=== PATIENT | male | born 1960 | race Caucasian/White ===

== ENCOUNTER 2023-08-05 11:45 | Emergency (ER) | payer MEDICARE, MEDICAID, SELFPAY ==
[2023-08-05 11:56] VITALS: BP 135/84
[2023-08-05 11:58] VITALS: BMI 24.6
--- NOTE | 2023-08-05 12:51 | ED.GENMED ---
History of Present Illness
General
Chief Complaint: Catheter/Tube Problem
Source: ambulance crew and [facility]
Exam Limitations: developmental stage
Time Seen by Provider: 08/05/23 12:26
Nursing documentation reviewed up to this point in time: agreed with
Travel History
Have you had any contact with someone who has COVID-19?: No
Do you have any symptoms of coronavirus? Fever > 100 degrees, chills, cough, shortness of breath, sore throat, loss of taste or smell, muscle aches, or headache?: No
History of Present Illness
History of Present Illness:
Patient is a 63-year-old male past medical history of CVA CP seizures, chronic kidney failure followed by Dr. Shields presents to the ER sent by personal long-term for blood in Lehman catheter. Patient is not on blood thinners but does have a history of
hematuria in the past. Patient was hospitalized in March requiring three-way Lehman catheter.
Patient is awake alert no acute distress denies abdominal pain.
Patient presents to the ER with blood-tinged urine in Lehman bag no clots
Past History
Past History
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
ED Past Surgical History: Orthopedic (Foot surery, right hip sx. )
Social History
Tobacco: Non-smoker
Alcohol: None
Drug: None
Personal: Single
Living: assisted living
Employment: Not employed
Family History
Family History: Unable to obtain
Review of Systems
Review of Systems
Allergies reviewed?: Yes
All Other Systems: ROS reviewed and negative except as documented in HPI and ROS
Constitutional: Reports no symptoms; Denies fever
Respiratory: Reports no symptoms
Cardiac: Reports no symptoms
ABD/GI: Reports no symptoms
: Reports other (Blood in Lehman catheter)
Musculoskeletal: Reports no symptoms
Skin: Reports no symptoms
Neurological: Reports no symptoms
Phy Exam
General Physical Exam
General Presentation: no apparent distress
General age: appears stated age
General Skin: warm and dry
General Habitus: other (Developmental delay)
General Mental: alert
Genitourinary Exam Male
Exam Male: other (lehman bag with blood tinged urine )
Neurological Exam
Neurological Exam: alert
Musculoskeletal Exam
Musculoskeletal Exam: full ROM
Skin Exam
Skin Exam: normal color and warm/dry
Course
Orders/Labs/Results
Orders:
Orders
08/05/23 13:12
Urinalysis Reflex To Culture Urgent
Date Specimen was Collected: 08/05/23
Time Specimen was Collected: 13:07
Urine Microscopic Reflex Cult Urgent
Urine Culture Urgent
DAVID Source: U
Specimen Description:
Date Specimen was Collected: 08/05/23
Time Specimen was Collected: 13:07
08/05/23 13:43
Complete Blood Count/With Diff Urgent
Comprehensive Metabolic Panel Urgent
08/05/23 14:35
Urinalysis Reflex To Culture Urgent
Date Specimen was Collected: 08/05/23
Time Specimen was Collected: 14:34
Comment: Repeat UA after catheter insertion
Urine Microscopic Reflex Cult Urgent
Urine Culture Urgent
DAVID Source: U
Specimen Description:
Date Specimen was Collected: 08/05/23
Time Specimen was Collected: 14:34
Abnormal Lab Results
08/05/23 08/05/23 08/05/23
13:12 13:43 14:35
WBC 12.3 H 10^3/uL
(4.8-10.8)
RBC 3.17 L 10^6/uL
(4.70-6.10)
Hgb 10.1 L g/dL
(13.0-18.0)
Hct 30.1 L %
(39.0-52.0)
MCV 95.0 H fL
(80.0-94.0)
MCH 31.9 H pg
(27.0-31.0)
Absolute Neuts (auto) 8.7 H 10^3/uL
(1.4-6.5)
Absolute Monos (auto) 1.3 H 10^3/uL
(0.1-0.6)
Lymphocytes % 16.3 L %
(20.5-51.1)
Monocytes % 10.8 H %
(1.7-9.3)
Sodium 133 L mmol/L
(135-145)
Chloride 96 L mmol/L
(98-107)
BUN 65 H mg/dl
(9-20)
Creatinine 2.5 H mg/dL
(0.7-1.3)
Glucose 111 H mg/dl
(70-99)
Alkaline Phosphatase 141 H U/L
(38-126)
Urine Ketones Trace A
(Negative)
Ur Occult Blood Reflex 4+ A 4+ A
(Negative) (Negative)
Leukocyte Esterase Rfl 2+ A 1+ A
(Negative) (Negative)
Urine RBC >100 A /HPF 80-90 A /HPF
(0-2) (0-2)
Urine WBC (Reflex) 26-30 A /HPF
(0-5)
Urine Bacteria (Reflex) Few A
(Negative)
Urine Albumin (Reflex) 2+ A 1+ A
(Neg - Trace) (Neg - Trace)
08/05/23 13:43
08/05/23 13:43
Vital Signs
Initial and Last Documented VS:
Initial Vital Signs
Temp Pulse Resp BP Pulse Ox
97.9 F 77 18 135/84 100
08/05/23 11:56 08/05/23 11:56 08/05/23 11:56 08/05/23 11:56 08/05/23 11:56
Last Documented Vital Signs
Temp Pulse Resp BP Pulse Ox
97.9 F 74 18 135/84 100
08/05/23 11:56 08/05/23 14:52 08/05/23 11:56 08/05/23 11:56 08/05/23 11:56
Procedures
Other
Indication for procedure:: lehman not working /hematuria
Additional Procedure:
22 fr Lehman coud� catheter inserted successfully with clear yellow urine return
MDM/Problems Addressed
Differential Diagnosis Includes:
Not limited to hematuria acute urinary retention UTI
MDM/Problems Addressed:
Patient is a 63-year-old male with chronic Lehman catheter presented with hematuria sent by personal care facility. Patient had 550 mL of urine still in bladder despite Lehman catheter. Will check urine but will have nurse irrigate.
Nurse had difficulty urinating and was unable to insert new Lehman. I was able to successfully insert a 22 Hebrew coud� catheter draining clear yellow urine patient is afebrile white count minimally elevated with stable hemoglobin of 10.1 which is
improved from March 2023 of 9.0. Patient's BUN is 65 creatinine 2.5 does have a history of chronic renal failure and labs are baseline. Since urine is now clear yellow and labs are stable and Lehman catheter is properly draining stable for
discharge back to nursing care facility patient is not on blood thinners.
Patient had 2 urinalysis sent the first 1 was from his original Lehman bag however the repeat 1 was from the new catheter insertion urine .
will treat with cefdinir for possible catheter associated UTI however patient nontoxic afebrile looks well stable for discharge home .
Prior micro cultures reviewed. Patient was discharged on this medication previously tolerated well.
Will DC with outpatient followed by urology
*Pulse Oximetry
Patient hypoxic: no
*Critical Care Note
Total Time (30-74mins, 75-104mins- exclusive of procedures): Not Applicable
Data Reviewed
Review of Other/Old Records Reveals: Labs and Discharge Summary
ED Attending Note
-
Portions of this chart may have been created with voice recognition software.� Occasional wrong word or��sound alike� substitutions may have occurred due to the inherent limitations of voice recognition software.
Discharge Plan
Departure
Patient Disposition: Long Term/SNF
Date of Disposition: 08/05/23
Time of Disposition: 15:26
Patient with high blood pressure during this ER visit?: Yes
Condition: Fair
Covid-19: Not Applicable
Discharge Problem:
Hematuria, Acute UTI
Instructions: Urinary Tract Infection, Adult ED, Blood in Urine (Hematuria), Adult ED
Prescriptions:
New
cefdinir 300 mg capsule
300 mg PO BID Qty: 20 0RF
No Action
vitamin E (dl, acetate) 400 UNITS capsule
400 units PO DAILY
acetaminophen 325 MG tablet
650 mg PO QIDPRN PRN (Reason: mild pain/fever)
cholecalciferol (vitamin D3) 1,000 UNITS tablet
1,000 units PO QPM
levetiracetam 500 MG tablet
1,000 mg PO BID Qty: 120 0RF
carbamazepine 200 MG tablet
200 mg PO BID@0800,1600
carbamazepine 200 MG tablet
300 mg PO HS
ascorbic acid (vitamin C) [Vitamin C] 500 MG tablet
500 mg PO DAILY Qty: 60 0RF
lamotrigine [Lamictal] 150 mg Tablet
300 mg PO BID
clorazepate dipotassium 3.75 mg Tablet
3.75 mg PO BID
calcium polycarbophil [Fiber (calcium polycarbophil)] 625 mg Tablet
625 mg PO HS
methenamine hippurate 1 gram tablet
1 g PO BID
docusate sodium 100 MG capsule
100 mg PO BID
escitalopram oxalate 10 mg tablet
10 mg PO DAILY
sodium bicarbonate 650 mg Tablet
650 mg PO BID
guaifenesin 100 mg/5 mL Liquid
200 mg PO Q4HPRN PRN (Reason: cough)
polyethylene glycol 3350 17 gram powder in packet
17 g PO Q48H
aripiprazole 5 mg Tablet
5 mg PO HS
cefdinir 300 mg Capsule
300 mg PO DAILY Qty: 9 0RF
white petrolatum [Hydrophor] 42 % Ointment
1 applic topical DAILY Qty: 0 0RF
Referrals:
Chacha Dnubar PA [Family Provider] -
Activity Restrictions/Additional Instructions:
A new 22 Hebrew coud� Lehman catheter was inserted draining clear yellow urine. Patient will be treated for urinary tract infection. Prescription for cefdinir sent to pharmacy. Follow-up with his family doctor in the next several days for
reevaluation
Interventions
Interventions:
*General Assessment Last Done: 08/05/23 11:54
ED- Fall Risk Assessment Last Done: 08/05/23 11:54
*ED COVID-19 Vaccine History Last Done: 08/05/23 11:55
HP-Txxtor-Aenlnlercy Assessment Last Done: 08/05/23 12:10
ED-Male Genitourinary Assessment Last Done: 08/05/23 12:00
Discharge Date and Time
Print Language: [place]THER[place] IRISH
[2023-08-05 13:51] LABS: Urine Albumin 2+ (Neg - Trace); Urine Bilirubin Negative (Negative); Urine Character Very Cloudy (Clear); Urine Color Amber; Urine Glucose Negative (Negative); Urine Ketone Trace (Negative); Urine Leukocyte 2+ (Negative); Urine Nitrite Negative (Negative); Urine Occult Blood 4+ (Negative); Urine Specific Gravity 1.015 (<1.030); Urine Urobilinogen Negative (Neg - 1+)
[2023-08-05 13:59] LABS: % Basophils 0.3 % (0-2); % Immature Granulocytes 0.2 % (0-0.5); % Lymphocytes 16.3 % (20.5-51.1); % Monocytes 10.8 % (1.7-9.3); % Neutrophils 71.4 % (42.2-75.2); Absolute Eosinophils 0.1 10^3/uL (0-0.7); Absolute Monocytes 1.3 10^3/uL (0.1-0.6); Absolute Neutrophils 8.7 10^3/uL (1.4-6.5); Hematocrit 30.1 % (39.0-52.0); Hemoglobin 10.1 g/dL (13.0-18.0); Mean Corp Hgb Conc. 33.6 g/dL (33.0-37.0); Mean Corpuscular Hgb 31.9 pg (27.0-31.0); Mean Platelet Volume 9.9 fL (7.4-10.4); Nucleated Red Blood Cells % 0 % (-); Platelet Count 263 10^3/uL (130-400); Red Blood Cell Count 3.17 10^6/uL (4.70-6.10); Red Cell Dist. Width 13.2 % (11.5-14.5); White Blood Cell Count 12.3 10^3/uL (4.8-10.8)
[2023-08-05 14:15] LABS: ALT (SGPT) 15 U/L (0-50); AST (SGOT) 23 U/L (17-59); Alkaline Phosphatase 141 U/L (38-126); Blood Urea Nitrogen 65 mg/dl (9-20); Carbon Dioxide 28 mmol/L (22-30); Chloride 96 mmol/L (98-107); Estimated Creatinine Clearance 24 ml/min; Glucose 111 mg/dl (70-99); Potassium 4.2 mmol/L (3.5-5.1); Sodium 133 mmol/L (135-145); Total Bilirubin 0.5 mg/dl (0.2-1.3); Total Protein 6.7 g/dl (6.3-8.2); eGFR 28.52
[2023-08-05 14:15] LABS: Urine Red Blood Cell >100 /HPF (0-2)
[2023-08-05 15:05] LABS: Urine Albumin 1+ (Neg - Trace); Urine Bilirubin Negative (Negative); Urine Character Clear (Clear); Urine Color Yellow; Urine Glucose Negative (Negative); Urine Ketone Negative (Negative); Urine Leukocyte 1+ (Negative); Urine Nitrite Negative (Negative); Urine Occult Blood 4+ (Negative); Urine Urobilinogen Negative (Neg - 1+); Urine pH 6.5 (5.0-9.0)
[2023-08-05 15:17] LABS: Urine Bacteria Few (Negative); Urine Red Blood Cell 80-90 /HPF (0-2); Urine Squamous Cell 0-2 /LPF (Few)
[2023-08-05 15:18] LABS: Urine White Cell 26-30 /HPF (0-5)
== END 2023-08-05 17:41 ==
LOC: EMR 11:45
PROVIDERS: Nurse Practitioner; EMERGENCY PHYSICIAN Emergency Medicine; FAMILY PHYSICIAN Internal Medicine
DX: R31.9 Hematuria, unspecified (principal); N39.0 Urinary tract infection, site not specified; R03.0 Elevated blood-pressure reading, without diagnosis of hypertension; N18.9 Chronic kidney disease, unspecified; K21.9 Gastro-esophageal reflux disease without esophagitis; R56.9 Unspecified convulsions; I69.351 Hemiplegia and hemiparesis following cerebral infarction affecting right dominant side; F32.A Depression, unspecified; F41.9 Anxiety disorder, unspecified; G80.9 Cerebral palsy, unspecified; N40.0 Benign prostatic hyperplasia without lower urinary tract symptoms; Z91.51 Personal history of suicidal behavior
CPT/HCPCS: 99284; 51702; 80053; 81003; 81015; 85025; 87077; 87086; 87147; 87186

== ENCOUNTER → 2023-08-16 08:43 | Outpatient (REF) | payer MEDICARE, MEDICAID, SELFPAY ==
[2023-08-16 10:30] LABS: % Immature Granulocytes 0.3 % (0-0.5); % Lymphocytes 34.2 % (20.5-51.1); % Monocytes 9.7 % (1.7-9.3); % Neutrophils 51.8 % (42.2-75.2); Absolute Basophils 0.1 10^3/uL (0-0.2); Absolute Eosinophils 0.3 10^3/uL (0-0.7); Absolute Lymphocytes 3.1 10^3/uL (1.2-3.4); Absolute Monocytes 0.9 10^3/uL (0.1-0.6); Absolute Neutrophils 4.6 10^3/uL (1.4-6.5); Hemoglobin 10.9 g/dL (13.0-18.0); Mean Corp Hgb Conc. 35.2 g/dL (33.0-37.0); Mean Corpuscular Volume 90.9 fL (80.0-94.0); Mean Platelet Volume 9.8 fL (7.4-10.4); Nucleated Red Blood Cells % 0 % (-); Platelet Count 317 10^3/uL (130-400); Red Blood Cell Count 3.41 10^6/uL (4.70-6.10); Red Cell Dist. Width 13.3 % (11.5-14.5)
[2023-08-16 11:11] LABS: Total Iron Binding Capacity 245 ug/dl (261-462)
[2023-08-16 11:17] LABS: Iron 85 ug/dl (49-181); Percent Saturation 34 % (20-50)
[2023-08-16 11:38] LABS: Ferritin 68.9 ng/ml (17.9-464.0)
== END ==
LOC: REG 08:43
PROVIDERS: ATTENDING PHYSICIAN Specialist; FAMILY PHYSICIAN Nurse Practitioner
DX: I10 Essential (primary) hypertension (principal); D64.9 Anemia, unspecified; N17.9 Acute kidney failure, unspecified
CPT/HCPCS: 36415; 82728; 83540; 83550; 85025

== ENCOUNTER 2023-11-23 22:07 | Emergency (ER) | payer MEDICARE, MEDICAID, SELFPAY ==
[2023-11-23 22:10] VITALS: BP 150/90
--- NOTE | 2023-11-23 22:43 | ED.GENMED ---
History of Present Illness
<JELANI Ann - Last Filed: 11/23/23 22:57>
General
Chief Complaint: Catheter/Tube Problem
Time Seen by Provider: 11/23/23 22:43
History of Present Illness
History of Present Illness:
Patient is a 63 year old male with a PMH of cerebral palsy and seizures presents to the ED with his catheter pulled out with the balloon inflated. Patient was not cooperating with answering any questions and just claimed that his catheter came out
somehow.
Past History
<JELANI Ann - Last Filed: 11/23/23 22:57>
Past History
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
ED Past Surgical History: Orthopedic (Foot surery, right hip sx. )
Social History
Tobacco: Non-smoker
Alcohol: None
Drug: None
Personal: Single
Living: assisted living
Employment: Not employed
Family History
Family History: Unable to obtain
Review of Systems
<JELANI Ann - Last Filed: 11/23/23 22:57>
Review of Systems
Allergies reviewed?: No
Phy Exam
<JELANI Ann - Last Filed: 11/23/23 22:57>
General Physical Exam
General Presentation: moderate distress
General age: appears stated age
Pulmonary Exam
Pulmonary Exam: no respiratory distress
Course
<JELANI Ann - Last Filed: 11/23/23 22:57>
Orders/Labs/Results
Orders:
Orders
11/23/23 22:44
Galvin Placement- Treatment ONCE
Reason for insertion: Acute Retention
11/23/23 23:56
Urinalysis Reflex To Culture Urgent
Date Specimen was Collected: 11/23/23
Time Specimen was Collected: 23:57
11/24/23 00:00
Urine Microscopic Reflex Cult Urgent
Urine Culture Urgent
DAVID Source: U
Specimen Description:
Date Specimen was Collected: 11/23/23
Time Specimen was Collected: 23:57
11/24/23 01:22
CT Head W/o Iv Contrast Urgent
Comment:
Reason For Exam: unwitnessed fall
Abnormal Lab Results
11/24/23
00:00
Ur Occult Blood Reflex 3+ A
(Negative)
Leukocyte Esterase Rfl 2+ A
(Negative)
Urine WBC (Reflex) >100 A /HPF
(0-5)
Urine Albumin (Reflex) 2+ A
(Neg - Trace)
Vital Signs
Initial and Last Documented VS:
Initial Vital Signs
Temp Pulse Resp BP Pulse Ox
97.8 F 76 18 150/90 95
11/23/23 22:10 11/23/23 22:10 11/23/23 22:10 11/23/23 22:10 11/23/23 22:10
Last Documented Vital Signs
Temp Pulse Resp BP Pulse Ox
97.8 F 76 18 123/81 96
11/23/23 22:10 11/23/23 22:10 11/23/23 22:10 11/24/23 01:00 11/24/23 00:14
<Wilfredo Oliver, DO - Last Filed: 11/24/23 03:02>
Orders/Labs/Results
Orders:
Orders
11/23/23 22:44
Galvin Placement- Treatment ONCE
Reason for insertion: Acute Retention
11/23/23 23:56
Urinalysis Reflex To Culture Urgent
Date Specimen was Collected: 11/23/23
Time Specimen was Collected: 23:57
11/24/23 00:00
Urine Microscopic Reflex Cult Urgent
Urine Culture Urgent
DAVID Source: U
Specimen Description:
Date Specimen was Collected: 11/23/23
Time Specimen was Collected: 23:57
11/24/23 01:22
CT Head W/o Iv Contrast Urgent
Comment:
Reason For Exam: unwitnessed fall
Abnormal Lab Results
11/24/23
00:00
Ur Occult Blood Reflex 3+ A
(Negative)
Leukocyte Esterase Rfl 2+ A
(Negative)
Urine WBC (Reflex) >100 A /HPF
(0-5)
Urine Albumin (Reflex) 2+ A
(Neg - Trace)
Vital Signs
Initial and Last Documented VS:
Initial Vital Signs
Temp Pulse Resp BP Pulse Ox
97.8 F 76 18 150/90 95
11/23/23 22:10 11/23/23 22:10 11/23/23 22:10 11/23/23 22:10 11/23/23 22:10
Last Documented Vital Signs
Temp Pulse Resp BP Pulse Ox
97.8 F 76 18 123/81 96
11/23/23 22:10 11/23/23 22:10 11/23/23 22:10 11/24/23 01:00 11/24/23 00:14
<JELANI Ann - Last Filed: 11/23/23 22:57>
*Critical Care Note
Total Time (30-74mins, 75-104mins- exclusive of procedures): Not Applicable
<Wilfredo Oliver DO - Last Filed: 11/24/23 03:02>
Update Note
Update Note:
IMPRESSION
Compared to 06/01/2022, no significant interval change
No evidence of acute intracranial abnormality. No evidence of hemorrhage or mass.
Severe dilatation of the left lateral ventricle with additional moderate dilation of the ventricles.
Moderate periventricular and subcortical regions of low attenuation likely representing chronic small vessel ischemic disease.
Bones are unremarkable.
Sinuses are unremarkable.
ED Attending Note
<JELANI Ann - Last Filed: 11/23/23 22:57>
-
Portions of this chart may have been created with voice recognition software.� Occasional wrong word or��sound alike� substitutions may have occurred due to the inherent limitations of voice recognition software.
<Wilfredo Oliver DO - Last Filed: 11/24/23 03:02>
ED Attending Note
Patient seen and examined by attending physician: Yes
I performed the substantive portion of visit, reviewed & personally made and approve the management plan that is documented in note by myself or CHEN.: Yes
ED Attending Note:
63-year-old male with a history of cerebral palsy who resides at [facility] presents to the emergency department via EMS after being found on the floor with his Galvin removed. The Galvin was likely dislodged during the fall, As the balloon
was inflated. Patient was seen in conjunction with the PA student. I have reviewed and agree with the history and treatment plan presented. On my independent physical exam, patient is somnolent. Nursing had replaced the Galvin catheter. Patient
now resting comfortably. No acute
Discharge Plan
Departure
Patient Disposition: Fdc/SNF
Date of Disposition: 11/24/23
Time of Disposition: 03:01
Patient with high blood pressure during this ER visit?: Yes
Discharge Problem:
Complication of Galvin catheter
Instructions: How to Care for Your Galvin Catheter, Male, BLOOD PRESSURE
Prescriptions:
No Action
vitamin E (dl, acetate) 400 UNITS capsule
400 units PO DAILY
acetaminophen 325 MG tablet
650 mg PO QIDPRN PRN (Reason: mild pain/fever)
cholecalciferol (vitamin D3) 1,000 UNITS tablet
1,000 units PO QPM
levetiracetam 500 MG tablet
1,000 mg PO BID Qty: 120 0RF
carbamazepine 200 MG tablet
200 mg PO BID@0800,1600
carbamazepine 200 MG tablet
300 mg PO HS
ascorbic acid (vitamin C) [Vitamin C] 500 MG tablet
500 mg PO DAILY Qty: 60 0RF
lamotrigine [Lamictal] 150 mg Tablet
300 mg PO BID
clorazepate dipotassium 3.75 mg Tablet
3.75 mg PO BID
calcium polycarbophil [Fiber (calcium polycarbophil)] 625 mg Tablet
625 mg PO HS
methenamine hippurate 1 gram tablet
1 g PO BID
docusate sodium 100 MG capsule
100 mg PO BID
escitalopram oxalate 10 mg tablet
10 mg PO DAILY
sodium bicarbonate 650 mg Tablet
650 mg PO BID
guaifenesin 100 mg/5 mL Liquid
200 mg PO Q4HPRN PRN (Reason: cough)
polyethylene glycol 3350 17 gram powder in packet
17 g PO Q48H
aripiprazole 5 mg Tablet
5 mg PO HS
cefdinir 300 mg Capsule
300 mg PO DAILY Qty: 9 0RF
white petrolatum [Hydrophor] 42 % Ointment
1 applic topical DAILY Qty: 0 0RF
cefdinir 300 mg capsule
300 mg PO BID Qty: 20 0RF
Referrals:
NONE,* [Family Provider] -
Interventions
Interventions:
*Risk Screen - Suicide Last Done: 11/23/23 23:20
*General Assessment Last Done: 11/23/23 23:20
*Neglect/Abuse Screening Last Done: 11/23/23 23:20
*ED COVID-19 Vaccine History Last Done: 11/23/23 23:20
TG-Klpirx-Iodjdisjxc Assessment Last Done: 11/23/23 23:20
ED-Male Genitourinary Assessment Last Done: 11/23/23 23:20
Discharge Date and Time
Print Language: NAMIBIAN
[2023-11-23 23:16] VITALS: BP 106/65
[2023-11-24] VITALS: BP 107/59
[2023-11-24 00:07] LABS: Urine Albumin 2+ (Neg - Trace); Urine Bilirubin Negative (Negative); Urine Character Very Cloudy (Clear); Urine Color Yellow; Urine Glucose Negative (Negative); Urine Ketone Negative (Negative); Urine Leukocyte 2+ (Negative); Urine Nitrite Negative (Negative); Urine Occult Blood 3+ (Negative); Urine Urobilinogen Negative (Neg - 1+)
[2023-11-24 00:30] LABS: Urine White Cell >100 /HPF (0-5)
[2023-11-24 01:00] VITALS: BP 123/81
--- NOTE | 2023-11-24 02:22 | EDRN ---
Report received, waiting on CT report for dispo, patient provided with more warm blankets
--- NOTE | 2023-11-24 06:02 | EDRN ---
Patient is sleeping at this time, will continue to monitor
--- NOTE | 2023-11-24 09:56 | EDRN ---
Assumed care of pt at 09:00. Was told in report that shift commander had called report. Facility staff called here for report/update. Provided by me, including CT and UA results. Paper report also sent with EMS staff. Pt ate boxed lunch and drank juice
since 09:00 and lehman was emptied by reporting nurse, Marjan. Facility staff states that their overnight staff did not have adequate medical support, hence the delay in accepting pt back. They were concerned for possible UTI, and request that in
future cases, a nurse to nurse report should be initiated prior to arranging transport.
== END 2023-11-24 10:02 ==
LOC: EMR 22:07
PROVIDERS: EMERGENCY PHYSICIAN Student in an Organized Health Care Education/Training Program
DX: T83.098A Other mechanical complication of other urinary catheter, initial encounter (principal); X58.XXXA Exposure to other specified factors, initial encounter; W19.XXXA Unspecified fall, initial encounter; G80.9 Cerebral palsy, unspecified; I69.951 Hemiplegia and hemiparesis following unspecified cerebrovascular disease affecting right dominant side; K21.9 Gastro-esophageal reflux disease without esophagitis
CPT/HCPCS: 51702; 99284; 70450; 81003; 81015; 87086; 87088; 87186

== ENCOUNTER 2023-12-24 18:33 | Inpatient (IN) | payer MEDICARE, MEDICAID, SELFPAY ==
[2023-12-24] VITALS (10 sets, daily range): BP systolic 106–148; BP diastolic 60–89; BMI 20.7; BMI 18.8
[2023-12-24 12:36] LABS: % Basophils 0.7 % (0-2); % Eosinophils 2.2 % (0-6); % Immature Granulocytes 0.3 % (0-0.5); % Lymphocytes 11.8 % (20.5-51.1); % Monocytes 11.8 % (1.7-9.3); % Neutrophils 73.2 % (42.2-75.2); Absolute Basophils 0.1 10^3/uL (0-0.2); Absolute Eosinophils 0.2 10^3/uL (0-0.7); Absolute Lymphocytes 1.2 10^3/uL (1.2-3.4); Absolute Monocytes 1.2 10^3/uL (0.1-0.6); Absolute Neutrophils 7.6 10^3/uL (1.4-6.5); Hematocrit 32.4 % (39.0-52.0); Hemoglobin 11.4 g/dL (13.0-18.0); Mean Corp Hgb Conc. 35.2 g/dL (33.0-37.0); Mean Corpuscular Hgb 32.1 pg (27.0-31.0); Mean Corpuscular Volume 91.3 fL (80.0-94.0); Mean Platelet Volume 10.2 fL (7.4-10.4); Nucleated Red Blood Cells % 0 % (-); Platelet Count 234 10^3/uL (130-400); Red Blood Cell Count 3.55 10^6/uL (4.70-6.10); Red Cell Dist. Width 13.1 % (11.5-14.5); White Blood Cell Count 10.3 10^3/uL (4.8-10.8)
[2023-12-24 12:51] LABS: ALT (SGPT) 26 U/L (0-50); AST (SGOT) 26 U/L (17-59); Albumin 4.2 g/dl (3.5-5.0); Alkaline Phosphatase 134 U/L (38-126); Blood Urea Nitrogen 63 mg/dl (9-20); Calcium 9.1 mg/dl (8.4-10.2); Carbon Dioxide 30 mmol/L (22-30); Chloride 95 mmol/L (98-107); Estimated Creatinine Clearance 23 ml/min; Glucose 103 mg/dl (70-99); Potassium 3.8 mmol/L (3.5-5.1); Sodium 136 mmol/L (135-145); Total Bilirubin 0.2 mg/dl (0.2-1.3); Total Protein 6.8 g/dl (6.3-8.2); eGFR 23.86
[2023-12-24 13:01] LABS: Urine Albumin 2+ (Neg - Trace); Urine Bilirubin Negative (Negative); Urine Character Very Cloudy (Clear); Urine Color Straw; Urine Glucose Negative (Negative); Urine Ketone Negative (Negative); Urine Leukocyte 2+ (Negative); Urine Nitrite Negative (Negative); Urine Occult Blood 4+ (Negative); Urine Urobilinogen Negative (Neg - 1+)
[2023-12-24 13:21] LABS: Urine Bacteria Few (Negative); Urine Mucus Few; Urine Red Blood Cell 26-30 /HPF (0-2); Urine White Cell 50-60 /HPF (0-5)
--- NOTE | 2023-12-24 15:23 | ED.GENMED ---
History of Present Illness
General
Chief Complaint: Weakness
Source: patient, records, ambulance crew and shelter
Exam Limitations: developmental stage
Time Seen by Provider: 12/24/23 15:01
Nursing documentation reviewed up to this point in time: agreed with
History of Present Illness
History of Present Illness:
63-year-old male with a history of CP, MR, seizure disorder, right hemiparesis, nonambulatory, chronic kidney disease with an indwelling Lehman from a personal care facility called friends and family for 10 days of gradual increased weakness.
Patient normally can transfer to his wheelchair with a one-person assist and then propel himself forward but he has been increasingly weak requiring a second person to help him. Over the last several days the nurses have noticed this weakness get
worse. He had his urine tested a couple of days ago which did grow out 10-50,000 colonies of coagulase-negative staph which is thought to be contaminant. He was not initiated antibiotics. Patient has had positive urine cultures previously and has
not had antibiotics for these. Patient not had any known fever, cough, vomiting. Today apparently he seemed to slump over the side of the bed and not tolerate oral liquids which were dripping down his face. The nurses thought maybe he was having
some dysphagia. There is not been any changes to his Keppra or Lamictal recently. He is chronically intermittently having a twitching movement which the nurses say may be slightly increased now but is not new. According to the last neurologist
note they asked him about this and they were not concerned.
Past History
Past History
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
ED Past Surgical History: Orthopedic (Foot surery, right hip sx. )
Social History
Tobacco: Non-smoker
Alcohol: None
Drug: None
Personal: Single
Living: assisted living
Employment: Not employed
Family History
Family History: Unable to obtain
Review of Systems
Review of Systems
Allergies reviewed?: Yes
All Other Systems: Not applicable
Phy Exam
Physical Exam
Physical Exam:
GENERAL: Patient is leaning to the right in the stretcher, almost putting his head on the bars, he frequently has a twitch of his extremities which seems involuntary
HEAD: NCAT
EYE: pupils equal and reactive, strabismus, slight nystagmus which is visible to left lateral gaze
NECK: Supple,full rom, nontender
ENT: o/p clr, mmm. Sticks his tongue out midline
CARDIAC: Regular rate and rhythm . no edema
LUNGS: Clear breath sounds bilaterally, no acute respiratory distress, no wheezes/rales/rhonchi
ABDOMEN: Soft, without focal tenderness, no r/g, no cvat
lehman clear urine
NEUROLOGICAL: Alert and orientedx2, no significant facial asymmetry, cranial nerves intact, no facial asymmetry, 4/5 LUE; 3/5 LLE, right UE hemirparesis
SKIN: Warm and dry, skin intact.no wounds
MUSCULOSKELETAL: No edema, well perfused.
PSYCH: Normal and appropriate interaction.
Course
Orders/Labs/Results
Orders:
Orders
12/24/23 12:03
EKG [Electrocardiogram (*1)] Urgent
Reason for Study: Fatigue / Weakness
12/24/23 12:04
EKG- Treatment ONCE
12/24/23 12:24
CMP [Comprehensive Metabolic Panel] Urgent
Complete Blood Count/With Diff Urgent
Creatine Phosphokinase Urgent
Comment: ADD ON
12/24/23 12:44
UA Reflex to Culture [Urinalysis Reflex To Culture] Urgent
Date Specimen was Collected: 12/24/23
Time Specimen was Collected: 12:41
Urine Microscopic Reflex Cult Urgent
Urine Culture Urgent
DAVID Source: U
Specimen Description:
Date Specimen was Collected: 12/24/23
Time Specimen was Collected: 12:41
12/24/23 15:21
CT Head W/o Iv Contrast Urgent
Comment:
Reason For Exam: weakness x 2 days
12/24/23 15:22
Add On- LAB Urgent
Tests Added?: cpk
12/24/23 15:23
CR Chest - 2 Views Urgent
Comment:
Reason For Exam: weakness
12/24/23 15:26
COVID-19 Antigen Urgent
Source: Nasal Swab
12/24/23 17:47
CefTRIAXone [Rocephin] 1,000 mg IV NOW STA
12/24/23 18:19
Admit/Transfer Patient As Directed
Co-Sign Provider:
Level of Care: Inpatient admission
Assign to:: Medical/Surgical
Physician / Group: azaely
Diagnosis: UTI
Reason for Hospitalization: UTI
Expected length of stay greater than two midnights?: Yes
ELOS- Estimated Length of Stay in days: 3
I certify the patient meets the requirements for IP care: Yes
PRN Pain Medication Management As Directed
May give lesser potent ordered pain med per pt: Yes
preference::
Protocol:: Medication orders for pain may be administered in a
manner that supports deferring to patient preference
when the pt is:
- Requesting an ordered lesser potent pain medication.
Least to most potent pain medications are defined
as: acetaminophen < NSAID < tramadol < opioids
(morphine, oxycodone, hydromorphone).
- Requesting a lesser dose of the same medication IF
ORDERED.
- Requesting a less intrusive route of administration
if both routes are prescribed by the provider (PO <
IV).
12/24/23 18:20
Code Status As Directed
Resuscitation Status: Full Code
12/24/23 18:28
Add On- LAB Stat
Tests Added?: gracealysa, lamictal
Abnormal Lab Results
12/24/23 12/24/23
12: 12:44
RBC 3.55 L 10^6/uL
(4.70-6.10)
Hgb 11.4 L g/dL
(13.0-18.0)
Hct 32.4 L %
(39.0-52.0)
MCH 32.1 H pg
(27.0-31.0)
Absolute Neuts (auto) 7.6 H 10^3/uL
(1.4-6.5)
Absolute Monos (auto) 1.2 H 10^3/uL
(0.1-0.6)
Lymphocytes % 11.8 L %
(20.5-51.1)
Monocytes % 11.8 H %
(1.7-9.3)
Chloride 95 L mmol/L
(98-107)
BUN 63 H mg/dl
(9-20)
Creatinine 2.9 H mg/dL
(0.7-1.3)
Glucose 103 H mg/dl
(70-99)
Alkaline Phosphatase 134 H U/L
(38-126)
Ur Occult Blood Reflex 4+ A
(Negative)
Leukocyte Esterase Rfl 2+ A
(Negative)
Urine RBC 26-30 A /HPF
(0-2)
Urine WBC (Reflex) 50-60 A /HPF
(0-5)
Urine Bacteria (Reflex) Few A
(Negative)
Urine Albumin (Reflex) 2+ A
(Neg - Trace)
12/24/23 12:24
12/24/23 12:24
Vital Signs
Initial and Last Documented VS:
Initial Vital Signs
Temp Pulse Resp BP Pulse Ox
97.9 F 83 20 106/81 99
12/24/23 12:04 12/24/23 12:04 12/24/23 12:04 12/24/23 12:04 12/24/23 12:04
Last Documented Vital Signs
Temp Pulse Resp BP Pulse Ox
97.9 F 63 10 132/89 98
12/24/23 12:04 12/24/23 16:45 12/24/23 16:45 12/24/23 16:00 12/24/23 12:12
MDM/Problems Addressed
Differential Diagnosis Includes:
uti, cva, rhabdo, seizure, lamictal toxicity
MDM/Problems Addressed:
lashawn armstrong 63 y/o M MR, CP, R hemiparesis, CVA, ventriculomegaly; seizures
chronic lehman
has had 10 days gradually worsening weakness; usually needs 1 person assist to transfer and can get himself around in his wheelchair, now needs 2 and is unable; leaning to right side; letahrgic
he has been here for other reasons, had E coli urine in november that was not treated;
then another urine culture from facility a few days ago because of this weakness which showed coag neg staph; so they didn't treat it; but he has really been more weak an dis from a personal care facility and not a shelter
his work up here is really otherwise unremarkable other than the urine; he has CKD unchanged, head ct unchnaged;
i don't think he's having focal seizures but he does twitch frequently;
i think it is worth trial of ABX for presumed uti to see if his weakness improves
also consider elevated lamictal levels/toxicity which could cause weakness/twitchig/nystagmus
*Critical Care Note
Total Time (30-74mins, 75-104mins- exclusive of procedures): Not Applicable
ED Attending Note
-
Portions of this chart may have been created with voice recognition software.� Occasional wrong word or��sound alike� substitutions may have occurred due to the inherent limitations of voice recognition software.
Discharge Plan
Departure
Patient Disposition: Admit
Date of Disposition: 12/24/23
Time of Disposition: 17:50
Admit to: Med/Surg
Presentation/result/management discussed w/ accepting MD/DO: Hospitalist
Condition: Fair
Covid-19: Not Applicable
Discharge Problem:
UTI (urinary tract infection), Weakness
Interventions
Interventions:
*Risk Screen - Suicide Last Done: 12/24/23 12:42
*General Assessment Last Done: 12/24/23 12:42
*Neglect/Abuse Screening Last Done: 12/24/23 12:42
*ED COVID-19 Vaccine History Last Done: 12/24/23 12:42
ED- Cardiac Assessment Last Done: 12/24/23 13:18
ED- Neurological Assessment Last Done: 12/24/23 13:18
ED- Pulmonary Assessment Last Done: 12/24/23 13:18
[2023-12-24 15:56] LABS: COVID-19 Antigen Negative (Negative)
[2023-12-24 16:13] LABS: Creatine Phosphokinase 112 U/L (55-170)
[2023-12-24] MEDS: ROCEPHIN 1000 MG IV (17:59)
--- NOTE | 2023-12-24 17:59 | HPS.HSE ---
Addendum entered and electronically signed by Aly Robb MD 12/24/23 18:51:
I saw and examined the patient.
The CUSTOM SH[employer] DESIGNER [employer] MAKER or PA's note was reviewed and I agree with the note.
Comment:
63M CP, MR, seizure disorder, right hemiparesis, nonambulatory, chronic kidney disease with an indwelling Galvin was sent in due to worsening weakness:
PHX
Cerebral palsy
Constipation
Anxiety
Epilepsy
BPH
Depression
Obstructive uropathy
Anemia
Depression dyslipidemia
Hypertension
CKD
Vital Signs
Temp Pulse Resp BP Pulse Ox
97.9 F 63 10 132/89 98
12/24/23 12:04 12/24/23 16:45 12/24/23 16:45 12/24/23 16:00 12/24/23 12:12
Abnormal Lab Results
12/24/23 12/24/23
12:24 12:44
RBC 3.55 L
Hgb 11.4 L
Hct 32.4 L
MCH 32.1 H
Absolute Neuts (auto) 7.6 H
Absolute Monos (auto) 1.2 H
Lymphocytes % 11.8 L
Monocytes % 11.8 H
Chloride 95 L
BUN 63 H
Creatinine 2.9 H
Glucose 103 H
Alkaline Phosphatase 134 H
Ur Occult Blood Reflex 4+ A
Leukocyte Esterase Rfl 2+ A
Urine RBC 26-30 A
Urine WBC (Reflex) 50-60 A
Urine Bacteria (Reflex) Few A
Urine Albumin (Reflex) 2+ A
NEG CXR
NEG Head CT
ASSESSMENT & PLAN
CAUTI complicated by generalized weakness and debility
- UCx sent
- empiric IV CFTX
- PT/OT
Anemia of chronic disease: Hemoglobin stable at 9.4
-No active bleeding
HX CKD4
-Creatinine 2.9
-Continue to monitor
HX Seizure Disorder
- cw EMBRYOLOGY TEACHER antiepileptics
DM 2
-ISS low
Cerebral palsy
- halfway resident
Chronic dysphagia - on DYS 1 diet
- Speech consulted
DVT Px: SQH
Code: Full code
IP MS
Original Note:
Family Physician
-
Family Physician: Corey Piedra
Chief Complaint
-
weakness
History of Present Illness
63-year-old male with a history of CP, MR, seizure disorder, right hemiparesis, nonambulatory, chronic kidney disease with an indwelling Galvin was sent in due to worsening weakness. as per the facility, He had his urine tested a couple of days ago
which did grow out 10-50,000 colonies of coagulase-negative staph which is thought to be contaminant. He was not initiated antibiotics. Patient not had any known fever, cough, vomiting. denied any chest pain, sob. denied abdominal pain,n,v,d.
patient has chronic Galvin cath, which was changed in ER.
Positive urinalysis. Give a dose of ceftriaxone admitting for further management.
Medical History
Past Medical History
Past Medical History: Reports Other
Additional Past Medical History:
Cerebral palsy
Constipation
Anxiety
Epilepsy
BPH
Depression
Obstructive uropathy
Anemia
Depression dyslipidemia
Hypertension
CKD
Past Surgical History: Reports Other
Additional Past Surgical History:
Right hip replacement
Right lower l leg tendon stretching
Social History
Tobacco: Non-smoker
Alcohol: None
Drug: None
Living: Senior Living
Family History
Family History: Not pertinent
Allergies / Home Medications
Allergies reflects when Allergies were last updated in [facility].
Home Medications with original date entered in [facility]
Allergy/Medication List:
Allergies
Allergy/AdvReac Type Severity Reaction Status Date / Time
house dust Allergy nasal Verified 12/24/23 12:03
congestion
mold Allergy nasal Verified 12/24/23 12:03
congestion
ragweed pollen Allergy nasal Verified 12/24/23 12:03
congestion
cefepime AdvReac Unknown Unknown Verified 12/24/23 12:03
lorazepam [From Ativan] AdvReac Unknown Unknown Verified 12/24/23 12:03
Home Medications
vitamin E (dl, acetate) 180 mg (400 unit) capsule 400 units PO DAILY Supplement 01/16/13
acetaminophen 325 mg tablet 650 mg PO QIDPRN PRN mild pain/fever 03/26/14
cholecalciferol (vitamin D3) 25 mcg (1,000 unit) tablet 1,000 units PO QPM Supplement 03/26/14
levetiracetam 500 mg tablet 1,000 mg (2 x 500 mg) PO BID #120 tabs 03/29/14
carbamazepine 200 mg tablet 200 mg PO BID@0800,1600 Seizures 03/21/18
carbamazepine 200 mg tablet 300 mg PO HS Seizures 02/12/20
ascorbic acid (vitamin C) 500 mg tablet (Vitamin C) 500 mg PO DAILY Supplement #60 tabs 02/16/20
clorazepate dipotassium 3.75 mg tablet 3.75 mg PO BID Seizures 04/23/22
lamotrigine 150 mg tablet (Lamictal) 300 mg PO BID Seizures 04/23/22
calcium polycarbophil 625 mg tablet (Fiber (calcium polycarbophil)) 625 mg PO HS Constipation 05/23/22
docusate sodium 100 mg capsule 100 mg PO BID Constipation 07/04/22
escitalopram oxalate 10 mg tablet 10 mg PO DAILY Depression 07/04/22
methenamine hippurate 1 gram tablet 1 g PO BID Urinary Issue 07/04/22
guaifenesin 100 mg/5 mL oral liquid 200 mg PO Q4HPRN PRN cough 12/19/22
polyethylene glycol 3350 17 gram oral powder packet 17 g PO Q48H Constipation 12/19/22
sodium bicarbonate 650 mg tablet 650 mg PO BID Kidney Disease 12/19/22
aripiprazole 5 mg tablet 5 mg PO HS Depression 04/02/23
cefdinir 300 mg capsule 300 mg PO DAILY #9 caps 04/03/23
white petrolatum 42 % topical ointment (Hydrophor) 1 applic topical DAILY #0 grams 04/03/23
cefdinir 300 mg capsule 300 mg PO BID #20 caps 08/05/23
Review of Systems
-
Constitutional: Reports No Symptoms
EENT: Reports No Symptoms
Respiratory: Reports No Symptoms
Cardiac: Reports No Symptoms
Abdomen/GI: Reports No Symptoms
: Reports Galvin
Musculoskeletal: Reports No Symptoms
Skin: Reports No Symptoms
Neurological: Reports No Symptoms
Endocrine: Reports No Symptoms
Hematologic/Lymphatic: Reports No Symptoms
Psych: Reports No Symptoms
Physical Exam
Vital Signs
Vital Signs
Temp Pulse Resp BP Pulse Ox
97.9 F 63 10 132/89 98
12/24/23 12:04 12/24/23 16:45 12/24/23 16:45 12/24/23 16:00 12/24/23 12:12
Physical Exam
General: Well Developed, Well Nourished and No Apparent Distress
HEENT: NormoCephalic, Moist mucous membranes and Atraumatic
Respiratory: Clear
Cardiac: S1/S2 and Regular Rhythm; No Murmur or Rub
GI: Soft, Non Tender, Non Distended and Normal Bowel Sounds; No Organomegaly
Rectal: Deferred by Provider
Musculoskeletal: No Clubbing, No Cyanosis and No Edema
Skin: No Rash
Neuro: Nonfocal/grossly intact
Psych: Calm
Laboratory Results
-
12/24/23 12:24
12/24/23 12:24
Laboratory Results
Total Bilirubin 0.2 mg/dl (0.2-1.3) 12/24/23 12:24
AST 26 U/L (17-59) 12/24/23 12:24
ALT 26 U/L (0-50) 12/24/23 12:24
Alkaline Phosphatase 134 U/L (38-126) H 12/24/23 12:24
Data Reviewed
-
Diagnostic Radiology: Report Reviewed by me
CT Scan: Report Reviewed by me
Lab Data: Labs Reviewed by me
Impression/Plan
-
#worsening weakness likely from UTI catheter associated
-IV ceftriaxone continued
-urine culture pending
-Chest x-ray with no acute disease
-Head CT No acute intracranial abnormality noted.
-PT/OT consulted
# Anemia of chronic disease
Hemoglobin stable at 9.4
-No active bleeding
-Continue to monitor
# CKD stage IV
-Creatinine 2.9
-Continue to monitor
#Seizure Disorder
cw antiepileptics
DM 2
-ISS
Cerebral palsy
-patient lives in a skilled nursing
chronic dysphagia - patient on dysphagia 1 diet
-Speech consulted
DVT PPx heparin subcu
FULL CODE
[2023-12-24] MEDS: ABILIFY 5 MG PO (21:44)
[2023-12-24] MEDS: KEPPRA 1000 MG PO (21:45)
[2023-12-24] MEDS: LAMICTAL 300 MG PO (21:47)
[2023-12-24] MEDS: FEOSOL 325 MG PO (21:47)
[2023-12-24] MEDS: FIBERCON 625 MG PO (21:47)
[2023-12-24] MEDS: SODIUM BICARBONATE 650 MG PO (21:47)
[2023-12-24] MEDS: HEPARIN 5000 UNITS SC (21:48)
[2023-12-24] MEDS: TRANXENE 3.75 MG PO (22:57)
[2023-12-24] MEDS: TEGRETOL CHEWABLE 300 MG PO (23:16)
[2023-12-25 07:18] VITALS: BP 146/69
[2023-12-25 09:59] LABS: Hematocrit 32.9 % (39.0-52.0); Hemoglobin 11.4 g/dL (13.0-18.0); Mean Corp Hgb Conc. 34.7 g/dL (33.0-37.0); Mean Corpuscular Hgb 31.6 pg (27.0-31.0); Mean Corpuscular Volume 91.1 fL (80.0-94.0); Mean Platelet Volume 10.6 fL (7.4-10.4); Platelet Count 237 10^3/uL (130-400); Red Blood Cell Count 3.61 10^6/uL (4.70-6.10); Red Cell Dist. Width 12.7 % (11.5-14.5); White Blood Cell Count 6.9 10^3/uL (4.8-10.8)
[2023-12-25] MEDS: HEPARIN 5000 UNITS SC ×2 (10:14→21:33)
[2023-12-25] MEDS: FEOSOL 325 MG PO ×2 (10:14→21:35)
[2023-12-25] MEDS: TEGRETOL 200 MG PO ×2 (10:15→17:56)
[2023-12-25] MEDS: KEPPRA 1000 MG PO ×2 (10:15→21:35)
[2023-12-25] MEDS: SODIUM BICARBONATE 650 MG PO ×2 (10:15→21:35)
[2023-12-25] MEDS: LEXAPRO 10 MG PO (10:15)
[2023-12-25] MEDS: LAMICTAL 300 MG PO ×2 (10:15→21:35)
[2023-12-25] MEDS: PROZAC 20 MG PO (10:15)
[2023-12-25] MEDS: FLUSH (NSS) 1 FLUSH IV (10:16)
[2023-12-25] MEDS: TRANXENE 3.75 MG PO ×2 (10:16→21:35)
[2023-12-25 10:35] LABS: Blood Urea Nitrogen 58 mg/dl (9-20); Calcium 9.2 mg/dl (8.4-10.2); Carbon Dioxide 30 mmol/L (22-30); Chloride 94 mmol/L (98-107); Estimated Creatinine Clearance 21 ml/min; Glucose 85 mg/dl (70-99); Potassium 3.8 mmol/L (3.5-5.1); Sodium 137 mmol/L (135-145); eGFR 23.86
[2023-12-25 12:30] VITALS: BMI 18.8
[2023-12-25 13:40] VITALS: BP 125/70; PULSE 76; O2SAT 98
--- NOTE | 2023-12-25 15:09 | PTOTSP ---
SPEECH THERAPY SWALLOW EVALUATION:
Patient exhibits clinical signs of oropharyngeal dysphagia, likely chronic related to cerebral palsy and generalized weakness/deconditioning, and acutely exacerbated by UTI. Patient remains at risk for aspiration and related complications given
suboptimal positioning and limited mobility. On Puree diet and thin liquids at baseline. Recommend IDDSI Level 4 puree diet and Mildly-thick liquids. Medications crushed in puree. Aspiration precautions: 1:1 assistance; Upright as able positioning;
100% supervision; Small sips/bites; Slow rate; NO straws; Remain upright 30 minutes after eating/drinking; Eat only when awake/alert; Ensure patient swallows prior to next bite; Monitor for signs of aspiration; D/c oral diet if any decline in mental
or respiratory status. Oral care 3x/day to reduce risk for nosocomial infection. Consider VSE should pt exhibit any signs concerning for aspiration/related complications. ST to follow, assess diet tolerance and modify as appropriate, determine
indication for VSE, and provide continued diagnostic swallow therapy as appropriate.
RECOMMEND:
1) IDDSI Level 4 puree diet and Mildly-thick liquids
2) Medications crushed in puree
3) Aspiration precautions: 1:1 assistance; Upright as able positioning; 100% supervision; Small sips/bites; Slow rate; NO straws; Remain upright 30 minutes after eating/drinking; Eat only when awake/alert; Ensure patient swallows prior to next bite;
Monitor for signs of aspiration; D/c oral diet if any decline in mental or respiratory status
4) Oral care 3x/day to reduce risk for nosocomial infection
5) Consider VSE should pt exhibit any signs concerning for aspiration/related complications
6) ST to follow
--- NOTE | 2023-12-25 15:10 | W.PN.HOSP.TC ---
Today's Communication/Plan
-
Antibiotics
Await Cx
Assessment / Plan
Assessment / Plan
63-year-old with cerebral palsy sent in because of weakness
Chest x-ray reviewed by me-no acute changes
CT head-no acute changes
CVS: S1-S2 normal
Chest: CTA B/L
Abdomen: Soft, NT / Bowel sounds present
Extremities: No edema
Answer simple questions but not able to process sentences well.
# CAUTI present on admission
Started empiric antibiotics ceftriaxone
Urine cultures sent and pending
# Cerebral palsy with developmental delay
# CKD stage IV-continue sodium bicarb
# Epilepsy-continue carbamazepine 200 mg 8 AM and 4 PM, 300 mg HS, clorazepate 3.75 mg BID, Lamictal 300 BID, Keppra 1000 mg BID
# Enlarged prostate with obstructive uropathy
# Chronic dysphagia on dysphagia 1 diet-speech evaluation noted, Dys 1 diet with nectar thick liquids
# Chronic anemia likely secondary to CKD-on p.o. iron
# Anxiety/depression-continue Abilify,, Lexapro, fluoxetine
# History of TURP 2018 and has been dependent on Galvin catheter since beginning of 2022 for neurogenic bladder
# DVT prophylaxis subcutaneous heparin
# Full code
Discussed with nursing
Called Svitlana Sarkar and Skylar Mcleod both went to message will try again tomorrow.
Anticipated Discharge: 24 - 48 hours
Subjective/Interval History
-
Date of Service: December 25, 2023
Objective Data
-
Labs:
Laboratory Results
12/25/23
08:39
WBC 6.9
Hgb 11.4 L
Hct 32.9 L
Plt Count 237
Sodium 137
Potassium 3.8
Chloride 94 L
Carbon Dioxide 30
BUN 58 H
Creatinine 2.9 H
Glucose 85
Calcium 9.2
Vital Signs:
Vital Signs
Temp Pulse Resp BP Pulse Ox
98.3 F 61 18 146/69 97
12/25/23 08:00 12/25/23 07:18 12/25/23 07:18 12/25/23 07:18 12/25/23 09:00
I&O
12/24/23 12/25/23 12/26/23
06:59 06:59 06:59
Output Total 500 / 500
Balance -500 / -500
[2023-12-25 15:25] VITALS: BP 130/86
[2023-12-25 15:34] VITALS: BP 125/70; PULSE 76; O2SAT 98
--- NOTE | 2023-12-25 16:09 | CM ---
CM called pt's senior living and spoke to [facility].ph # [phone] Told that nursing is not there on weekends just techs.
Per [facility], pt is WC bound at baseline, can transfer self independently from bed to chair and back. uses WC to get to dining [employer]cge[employer] for meals. Assist of 1 for bathing/dressing. Feeds self. Has lived at this senior living 'for a long time'.
This senior living does not accept admissions on weekends as there is no nursing. [facility] suggests CM call back Wednesday to further discuss dispo. has arranged transport to return in the past.
There is a family member listed Svitlana, left her a VM to introduce department and self, ph # [phone].
[2023-12-25] MEDS: STERILE WATER FOR INJECTION 10 ML IV (17:57)
[2023-12-25] MEDS: ROCEPHIN 1000 MG IV (17:57)
[2023-12-25] MEDS: FIBERCON 625 MG PO (21:34)
[2023-12-25] MEDS: ABILIFY 5 MG PO (21:34)
[2023-12-25] MEDS: TEGRETOL CHEWABLE 300 MG PO (21:35)
[2023-12-25 23:31] VITALS: BP 149/80
[2023-12-25] MEDS: COMPAZINE 5 MG IV (23:53)
[2023-12-26 06:32] LABS: Hematocrit 32.5 % (39.0-52.0); Hemoglobin 11.4 g/dL (13.0-18.0); Mean Corp Hgb Conc. 35.1 g/dL (33.0-37.0); Mean Corpuscular Hgb 31.7 pg (27.0-31.0); Mean Corpuscular Volume 90.3 fL (80.0-94.0); Mean Platelet Volume 10.1 fL (7.4-10.4); Platelet Count 257 10^3/uL (130-400); Red Cell Dist. Width 12.4 % (11.5-14.5); White Blood Cell Count 11.2 10^3/uL (4.8-10.8)
[2023-12-26 06:45] LABS: Blood Urea Nitrogen 69 mg/dl (9-20); Calcium 9.4 mg/dl (8.4-10.2); Carbon Dioxide 30 mmol/L (22-30); Chloride 96 mmol/L (98-107); Estimated Creatinine Clearance 19 ml/min; Glucose 110 mg/dl (70-99); Potassium 3.4 mmol/L (3.5-5.1); Sodium 141 mmol/L (135-145); eGFR 20.44
[2023-12-26 07:13] VITALS: BP 134/85
[2023-12-26] MEDS: HEPARIN 5000 UNITS SC ×2 (08:05→21:51)
[2023-12-26] MEDS: TRANXENE 3.75 MG PO ×2 (08:06→21:54)
[2023-12-26] MEDS: SODIUM BICARBONATE 650 MG PO ×2 (08:06→21:55)
[2023-12-26] MEDS: LAMICTAL 300 MG PO ×2 (08:06→21:58)
[2023-12-26] MEDS: LEXAPRO 10 MG PO (08:06)
[2023-12-26] MEDS: PROZAC 20 MG PO (08:06)
[2023-12-26] MEDS: TEGRETOL 200 MG PO ×2 (08:06→15:08)
[2023-12-26] MEDS: FEOSOL 325 MG PO ×2 (08:06→21:50)
[2023-12-26] MEDS: KEPPRA 1000 MG PO ×2 (08:06→21:52)
--- NOTE | 2023-12-26 10:29 | PTCARENOTE ---
Patient ambulating without oxygen. Pulse ox 92%.
[2023-12-26] MEDS: KCL ELIXIR 20 MEQ PO (10:54)
[2023-12-26] MEDS: SENOKOT-S 1 TABLET PO (13:14)
[2023-12-26 15:08] VITALS: BP 152/88
--- NOTE | 2023-12-26 16:54 | W.PN.HOSP.TC ---
Today's Communication/Plan
-
Wait for urine cultures to be back
PT OT
Assessment / Plan
Assessment / Plan
63-year-old with cerebral palsy sent in because of weakness
Chest x-ray reviewed by me-no acute changes
CT head-no acute changes
CVS: S1-S2 normal
Chest: CTA B/L
Abdomen: Soft, NT / Bowel sounds present
Extremities: No edema
Answers simple questions but not able to process sentences well.
# CAUTI present on admission
Catheter exchanged in ER
Started empiric antibiotics ceftriaxone
Urine cultures sent and pending
# Hypokalemia- replace
# Cerebral palsy with developmental delay
# CKD stage IV-continue sodium bicarb
# Epilepsy-Absence seizures- continue carbamazepine 200 mg 8 AM and 4 PM, 300 mg HS, clorazepate 3.75 mg BID, Lamictal 300 BID, Keppra 1000 mg BID
# Enlarged prostate with obstructive uropathy
# Chronic dysphagia on dysphagia 1 diet-speech evaluation noted, Dys 1 diet with nectar thick liquids
# Chronic anemia likely secondary to CKD-on p.o. iron
# Anxiety/depression-continue Abilify,, Lexapro, fluoxetine
# History of TURP 2018 and has been dependent on Galvin catheter since beginning of 2022 for neurogenic bladder
# Ambulatory [id number] but he can propel himself around per POA
# DVT prophylaxis subcutaneous heparin
# Full code
Discussed with nursing
Called Svitlana Sarkar who is POA and updated
Anticipated Discharge: Within 24 hours
Subjective/Interval History
-
Date of Service: December 26, 2023
Objective Data
-
Labs:
Laboratory Results
12/26/23
06:03
WBC 11.2 H
Hgb 11.4 L
Hct 32.5 L
Plt Count 257
Sodium 141
Potassium 3.4 L
Chloride 96 L
Carbon Dioxide 30
BUN 69 H
Creatinine 3.3 H
Glucose 110 H
Calcium 9.4
Vital Signs:
Vital Signs
Temp Pulse Resp BP Pulse Ox
98.2 F 77 18 152/88 92
12/26/23 15:08 12/26/23 15:08 12/26/23 15:08 12/26/23 15:08 12/26/23 10:29
I&O
12/25/23 12/26/23 12/27/23
06:59 06:59 06:59
Intake Total 480 / 480
Output Total 500 / 500 1625 / 1625
Balance -500 / -500 -1145 / -1145
[2023-12-26] MEDS: STERILE WATER FOR INJECTION 10 ML IV (18:27)
[2023-12-26] MEDS: ROCEPHIN 1000 MG IV (18:28)
[2023-12-26 19:51] LABS: Lamotrigine (Lamictal) 6.4 ug/mL (3.0-15.0)
[2023-12-26] MEDS: KEPPRA PO (21:53)
[2023-12-26] MEDS: ABILIFY 5 MG PO (21:54)
[2023-12-26] MEDS: FIBERCON 625 MG PO (21:55)
[2023-12-26] MEDS: TEGRETOL CHEWABLE 300 MG PO (21:55)
[2023-12-26 23:26] VITALS: BP 132/93
[2023-12-27 01:11] LABS: Keppra (Levetiracetam) 34 ug/mL (10-40)
[2023-12-27 06:50] VITALS: BMI 18.3
[2023-12-27 07:35] VITALS: BP 135/85
--- NOTE | 2023-12-27 07:49 | W.PN.HOSP.TC ---
Addendum entered and electronically signed by Ronaldo Crooks MD 12/27/23 13:14:
I saw and evaluated the patient. I reviewed the resident�s note and agree with findings and plan as documented in the resident�s note.
Patient does not offer any new complaints.
Gen: NAD, awake and alert
Eyes: EOMI, PERRLA, no scleral icterus.
Neck: supple.
CV: RRR, +S1/S2, no m/r/g.
Resp: CTAB, no rales, wheezes, or rhonchi.
Abd: +BS, soft, NT, ND
Psych: Calm
CAUTI vs asymptomatic bacteriuria:
-lehman exchanged on admission
-currently on empiric rocephin
-UCx with 50,000 CFU Staph epi, suspect asymptomatic bacteriuria but will c/s ID for opinion
Hypokalemia:
-40meq PO K today
-Mg elevated at 3.0
Dispo: goal for d/c tomorrow pending K repletion.
Original Note:
Today's Communication/Plan
-
-PT/OT follow up
-Electrolyte follow up
-Update POA
Assessment / Plan
Assessment / Plan
Impression: The patient is 63-year-old male with a history of CP, MR, seizure disorder, right hemiparesis, nonambulatory, chronic kidney disease with an indwelling Lehman from a personal care facility called friends and family for gradual increased
weakness. He presented to ER on 12/23 and some lab studies were obtained. The patient was discussed with nursing team and his condition will be followed up due patient`s communication problem.
#Generalized weakness and debility
-Chest x-ray reviewed by me-no acute changes
-CT head-no acute changes
# CAUTI
- Present on admission and catheter exchanged in ER
-Started empiric antibiotics ceftriaxone
-WBC dropped from 11.2 to 8.3
-Urine culture: 50,000 CFU/ML Staphylococcus epidermidis
-Enlarged prostate with obstructive uropathy: History of TURP 2018 and has been dependent on Lehman catheter since beginning of 2022 for neurogenic bladder
# CKD stage IV
-continue sodium bicarb
-Cr 3.3 ( was 2.9 on 12/24)
-Follow up
#Hypokalemia
-K 3.3 on 12/26
-Replace
#DM 2
-ISS low
# Cerebral palsy with developmental delay: Ambulatory [id number] but he can propel himself around per POA/ shelter resident
# Epilepsy-Absence seizures- continue carbamazepine 200 mg 8 AM and 4 PM, 300 mg HS, clorazepate 3.75 mg BID, Lamictal 300 BID, Keppra 1000 mg BID
# Chronic dysphagia on dysphagia 1 diet-speech evaluation noted, Dys 1 diet with nectar thick liquids
# Chronic anemia likely secondary to CKD-on p.o. iron
-Hemoglobin stable at 11.4
-No active bleeding
# Anxiety/depression-continue Abilify,, Lexapro, fluoxetine
# DVT prophylaxis subcutaneous heparin
# Full code
Discussed with nursing
Will Call Svitlana Sarkar who is POA to update
Anticipated Discharge: 24 - 48 hours
Subjective/Interval History
-
Date of Service: December 27, 2023
Patient was seen in his bed awake and alert. He is oriented to year and his name. He was not oriented to place and people. He was able to reply my questions likely Yes or No. Reported no pain during physical examination.
Objective Data
-
Labs:
Laboratory Results
12/27/23
06:00
WBC Pending
Hgb Pending
Hct Pending
Plt Count Pending
Sodium Pending
Potassium Pending
Chloride Pending
Carbon Dioxide Pending
BUN Pending
Creatinine Pending
Glucose Pending
Calcium Pending
Vital Signs:
Vital Signs
Temp Pulse Resp BP Pulse Ox
98.6 F 87 20 132/93 99
12/26/23 23:26 12/26/23 23:26 12/26/23 23:26 12/26/23 23:26 12/26/23 23:26
I&O
12/26/23 12/27/23 12/28/23
06:59 06:59 06:59
Intake Total 480 / 480 440 / 440
Output Total 1625 / 1625 1450 / 1450
Balance -1145 / -1145 -1010 / -1010
Review of Systems
-
History Source: Records
EENT: Reports No Symptoms Reported
Respiratory: Reports No Symptoms
Cardiac: Reports No Symptoms
Abdomen/GI: Reports No Symptoms
Genitourinary: Reports No Symptoms
Musculoskeletal: Reports Other (See HPI )
Skin: Reports No Symptoms
Neuro: Reports Other (See HPI )
Physical Exam
-
General: Comfortable and Appears Chronically Ill
HEENT: Normocephalic and Atraumatic
Respiratory: Clear to Auscultation
Cardiac: Regular Rhythm and S1/S2
GI: Soft and Nontender
Musculoskeletal: No Clubbing, No Cyanosis and Other (right hemiparesis, non-ambulatory)
Skin: Warm
Neuro: Awake, Alert and Oriented (Year and his name not place not people )
[2023-12-27] MEDS: HEPARIN 5000 UNITS SC ×2 (08:08→20:20)
[2023-12-27] MEDS: KEPPRA 1000 MG PO ×2 (08:09→20:22)
[2023-12-27] MEDS: SODIUM BICARBONATE 650 MG PO ×2 (08:09→20:22)
[2023-12-27] MEDS: LAMICTAL 300 MG PO ×2 (08:09→20:22)
[2023-12-27] MEDS: PROZAC 20 MG PO (08:10)
[2023-12-27] MEDS: TRANXENE 3.75 MG PO ×2 (08:10→20:23)
[2023-12-27] MEDS: TEGRETOL 200 MG PO ×2 (08:10→17:03)
[2023-12-27] MEDS: LEXAPRO 10 MG PO (08:10)
[2023-12-27] MEDS: FEOSOL 325 MG PO ×2 (08:10→20:22)
[2023-12-27 08:51] LABS: Hematocrit 33.7 % (39.0-52.0); Hemoglobin 11.8 g/dL (13.0-18.0); Mean Corpuscular Hgb 31.6 pg (27.0-31.0); Mean Corpuscular Volume 90.3 fL (80.0-94.0); Platelet Count 278 10^3/uL (130-400); Red Blood Cell Count 3.73 10^6/uL (4.70-6.10); Red Cell Dist. Width 12.5 % (11.5-14.5); White Blood Cell Count 8.3 10^3/uL (4.8-10.8)
[2023-12-27 09:22] LABS: Blood Urea Nitrogen 76 mg/dl (9-20); Calcium 9.3 mg/dl (8.4-10.2); Carbon Dioxide 29 mmol/L (22-30); Chloride 98 mmol/L (98-107); Estimated Creatinine Clearance 18 ml/min; Glucose 115 mg/dl (70-99); Potassium 3.3 mmol/L (3.5-5.1); Sodium 143 mmol/L (135-145); eGFR 20.44
--- NOTE | 2023-12-27 11:06 | CM ---
Addendum entered by Sunshine Aguero 12/27/23 13:50:
CM updated that discharge is not going to be today; follow up labs to be done in AM. Call to alf and notified Beth of same. She will come out in AM to see Josh prior to discharge.
W/C van transport will be arranged for return to the alf at discharge.
Addendum entered by Sunshine Aguero 12/27/23 13:22:
CM notified that Josh is cleared for discharge today. Call to his alf; Ann Marie was not available, but a message was left for her to return my call.
Original Note:
CM received call from Ann Marie of [facility] [phone], requesting update for Josh.
Update provided; Ann Marie will come to the hospital to visit prior pt's return to the facility.
CM will continue to follow to coordinate pt's return to alf when medically ready.
PCP: Corey Piedra
Pharmacy needs to be confirmed; multiple entries in [facility].
[2023-12-27] MEDS: KLOR-CON 40 MEQ PO (12:34)
--- NOTE | 2023-12-27 13:32 | CON.ID ---
Consultation
-
Date/Time Consultation Requested: 12/27/2023 1151
Date/Time Consultation Performed: 12/27/2023 1332
Requesting Provider: Dr. Crooks
Performing Provider: Dr. Cyr
Reason for Consultation: Bacteriuria
Chief Complaint / Past History
History of Present Illness
Josh Garza is a 63-year-old man being evaluated at the request of Dr. Crooks in regards to bacteriuria. History is obtained from chart review, along with patient interview, although patient can provide very little history secondary to underlying
history of CVA and cerebral palsy.
The patient currently resides in a chcf. He has a history of urinary retention and has a chronic Galvin catheter in place. According to reviewed notes, the patient presented to the emergency room on 12/24/2023, following approximately 10 days
of increasing fatigue, along with gradual increasing weakness. The patient reportedly is nonambulatory, but at baseline is able to transfer to the wheelchair with 1 person assist. Nurses at the facility noted that over the past several days he is
required a second person to help with transfers. Additionally, the patient reportedly had an outpatient urine culture which showed 10K-50K CFU with coag negative staph. Cultures have also grown coag negative staph here, and Infectious Diseases is
asked to comment upon need for therapy.
At the present time, the patient denies any fevers or chills. He denies any pain. Further history is not available.
Past History
Additional Past Medical History:
CVA with right hemiparesis residual
GERD
Seizure disorder
Anxiety/depression
Cerebral palsy
Urinary retention with chronic Galvin catheter
CKD
Additional Past Surgical History:
Foot surgery
Right hip surgery
TURP (04/29/2022)
Allergy History:
house dust Allergy (Verified 12/24/23 12:03)
nasal congestion
mold Allergy (Verified 12/24/23 12:03)
nasal congestion
ragweed pollen Allergy (Verified 12/24/23 12:03)
nasal congestion
cefepime Adverse Reaction (Unknown, Verified 12/24/23 12:03)
Unknown
lorazepam [From Ativan] Adverse Reaction (Unknown, Verified 12/24/23 12:03)
Unknown
Medications Reviewed: Yes
Current Antibiotics:
Ceftriaxone
Social History
Tobacco: Non-Smoker
Alcohol: None
Drug: None
Personal: Single
Living: Other (senior care)
Employment: Disabled
Family History
Family History: Not Pertinent
Review of Systems
Vital Signs
Temp Pulse Resp BP Pulse Ox
97.8 F 74 16 135/85 98
12/27/23 07:35 12/27/23 07:35 12/27/23 07:35 12/27/23 07:35 12/27/23 08:45
Physical Exam
Physical Exam
Constitutional: No Acute Distress, Comfortable, Chronically Ill and Non-toxic
Head: Normocephalic
Eyes: Pupils Equal, Pupils Round, No Conjunctival Hemorrhage and Sclera Anicteric
Oral: No Thrush and No Ulcers
Cardiovascular: S1/S2; Negative S3/S4 or Murmur
Pulmonary: Clear; Negative Wheezes or Rales
Gastrointestinal: Soft, Non Tender, Non Distended, Normal Bowel Sounds, No Rebound and No Guarding
Genito-Urinary: Galvin and Clear Urine; Negative Turbid Urine or Hematuria
Extremities: Negative Edema, Cyanosis or Erythema
Musculoskeletal: Other (Mildly contracted)
Skin: Warm and Dry; Negative Rash or Jaundice
Neurological: Awake and Alert
Psychological: Calm
Lab / Diagnostic Study Results
12/27/23 08:20
12/27/23 08:20
Abs Immat Gran (auto) 0.0 10^3/uL (0-0.05) 12/24/23 12:24
Absolute Neuts (auto) 7.6 10^3/uL (1.4-6.5) H 12/24/23 12:24
Absolute Lymphs (auto) 1.2 10^3/uL (1.2-3.4) 12/24/23 12:24
Absolute Monos (auto) 1.2 10^3/uL (0.1-0.6) H 12/24/23 12:24
Absolute Basos (auto) 0.1 10^3/uL (0-0.2) 12/24/23 12:24
Immature Gran % 0.3 % (0-0.5) 12/24/23 12:24
Neutrophils % 73.2 % (42.2-75.2) 12/24/23 12:24
Lymphocytes % 11.8 % (20.5-51.1) L 12/24/23 12:24
Monocytes % 11.8 % (1.7-9.3) H 12/24/23 12:24
Eosinophils % 2.2 % (0-6) 12/24/23 12:24
Basophils % 0.7 % (0-2) 12/24/23 12:24
Microbiology Results
Micro:
12/24/23 12:44 Urine Culture - Final
Urine Staphylococcus epidermidis - 50K cfu/mL
12/25/23 03:36 MRSA Screen - Final
Nose No Methicillin Resistant Staphylococcus aureus isolated.
Imaging:
12/24/2023 CXR (2 view): No focal infiltrates noted. Film personally viewed.
Assessment / Plan
Bacteriuria
- No systemic evidence of infection (no fever, no leukocytosis)
- No CAUTI
CVA with right hemiparesis residual
GERD
Seizure disorder
Anxiety/depression
Cerebral palsy
Urinary retention with chronic Galvin catheter
CKD
Recommendations:
Patient noted to have asymptomatic bacteriuria. Only 50K cfu/mL staph epi grew from culture, which would not be unexpected given a longstanding Galvin catheter placement. Additionally, simple recovery of white cells from the urine does not indicate
an infectious process.
No ongoing need for antibiotic therapy. Discontinue ceftriaxone.
Monitor white count and temperature curve.
Care Review
Plan reviewed with: Physician (Hospitalist)
[2023-12-27 15:20] VITALS: BP 127/75
--- NOTE | 2023-12-27 16:07 | PN.CDI ---
CDI
- -
CDI:
Physician Documentation Request
Admit Date: 12/24/23 18:33
Dear Doctor Whit,
Patient has history of CKD 4.
Recent creatinine resulted as follows:
Laboratory Tests
12/24/23 12/25/23 12/26/23
12:24 08:39 06:03
Creatinine 2.9 H 2.9 H 3.3 H
12/27/23
08:20
Creatinine 3.3 H
Criteria for BARBARA*
1 Increase in serum creatinine by > or = to 0.3 mg/dL (> or = to 26.5 micromol/L) within 48 hours, OR
2 Increase in serum creatinine to > or = to 1.5 times baseline, which is known or presumed to have occurred within 7 days, OR
3 Urine volume < 0.5 nL/kg/hour for six hours
Could you please provide a diagnosis that supports the above lab abnormalities and additional evaluation/ monitoring :
BARBARA with ckd 4
CKD 4 only
Other
Use of terms such as suspected, likely, concern for, or probable (associated with a specific diagnosis that is being evaluated, monitored, or treated as if it exists) are acceptable and can be coded in the inpatient setting, when documented at the
time of discharge.
Thank you,
Meryl Qureshi RN, BSN
CDI Specialist
tiger text
Please use your independent medical judgment in providing your response.
[2023-12-27] MEDS: ABILIFY 5 MG PO (21:22)
[2023-12-27] MEDS: FIBERCON 625 MG PO (21:22)
[2023-12-27] MEDS: TEGRETOL CHEWABLE 300 MG PO (21:22)
[2023-12-27 23:55] VITALS: BP 129/87
[2023-12-28 06:16] LABS: Hematocrit 33.3 % (39.0-52.0); Hemoglobin 11.7 g/dL (13.0-18.0); Mean Corp Hgb Conc. 35.1 g/dL (33.0-37.0); Mean Corpuscular Hgb 31.9 pg (27.0-31.0); Mean Corpuscular Volume 90.7 fL (80.0-94.0); Mean Platelet Volume 10.7 fL (7.4-10.4); Platelet Count 284 10^3/uL (130-400); Red Blood Cell Count 3.67 10^6/uL (4.70-6.10); Red Cell Dist. Width 12.7 % (11.5-14.5); White Blood Cell Count 19.4 10^3/uL (4.8-10.8)
[2023-12-28 06:47] LABS: ALT (SGPT) 23 U/L (0-50); AST (SGOT) 30 U/L (17-59); Albumin 4.4 g/dl (3.5-5.0); Alkaline Phosphatase 132 U/L (38-126); Blood Urea Nitrogen 86 mg/dl (9-20); Calcium 9.3 mg/dl (8.4-10.2); Carbon Dioxide 31 mmol/L (22-30); Chloride 99 mmol/L (98-107); Estimated Creatinine Clearance 16 ml/min; Glucose 121 mg/dl (70-99); Potassium 3.4 mmol/L (3.5-5.1); Sodium 148 mmol/L (135-145); Total Bilirubin 0.5 mg/dl (0.2-1.3); Total Protein 7.4 g/dl (6.3-8.2); eGFR 17.81
--- NOTE | 2023-12-28 06:49 | W.PN.HOSP.TC ---
Addendum entered and electronically signed by Ronaldo Crooks MD 12/28/23 13:20:
I saw and evaluated the patient. I reviewed the resident�s note and agree with findings and plan as documented in the resident�s note.
Patient does not offer any new complaints.
Gen: NAD, awake and alert
Eyes: EOMI, PERRLA, no scleral icterus.
Neck: supple.
CV: remains RRR, +S1/S2, no m/r/g.
Resp: remains CTAB, no rales, wheezes, or rhonchi.
Abd: remains +BS, soft, NT, ND
Psych: Calm
Asymptomatic bacteriuria:
-lehman exchanged on admission
-was on empiric rocephin
-UCx with 50,000 CFU Staph epi which is colonization due to chronic Lehman catheter
-UTI has been ruled out by myself and Dr. Cyr
BARBARA, hypernatremia, hypokalemia:
-start hypotonic IVFs with 20meq K
Original Note:
Today's Communication/Plan
-
-Follow up for a possible BRABARA on CKD
Assessment / Plan
Assessment / Plan
Impression: The patient is 63-year-old male with a history of CP, MR, seizure disorder, right hemiparesis, nonambulatory, chronic kidney disease with an indwelling Lehman from a personal care facility called friends and family for gradual increased
weakness. He presented to ER on 12/23 and some lab studies were obtained. The patient was discussed with nursing team. He has a history of urinary retention and has a chronic Lehman catheter in place which changed at admission and on 12/26. The
patient reportedly had an outpatient urine culture which showed 10K-50K CFU with coag negative staph. Cultures have also grown coag negative staph here, and Infectious Diseases is asked to comment upon need for therapy.
#Generalized weakness and debility
-Chest x-ray reviewed by me-no acute changes
-CT head-no acute changes
# CAUTI
-Present on admission and catheter exchanged in ER
-Enlarged prostate with obstructive uropathy: History of TURP 2018 and has been dependent on Lehman catheter since beginning of 2022 for neurogenic bladder
-Urine culture: 50,000 CFU/ML Staphylococcus epidermidis
-Appreciate ID consult: No ongoing need for antibiotic therapy. Discontinue ceftriaxone.
-WBC dropped from 11.2 to 8.3 on 12/26. On 12/27 WBC: 19.4
# CKD stage IV
-continue sodium bicarb
-Cr 3.7 ( was 2.9 on 12/24)
-Follow up
#Hypokalemia
-K 3.4 on 12/27
-Replace
#DM 2
-ISS low
# Cerebral palsy with developmental delay: Ambulatory [id number]-[id number]-[id number] but he can propel himself around per POA/ [facility] resident
# Epilepsy-Absence seizures- continue carbamazepine 200 mg 8 AM and 4 PM, 300 mg HS, clorazepate 3.75 mg BID, Lamictal 300 BID, Keppra 1000 mg BID
# Chronic dysphagia on dysphagia 1 diet-speech evaluation noted, Dys 1 diet with nectar thick liquids
# Chronic anemia likely secondary to CKD-on p.o. iron
-Hemoglobin stable at 11.4
-No active bleeding
# Anxiety/depression-continue Abilify,, Lexapro, fluoxetine
# DVT prophylaxis subcutaneous heparin
# Full code
Discussed with nursing
Will Call Svitlana Sarkar who is POA to update
Anticipated Discharge: 24 - 48 hours
Subjective/Interval History
-
Date of Service: December 28, 2023
The patient was seen in his bed and awake and alert. He requested water to drink. He denied pain and seems comfortable.
Objective Data
-
Labs:
Laboratory Results
12/28/23
04:23
WBC 19.4 H
Hgb 11.7 L
Hct 33.3 L
Plt Count 284
Sodium 148 H
Potassium 3.4 L
Chloride 99
Carbon Dioxide 31 H
BUN 86 H
Creatinine 3.7 H
Glucose 121 H
Calcium 9.3
Total Bilirubin 0.5
AST 30
ALT 23
Alkaline Phosphatase 132 H
Vital Signs:
Vital Signs
Temp Pulse Resp BP Pulse Ox
98 F 69 20 129/87 98
12/27/23 23:55 12/27/23 23:55 12/27/23 23:55 12/27/23 23:55 12/27/23 23:55
I&O
12/26/23 12/27/23 12/28/23
06:59 06:59 06:59
Intake Total 480 / 480 440 / 440 480 / 480
Output Total 1625 / 1625 1450 / 1450 550 / 550
Balance -1145 / -1145 -1010 / -1010 -70 / -70
Review of Systems
-
EENT: Reports No Symptoms Reported
Respiratory: Reports No Symptoms
Cardiac: Reports No Symptoms
Abdomen/GI: Reports No Symptoms
Genitourinary: Reports No Symptoms
Musculoskeletal: Reports Other (Mildly contracted)
Skin: Reports No Symptoms and Other
Neuro: Reports Other (See HPI )
Physical Exam
-
General: No Apparent Distress and Appears Chronically Ill
HEENT: Normocephalic and Atraumatic
Respiratory: Clear to Auscultation
Cardiac: Regular Rhythm and S1/S2
GI: Soft and Nontender
Genito-urinary: Lehman
Musculoskeletal: No Clubbing, No Cyanosis, No Edema and Other (right hemiparesis, non-ambulator)
Skin: Warm
Neuro: Awake, Alert, Oriented and Other ((Year and his name not place not people)
[2023-12-28 07:19] VITALS: BP 113/7
[2023-12-28 09:25] VITALS: BP 113/77
[2023-12-28] MEDS: KEPPRA 1000 MG PO ×2 (09:29→19:50)
[2023-12-28] MEDS: TEGRETOL 200 MG PO ×2 (09:29→18:09)
[2023-12-28] MEDS: PROZAC 20 MG PO (09:29)
[2023-12-28] MEDS: LAMICTAL 300 MG PO ×2 (09:29→19:50)
[2023-12-28] MEDS: FEOSOL 325 MG PO ×2 (09:30→19:50)
[2023-12-28] MEDS: HEPARIN 5000 UNITS SC ×2 (09:30→19:50)
[2023-12-28] MEDS: TRANXENE 3.75 MG PO ×2 (09:30→19:50)
[2023-12-28] MEDS: LEXAPRO 10 MG PO (09:30)
[2023-12-28] MEDS: SODIUM BICARBONATE 650 MG PO ×2 (09:30→19:50)
[2023-12-28] MEDS: NSS 1000 IV (12:05)
[2023-12-28] MEDS: KCL 40 MEQ PO (12:07)
--- NOTE | 2023-12-28 12:15 | PTOTSP ---
ST Follow-Up
Pt continues to present with clinical signs of known oral dysphagia (pureed solids at baseline) as well as mild pharyngeal dysphagia as exhibited by inconsistent airway protection with ingestion of liquids.
Recommendations:
- Continue with pureed solids and upgrade to THIN LIQUIDS - NO STRAWS - SINGLE SIPS ONLY.
- Meds crushed in puree.
- Aspiration precautions: 1:1 assist with all PO intake; small bites; small single sips; alternate solids and liquids.
- SSIS SSRS DEVELOPER to f/u re: diet tolerance to determine whether pt would benefit from an instrumental swallow study.
--- NOTE | 2023-12-28 14:32 | W.PN.ID1 ---
Date of Service
Date of Service: December 28, 2023
Today's Communication
Continue off antibiotics. Check renal ultrasound.
Assessment / Plan
Bacteriuria
- No systemic evidence of infection (no fever, no leukocytosis)
- No CAUTI
BARBARA
- suspect pre-renal
CVA with right hemiparesis residual
GERD
Seizure disorder
Anxiety/depression
Cerebral palsy
Urinary retention with chronic Galvin catheter
CKD
Recommendations:
Patient noted to have asymptomatic bacteriuria. Only 50K cfu/mL staph epi grew from culture, which would not be unexpected given a longstanding Galvin catheter placement. Additionally, simple recovery of white cells from the urine does not indicate
an infectious process.
No need for antibiotic therapy. Ceftriaxone discontinued 12/26
Creatinine noted to be rising. Most likely prerenal, but will check renal ultrasound to ensure no obstruction.
Monitor white count and temperature curve.
Chief Complaint
-: Leukocytosis
Subjective / Review of Systems
Review of Systems: No Fever
Vital Signs / Physical Exam
Vital Signs
Vital Signs
Temp Pulse Resp BP Pulse Ox
98.3 F 73 20 113/77 100
12/28/23 07:19 12/28/23 07:19 12/28/23 07:19 12/28/23 09:25 12/28/23 07:19
Physical Exam
Constitutional: No Acute Distress
Eyes: No Conjunctival Hemorrhage and Sclera Anicteric
Cardiovascular: S1/S2; Negative S3/S4
Pulmonary: Non Labored; Negative Wheezes, Rales or Rhonchi
Gastrointestinal: Soft and Non Tender
Genito-Urinary: Galvin and Clear Urine; Negative Hematuria
Musculoskeletal: Other (Somewhat contracted lower extremities)
Neurological: Awake and Alert
Objective Data
Lab Data
Lab Results
12/28/23 04:23
12/28/23 04:23
Estimated Creat Clear 16 ml/min 12/28/23 04:23
Total Bilirubin 0.5 mg/dl (0.2-1.3) 12/28/23 04:23
AST 30 U/L (17-59) 12/28/23 04:23
ALT 23 U/L (0-50) 12/28/23 04:23
Alkaline Phosphatase 132 U/L (38-126) H 12/28/23 04:23
Most recent labs reviewed.
Micro Results:
12/24/23 12:44 Urine Culture - Final
Urine Staphylococcus epidermidis
12/25/23 03:36 MRSA Screen - Final
Nose No Methicillin Resistant Staphylococcus aureus isolated.
Imaging:
12/24/2023 CXR (2 view): No focal infiltrates noted. Film personally viewed.
Care Review
Plan reviewed with: Physician (Hospitalist)
[2023-12-28] MEDS: 0.45% NACL with KCL 20 MEQ 1000 IV (14:38)
--- NOTE | 2023-12-28 14:54 | PN.CDI ---
CDI
- -
CDI:
Physician Documentation Request
Admit Date: 12/24/23 18:33
Dear Doctor Valeriy,
Patient admitted for bacteriuria.
Please review the following and provide your response in the progress notes.
Clinical Indicators:
Height: 5' 8'
Weight: 120 lbs
BMI: 18.3
If possible, please provide an associated diagnosis related to the abnormal BMI, such as:
Underweight
Cachectic
BMI is not significant
Other
BMI < or = to 19.9
Underweight
Weight Loss
Cachectic
Anorexia
Use of terms such as suspected, likely, concern for, or probable (associated with a specific diagnosis that is being evaluated, monitored, or treated as if it exists) are acceptable and can be coded in the inpatient setting, when documented at the
time of discharge.
Thank you,
Aiyana Pozo RN, BSN
CDI Specialist
Available via [place] text
Please use your independent medical judgment in providing your response.
[2023-12-28 15:27] VITALS: BP 141/94
[2023-12-28 23:00] VITALS: BP 130/79
[2023-12-28] MEDS: TEGRETOL CHEWABLE 300 MG PO (23:06)
[2023-12-28] MEDS: FIBERCON 625 MG PO (23:07)
[2023-12-28] MEDS: ABILIFY 5 MG PO (23:07)
--- NOTE | 2023-12-29 04:03 | DOWNTIME ---
There was a [employer] Client [employer]pper Downtime on 12/29/2023 from 0100 to 12/29/2023 at 0355. Downtime documentation of patient's care, including medication administrations, has been reconciled in the electronic record per guidelines. Refer to the
patient's paper chart under the miscellaneous tab to see printed paper medication records and downtime forms.
[2023-12-29 06:00] VITALS: BMI 18.2
[2023-12-29] MEDS: 0.45% NACL with KCL 20 MEQ 1000 IV ×2 (06:13→19:50)
--- NOTE | 2023-12-29 06:19 | W.PN.HOSP.TC ---
Addendum entered and electronically signed by Ronaldo Crooks MD 12/29/23 12:56:
I saw and evaluated the patient. I reviewed the resident�s note and agree with findings and plan as documented in the resident�s note.
Patient does not offer any new complaints.
Gen: NAD, awake and alert
Eyes: EOMI, PERRLA, no scleral icterus.
Neck: supple.
CV: continues to remain RRR, +S1/S2, no m/r/g.
Resp: continues to remain CTAB, no rales, wheezes, or rhonchi.
Abd: continues to remain +BS, soft, NT, ND
Psych: Calm
Asymptomatic bacteriuria:
-lehman exchanged on admission
-was on empiric rocephin
-UCx with 50,000 CFU Staph epi which is colonization due to chronic Lehman catheter
-UTI has been ruled out by myself and Dr. Cyr
BARBARA, hypernatremia, hypokalemia:
-improving on hypotonic IVFs with 20meq K, continue
Addendum entered and electronically signed by Joan Sherman MD, Resident 12/29/23 11:49:
In clarification to my note
The patient is undeweight
Original Note:
Today's Communication/Plan
-
-Follow up with Cr level
-Follow up K levels
Assessment / Plan
Assessment / Plan
Impression: The patient is 63-year-old male with a history of CP, MR, seizure disorder, right hemiparesis, nonambulatory, chronic kidney disease with an indwelling Lehman from a personal care facility called friends and family for gradual increased
weakness. He presented to ER on 12/23 and some lab studies were obtained. The patient was discussed with nursing team. He has a history of urinary retention and has a chronic Lehman catheter in place which changed at admission and on 12/26. The
patient reportedly had an outpatient urine culture which showed 10K-50K CFU with coag negative staph. Cultures have also grown coag negative staph here, and Infectious Diseases was asked to comment upon need for therapy.
#Generalized weakness and debility
-Chest x-ray reviewed by me-no acute changes
-CT head-no acute changes
# CAUTI
-Present on admission and catheter exchanged in ER
-Enlarged prostate with obstructive uropathy: History of TURP 2018 and has been dependent on Lehman catheter since beginning of 2022 for neurogenic bladder
-Urine culture: 50,000 CFU/ML Staphylococcus epidermidis
-Appreciate ID consult: No ongoing need for antibiotic therapy. Discontinue ceftriaxone.
-WBC dropped from 11.2 to 8.3 on 12/26. On 12/27 WBC: 19.4 and WBC 12.0 on 12/28
-Renal US ON 12/28/23:Lehman catheter present in bladder and bladder not distended.
# CKD stage IV
-continue sodium bicarb
-Cr 3.3 ( was 2.9 on 12/24)
-Follow up
#Hypokalemia
-Resolved with replacement
-K 3.8 on 12/28
#DM 2
-ISS low
# Cerebral palsy with developmental delay: Ambulatory [id number]-linzfawdso-rufba but he can propel himself around per POA/ retirement resident
# Epilepsy-Absence seizures- continue carbamazepine 200 mg 8 AM and 4 PM, 300 mg HS, clorazepate 3.75 mg BID, Lamictal 300 BID, Keppra 1000 mg BID
# Chronic dysphagia on dysphagia 1 diet-speech evaluation noted, Dys 1 diet with nectar thick liquids
# Chronic anemia likely secondary to CKD-on p.o. iron
-Hemoglobin stable at 11.4
-No active bleeding
# Anxiety/depression-continue Abilify,, Lexapro, fluoxetine
# DVT prophylaxis subcutaneous heparin
# Full code
Discussed with nursing
Left a message on 12/27 to Svitlana Sarkar who is POA to update
Anticipated Discharge: 24 - 48 hours
Subjective/Interval History
-
Date of Service: December 29, 2023
The patient was seen in his bed oriented to his name and time. He asked to drink some water. He denied abdominal pain , chest pain, extremity pain during PE.
Objective Data
-
Labs:
Laboratory Results
12/29/23
06:00
WBC Pending
Hgb Pending
Hct Pending
Plt Count Pending
Sodium Pending
Potassium Pending
Chloride Pending
Carbon Dioxide Pending
BUN Pending
Creatinine Pending
Glucose Pending
Calcium Pending
Total Bilirubin Pending
AST Pending
ALT Pending
Alkaline Phosphatase Pending
Vital Signs:
Vital Signs
Temp Pulse Resp BP Pulse Ox
98.3 F 73 18 130/79 95
12/28/23 23:00 12/28/23 23:00 12/28/23 23:00 12/28/23 23:00 12/28/23 23:00
I&O
12/27/23 12/28/23 12/29/23
06:59 06:59 06:59
Intake Total 440 / 440 480 / 480 1245 / 1245
Output Total 1450 / 1450 1250 / 1250 450 / 450
Balance -1010 / -1010 -770 / -770 795 / 795
Review of Systems
-
EENT: Reports No Symptoms Reported
Respiratory: Reports No Symptoms
Cardiac: Reports No Symptoms
Abdomen/GI: Reports No Symptoms
Genitourinary: Reports No Symptoms
Musculoskeletal: Reports Other (Mildly contracted)
Skin: Reports No Symptoms
Neuro: Reports Other (See HPI )
Endocrine: Reports No Symptoms
Physical Exam
-
General: No Apparent Distress and Appears Chronically Ill
HEENT: Normocephalic and Atraumatic
Respiratory: Clear to Auscultation
Cardiac: Regular Rhythm and S1/S2
GI: Soft and Nontender
Genito-urinary: Lehman
Musculoskeletal: No Clubbing, No Cyanosis, No Edema and Other (right hemiparesis, non-ambulator)
Skin: Warm
Neuro: Awake, Alert, Oriented (Year and his name not place not people) and Other (right hemiparesis, non-ambulator)
[2023-12-29 07:40] VITALS: BP 141/79
--- NOTE | 2023-12-29 08:23 | PN.CDI ---
CDI
- -
CDI:
Physician Documentation Request
Admit Date: 12/24/23 18:33
Dear Doctor Whit,
Patient admitted for bacteriuria.
Please review the following and provide your response in the progress notes.
Clinical Indicators:
Height: 5' 8'
Weight: 120 lbs
BMI: 18.3
If possible, please provide an associated diagnosis related to the abnormal BMI, such as:
Underweight
Cachectic
BMI is not significant
Other
BMI < or = to 19.9
Underweight
Weight Loss
Cachectic
Anorexia
Use of terms such as suspected, likely, concern for, or probable (associated with a specific diagnosis that is being evaluated, monitored, or treated as if it exists) are acceptable and can be coded in the inpatient setting, when documented at the
time of discharge.
Thank you,
Aiyana Pozo RN, BSN
CDI Specialist
Available via [place] text
Please use your independent medical judgment in providing your response.
[2023-12-29 08:47] LABS: Hematocrit 32.9 % (39.0-52.0); Hemoglobin 11.4 g/dL (13.0-18.0); Mean Corp Hgb Conc. 34.7 g/dL (33.0-37.0); Mean Corpuscular Volume 95.4 fL (80.0-94.0); Mean Platelet Volume 10.4 fL (7.4-10.4); Platelet Count 257 10^3/uL (130-400); Red Blood Cell Count 3.45 10^6/uL (4.70-6.10); Red Cell Dist. Width 12.9 % (11.5-14.5)
[2023-12-29 09:42] LABS: ALT (SGPT) 26 U/L (0-50); AST (SGOT) 36 U/L (17-59); Albumin 4.1 g/dl (3.5-5.0); Alkaline Phosphatase 125 U/L (38-126); Blood Urea Nitrogen 77 mg/dl (9-20); Carbon Dioxide 30 mmol/L (22-30); Chloride 102 mmol/L (98-107); Estimated Creatinine Clearance 18 ml/min; Glucose 98 mg/dl (70-99); Potassium 3.8 mmol/L (3.5-5.1); Sodium 146 mmol/L (135-145); Total Bilirubin 0.4 mg/dl (0.2-1.3); Total Protein 6.9 g/dl (6.3-8.2); eGFR 20.44
[2023-12-29] MEDS: PROZAC 20 MG PO (10:15)
[2023-12-29] MEDS: KEPPRA 1000 MG PO ×2 (10:15→19:49)
[2023-12-29] MEDS: TEGRETOL 200 MG PO ×2 (10:16→17:01)
[2023-12-29] MEDS: TRANXENE 3.75 MG PO ×2 (10:16→19:49)
[2023-12-29] MEDS: LAMICTAL 300 MG PO ×2 (10:16→20:54)
[2023-12-29] MEDS: SODIUM BICARBONATE 650 MG PO ×2 (10:16→19:49)
[2023-12-29] MEDS: HEPARIN 5000 UNITS SC ×2 (10:17→19:50)
[2023-12-29] MEDS: FEOSOL 325 MG PO ×2 (10:17→19:50)
[2023-12-29] MEDS: LEXAPRO 10 MG PO (10:17)
[2023-12-29 11:36] LABS: Magnesium 3.3 mg/dl (1.6-2.3)
--- NOTE | 2023-12-29 12:05 | CM ---
Addendum entered by Sunshine Aguero 12/29/23 14:15:
CM spoke with Ann Marie at the custodial and update provided. Will continue to follow for return to custodial.
Original Note:
FAITH continues to follow for discharge back to [facility]. spoke with BRANDY to provide update.
W/C van transport will be arranged for return to the custodial at discharge.
Plan: Discharge to [facility] when medically ready.
[facility] to provide report at discharge: [phone]
--- NOTE | 2023-12-29 14:22 | W.PN.ID1 ---
Date of Service
Date of Service: December 29, 2023
Today's Communication
Sign off
Assessment / Plan
Bacteriuria
- No systemic evidence of infection (no fever, no leukocytosis)
- No CAUTI
BARBARA
- suspect pre-renal
CVA with right hemiparesis residual
GERD
Seizure disorder
Anxiety/depression
Cerebral palsy
Urinary retention with chronic Galvin catheter
CKD
Recommendations:
Patient noted to have asymptomatic bacteriuria. Only 50K cfu/mL staph epi grew from culture, which would not be unexpected given a longstanding Galvin catheter placement. Additionally, simple recovery of white cells from the urine does not indicate
an infectious process.
No need for antibiotic therapy. Ceftriaxone discontinued 12/26
Creatinine slightly improved today.
Continue off antibiotics.
No acute infectious process noted.
Will see again at your request.
����������������������������������������������������������
Chief Complaint
-: Leukocytosis
Subjective / Review of Systems
Review of Systems: No Fever and No Chills
Vital Signs / Physical Exam
Vital Signs
Vital Signs
Temp Pulse Resp BP Pulse Ox
97.6 F 63 18 141/79 97
12/29/23 07:40 12/29/23 07:40 12/29/23 07:40 12/29/23 07:40 12/29/23 07:40
Physical Exam
Constitutional: No Acute Distress, Comfortable, Chronically Ill and Non-toxic
Eyes: No Conjunctival Hemorrhage and Sclera Anicteric
Cardiovascular: S1/S2; Negative S3/S4
Pulmonary: Non Labored; Negative Wheezes, Rales or Rhonchi
Gastrointestinal: Soft and Non Tender
Genito-Urinary: Galvni and Clear Urine; Negative Hematuria
Musculoskeletal: Other (Somewhat contracted lower extremities)
Neurological: Awake and Alert
Objective Data
Lab Data
Lab Results
12/29/23 07:32
12/29/23 07:32
Estimated Creat Clear 18 ml/min 12/29/23 07:32
Total Bilirubin 0.4 mg/dl (0.2-1.3) 12/29/23 07:32
AST 36 U/L (17-59) 12/29/23 07:32
ALT 26 U/L (0-50) 12/29/23 07:32
Alkaline Phosphatase 125 U/L (38-126) 12/29/23 07:32
Most recent labs reviewed.
Micro Results:
12/24/23 12:44 Urine Culture - Final
Urine Staphylococcus epidermidis
12/25/23 03:36 MRSA Screen - Final
Nose No Methicillin Resistant Staphylococcus aureus isolated.
Imaging:
12/24/2023 CXR (2 view): No focal infiltrates noted. Film personally viewed.
[2023-12-29 15:25] VITALS: BP 113/58
[2023-12-29] MEDS: TEGRETOL CHEWABLE 300 MG PO (20:54)
[2023-12-29] MEDS: ABILIFY 5 MG PO (20:54)
[2023-12-29] MEDS: FIBERCON 625 MG PO (20:54)
[2023-12-29] MEDS: COMPAZINE 5 MG IV (22:12)
[2023-12-29 22:17] LABS: Glucose - Point of Care 107 mg/dl (70-99)
[2023-12-29] MEDS: DULCOLAX 10 MG RECTAL (22:58)
[2023-12-29 23:47] VITALS: BP 160/98
--- NOTE | 2023-12-30 | PTCARENOTE ---
Patient is very restless/ very tensed/ sweaty/ clammy. Bp- 179/88 ( patient is tensing up when taking Bp), HR- 117, Blood sugar- 106, rectal temp- 100. Unable to verbalize what's bothering. c/o nausea and vomited x1 (very small amount). MARKY Maldonado
made aware and in to see the patient.
[2023-12-30 01:13] VITALS: BP 132/80
--- NOTE | 2023-12-30 02:45 | W.PN.UPDATE ---
Update Note
Progress Note Update
Notified by RN patient restless, diaphoretic, BP and HR elevated after taking evening medications. Patient also having nausea and had small emesis. Upon visit, patient noted to be restless in bed, body tense, diaphoretic. Patient reports no pain or
discomfort, tho appears uncomfortable. BP 160/98 HR 116, rectal temp 100, blood [id number]. Galvin catheter draining clear yellow urine, bladder scan shows 0 in bladder. Lower abdomen slightly distended and firm. Patient's last recorded bowel movement
12/27 small - none prior since admission (12/23). PRN Dulcolax suppository given. Patient appears comfortable at this time, VS back to baseline 132/80 HR 85, rectal temp 98.7.
[2023-12-30 06:15] LABS: % Basophils 0.6 % (0-2); % Eosinophils 0.3 % (0-6); % Immature Granulocytes 0.8 % (0-0.5); % Lymphocytes 25.5 % (20.5-51.1); % Monocytes 7.3 % (1.7-9.3); % Neutrophils 65.5 % (42.2-75.2); Absolute Basophils 0.1 10^3/uL (0-0.2); Absolute Eosinophils 0.1 10^3/uL (0-0.7); Absolute Immature Granulocytes 0.1 10^3/uL (0-0.05); Absolute Monocytes 1.2 10^3/uL (0.1-0.6); Absolute Neutrophils 10.3 10^3/uL (1.4-6.5); Hematocrit 31.4 % (39.0-52.0); Hemoglobin 10.7 g/dL (13.0-18.0); Mean Corp Hgb Conc. 34.1 g/dL (33.0-37.0); Mean Corpuscular Hgb 31.9 pg (27.0-31.0); Mean Corpuscular Volume 93.7 fL (80.0-94.0); Mean Platelet Volume 10.2 fL (7.4-10.4); Nucleated Red Blood Cells % 0 % (-); Platelet Count 316 10^3/uL (130-400); Red Blood Cell Count 3.35 10^6/uL (4.70-6.10); Red Cell Dist. Width 13.1 % (11.5-14.5); White Blood Cell Count 15.7 10^3/uL (4.8-10.8)
[2023-12-30 06:30] LABS: ALT (SGPT) 25 U/L (0-50); AST (SGOT) 36 U/L (17-59); Albumin 4.1 g/dl (3.5-5.0); Alkaline Phosphatase 115 U/L (38-126); Blood Urea Nitrogen 71 mg/dl (9-20); Calcium 9.1 mg/dl (8.4-10.2); Carbon Dioxide 31 mmol/L (22-30); Chloride 103 mmol/L (98-107); Estimated Creatinine Clearance 21 ml/min; Glucose 93 mg/dl (70-99); Potassium 4.7 mmol/L (3.5-5.1); Sodium 146 mmol/L (135-145); Total Bilirubin 0.5 mg/dl (0.2-1.3); Total Protein 6.9 g/dl (6.3-8.2); eGFR 24.89
--- NOTE | 2023-12-30 07:26 | W.PN.HOSP.TC ---
Addendum entered and electronically signed by Joan Sherman MD, Resident 12/31/23 07:05:
In clarification to my note
- CAUTI was present on admission and is now resolved.
Addendum entered and electronically signed by Ronaldo Crooks MD 12/30/23 13:44:
CAUTI was ruled out
Addendum entered and electronically signed by Ronaldo Crooks MD 12/30/23 11:50:
I saw and evaluated the patient. I reviewed the resident�s note and agree with findings and plan as documented in the resident�s note.
Patient does not offer any new complaints.
Gen: remains NAD, awake and alert
Eyes: EOMI, PERRLA, no scleral icterus.
Neck: supple.
CV: RRR, +S1/S2, no m/r/g.
Resp: CTAB, no rales, wheezes, or rhonchi.
Abd: +BS, soft, NT, ND
Psych: Calm
Asymptomatic bacteriuria:
-lehman exchanged on admission
-was on empiric rocephin
-UCx with 50,000 CFU Staph epi which is colonization due to chronic Lehman catheter
-UTI has been ruled out by myself and Dr. Cyr
BARBARA, hypernatremia, hypokalemia:
-BARBARA and hypokalemia resolved with hypotonic IVFs with 20meq K
-Na has improved to 146 (upper limit of normal is 145)
Medically cleared for discharge.
Total time spent on d/c = 31 min. This included today's physical exam, progress note, review of laboratory and diagnostic data, preparation of discharge documents and prescriptions, and discussions about the pt's hospital course and discharge plan
with the patient and other hospital medical biller involved in the patient's care.
Original Note:
Today's Communication/Plan
-
-Discharge is planning
Assessment / Plan
Assessment / Plan
Impression: The patient is 63-year-old male with a history of CP, MR, seizure disorder, right hemiparesis, nonambulatory, chronic kidney disease with an indwelling Lehman from a personal care facility called friends and family for gradual increased
weakness. He presented to ER on 12/23 and some lab studies were obtained. The patient was discussed with nursing team. He has a history of urinary retention and has a chronic Lehman catheter in place which changed at admission and on 12/26. The
patient reportedly had an outpatient urine culture which showed 10K-50K CFU with coag negative staph. Cultures have also grown coag negative staph here, and Infectious Diseases was asked to comment upon need for therapy.
#Generalized weakness and debility
-Chest x-ray reviewed by me-no acute changes
-CT head-no acute changes
# CAUTI
-Present on admission and catheter exchanged in ER
-Enlarged prostate with obstructive uropathy: History of TURP 2018 and has been dependent on Lehman catheter since beginning of 2022 for neurogenic bladder
-Urine culture: 50,000 CFU/ML Staphylococcus epidermidis
-Appreciate ID consult: No ongoing need for antibiotic therapy. Asymptomatic bacteriuria
-WBC dropped from 11.2 to 8.3 on 12/26. On 12/27 WBC: 19.4 and WBC 12.0 on 12/28 and WBC:15.7 on
-Renal US ON 12/28/23:Lehman catheter present in bladder and bladder not distended.
# CKD stage IV
-continue sodium bicarb
-Cr 2.8 ( was 2.9 on 12/24) likely his baseline
-Follow up
#Hypokalemia
-Resolved with replacement
-K 4.7 on 12/29
#DM 2
-ISS low
# Cerebral palsy with developmental delay: Ambulatory wjmblwenkqr-sdceoybymb-cxevx but he can propel himself around per POA/ skilled nursing resident
# Epilepsy-Absence seizures- continue carbamazepine 200 mg 8 AM and 4 PM, 300 mg HS, clorazepate 3.75 mg BID, Lamictal 300 BID, Keppra 1000 mg BID
# Chronic dysphagia on dysphagia 1 diet-speech evaluation noted, Dys 1 diet with nectar thick liquids
# Chronic anemia likely secondary to CKD-on p.o. iron
-Hemoglobin stable
-No active bleeding
# Anxiety/depression-continue Abilify,, Lexapro, fluoxetine
# DVT prophylaxis subcutaneous heparin
# Full code
Discussed with nursing
Called to Svitlana Sarkar who is POA to update
Anticipated Discharge: Within 24 hours
Subjective/Interval History
-
Date of Service: December 30, 2023
The patient was seen in his bed reporting no pain during the physical examination.
Objective Data
-
Labs:
Laboratory Results
12/30/23
05:30
WBC 15.7 H
Hgb 10.7 L
Hct 31.4 L
Plt Count 316 D
Sodium 146 H
Potassium 4.7
Chloride 103
Carbon Dioxide 31 H
BUN 71 H
Creatinine 2.8 H
Glucose 93
Calcium 9.1
Total Bilirubin 0.5
AST 36
ALT 25
Alkaline Phosphatase 115
Vital Signs:
Vital Signs
Temp Pulse Resp BP Pulse Ox
98.7 F 85 20 132/80 97
12/30/23 01:13 12/30/23 01:13 12/29/23 23:47 12/30/23 01:13 12/30/23 01:13
I&O
12/29/23 12/30/23 12/31/23
06:59 06:59 06:59
Intake Total 1245 / 1245 1540 / 1540
Output Total 1350 / 1350 1700 / 1700
Balance -105 / -105 -160 / -160
Review of Systems
-
EENT: Reports No Symptoms Reported
Respiratory: Reports No Symptoms
Cardiac: Reports No Symptoms
Abdomen/GI: Reports No Symptoms
Genitourinary: Reports No Symptoms
Musculoskeletal: Reports Other (Mildly contracted)
Skin: Reports No Symptoms
Neuro: Reports Other (See HPI )
Physical Exam
-
General: No Apparent Distress and Appears Chronically Ill
HEENT: Normocephalic and Atraumatic
Respiratory: Clear to Auscultation
Cardiac: Regular Rhythm and S1/S2
GI: Soft and Nontender
Genito-urinary: Lehman
Musculoskeletal: No Clubbing, No Cyanosis, No Edema and Other (right hemiparesis, non-ambulator)
Skin: Warm
Neuro: Awake, Alert, Oriented (Year and his name not place not people) and Other (right hemiparesis, non-ambulator)
[2023-12-30 07:30] VITALS: BP 138/81
[2023-12-30] MEDS: TRANXENE 3.75 MG PO (08:19)
[2023-12-30] MEDS: LAMICTAL 300 MG PO (08:20)
[2023-12-30] MEDS: KEPPRA 1000 MG PO (08:21)
[2023-12-30] MEDS: TEGRETOL 200 MG PO (08:22)
[2023-12-30] MEDS: FEOSOL 325 MG PO (08:22)
[2023-12-30] MEDS: LEXAPRO 10 MG PO (08:23)
[2023-12-30] MEDS: HEPARIN 5000 UNITS SC (08:23)
[2023-12-30] MEDS: PROZAC 20 MG PO (08:23)
[2023-12-30] MEDS: SODIUM BICARBONATE 650 MG PO (08:24)
[2023-12-30] MEDS: 0.45% NACL with KCL 20 MEQ 1000 IV (08:26)
--- NOTE | 2023-12-30 13:16 | PN.CDI ---
CDI
- -
CDI:
Physician Documentation Request
Admit Date: 12/24/23 18:33
Dear Doctor Whit,
12/28 Infectious Disease: 'Bacteriuria- No systemic evidence of infection (no fever, no leukocytosis)- No CAUTI'
12/29 Hospitalist PN: 'Asymptomatic bacteriuria: -lehman exchanged on admission...UCx with 50,000 CFU Staph epi which is colonization due to chronic Lehman catheter -UTI has been ruled out by myself and Dr. Cyr...CAUTI...Appreciate ID consult: No
ongoing need for antibiotic therapy. Asymptomatic bacteriuria'
12/29 Discharge Summary: 'Catheter-associated urinary tract infection'
Please clarify the following:
____ - CAUTI was present on admission and is now resolved.
____ - CAUTI was present on admission and is still being monitored, evaluated or treated
____ - CAUTI was ruled out
____ - CAUTI is still a likely, suspected, probable diagnosis
____ - Other
Use of terms such as suspected, likely, concern for, or probable (associated with a specific diagnosis that is being evaluated, monitored, or treated as if it exists) are acceptable and can be coded in the inpatient setting, when documented at the
time of discharge.
Thank you,
Aiyana Pozo RN, BSN
CDI Specialist
Available via [place] text
Please use your independent medical judgment in providing your response.
--- NOTE | 2023-12-30 13:30 | W.DCSUMMARY ---
Addendum entered and electronically signed by Ronaldo Crooks MD 12/31/23 07:56:
Read, reviewed, and agree. See same day progress note for additional details.
Original Note:
Documented by User: Joan Sherman MD, Resident 12/31/23 07:05
Discharge Summary
Discharge Data
Date of Admission: 12/24/23
Date of Discharge: 12/31/23
-
Pending Results: No
Additional Pending Results:
Discharging Physician : Ronaldo Crooks MD
Disposition : Personal Care Facility
Primary care physician : Corey Piedra MD
Principal Discharge diagnosis : Catheter-associated urinary tract infection, Chronic kidney disease , Hypokalemia
Chronic Discharge diagnosis : Cerebral palsy with developmental delay, Epilepsy-Absence seizures, Chronic dysphagia, Chronic anemia,Anxiety/depression
Hospital Course : The patient is 63-year-old male with a history of CP, MR,seizure disorder, right hemiparesis, nonambulatory, hx of TURP IN 2019, chronic kidney disease with an indwelling Galvin from a personal care facility presented to ER on
12.24.23 for gradual increased weakness. Chest Xray and Head CT was unremarkable. He was obtained some lab studies. The patient is not capable of reporting his problem due his chronic mental status. The patient was discussed with nursing team.The
patient has a history of repeated UTI with multiple admission. He has a history of urinary retention and has a chronic Galvin catheter in place which changed at admission on 12/23 and on 12/26. The patient reportedly had an outpatient urine
culture which showed 10K-50K CFU with coag negative staph. Cultures have also grown coag negative staph here, and Infectious Diseases is asked to comment upon need for therapy. ID recommended to stop antibiotic regimen and have a renal US due
increased creatinine level. US did not show any obstruction. Creatine level trended down and was found 2.8 on 12/29 which seems his baseline. Hypokalemia was resolved with replacement.
#Problem 1: Catheter-associated urinary tract infection: He has a history of urinary retention and has a chronic Galvin catheter in place which changed at admission on 12/23 and on 12/26. The patient reportedly had an outpatient urine culture which
showed 10K-50K CFU with coag negative staph. Cultures have also grown coag negative staph here, and Infectious Diseases is asked to comment upon need for therapy. ID recommended to stop antibiotic regimen after he received 3 days of treatment.No
fever spikes no complaining pain. Urine is clean yellow color.
#Problem 2: CKD stage IV: Creatine levels trended down. Renal US did not show any postrenal obstruction.
#Problem 3: Hypokalemia: Resolved with replacement.
#Other chronic Medical Problems: Includes 2, Cerebral palsy with developmental delay, Epilepsy-Absence seizures, Chronic dysphagia on dysphagia 1 diet, Chronic anemia likely secondary to CKD, Anxiety/depression. These problems were treated as
able to.
Important imaging findings :
Head CT: 12/24/23
FINDINGS:
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 Stable appearance of the ventricles. There is no new intra- or extra-axial mass, hemorrhage, or fluid collection. No areas of abnormal mass effect or
attenuation are noted. There is stable mild to moderate subcortical, deep, and periventricular white matter low-attenuation, compatible with changes of chronic small vessel ischemic disease. Visualized paranasal sinuses are free of mucosal disease.
No depressed calvarial fracture.
IMPRESSION:
No acute intracranial abnormality noted.
Chest X ray 12/24/23
IMPRESSION:
No acute cardiopulmonary process.
Renal US 12.28.23
FINDINGS: There is no hydronephrosis of the left kidney. No shadowing stones are demonstrated. No aggressive renal mass is demonstrated. There are multiple simple left renal cysts. The largest measures 5.2 cm. Renal cortical thickness is within
normal, as is echogenicity of the renal cortex.
The right kidney is not visualized.
The left kidney measures 11.0 x 6.3 x 5.2 cm in length.
Color Doppler imaging demonstrates intact blood flow to each kidney.
The patient had a Galvin catheter present. The bladder is not distended. Therefore, it is not evaluated.
IMPRESSION: Nonvisualization of the right kidney.
Several simple left renal cysts.
Galvin catheter present in bladder and bladder not distended. Therefore, not evaluated.
Discharge Plan
-
Patient Disposition: Home (Routine Discharge)
Discharge Diagnosis/Procedures: Catheter-associated urinary tract infection
Chronic kidney disease
Hypokalemia
Cerebral palsy with developmental delay
Epilepsy-Absence seizures
Chronic dysphagia
Chronic anemia
Anxiety/depression
Condition: Good
Diet: Other diet
Additional Diets: IDDSI-Pureed diet, crush all meds in applesauce
Activity: With assistance
Driving Restrictions: No driving
Bathing Restrictions: None
Blood Work: BMP and CBC in 5 days, script from PCP
Referrals:
Corey Piedra MD [Family Provider] - in less than 1 week
Prescriptions:
Continued
cholecalciferol (vitamin D3) 1,000 UNITS tablet
1,000 units PO QPM
levetiracetam 500 MG tablet
1,000 mg PO BID Qty: 120 0RF
carbamazepine 200 MG tablet
200 mg PO BID@0800,1600
carbamazepine 200 MG tablet
300 mg PO HS
ascorbic acid (vitamin C) [Vitamin C] 500 MG tablet
500 mg PO DAILY Qty: 60 0RF
lamotrigine [Lamictal] 150 mg Tablet
300 mg PO BID
clorazepate dipotassium 3.75 mg Tablet
3.75 mg PO BID
calcium polycarbophil [Fiber (calcium polycarbophil)] 625 mg Tablet
625 mg PO HS
docusate sodium 100 MG capsule
100 mg PO BID
sodium bicarbonate 650 mg Tablet
650 mg PO BID
aripiprazole 5 mg Tablet
5 mg PO HS
ferrous sulfate 325 mg (65 mg iron) Tablet
325 mg PO BID
fluoxetine 20 mg Tablet
20 mg PO DAILY
polyethylene glycol 3350 17 gram powder in packet
17 g PO Q48H Qty: 15 0RF
Discontinued
escitalopram oxalate 10 mg tablet
10 mg PO DAILY
Discharge Orders:
Discharge Patient (As Directed); Ordered 12/30/23
Ordered By: Ronaldo Crooks
Discharge Date and Time
Discharge Date/Time: 12/30/23 14:33
Print Language: SPANISH

Documented by User: Ronaldo Crooks MD 12/31/23 07:54
Discharge Summary
Discharge Data
Date of Admission: 12/24/23
Date of Discharge: 12/31/23
-
Additional Pending Results:
Discharging Physician : Ronaldo Crooks MD
Disposition : Personal Care Facility
Primary care physician : Corey Piedra MD
Principal Discharge diagnosis : Asymptomatic bacteriuria, Chronic kidney disease , Hypokalemia
Chronic Discharge diagnosis : Cerebral palsy with developmental delay, Epilepsy-Absence seizures, Chronic dysphagia, Chronic anemia,Anxiety/depression
Hospital Course : The patient is 63-year-old male with a history of CP, MR,seizure disorder, right hemiparesis, nonambulatory, hx of TURP IN 2019, chronic kidney disease with an indwelling Galvin from a personal care facility presented to ER on
12.24.23 for gradual increased weakness. Chest Xray and Head CT was unremarkable. He was obtained some lab studies. The patient is not capable of reporting his problem due his chronic mental status. The patient was discussed with nursing team.The
patient has a history of repeated UTI with multiple admission. He has a history of urinary retention and has a chronic Galvin catheter in place which changed at admission on 12/23 and on 12/26. The patient reportedly had an outpatient urine
culture which showed 10K-50K CFU with coag negative staph. Cultures have also grown coag negative staph here, and Infectious Diseases is asked to comment upon need for therapy. ID recommended to stop antibiotic regimen and have a renal US due
increased creatinine level. US did not show any obstruction. Creatine level trended down and was found 2.8 on 12/29 which seems his baseline. Hypokalemia was resolved with replacement.
#Problem 1: Asymptomatic bacteriuria: He has a history of urinary retention and has a chronic Galvin catheter in place which changed at admission on 12/23 and on 12/26. The patient reportedly had an outpatient urine culture which showed 10K-50K CFU
with coag negative staph. Cultures have also grown coag negative staph here, and Infectious Diseases is asked to comment upon need for therapy. ID recommended to stop antibiotic therapy as there was no evidence of urinary tract infection. No fever
spikes no complaining pain. Urine is clean yellow color.
#Problem 2: CKD stage IV: Creatine levels trended down. Renal US did not show any postrenal obstruction.
#Problem 3: Hypokalemia: Resolved with replacement.
#Other chronic Medical Problems: Includes 2, Cerebral palsy with developmental delay, Epilepsy-Absence seizures, Chronic dysphagia on dysphagia 1 diet, Chronic anemia likely secondary to CKD, Anxiety/depression. These problems were treated as
able to.
Important imaging findings :
Head CT: 12/24/23
FINDINGS:
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 Stable appearance of the ventricles. There is no new intra- or extra-axial mass, hemorrhage, or fluid collection. No areas of abnormal mass effect or
attenuation are noted. There is stable mild to moderate subcortical, deep, and periventricular white matter low-attenuation, compatible with changes of chronic small vessel ischemic disease. Visualized paranasal sinuses are free of mucosal disease.
No depressed calvarial fracture.
IMPRESSION:
No acute intracranial abnormality noted.
Chest X ray 12/24/23
IMPRESSION:
No acute cardiopulmonary process.
Renal US 12.28.23
FINDINGS: There is no hydronephrosis of the left kidney. No shadowing stones are demonstrated. No aggressive renal mass is demonstrated. There are multiple simple left renal cysts. The largest measures 5.2 cm. Renal cortical thickness is within
normal, as is echogenicity of the renal cortex.
The right kidney is not visualized.
The left kidney measures 11.0 x 6.3 x 5.2 cm in length.
Color Doppler imaging demonstrates intact blood flow to each kidney.
The patient had a Galvin catheter present. The bladder is not distended. Therefore, it is not evaluated.
--- NOTE | 2023-12-30 17:55 | CM ---
Addendum entered by Padmini Cuadra 01/01/24 08:14:
12/29 8pm rceived an email from community cultural development officerclerk ruffin.she did refax dc instructions to [facility].
Original Note:
patient is stable for dc back to [facility]. i spoke with aleksandr at [facility].ambulance transport arranged for 1:30 pm via acute care. i called relative napoleon crespo to [facility] her of dc..i placed home care
referral to at home rehab for pt and ot.
phone number for report is [phone] and fax number [phone].
i received several calls from aleksandr close to patient's dc.one was patient was on 2 antidepressants and he was only on prozak.i texted dr pereira and he siad he would dc the lexapro.i then received a call again from aleksandr stating that both meds on on the dc
instructions,i again reached out to attending to make this change.aleksandr also asked if doctor could write for patient's meds to be crushed and taken with applesauce.i explained that nursing can change that and it does not need a doctor's order.
== END 2023-12-30 14:33 | disposition home or self-care (01) | DRG 948 ==
LOC: 4 EAST ACU 18:33
PROVIDERS: Emergency Medicine; Physician Assistant; Registered Nurse; Student in an Organized Health Care Education/Training Program; ADMITTING PHYSICIAN Internal Medicine; ATTENDING PHYSICIAN Internal Medicine; CONSULT PHYSICIAN Internal Medicine Infectious Disease; EMERGENCY PHYSICIAN Emergency Medicine; FAMILY PHYSICIAN Internal Medicine
DX: R53.81 Other malaise (principal); N17.9 Acute kidney failure, unspecified; E87.0 Hyperosmolality and hypernatremia; I69.351 Hemiplegia and hemiparesis following cerebral infarction affecting right dominant side; N13.8 Other obstructive and reflux uropathy; N18.4 Chronic kidney disease, stage 4 (severe); D63.1 Anemia in chronic kidney disease; E11.22 Type 2 diabetes mellitus with diabetic chronic kidney disease; F32.A Depression, unspecified; G40.A09 Absence epileptic syndrome, not intractable, without status epilepticus; G80.9 Cerebral palsy, unspecified; I12.9 Hypertensive chronic kidney disease with stage 1 through stage 4 chronic kidney disease, or unspecified chronic kidney disease; R13.10 Dysphagia, unspecified; E87.6 Hypokalemia; E78.5 Hyperlipidemia, unspecified; F41.9 Anxiety disorder, unspecified; K21.9 Gastro-esophageal reflux disease without esophagitis; K59.00 Constipation, unspecified; N40.1 Benign prostatic hyperplasia with lower urinary tract symptoms; N28.1 Cyst of kidney, acquired; R45.1 Restlessness and agitation; R11.2 Nausea with vomiting, unspecified; R53.83 Other fatigue; R82.71 Bacteriuria; Z96.0 Presence of urogenital implants; Z96.641 Presence of right artificial hip joint; Z79.899 Other long term (current) drug therapy; Z86.19 Personal history of other infectious and parasitic diseases; Z88.8 Allergy status to other drugs, medicaments and biological substances; Z87.440 Personal history of urinary (tract) infections; Z90.79 Acquired absence of other genital organ(s)
CPT/HCPCS: 70450; 71046; 76770; 80048; 80053; 80175; 80177; 81003; 81015; 82550; 82962; 83735; 85025; 85027; 87070; 87086; 87147; 87186; 87811; 92526; 92610; 93005; 96374; 97162; 97166; 97530; 99285; J3480

== ENCOUNTER 2024-02-01 21:40 | Emergency (ER) | payer MEDICARE, MEDICAID, SELFPAY ==
[2024-02-01 21:43] VITALS: BP 135/70
--- NOTE | 2024-02-01 21:55 | ED.GENMED ---
History of Present Illness
<JELANI Bond - Last Filed: 02/02/24 05:36>
General
Chief Complaint: Abdominal Symptoms
Source: patient
Time Seen by Provider: 02/01/24 21:53
Nursing documentation reviewed up to this point in time: agreed with
History of Present Illness
History of Present Illness:
Pt is a 63 y/o M with PMH of epilepsy, cerebral palsy, GERD, recurrent UTI, PKD, BARBARA, CKD stage 4, DM type 2, and hemiparesis affecting right side after CVA who presents today to the ER alone after [facility] staff said pt c/o nausea and
vomiting at the facility after changing his diet to pureed and thickened foods. Pt is responding 'no' to all ROS questions asked, is unable to answer questions due to chronic mental status.
The pt has a hx of repeat UTI with multiple admissions. He has a hx of urinary retention and a chronic Galvin catheter.
If applicable-neuro sx onset
Onset of symptoms known: No
Time pt last seen normal is known: No
Past History
<JELANI Bond - Last Filed: 02/02/24 05:36>
Past History
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
ED Past Surgical History: Orthopedic (Foot surery, right hip sx. )
Social History
Tobacco: Non-smoker
Alcohol: None
Drug: None
Personal: Single
Living: assisted living
Employment: Not employed
Family History
Family History: Unable to obtain
Review of Systems
<JELANI Bond - Last Filed: 02/02/24 05:36>
Review of Systems
Allergies reviewed?: Yes
Respiratory: Reports no symptoms
Cardiac: Reports no symptoms
ABD/GI: Reports nausea (reported by family to ems) and vomiting (reported by family to ems)
Skin: Reports no symptoms
Phy Exam
<JELANI Bond - Last Filed: 02/02/24 05:36>
General Physical Exam
General Presentation: no apparent distress
General age: appears older than age
General Skin: warm and dry
General Habitus: cachetic and frail
General Mental: confused (answering 'no' to all questions)
General Hydration: appears well hydrated
General Chronic Disability: urinary catheter
Cardiovascular Exam
Cardiovascular Exam: regular rate/rhythm, no gallop and no murmur
Heart Sounds: normal
Pulmonary Exam
Pulmonary Exam: lungs clear and no respiratory distress
Cough: no cough
Gastrointestinal Exam
Gastrointestinal Exam: normal bowel sounds, non tender, soft and non distended
Course
<ST RondaCO - Last Filed: 02/02/24 05:36>
Orders/Labs/Results
Orders:
Orders
02/01/24 21:42
IV Insert/Care/Rem.- Treatment PRN
02/01/24 21:59
Complete Blood Count/With Diff Urgent
Comprehensive Metabolic Panel Urgent
Lipase Urgent
Urinalysis Reflex To Culture Urgent
Date Specimen was Collected: 02/01/24
Time Specimen was Collected: 21:42
Urine Microscopic Reflex Cult Urgent
Urine Culture Urgent
DAVID Source: U
Specimen Description:
Date Specimen was Collected: 02/01/24
Time Specimen was Collected: 21:42
02/02/24 00:05
CR Chest Single View Urgent
Reason For Exam: possible aspiration
02/02/24 00:44
Fosfomycin [Monurol] 3 gm PO ONCE ONE
02/02/24 06:27
0.9% Sodium Chloride 1000 ml [Nss] 1,000 ml IV BOLUS
Abnormal Lab Results
02/01/24
21:59
WBC 14.3 H 10^3/uL
(4.8-10.8)
RBC 3.59 L 10^6/uL
(4.70-6.10)
Hgb 11.9 L g/dL
(13.0-18.0)
Hct 34.6 L %
(39.0-52.0)
MCV 96.4 H fL
(80.0-94.0)
MCH 33.1 H pg
(27.0-31.0)
Abs Immat Gran (auto) 0.1 H 10^3/uL
(0-0.05)
Absolute Neuts (auto) 12.3 H 10^3/uL
(1.4-6.5)
Absolute Lymphs (auto) 0.7 L 10^3/uL
(1.2-3.4)
Absolute Monos (auto) 1.2 H 10^3/uL
(0.1-0.6)
Neutrophils % 86.3 H %
(42.2-75.2)
Lymphocytes % 4.8 L %
(20.5-51.1)
Chloride 89 L mmol/L
(98-107)
Carbon Dioxide 32 H mmol/L
(22-30)
BUN 54 H mg/dl
(9-20)
Creatinine 2.7 H mg/dL
(0.7-1.3)
Glucose 133 H mg/dl
(70-99)
Alkaline Phosphatase 162 H U/L
(38-126)
Ur Occult Blood Reflex 2+ A
(Negative)
Leukocyte Esterase Rfl 2+ A
(Negative)
Urine RBC 7-10 A /HPF
(0-2)
Urine WBC (Reflex) 16-20 A /HPF
(0-5)
Urine Bacteria (Reflex) Few A
(Negative)
Urine Albumin (Reflex) 1+ A
(Neg - Trace)
02/01/24 21:59
02/01/24 21:59
Vital Signs
Initial and Last Documented VS:
Initial Vital Signs
Temp Pulse Resp BP Pulse Ox
97.5 F 80 16 135/70 99
02/01/24 21:43 02/01/24 21:43 02/01/24 21:43 02/01/24 21:43 02/01/24 21:43
Last Documented Vital Signs
Temp Pulse Resp BP Pulse Ox
97.5 F 62 16 142/73 99
02/01/24 21:43 02/02/24 06:30 02/02/24 06:30 02/02/24 06:30 02/02/24 06:30
<Wilfredo Oliver, DO - Last Filed: 02/02/24 06:43>
Orders/Labs/Results
Orders:
Orders
02/01/24 21:42
IV Insert/Care/Rem.- Treatment PRN
02/01/24 21:59
Complete Blood Count/With Diff Urgent
Comprehensive Metabolic Panel Urgent
Lipase Urgent
Urinalysis Reflex To Culture Urgent
Date Specimen was Collected: 02/01/24
Time Specimen was Collected: 21:42
Urine Microscopic Reflex Cult Urgent
Urine Culture Urgent
DAVID Source: U
Specimen Description:
Date Specimen was Collected: 02/01/24
Time Specimen was Collected: 21:42
02/02/24 00:05
CR Chest Single View Urgent
Reason For Exam: possible aspiration
02/02/24 00:44
Fosfomycin [Monurol] 3 gm PO ONCE ONE
02/02/24 06:27
0.9% Sodium Chloride 1000 ml [Nss] 1,000 ml IV BOLUS
Abnormal Lab Results
02/01/24
21:59
WBC 14.3 H 10^3/uL
(4.8-10.8)
RBC 3.59 L 10^6/uL
(4.70-6.10)
Hgb 11.9 L g/dL
(13.0-18.0)
Hct 34.6 L %
(39.0-52.0)
MCV 96.4 H fL
(80.0-94.0)
MCH 33.1 H pg
(27.0-31.0)
Abs Immat Gran (auto) 0.1 H 10^3/uL
(0-0.05)
Absolute Neuts (auto) 12.3 H 10^3/uL
(1.4-6.5)
Absolute Lymphs (auto) 0.7 L 10^3/uL
(1.2-3.4)
Absolute Monos (auto) 1.2 H 10^3/uL
(0.1-0.6)
Neutrophils % 86.3 H %
(42.2-75.2)
Lymphocytes % 4.8 L %
(20.5-51.1)
Chloride 89 L mmol/L
(98-107)
Carbon Dioxide 32 H mmol/L
(22-30)
BUN 54 H mg/dl
(9-20)
Creatinine 2.7 H mg/dL
(0.7-1.3)
Glucose 133 H mg/dl
(70-99)
Alkaline Phosphatase 162 H U/L
(38-126)
Ur Occult Blood Reflex 2+ A
(Negative)
Leukocyte Esterase Rfl 2+ A
(Negative)
Urine RBC 7-10 A /HPF
(0-2)
Urine WBC (Reflex) 16-20 A /HPF
(0-5)
Urine Bacteria (Reflex) Few A
(Negative)
Urine Albumin (Reflex) 1+ A
(Neg - Trace)
02/01/24 21:59
02/01/24 21:59
Vital Signs
Initial and Last Documented VS:
Initial Vital Signs
Temp Pulse Resp BP Pulse Ox
97.5 F 80 16 135/70 99
02/01/24 21:43 02/01/24 21:43 02/01/24 21:43 02/01/24 21:43 02/01/24 21:43
Last Documented Vital Signs
Temp Pulse Resp BP Pulse Ox
97.5 F 62 16 142/73 99
02/01/24 21:43 02/02/24 06:30 02/02/24 06:30 02/02/24 06:30 02/02/24 06:30
<JELANI Bond - Last Filed: 02/02/24 05:36>
MDM/Problems Addressed
Differential Diagnosis Includes:
UTI - occult blood, leukocytes, albumin in urine; hx of recurrent uti
pyelonephritis - recurrent UTIs, n/v
food intolerance - recent hx of new food in diet; n/v
Chronic conditions affecting care: Neurological disorder (cerebral palsy, CVA causing hemipeligia)
<JELANI Bond - Last Filed: 02/02/24 05:36>
*Critical Care Note
Total Time (30-74mins, 75-104mins- exclusive of procedures): Not Applicable
<JELANI Bond - Last Filed: 02/02/24 05:36>
Update Note
Update Note:
02/01/2024 2350 PM: Attempted to speak with patient's to contact back Lia Mcleod. Messages left. Attempted to call family and friends directly. Message left.
02/02/2024 530 AM - AD PA-S: Spoke with contact Svitlana Sarkar; stated she will come to ED to check on patient/measure baseline. Pt answering questions and in no acute distress; Svitlana Sarkar was called back to update on his status.
<Wilfredo Oliver DO - Last Filed: 02/02/24 06:43>
Update Note
Update Note:
02/01/2024 2350 PM: Attempted to speak with patient's to contact back Lia Mcleod. Messages left. Attempted to call family and friends directly. Message left.
02/02/2024 530 AM - AD PA-S: Spoke with contact Svitlana Sarkar; stated she will come to ED to check on patient/measure baseline. Pt answering questions and in no acute distress; Svitlana Sarkar was called back to update on his status.
02/02/2024 0639 AM spoke with family member Svitlana who is at the bedside. She states that he is at his baseline. Will be getting fluids and going back to [facility]. Awaiting urine cultures.
ED Attending Note
<JELANI Bond - Last Filed: 02/02/24 05:36>
-
Portions of this chart may have been created with voice recognition software.� Occasional wrong word or��sound alike� substitutions may have occurred due to the inherent limitations of voice recognition software.
<Wilfredo Oliver DO - Last Filed: 02/02/24 06:43>
ED Attending Note
Patient seen and examined by attending physician: Yes
I performed the substantive portion of visit, reviewed & personally made and approve the management plan that is documented in note by myself or CHEN.: Yes
Discharge Plan
Departure
Patient Disposition: Long-Term/SNF
Date of Disposition: 02/02/24
Time of Disposition: 01:41
Discharge Problem:
Acute UTI (urinary tract infection), Nausea & vomiting
Instructions: Urinary Tract Infection, Adult ED
Prescriptions:
No Action
levetiracetam 500 MG tablet
1,000 mg PO BID Qty: 120 0RF
carbamazepine 200 MG tablet
200 mg PO BID@0800,1600
carbamazepine 200 MG tablet
300 mg PO HS
ascorbic acid (vitamin C) [Vitamin C] 500 MG tablet
500 mg PO DAILY Qty: 60 0RF
lamotrigine [Lamictal] 150 mg Tablet
300 mg PO BID
clorazepate dipotassium 3.75 mg Tablet
3.75 mg PO BID
calcium polycarbophil [Fiber (calcium polycarbophil)] 625 mg Tablet
625 mg PO HS
docusate sodium 100 MG capsule
100 mg PO BID
sodium bicarbonate 650 mg Tablet
650 mg PO BID
aripiprazole 5 mg Tablet
5 mg PO HS
ferrous sulfate 325 mg (65 mg iron) Tablet
325 mg PO BID@0800,1600
fluoxetine 20 mg Tablet
20 mg PO DAILY
polyethylene glycol 3350 17 gram powder in packet
17 g PO Q48H Qty: 15 0RF
Rx Instructions:
thicken with 1 packet of SimplyThick (begin 02/03/24
amoxicillin 500 mg Capsule
2,000 mg PO DAILYPRN PRN (Reason: prior to dental procedure)
guaifenesin [Robafen] 100 mg/5 mL Liquid
200 mg PO Q4HPRN PRN (Reason: cough)
methenamine hippurate 1 gram tablet
1 g PO BID
clotrimazole 1 % Cream
1 applic TOPICAL BIDPRN PRN (Reason: fungal)
vitamin E 268 mg (400 unit) Capsule
268 mg PO DAILY
cholecalciferol (vitamin D3) 25 mcg (1,000 unit) Tablet
25 mcg PO DAILY@1999
acetaminophen 325 mg Tablet
650 mg PO Q4HPRN PRN (Reason: mild pain)
Referrals:
UNKNOWN - PT NOT,INTERVIEWE [Family Provider] -
Activity Restrictions/Additional Instructions:
It was a pleasure meeting you and taking part in your care. We hope for your continued healing and wellness.
Please read discharge instructions in their entirety. However, they are for general education and may not describe your exact diagnosis at discharge. Information on your ER visit and medical conditions were discussed with you along with appropriate
follow up information...
If indicated, please take your medications as instructed and indicated on discharge paperwork.
Please schedule a follow up appointment as directed. Call to schedule an appointment
Please return to the emergency department with ANY change in, persisting, or worsening of symptoms. If any of your symptoms do not improve, or persist, or become more severe within 6-12 hours, please return to the emergency department for further
care.
Please return to the emergency department if you develop a headache, neck pain/stiffness, fever greater than 100.4F, chest pain, shortness of breath, persistent nausea, vomiting, slurred speech, difficulty walking, numbness/tingling, weakness, signs
of infection or any other symptoms that are worrisome to you.
If you have any questions or concerns please do not hesitate to call the Hospital at or E-mail me directly at [email or web address]
Interventions
Interventions:
*Risk Screen - Suicide Last Done: 02/01/24 21:43
*General Assessment Last Done: 02/01/24 21:43
*Neglect/Abuse Screening Last Done: 02/01/24 21:43
*ED COVID-19 Vaccine History Last Done: 02/01/24 21:43
RC-[id number]-Efofcxqyyc Assessment Last Done: 02/01/24 22:01
Discharge Date and Time
Print Language: GREENLANDIC
[2024-02-01 22:11] LABS: % Basophils 0.2 % (0-2); % Immature Granulocytes 0.4 % (0-0.5); % Lymphocytes 4.8 % (20.5-51.1); % Monocytes 8.3 % (1.7-9.3); % Neutrophils 86.3 % (42.2-75.2); Absolute Immature Granulocytes 0.1 10^3/uL (0-0.05); Absolute Lymphocytes 0.7 10^3/uL (1.2-3.4); Absolute Monocytes 1.2 10^3/uL (0.1-0.6); Absolute Neutrophils 12.3 10^3/uL (1.4-6.5); Hematocrit 34.6 % (39.0-52.0); Hemoglobin 11.9 g/dL (13.0-18.0); Mean Corp Hgb Conc. 34.4 g/dL (33.0-37.0); Mean Corpuscular Hgb 33.1 pg (27.0-31.0); Mean Corpuscular Volume 96.4 fL (80.0-94.0); Mean Platelet Volume 9.9 fL (7.4-10.4); Nucleated Red Blood Cells % 0 % (-); Platelet Count 287 10^3/uL (130-400); Red Blood Cell Count 3.59 10^6/uL (4.70-6.10); Red Cell Dist. Width 12.5 % (11.5-14.5); Urine Albumin 1+ (Neg - Trace); Urine Bilirubin Negative (Negative); Urine Character Clear (Clear); Urine Color Straw; Urine Glucose Negative (Negative); Urine Ketone Negative (Negative); Urine Leukocyte 2+ (Negative); Urine Nitrite Negative (Negative); Urine Occult Blood 2+ (Negative); Urine Urobilinogen Negative (Neg - 1+); Urine pH 6.5 (5.0-9.0); White Blood Cell Count 14.3 10^3/uL (4.8-10.8)
[2024-02-01 22:23] LABS: ALT (SGPT) 22 U/L (0-50); AST (SGOT) 25 U/L (17-59); Albumin 4.6 g/dl (3.5-5.0); Alkaline Phosphatase 162 U/L (38-126); Blood Urea Nitrogen 54 mg/dl (9-20); Calcium 9.5 mg/dl (8.4-10.2); Carbon Dioxide 32 mmol/L (22-30); Chloride 89 mmol/L (98-107); Glucose 133 mg/dl (70-99); Lipase 103 U/L (23-300); Potassium 4.1 mmol/L (3.5-5.1); Sodium 135 mmol/L (135-145); Total Bilirubin 0.5 mg/dl (0.2-1.3); Total Protein 7.7 g/dl (6.3-8.2)
[2024-02-01 22:28] LABS: Urine Mucus Few
[2024-02-01 22:29] LABS: Urine Amorphous Seen; Urine Bacteria Few (Negative); Urine White Cell 16-20 /HPF (0-5)
[2024-02-01 23:00] VITALS: BP 120/70
[2024-02-02] VITALS (7 sets, daily range): BP systolic 114–152; BP diastolic 72–83
[2024-02-02] MEDS: MONUROL 3 GM PO (01:00)
[2024-02-02] MEDS: NSS 1000 IV (06:28)
== END 2024-02-02 12:46 ==
LOC: EMR 21:40
PROVIDERS: EMERGENCY PHYSICIAN Student in an Organized Health Care Education/Training Program
DX: N39.0 Urinary tract infection, site not specified (principal); R11.2 Nausea with vomiting, unspecified; G40.909 Epilepsy, unspecified, not intractable, without status epilepticus; G80.9 Cerebral palsy, unspecified; I69.951 Hemiplegia and hemiparesis following unspecified cerebrovascular disease affecting right dominant side; K21.9 Gastro-esophageal reflux disease without esophagitis; E11.22 Type 2 diabetes mellitus with diabetic chronic kidney disease; N18.4 Chronic kidney disease, stage 4 (severe)
CPT/HCPCS: 99284; 96360; 71045; 80053; 81003; 81015; 83690; 85025; 87077; 87086

== ENCOUNTER 2024-02-22 11:05 | Emergency (ER) | payer MEDICARE, MEDICAID, SELFPAY ==
[2024-02-22 11:09] VITALS: BP 127/79
[2024-02-22 11:12] VITALS: BP 127/79
--- NOTE | 2024-02-22 11:15 | ED.GENMED ---
History of Present Illness
<Toyin Elliott PA-C - Last Filed: 02/22/24 18:45>
General
Chief Complaint: Change in Mental Status
Source: patient
Exam Limitations: none
Time Seen by Provider: 02/22/24 11:08
Nursing documentation reviewed up to this point in time: agreed with
History of Present Illness
History of Present Illness:
63-year-old male with a past medical history of cerebral palsy, absence seizure's presents to the emergency department today with concerns of altered mental status. EMS reports that facility reports patient has been speaking less and spending more
time in bed and not speaking to staff which is not like him. When asked how patient is feeling, he does not respond and is not able to provide history. Of note, patient was recently on antibiotic for UTI, he has chronic lehman in place. Patient comes
from [facility], did speak to nurse there who reports patient has had vomiting yesterday, also reports that patient had an episode today of him staring off into space and lack of responsiveness and was concerned patient had a
breakthrough seizure. I spoke to patient's family friend, power of supervisor counseling and guidance, who reports that pt is wheelchair bound at does not walk at baseline. She reports that he is normally conversive and calm and reports that he comes agitated when he is post
ictal. She is concerned that UTI has returned and is concerned he is falling to thrive, as he is well nourished but continues to loose weight and has been worked up for this multiple times in the past. EMS reports that en route he coughed up brown
material.
Past History
<Toyin Elliott PA-C - Last Filed: 02/22/24 18:45>
Past History
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
ED Past Surgical History: Orthopedic (Foot surery, right hip sx. )
Social History
Tobacco: Non-smoker
Alcohol: None
Drug: None
Personal: Single
Living: assisted living
Employment: Not employed
Family History
Family History: Unable to obtain
Review of Systems
<Toyin Elliott PA-C - Last Filed: 02/22/24 18:45>
Review of Systems
All Other Systems: ROS reviewed and negative except as documented in HPI and ROS
Phy Exam
<Toyin Elliott PA-C - Last Filed: 02/22/24 18:45>
Physical Exam
Physical Exam:
General: Patient is well appearing and in no acute distress; non-toxic
Skin: Warm and dry, no rashes or lesions
Head: Normocephalic, atraumatic
Eyes: Sclera non-icteric. EOMs intact.
Cardiac: Regular rate and rhythm, no murmurs
Pulm: Normal respiratory effort, no wheezes, rales, rhonchi
Abdomen: Diffuse abdominal tenderness to palpation noted
Genitourinary: Lehman catheter in place
Neuro: CN II-XII intact, no focal neurologic deficits.
Psychiatric: Appropriate mood and affect.
Course
<Toyin Elliott PA-C - Last Filed: 02/22/24 18:45>
Orders/Labs/Results
Orders:
Orders
02/22/24 11:09
EKG [Electrocardiogram (*1)] Urgent
Reason for Study: Syncope
EKG- Treatment ONCE
CR Chest Single View Urgent
Reason For Exam: cough
02/22/24 11:11
Basic Metabolic Panel Urgent
CBC/With Diff [Complete Blood Count/With Diff] Urgent
02/22/24 12:00
COVID-19 Antigen Urgent
Source: Nasal Swab
Influenza A+B Rapid Molecular Urgent
DAVID Source: Nasal Swab
Specimen Description:
02/22/24 12:18
Urinalysis Reflex To Culture Urgent
Date Specimen was Collected: 02/22/24
Time Specimen was Collected: 12:05
Urine Microscopic Reflex Cult Urgent
Urine Culture Urgent
DAVID Source: U
Specimen Description:
Obtained by: Random
Date Specimen was Collected: 02/22/24
Time Specimen was Collected: 12:05
02/22/24 12:48
CT Abd/pel Without Iv Or Oral Urgent
Comment:
Reason For Exam: lower abdominal pain
02/22/24 12:56
Keppra (Levetiracetam) [S] Urgent
Lamictal [Lamotrigine (Lamictal)] [S] Urgent
02/22/24 14:25
Haloperidol Lactate [Haldol] 1 mg IV NOW STA
02/22/24 14:54
Electrocardiogram (*1) Urgent
Reason for Study: QTc Monitoring
EKG- Treatment ONCE
02/22/24 15:06
Haloperidol Lactate [Haldol] 1 mg IV NOW STA
02/22/24 15:21
Haloperidol Lactate [Haldol] 1 mg IV NOW STA
Abnormal Lab Results
02/22/24 02/22/24
11:11 12:18
WBC 14.3 H 10^3/uL
(4.8-10.8)
RBC 3.54 L 10^6/uL
(4.70-6.10)
Hgb 11.7 L g/dL
(13.0-18.0)
Hct 34.8 L %
(39.0-52.0)
MCV 98.3 H fL
(80.0-94.0)
MCH 33.1 H pg
(27.0-31.0)
Abs Immat Gran (auto) 0.1 H 10^3/uL
(0-0.05)
Absolute Neuts (auto) 9.5 H 10^3/uL
(1.4-6.5)
Absolute Monos (auto) 1.3 H 10^3/uL
(0.1-0.6)
Chloride 95 L mmol/L
(98-107)
Carbon Dioxide 33 H mmol/L
(22-30)
BUN 68 H mg/dl
(9-20)
Creatinine 3.1 H mg/dL
(0.7-1.3)
Glucose 144 H mg/dl
(70-99)
Ur Occult Blood Reflex 3+ A
(Negative)
Leukocyte Esterase Rfl 1+ A
(Negative)
Urine RBC 3-6 A /HPF
(0-2)
Urine Albumin (Reflex) 2+ A
(Neg - Trace)
02/22/24 11:11
02/22/24 11:11
Vital Signs
Initial and Last Documented VS:
Initial Vital Signs
Pulse BP
88 127/79
02/22/24 11:09 02/22/24 11:09
Last Documented Vital Signs
Temp Pulse Resp BP Pulse Ox
98.2 F 90 17 127/79 98
02/22/24 11:12 02/22/24 15:30 02/22/24 11:12 02/22/24 11:12 02/22/24 11:12
<Akilah Dale, DO - Last Filed: 02/22/24 16:16>
Orders/Labs/Results
Orders:
Orders
02/22/24 11:09
EKG [Electrocardiogram (*1)] Urgent
Reason for Study: Syncope
EKG- Treatment ONCE
CR Chest Single View Urgent
Reason For Exam: cough
02/22/24 11:11
Basic Metabolic Panel Urgent
CBC/With Diff [Complete Blood Count/With Diff] Urgent
02/22/24 12:00
COVID-19 Antigen Urgent
Source: Nasal Swab
Influenza A+B Rapid Molecular Urgent
DAVID Source: Nasal Swab
Specimen Description:
02/22/24 12:18
Urinalysis Reflex To Culture Urgent
Date Specimen was Collected: 02/22/24
Time Specimen was Collected: 12:05
Urine Microscopic Reflex Cult Urgent
Urine Culture Urgent
DAVID Source: U
Specimen Description:
Obtained by: Random
Date Specimen was Collected: 02/22/24
Time Specimen was Collected: 12:05
02/22/24 12:48
CT Abd/pel Without Iv Or Oral Urgent
Comment:
Reason For Exam: lower abdominal pain
02/22/24 12:56
Keppra (Levetiracetam) [S] Urgent
Lamictal [Lamotrigine (Lamictal)] [S] Urgent
02/22/24 14:25
Haloperidol Lactate [Haldol] 1 mg IV NOW STA
02/22/24 14:54
Electrocardiogram (*1) Urgent
Reason for Study: QTc Monitoring
EKG- Treatment ONCE
02/22/24 15:06
Haloperidol Lactate [Haldol] 1 mg IV NOW STA
02/22/24 15:21
Haloperidol Lactate [Haldol] 1 mg IV NOW STA
Abnormal Lab Results
02/22/24 02/22/24
11:11 12:18
WBC 14.3 H 10^3/uL
(4.8-10.8)
RBC 3.54 L 10^6/uL
(4.70-6.10)
Hgb 11.7 L g/dL
(13.0-18.0)
Hct 34.8 L %
(39.0-52.0)
MCV 98.3 H fL
(80.0-94.0)
MCH 33.1 H pg
(27.0-31.0)
Abs Immat Gran (auto) 0.1 H 10^3/uL
(0-0.05)
Absolute Neuts (auto) 9.5 H 10^3/uL
(1.4-6.5)
Absolute Monos (auto) 1.3 H 10^3/uL
(0.1-0.6)
Chloride 95 L mmol/L
(98-107)
Carbon Dioxide 33 H mmol/L
(22-30)
BUN 68 H mg/dl
(9-20)
Creatinine 3.1 H mg/dL
(0.7-1.3)
Glucose 144 H mg/dl
(70-99)
Ur Occult Blood Reflex 3+ A
(Negative)
Leukocyte Esterase Rfl 1+ A
(Negative)
Urine RBC 3-6 A /HPF
(0-2)
Urine Albumin (Reflex) 2+ A
(Neg - Trace)
02/22/24 11:11
02/22/24 11:11
Vital Signs
Initial and Last Documented VS:
Initial Vital Signs
Pulse BP
88 127/79
02/22/24 11:09 02/22/24 11:09
Last Documented Vital Signs
Temp Pulse Resp BP Pulse Ox
98.2 F 90 17 127/79 98
02/22/24 11:12 02/22/24 15:30 02/22/24 11:12 02/22/24 11:12 02/22/24 11:12
Katielt;Toyin Elliott PA-C - Last Filed: 02/22/24 18:45>
MDM/Problems Addressed
Differential Diagnosis Includes:
see below
MDM/Problems Addressed:
NUMBER AND COMPLEXITY OF PROBLEMS ADDRESSED AT THE ENCOUNTER
� Chronic conditions affecting care: cerebral palsy, seizures, developmental delay
� Acute Exacerbation and/or Progression of Chronic Illness:
� Differential Diagnosis includes: urinary tract infection, pneumonia, post-ictal state
AMOUNT AND/OR COMPLEXITY OF DATA TO BE REVIEWED AND ANALYZED
� I performed an independent evaluation of and my interpretation is:
EKG: artifact noted, patient constantly moving
CT:
X-rays: No clear infiltrate noted on CXR
Laboratory Studies: leukocytosis noted, CKD at baseline
Other:
� Review of other/old records: Reviewed discharge summary from 12/30/23 patient
� Clinical information was obtained by an independent historian: spoke to POA family friend who has known patient for many years, spoke to nurse from prison
� Prescriptions/Medications Considered but not given:
� Further testing considered but not performed: n/a
RISK OF COMPLICATIONS AND/OR MORBIDITY OR MORTALITY OF PATIENT MANAGEMENT
� Social determinants of health affecting care: developmental delay
� Discussion with other providers: ER attending
� Escalation of care including admission/observation vs risk of discharge considered:
63 y/o male with pmh of epilepsy, CP, presents to the ER today with concerns of a change in mental status. Based on hx from custodial, history consistent with absence seizure. Patient initially not responsive to questions however during ER stay,
patient started to become talkative again and able to have basic conversation. Based on history provided to me from patient's power of supervisor counseling and guidance as well as from the prison, patient appears to be at his baseline. Based on patient's workup here
today he does not seem to have a clear infectious cause that triggered patient's seizure, his white blood cell count is at baseline and his renal function is at baseline. longterm was concerned about return of patient's UTI however patient urine
does not appear cloudy, and his initial urinalysis is not strongly positive. Patient did start to complain of abdominal pain while here in the emergency department, we did send him for CAT scan which revealed constipation but no acute
abnormalities, suspect this may have been the cause for patient's discomfort, do not suspect severe infection. He reported to patient's custodial who reports that they would like to have patient's seizure meds adjusted. Discussed that patient
should follow-up with his neurologist, also discussed that the neurologist would likely went to have lamotrigine and other medication levels checked before making his adjustments. longterm expressed understanding. Patient stable for discharge.
<Toyin Elliott PA-C - Last Filed: 02/22/24 18:45>
*Critical Care Note
Total Time (30-74mins, 75-104mins- exclusive of procedures): Not Applicable
<Toyin Elliott PA-C - Last Filed: 02/22/24 18:45>
Update Note
Update Note:
12:44 pm-- I heard patient moan, I came to see patient and patient is now talkative, appears to be at baseline. Patient does complain of abdominal pain, and is now tender on exam, will send to CT scan
2:30 pm-- Patient sent back from CT scan as he is not able to remain still. Patient still complains of abdominal pain. Will give one dose of haldol and will send patient
ED Attending Note
<Toyin Elliott PA-C - Last Filed: 02/22/24 18:45>
-
Portions of this chart may have been created with voice recognition software.� Occasional wrong word or��sound alike� substitutions may have occurred due to the inherent limitations of voice recognition software.
<Akilah Dale DO - Last Filed: 02/22/24 16:16>
ED Attending Note
Patient seen and examined by attending physician: Yes
I performed the substantive portion of visit, reviewed & personally made and approve the management plan that is documented in note by myself or CHEN.: Yes
I performed a history and physical exam of patient and discussed management with resident, I reviewed resident's note and agree with documented findings and plan of care.: Yes
ED Attending Note:
63-year-old male with history of intellectual disability, cerebral palsy, absence seizures, chronic indwelling Lehman presenting for change in mental status. Per staff at facility, patient with decreased responsiveness, was not talking. Recently
finished antibiotics for suspected UTI. They also noted that he was coughing up brownish mucus. Limited historian given chronic medical issues. Vital signs are normal.
On exam, patient is in no acute distress, does appear restless, unclear baseline. He is awake, alert, however minimally verbally communicative. No acute respiratory distress, lungs clear to auscultation. Abdomen soft nondistended. Urine appears
clear/yellow. Given known comorbidities and presenting symptoms, will evaluate for infection, worsening UTI versus pneumonia. Plan for laboratory analysis, chest x-ray, urinalysis.
12:40 -labs relatively unremarkable. Patient does have a leukocytosis, however appears chronic. He also has chronic kidney disease, at baseline. Urine without significant sign of infection and chest x-ray without acute cardiopulmonary disease.
CHEN did discuss with nursing facility, reports that the altered mental status episode was an episode of staring, possible breakthrough seizure in a known patient with absent seizure disorder. On reassessment, patient is now talking, appears closer
to his baseline. He does report some abdominal discomfort so we will proceed with CT abdominal imaging to rule out additional acute pathology
16:00-CT without acute pathology. Patient did require some Zyprexa for compliance with his CT. CT does show constipation. Otherwise feel stable for discharge, appears back to baseline with outpatient follow-up for neurology.
Discharge Plan
Departure
Patient Disposition: Home (Routine Discharge)
Date of Disposition: 02/22/24
Time of Disposition: 16:18
Patient with high blood pressure during this ER visit?: Yes
Condition: Good
Discharge Problem:
Altered mental status
Instructions: Constipation in adults, Altered Mental Status (DC), BLOOD PRESSURE
Prescriptions:
No Action
carbamazepine 200 MG tablet
200 mg PO BID
carbamazepine 200 MG tablet
300 mg PO HS
ascorbic acid (vitamin C) [Vitamin C] 500 MG tablet
500 mg PO DAILY Qty: 60 0RF
lamotrigine [Lamictal] 150 mg Tablet
300 mg PO BID
clorazepate dipotassium 3.75 mg Tablet
3.75 mg PO BID
calcium polycarbophil [Fiber (calcium polycarbophil)] 625 mg Tablet
625 mg PO HS
docusate sodium 100 MG capsule
100 mg PO BID
sodium bicarbonate 650 mg Tablet
650 mg PO BID
aripiprazole 5 mg Tablet
5 mg PO HS
ferrous sulfate 325 mg (65 mg iron) Tablet
325 mg PO BID
fluoxetine 20 mg Tablet
20 mg PO DAILY
guaifenesin [Robafen] 100 mg/5 mL Liquid
200 mg PO Q4HPRN PRN (Reason: cough)
methenamine hippurate 1 gram tablet
1 g PO BID
clotrimazole 1 % Cream
1 applic TOPICAL BIDPRN PRN (Reason: fungal)
vitamin E 268 mg (400 unit) Capsule
268 mg PO DAILY
cholecalciferol (vitamin D3) 25 mcg (1,000 unit) Tablet
25 mcg PO HS
acetaminophen 325 mg Tablet
650 mg PO Q4HPRN PRN (Reason: mild pain)
famotidine [Pepcid] 40 mg Tablet
40 mg PO HS
polyethylene glycol 3350 17 gram powder in packet
17 g PO DAILYPRN PRN (Reason: constipation)
levetiracetam 500 MG tablet
1,000 mg PO BID
Referrals:
UNKNOWN - PT DOES,NOT KNOW [Family Provider] -
Activity Restrictions/Additional Instructions:
Your initial urinalysis did not show signs of infection but you will receive a call with the culture results. Your CBC and CMP were at your baseline levels. Your chest x-ray did not show pneumonia. Your CT of the abdomen showed no acute abnormality
in the abdomen or pelvis but did show constipation.
Please follow up with your primary care provider.
PLEASE RETURN TO THE EMERGENCY DEPARTMENT SHOULD YOU EXPERIENCE CHEST PAIN, SHORTNESS OF BREATH, FEVERS OR CHILLS, INTRACTABLE NAUSEA OR VOMITING, LIGHTHEADEDNESS, DIZZINESS, OR ANY OTHER SIGNS OR SYMPTOMS WORRISOME TO YOU.
Interventions
Interventions:
*Risk Screen - Suicide Last Done: 02/22/24 11:12
*General Assessment Last Done: 02/22/24 11:12
*Neglect/Abuse Screening Last Done: 02/22/24 11:12
ED- Fall Risk Assessment Last Done: 02/22/24 11:26
ED- Neurological Assessment Last Done: 02/22/24 11:26
ED- Cardiac Assessment Last Done: 02/22/24 11:26
Discharge Date and Time
Print Language: INDONESIAN
[2024-02-22 11:29] LABS: % Basophils 0.4 % (0-2); % Eosinophils 1.9 % (0-6); % Immature Granulocytes 0.4 % (0-0.5); % Lymphocytes 21.5 % (20.5-51.1); % Monocytes 9.3 % (1.7-9.3); % Neutrophils 66.5 % (42.2-75.2); Absolute Basophils 0.1 10^3/uL (0-0.2); Absolute Eosinophils 0.3 10^3/uL (0-0.7); Absolute Immature Granulocytes 0.1 10^3/uL (0-0.05); Absolute Lymphocytes 3.1 10^3/uL (1.2-3.4); Absolute Monocytes 1.3 10^3/uL (0.1-0.6); Absolute Neutrophils 9.5 10^3/uL (1.4-6.5); Hematocrit 34.8 % (39.0-52.0); Hemoglobin 11.7 g/dL (13.0-18.0); Mean Corp Hgb Conc. 33.6 g/dL (33.0-37.0); Mean Corpuscular Hgb 33.1 pg (27.0-31.0); Mean Corpuscular Volume 98.3 fL (80.0-94.0); Mean Platelet Volume 10.1 fL (7.4-10.4); Nucleated Red Blood Cells % 0 % (-); Platelet Count 313 10^3/uL (130-400); Red Blood Cell Count 3.54 10^6/uL (4.70-6.10); White Blood Cell Count 14.3 10^3/uL (4.8-10.8)
[2024-02-22 11:50] LABS: Blood Urea Nitrogen 68 mg/dl (9-20); Calcium 9.2 mg/dl (8.4-10.2); Carbon Dioxide 33 mmol/L (22-30); Chloride 95 mmol/L (98-107); Glucose 144 mg/dl (70-99); Sodium 141 mmol/L (135-145); eGFR 22.03
[2024-02-22 12:23] LABS: COVID-19 Antigen Negative (Negative)
[2024-02-22 12:36] LABS: Urine Albumin 2+ (Neg - Trace); Urine Bilirubin Negative (Negative); Urine Character Clear (Clear); Urine Glucose Negative (Negative); Urine Ketone Negative (Negative); Urine Leukocyte 1+ (Negative); Urine Nitrite Negative (Negative); Urine Occult Blood 3+ (Negative); Urine Urobilinogen Negative (Neg - 1+)
[2024-02-22 12:38] LABS: Urine Color Yellow
[2024-02-22 14:40] LABS: Urine Squamous Cell 0-2 /LPF (Few)
[2024-02-22 14:41] LABS: Urine Amorphous Seen
[2024-02-22] MEDS: HALDOL 1 MG IV ×2 (14:52→15:29)
[2024-02-25 05:43] LABS: Lamotrigine (Lamictal) 13.3 ug/mL (3.0-15.0)
[2024-02-25 07:46] LABS: Keppra (Levetiracetam) 63 ug/mL (10-40)
== END 2024-02-22 19:28 | disposition home or self-care (01) ==
LOC: EMR 11:05
PROVIDERS: Physician Assistant; EMERGENCY PHYSICIAN Student in an Organized Health Care Education/Training Program
DX: R41.82 Altered mental status, unspecified (principal); G80.9 Cerebral palsy, unspecified; G40.A09 Absence epileptic syndrome, not intractable, without status epilepticus; K21.9 Gastro-esophageal reflux disease without esophagitis; F41.8 Other specified anxiety disorders; F79 Unspecified intellectual disabilities; G40.909 Epilepsy, unspecified, not intractable, without status epilepticus; N18.9 Chronic kidney disease, unspecified; Z86.73 Personal history of transient ischemic attack (TIA), and cerebral infarction without residual deficits; Z99.3 Dependence on wheelchair
CPT/HCPCS: 99284; 96374; 96376; 71045; 74176; 80048; 80175; 80177; 81003; 81015; 85025; 87077; 87086; 87502; 87811; 93005

== ENCOUNTER 2024-02-28 15:26 | Inpatient (IN) | payer MEDICARE, MEDICAID, SELFPAY ==
[2024-02-28] VITALS (13 sets, daily range): BP systolic 119–160; BP diastolic 67–90; BMI 18.5
[2024-02-28] MEDS: KEPPRA 1000 MG IV ×2 (11:03→23:22)
[2024-02-28 11:08] LABS: Hematocrit 34.7 % (39.0-52.0); Hemoglobin 11.4 g/dL (13.0-18.0); Mean Corp Hgb Conc. 32.9 g/dL (33.0-37.0); Mean Corpuscular Hgb 32.5 pg (27.0-31.0); Mean Corpuscular Volume 98.9 fL (80.0-94.0); Mean Platelet Volume 9.9 fL (7.4-10.4); Platelet Count 343 10^3/uL (130-400); Red Blood Cell Count 3.51 10^6/uL (4.70-6.10); Red Cell Dist. Width 12.8 % (11.5-14.5)
--- NOTE | 2024-02-28 11:14 | ED.GENMED ---
History of Present Illness
General
Chief Complaint: Seizure
Time Seen by Provider: 02/28/24 10:19
History of Present Illness
History of Present Illness:
63-year-old male with history of absence seizure's, cerebral palsy, diabetes, CKD, history of UTI presenting from nursing facility for episode of decreased responsiveness per patient was reported to be staring. Patient was similar symptoms about 6
days ago, seen in the hospital after suspected seizure. Patient's Lamictal was recently increased. Patient is limited historian on arrival given chronic medical history., As well as suspected post ictal state.
Past History
Past History
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
ED Past Surgical History: Orthopedic (Foot surery, right hip sx. )
Social History
Tobacco: Non-smoker
Alcohol: None
Drug: None
Personal: Single
Living: assisted living
Employment: Not employed
Family History
Family History: Unable to obtain
Phy Exam
Physical Exam
Physical Exam:
General: Well-appearing, no clinical signs of dehydration, nontoxic and in no acute distress
HEENT: protecting airway, pupils equal and reactive equally
Neck: appears supple
CV: Normal heart rate, regular rhythm, no evidence of cyanosis
Resp: No accessory muscle use, no increased work of breathing, lungs clear to auscultation bilaterally
Abd: Soft and non-distended, no tenderness to palpation
Extremities: No deformities, no swelling, no erythema
Neuro: alert, not verbally communicating, moving all extremities equally
: deferred
Rectal: deferred
Psych: Normal affect
Skin: Intact
Course
Orders/Labs/Results
Orders:
Orders
02/28/24 10:43
Levetiracetam Injectable [Keppra] 1,000 mg IV NOW STA
02/28/24 10:58
Complete Blood Count/No Diff Urgent
Comprehensive Metabolic Panel Urgent
Glycohemoglobin (HgbA1c) Urgent
Magnesium Urgent
Comment: MG ADDED ON BY FLOOR 4PM 02-28-24
02/28/24 12:09
Urinalysis Reflex To Culture Urgent
Date Specimen was Collected: 02/28/24
Time Specimen was Collected: 11:56
Urine Microscopic Reflex Cult Urgent
Urine Culture Urgent
DAVID Source: U
Specimen Description:
Date Specimen was Collected: 02/28/24
Time Specimen was Collected: 11:56
02/28/24 13:56
Piperacillin/Tazo 4.5 Gram [Zosyn] 4.5 gram in 100 ml IV ONCE
02/28/24 15:04
Urinalysis Reflex To Culture Stat
Nursing to Place Non Medication Order As Directed
Physician Order: please change the catheter and obtain UA
02/28/24 15:11
Admit/Transfer Patient As Directed
Co-Sign Provider:
Level of Care: Inpatient admission
Assign to:: Telemetry
Physician / Group: do
Diagnosis: seizure
Reason for Telemetry: Other
Other Reason for Telemetry: seizure
Date to Stop Telemetry: 03/01/24
Time to Stop Telemetry: 11:00
Reason for Hospitalization: seizure
Expected length of stay greater than two midnights?: Yes
ELOS- Estimated Length of Stay in days: 3
I certify the patient meets the requirements for IP care: Yes
PRN Pain Medication Management As Directed
May give lesser potent ordered pain med per pt: Yes
preference::
Protocol:: Medication orders for pain may be administered in a
manner that supports deferring to patient preference
when the pt is:
- Requesting an ordered lesser potent pain medication.
Least to most potent pain medications are defined
as: acetaminophen < NSAID < tramadol < opioids
(morphine, oxycodone, hydromorphone).
- Requesting a lesser dose of the same medication IF
ORDERED.
- Requesting a less intrusive route of administration
if both routes are prescribed by the provider (PO <
IV).
02/28/24 15:12
Code Status As Directed
Resuscitation Status: Full Code
02/28/24 15:15
NEUROLOGY CONSULT Routine
Consulting Provider: Zaida Guerin
Was physician already notified: Yes
02/28/24 16:00
0.45% Sodium Chloride 1000 ml [0.45%NaCl] 1,000 ml IV 75 mls/hr
03/01/24 11:00
DC Protocol for Telemetry ONCE
Abnormal Lab Results
02/28/24 02/28/24
10:58 12:09
WBC 17.0 H 10^3/uL
(4.8-10.8)
RBC 3.51 L 10^6/uL
(4.70-6.10)
Hgb 11.4 L g/dL
(13.0-18.0)
Hct 34.7 L %
(39.0-52.0)
MCV 98.9 H fL
(80.0-94.0)
MCH 32.5 H pg
(27.0-31.0)
MCHC 32.9 L g/dL
(33.0-37.0)
Sodium 146 H mmol/L
(135-145)
Chloride 97 L mmol/L
(98-107)
Carbon Dioxide 37 H mmol/L
(22-30)
BUN 78 H mg/dl
(9-20)
Creatinine 3.5 H mg/dL
(0.7-1.3)
Glucose 131 H mg/dl
(70-99)
Alkaline Phosphatase 154 H U/L
(38-126)
Ur Occult Blood Reflex 3+ A
(Negative)
Leukocyte Esterase Rfl 2+ A
(Negative)
Urine WBC (Reflex) >100 A /HPF
(0-5)
Urine Albumin (Reflex) 3+ A
(Neg - Trace)
02/28/24 10:58
02/28/24 10:58
Vital Signs
Initial and Last Documented VS:
Initial Vital Signs
Temp Pulse Resp BP Pulse Ox
98.0 F 93 16 133/70 96
02/28/24 10:17 02/28/24 10:17 02/28/24 10:17 02/28/24 10:17 02/28/24 10:17
Last Documented Vital Signs
Temp Pulse Resp BP Pulse Ox
98.0 F 96 13 135/90 96
02/28/24 10:17 02/28/24 15:15 02/28/24 15:15 02/28/24 15:00 02/28/24 15:15
MDM/Problems Addressed
MDM/Problems Addressed:
80-year-old male with history of cerebral palsy and absence seizure's presenting after a episode at his nursing facility where he was noted to decreased responsiveness with staring episode. Vital signs on arrival are normal.
On exam, patient is in no acute distress, resting comfortably. He is slightly restless, however suspected postictal state. Suspect preceding episode of decreased responsiveness was a seizure episode. He is nontoxic in appearance, afebrile. Will
screen with laboratory analysis and administer Keppra, is on Keppra. Will continue close monitor. On review of EMR, recent ER visit for similar symptoms, unremarkable workup at that time, did see his neurologist with increase of his Tegretol.
11:15 - Patient with leukocytosis, slightly increased from prior
13:50 -urine does appear infected, possibly colonized, however nurse notes thick on retrieval. Patient is still not returned to baseline, concern for UTI, possibly lowering seizure threshold. Plan for antibiotics, previously sensitive to
piperacillin/tazobactam. Will admit
*Critical Care Note
Total Time (30-74mins, 75-104mins- exclusive of procedures): Not Applicable
ED Attending Note
-
Portions of this chart may have been created with voice recognition software.� Occasional wrong word or��sound alike� substitutions may have occurred due to the inherent limitations of voice recognition software.
Discharge Plan
Departure
Patient Disposition: Admit
Date of Disposition: 02/28/24
Time of Disposition: 14:17
Presentation/result/management discussed w/ accepting MD/DO: Hospitalist
Patient with high blood pressure during this ER visit?: No
Condition: Fair
Discharge Problem:
Altered mental status, Complicated UTI (urinary tract infection)
Interventions
Interventions:
*Risk Screen - Suicide Last Done: 02/28/24 10:17
*General Assessment Last Done: 02/28/24 10:17
*Neglect/Abuse Screening Last Done: 02/28/24 10:36
*ED COVID-19 Vaccine History Last Done: 02/28/24 10:35
ED- Cardiac Assessment Last Done: 02/28/24 10:55
ED- Neurological Assessment Last Done: 02/28/24 10:55
ED- Pulmonary Assessment Last Done: 02/28/24 10:55
[2024-02-28 11:24] LABS: ALT (SGPT) 22 U/L (0-50); AST (SGOT) 30 U/L (17-59); Albumin 4.4 g/dl (3.5-5.0); Alkaline Phosphatase 154 U/L (38-126); Blood Urea Nitrogen 78 mg/dl (9-20); Calcium 9.3 mg/dl (8.4-10.2); Carbon Dioxide 37 mmol/L (22-30); Chloride 97 mmol/L (98-107); Glucose 131 mg/dl (70-99); Potassium 3.7 mmol/L (3.5-5.1); Sodium 146 mmol/L (135-145); Total Bilirubin 0.4 mg/dl (0.2-1.3); Total Protein 7.7 g/dl (6.3-8.2); eGFR 19.04
[2024-02-28 12:23] LABS: Urine Albumin 3+ (Neg - Trace); Urine Bilirubin Negative (Negative); Urine Character Very Cloudy (Clear); Urine Color Yellow; Urine Glucose Negative (Negative); Urine Ketone Negative (Negative); Urine Leukocyte 2+ (Negative); Urine Nitrite Negative (Negative); Urine Occult Blood 3+ (Negative); Urine Specific Gravity 1.015 (<1.030); Urine Urobilinogen Negative (Neg - 1+)
[2024-02-28 13:18] LABS: Urine White Cell >100 /HPF (0-5)
[2024-02-28] MEDS: ZOSYN 100 IV (14:18)
--- NOTE | 2024-02-28 14:47 | HPS.HSE ---
Addendum entered and electronically signed by Yosef Barraza MD 02/28/24 15:53:
63-year-old male with a past medical history of chronic Galvin, recurrent urinary tract infections, absence seizures, stage IV CKD, type 2 diabetes, cerebral palsy, and chronic dysphagia was sent from his shelter for nonresponsiveness/staring
spell for 20 seconds. He appeared to be postictal in the ER. Continue Lamictal, Keppra, consult neurology.
He is hypernatremic. He also has BARBARA on stage IV CKD. Give half-normal saline.
Trend creatinine, no nephrotoxic drugs/NSAIDs.
Patient has a chronic Galvin, and chronic leukocytosis. His urine is dirty, suspect secondary to colonization.
He received IV antibiotics in the ER.
Will change Galvin, resend urine.
He is afebrile, will monitor off of antibiotics.
I have personally seen and examined the patient, and agree with the plan of care as documented by MARKY Hein.
Advance care planning discussed, patient is a full code.
All other issues as outlined by the advanced care practitioner.
Total time spent to see the patient on the floor, examine the patient, review data and lab results, discuss treatment plan with patient, nursing staff around 79 minutes.
Original Note:
Family Physician
-
Family Physician: Lennie Holder
Chief Complaint
-
Possible seizure
History of Present Illness
63-year-old male with history of absence seizure's, cerebral palsy, diabetes, CKD, history of UTI presenting from nursing facility for episode of decreased responsiveness. History obtained from documents from jail .he was noted to be
staring for more than 20 minutes. Patient is nonverbal and poor historian. History limited .
Patient received Zosyn for UTI. Patient has received IV Keppra
Admitting for further management
Medical History
Past Medical History
Past Medical History: Reports Other
Additional Past Medical History:
Cerebral palsy
Constipation
Anxiety
Epilepsy
BPH
Depression
Obstructive uropathy
Anemia
Intellectual disability
Dyslipidemia
Hypertension
Stage III CKD
Bilateral hydro
Bladder retention
Past Surgical History: Reports Other
Additional Past Surgical History:
Right hip fracture repair
Eye surgeries
TURP
Social History
Unable to obtain full social history at this time due to: Patient Non-verbal
Family History
Family History: Not pertinent
Allergies / Home Medications
Allergies reflects when Allergies were last updated in [facility].
Home Medications with original date entered in [facility]
Allergy/Medication List:
Allergies
Allergy/AdvReac Type Severity Reaction Status Date / Time
house dust Allergy nasal Verified 12/24/23 12:03
congestion
mold Allergy nasal Verified 12/24/23 12:03
congestion
ragweed pollen Allergy nasal Verified 12/24/23 12:03
congestion
cefepime AdvReac Unknown Unknown Verified 12/24/23 12:03
lorazepam [From Ativan] AdvReac Unknown Unknown Verified 12/24/23 12:03
Home Medications
carbamazepine 200 mg tablet 300 mg PO TID Seizures 02/12/20
ascorbic acid (vitamin C) 500 mg tablet (Vitamin C) 500 mg PO DAILY Supplement #60 tabs 02/16/20
clorazepate dipotassium 3.75 mg tablet 3.75 mg PO BID Seizures 04/23/22
lamotrigine 150 mg tablet (Lamictal) 300 mg PO BID Seizures 04/23/22
calcium polycarbophil 625 mg tablet (Fiber (calcium polycarbophil)) 625 mg PO HS Constipation 05/23/22
docusate sodium 100 mg capsule 100 mg PO BID Constipation 07/04/22
sodium bicarbonate 650 mg tablet 650 mg PO BID Kidney Disease 12/19/22
aripiprazole 5 mg tablet 5 mg PO HS Depression 04/02/23
ferrous sulfate 325 mg (65 mg iron) tablet 325 mg PO BID Supplement 12/24/23
fluoxetine 20 mg tablet 20 mg PO DAILY depression/anxiety 12/24/23
acetaminophen 325 mg tablet 650 mg PO Q4HPRN PRN mild pain 02/01/24
cholecalciferol (vitamin D3) 25 mcg (1,000 unit) tablet 25 mcg PO HS Supplement 02/01/24
clotrimazole 1 % topical cream 1 applic topical BIDPRN PRN fungal 02/01/24
guaifenesin 100 mg/5 mL oral liquid (Robafen) 200 mg PO Q4HPRN PRN cough 02/01/24
methenamine hippurate 1 gram tablet 1 g PO BID Urinary Issue 02/01/24
vitamin E 268 mg (400 unit) capsule 268 mg PO DAILY 02/01/24
famotidine 40 mg tablet (Pepcid) 40 mg PO HS Gastrointestinal Issue 02/22/24
levetiracetam 500 mg tablet 1,000 mg PO BID Seizures 02/22/24
Review of Systems
-
Unable to obtain full review of systems at this time due to: Patient Non-verbal
Physical Exam
Vital Signs
Vital Signs
Temp Pulse Resp BP Pulse Ox
98.0 F 92 13 152/78 96
02/28/24 10:17 02/28/24 14:30 02/28/24 14:30 02/28/24 14:00 02/28/24 14:30
Physical Exam
General: Well Developed, Well Nourished and No Apparent Distress
HEENT: NormoCephalic, Moist mucous membranes and Atraumatic
Respiratory: Clear
Cardiac: S1/S2 and Regular Rhythm; No Murmur or Rub
GI: Soft, Non Tender, Non Distended and Normal Bowel Sounds; No Organomegaly
Rectal: Deferred by Provider
Musculoskeletal: No Clubbing, No Cyanosis and No Edema
Skin: No Rash
Neuro: Nonfocal/grossly intact
Psych: Calm
Laboratory Results
-
02/28/24 10:58
02/28/24 10:58
Laboratory Results
Total Bilirubin 0.4 mg/dl (0.2-1.3) 02/28/24 10:58
AST 30 U/L (17-59) 02/28/24 10:58
ALT 22 U/L (0-50) 02/28/24 10:58
Alkaline Phosphatase 154 U/L (38-126) H 02/28/24 10:58
Data Reviewed
-
Lab Data: Labs Reviewed by me
Impression/Plan
-
# Metabolic encephalopathy likely from seizure/UTI
# History of epilepsy/absence seizure's
-Keppra and Lamictal continued
-Carbamazepine, clorazepate continued
-Neurology consulted
# Complicated catheter associated urinary tract infection
# WBC 17.0
-Urine culture sent from ER
-History of pseudo fluorescence/putida, Staphylococcus epidermidis, E. coli, Enterococcus faecium, Enterobacter cloacae Pseudomonas UTI
-IV Zosyn in ER
-Requested nurses to change the catheter, and repeat UA
-Defer antibiotics at this time until repeat culture resulted
#BARBARA ON Chronic kidney disease stage continue to monitor IV
#hypernatremia Likely dehydration
-Creatinine 3.5
-hold sodium bicarb
-monitor BMP in AM
# Anemia of chronic disease
-Hemoglobin 9.4
-No active bleeding
-Continue to monitor
# Cerebral palsy with developmental delay: Ambulatory [id number]
# Chronic dysphagia on dysphagia 1 diet-speech evaluation noted, Dys 1 diet with nectar thick liquids
# Chronic anemia likely secondary to CKD-on p.o. iron
-Hemoglobin stable
-No active bleeding
# Anxiety/depression-continue Abilify,, Lexapro, fluoxetine
# DVT prophylaxis subcutaneous heparin
# Full code
--- NOTE | 2024-02-28 15:40 | CON.NEURO ---
Consultation
Order
Date of Consultation: 02/28/24
Requesting Provider: Ale Briceno CRNP
Reason for Consult: Encephalopathy.
Neurology Consultation Note.
HPI: This is a 63-year-old man who presented to [facility] on 02/28/2024 with encephalopathy.
ER VS: 133/79, 94, afebrile
PDMP:Clorazepate 3.75 Mg 60 tabs filled in on 12/28/2023, 62 tabs filled in on 01/25/2024.
Labs: WBCs�17, hemoglobin�11, normal platelets, sodium�146, creatinine�3.5, glucose�131, normal calcium, UA�positive for leuk esterase, WBCs more than 100.
MAR: Levetiracetam�1000 mg I GIVEN AT 11:03 AM ON 02/28/2024, Zosyn 4.[address] head(12/24/2023) .5 cm left parietal porencephalic cyst, communicating with the left lateral ventricle, mild to moderate subcortical, deep, and periventricular white matter low-attenuation.
Current AED: Clorazepate 3.75 mg twice daily, lamotrigine 300 mg twice daily, carbamazepine 300 mg 3 times daily, Keppra�1000mg BID
PMH: dyskinetic cerebral palsy, epilepsy, obstructive uropathy, BPH, polycystic kidney disease, CKD, DM, BMI 18
PSH: Right hip ORIF, eye surgeries, TURP,
SH: nursing home resident,
FH:unknown
All: Cefepime, lorazepam, alprazolam
Meds: carbamazepine 200 mg tablet 300 mg PO TID Seizures 02/12/20
ascorbic acid (vitamin C) 500 mg tablet (Vitamin C) 500 mg PO DAILY Supplement #60 tabs 02/16/20
clorazepate dipotassium 3.75 mg tablet 3.75 mg PO BID Seizures 04/23/22
lamotrigine 150 mg tablet (Lamictal) 300 mg PO BID Seizures 04/23/22
calcium polycarbophil 625 mg tablet (Fiber (calcium polycarbophil)) 625 mg PO HS Constipation 05/23/22
docusate sodium 100 mg capsule 100 mg PO BID Constipation 07/04/22
sodium bicarbonate 650 mg tablet 650 mg PO BID Kidney Disease 12/19/22
aripiprazole 5 mg tablet 5 mg PO HS Depression 04/02/23
ferrous sulfate 325 mg (65 mg iron) tablet 325 mg PO BID Supplement 12/24/23
fluoxetine 20 mg tablet 20 mg PO DAILY depression/anxiety 12/24/23
acetaminophen 325 mg tablet 650 mg PO Q4HPRN PRN mild pain 02/01/24
cholecalciferol (vitamin D3) 25 mcg (1,000 unit) tablet 25 mcg PO HS Supplement 02/01/24
clotrimazole 1 % topical cream 1 applic topical BIDPRN PRN fungal 02/01/24
guaifenesin 100 mg/5 mL oral liquid (Robafen) 200 mg PO Q4HPRN PRN cough 02/01/24
methenamine hippurate 1 gram tablet 1 g PO BID Urinary Issue 02/01/24
vitamin E 268 mg (400 unit) capsule 268 mg PO DAILY 02/01/24
famotidine 40 mg tablet (Pepcid) 40 mg PO HS Gastrointestinal Issue 02/22/24
levetiracetam 500 mg tablet 1,000 mg PO BID Seizures 02/22/24
ROS: Unable due to encephalopathy
General: In no acute distress.
Cardio: Regular rate. Extremities are without cyanosis or edema.
Neuro:
Mental Status: Awake, does not attentive follows requests. No verbal output. No hemineglect
Cranial Nerves: Orthophoric primary gaze. Resists pupillary exam. No clear blink to threat. No facial weakness
Motor: Increased motor tone right greater than left. Previous both arms to the bed right greater than left. Continuous movements in lower extremities within bed plane
Reflexes: Demented exam due to increased motor tone.
Sensory: unable to assess
Coordination: No tremors
Gait: deferred
Assessment and Plan:
I. Multifactorial encephalopathy(developmental, metabolic (hyponatremia, uremia), post ictal)
II. Left parietal porencephalic cyst
III. Probable medically refractory focal epilepsy
-Telemetry monitoring
-Avoid medications known to lower seizure threshold.
-Seizure precautions
-Please check CK, TFTs
-EKG
-Continue Clorazepate 3.75 mg twice daily, lamotrigine 300 mg twice daily, Carbamazepine 300 mg 3 times daily, Keppra�1000mg BID IV
-Please check Tegretol level, urine cultures
-Will contact custodial to establish cognitive and functional baseline
I personally reviewed all radiology and labs along with past medical records pertinent to current medical problems. Total time spent in patient care is 60 minutes.
Thank you for allowing us to participate in the care of this patient. We will continue to follow. Please do not hesitate to contact us with any questions or concerns.
Subjective/Objective
Subjective Data
Date of Service: February 28, 2024
Objective Data
Vital Signs
Temp Pulse Resp BP Pulse Ox
36.7 C 96 13 135/90 96
02/28/24 10:17 02/28/24 15:15 02/28/24 15:15 02/28/24 15:00 02/28/24 15:15
Lab Results
02/28/24 10:58
02/28/24 10:58
Sodium 146 mmol/L (135-145) H 02/28/24 10:58
Potassium 3.7 mmol/L (3.5-5.1) 02/28/24 10:58
BUN 78 mg/dl (9-20) H 02/28/24 10:58
Glucose 131 mg/dl (70-99) H 02/28/24 10:58
Calcium 9.3 mg/dl (8.4-10.2) 02/28/24 10:58
Patient Allergies
house dust Allergy (Verified 10/11/24 12:03)
nasal congestion
mold Allergy (Verified 12/24/23 12:03)
nasal congestion
ragweed pollen Allergy (Verified 12/24/23 12:03)
nasal congestion
cefepime Adverse Reaction (Unknown, Verified 12/24/23 12:03)
Unknown
lorazepam [From Ativan] Adverse Reaction (Unknown, Verified 12/24/23 12:03)
Unknown
Medications
-
Active Medications
Generic Name Dose Route Start Last Admin
Trade Name Freq PRN Reason Stop Dose Admin
Sodium Chloride 1,000 mls @ 75 mls/hr 02/28/24 16:00
0.45%Nacl IV
.[id number] DEEPIKA
Home Medications
�Medication �Instructions �Recorded
carbamazepine 200 mg tablet 300 mg PO TID Seizures 02/12/20
ascorbic acid (vitamin C) 500 mg 500 mg PO DAILY Supplement #60 tabs 02/16/20
tablet (Vitamin C)
clorazepate dipotassium 3.75 mg 3.75 mg PO BID Seizures 04/23/22
tablet
lamotrigine 150 mg tablet 300 mg PO BID Seizures 04/23/22
(Lamictal)
calcium polycarbophil 625 mg 625 mg PO HS Constipation 05/23/22
tablet (Fiber (calcium
polycarbophil))
docusate sodium 100 mg capsule 100 mg PO BID Constipation 07/04/22
sodium bicarbonate 650 mg tablet 650 mg PO BID Kidney Disease 12/19/22
aripiprazole 5 mg tablet 5 mg PO HS Depression 04/02/23
ferrous sulfate 325 mg (65 mg 325 mg PO BID Supplement 12/24/23
iron) tablet
fluoxetine 20 mg tablet 20 mg PO DAILY depression/anxiety 12/24/23
acetaminophen 325 mg tablet 650 mg PO Q4HPRN PRN mild pain 02/01/24
cholecalciferol (vitamin D3) 25 25 mcg PO HS Supplement 02/01/24
mcg (1,000 unit) tablet
clotrimazole 1 % topical cream 1 applic topical BIDPRN PRN fungal 02/01/24
guaifenesin 100 mg/5 mL oral 200 mg PO Q4HPRN PRN cough 02/01/24
liquid (Robafen)
methenamine hippurate 1 gram tablet 1 g PO BID Urinary Issue 02/01/24
vitamin E 268 mg (400 unit) capsule 268 mg PO DAILY 02/01/24
famotidine 40 mg tablet (Pepcid) 40 mg PO HS Gastrointestinal Issue 02/22/24
levetiracetam 500 mg tablet 1,000 mg PO BID Seizures 02/22/24
Vital Signs and Labs
-
Vital Signs and Labs:
Vital Signs
Temp Pulse Resp BP Pulse Ox
36.7 C 64 13 132/70 96
02/28/24 10:17 02/28/24 17:30 02/28/24 17:30 02/28/24 17:00 02/28/24 16:45
Lab Results
02/28/24 10:58
02/28/24 10:58
Sodium 146 mmol/L (135-145) H 02/28/24 10:58
Potassium 3.7 mmol/L (3.5-5.1) 02/28/24 10:58
BUN 78 mg/dl (9-20) H 02/28/24 10:58
Glucose 131 mg/dl (70-99) H 02/28/24 10:58
Calcium 9.3 mg/dl (8.4-10.2) 02/28/24 10:58
Medications
-
Medications:
Generic Name Dose Route Start Last Admin
Trade Name Freq PRN Reason Stop Dose Admin
Sodium Chloride 1,000 mls @ 75 mls/hr 02/28/24 16:00 02/28/24 17:26
0.45%Nacl IV 1,000 mls
.[id number] DEEPIKA Administration
Home Medications
-
Home Medications
carbamazepine 200 mg tablet 300 mg PO TID Seizures 02/12/20
ascorbic acid (vitamin C) 500 mg tablet (Vitamin C) 500 mg PO DAILY Supplement #60 tabs 02/16/20
clorazepate dipotassium 3.75 mg tablet 3.75 mg PO BID Seizures 04/23/22
lamotrigine 150 mg tablet (Lamictal) 300 mg PO BID Seizures 04/23/22
calcium polycarbophil 625 mg tablet (Fiber (calcium polycarbophil)) 625 mg PO HS Constipation 05/23/22
docusate sodium 100 mg capsule 100 mg PO BID Constipation 07/04/22
sodium bicarbonate 650 mg tablet 650 mg PO BID Kidney Disease 12/19/22
aripiprazole 5 mg tablet 5 mg PO HS Depression 04/02/23
ferrous sulfate 325 mg (65 mg iron) tablet 325 mg PO BID Supplement 12/24/23
fluoxetine 20 mg tablet 20 mg PO DAILY depression/anxiety 12/24/23
acetaminophen 325 mg tablet 650 mg PO Q4HPRN PRN mild pain 02/01/24
cholecalciferol (vitamin D3) 25 mcg (1,000 unit) tablet 25 mcg PO HS Supplement 02/01/24
clotrimazole 1 % topical cream 1 applic topical BIDPRN PRN fungal 02/01/24
guaifenesin 100 mg/5 mL oral liquid (Robafen) 200 mg PO Q4HPRN PRN cough 02/01/24
methenamine hippurate 1 gram tablet 1 g PO BID Urinary Issue 02/01/24
vitamin E 268 mg (400 unit) capsule 268 mg PO DAILY 02/01/24
famotidine 40 mg tablet (Pepcid) 40 mg PO HS Gastrointestinal Issue 02/22/24
levetiracetam 500 mg tablet 1,000 mg PO BID Seizures 02/22/24
[2024-02-28 16:26] LABS: Magnesium 3.9 mg/dl (1.6-2.3)
[2024-02-28] MEDS: 0.45%NACL 1000 IV (17:26)
[2024-02-28 19:40] LABS: Creatine Phosphokinase 376 U/L (55-170)
[2024-02-28 19:57] LABS: Urine Albumin 2+ (Neg - Trace); Urine Bilirubin Negative (Negative); Urine Character Slightly Cloudy (Clear); Urine Color Yellow; Urine Glucose Negative (Negative); Urine Ketone Negative (Negative); Urine Leukocyte 2+ (Negative); Urine Nitrite Negative (Negative); Urine Occult Blood 3+ (Negative); Urine Urobilinogen Negative (Neg - 1+)
[2024-02-28 20:12] LABS: TSH Reflex To Free T4 0.21 uIU/ml (0.47-4.68)
[2024-02-28 20:42] LABS: Free T4 0.91 ng/dl (0.78-2.19)
[2024-02-28 20:51] LABS: Urine White Cell >100 /HPF (0-5)
[2024-02-28] MEDS: TEGRETOL PO ×2 (22:05→22:18)
[2024-02-28] MEDS: HEPARIN 5000 UNITS SC (22:08)
[2024-02-28] MEDS: COLACE PO (22:17)
[2024-02-28] MEDS: FEOSOL PO (22:17)
[2024-02-28] MEDS: LAMICTAL PO (22:18)
[2024-02-28] MEDS: TRANXENE PO (22:18)
[2024-02-28] MEDS: ABILIFY PO (22:18)
[2024-02-28] MEDS: FIBERCON PO (22:18)
--- NOTE | 2024-02-28 23:57 | PTCARENOTE ---
Received pt from ED @ 2109. Pt pulled over to bed. Pt minimally verbal, only moaning or saying a few words at a time before falling asleep. Pt able to verbalize he is at the hospital but not which one or the month/year. All meds ordered PO,
attempted to give to patient but he is very drowsy and when he does wake up he refuses to take any pills stating 'I don't want them.' Reached out to ordering provider, ED PRODUCTION CONTROL SUPERVISOR Ale Briceno to switch all possible meds to IV with no response. LORAINE Salas
Merissa ordered IV Keppra, administered to pt. All other PO meds unable to be taken by patient.
[2024-02-29 03:00] VITALS: BP 125/73
[2024-02-29 04:45] LABS: Hemoglobin 11.2 g/dL (13.0-18.0); Mean Corpuscular Hgb 32.1 pg (27.0-31.0); Mean Corpuscular Volume 100.3 fL (80.0-94.0); Mean Platelet Volume 9.7 fL (7.4-10.4); Platelet Count 328 10^3/uL (130-400); Red Blood Cell Count 3.49 10^6/uL (4.70-6.10); Red Cell Dist. Width 12.9 % (11.5-14.5); White Blood Cell Count 13.5 10^3/uL (4.8-10.8)
[2024-02-29 05:05] LABS: Blood Urea Nitrogen 74 mg/dl (9-20); Calcium 9.2 mg/dl (8.4-10.2); Carbon Dioxide 36 mmol/L (22-30); Chloride 98 mmol/L (98-107); Estimated Creatinine Clearance 16 ml/min; Glucose 108 mg/dl (70-99); Magnesium 4.1 mg/dl (1.6-2.3); Phosphorus 5.4 mg/dl (2.5-4.5); Potassium 3.3 mmol/L (3.5-5.1); Sodium 147 mmol/L (135-145); eGFR 19.04
[2024-02-29 05:06] LABS: Tegretol (Carbamazepine) 4.8 ug/ml (4-12)
[2024-02-29] MEDS: 0.45%NACL 1000 IV (06:04)
--- NOTE | 2024-02-29 06:28 | PTCARENOTE ---
Patient much more alert this AM, sitting up in bed asking for water. Patient ordered pureed diet so given small sips of water. Per paper work from facility, pt drinks thickened water. Water thickened, patient drank with very minimal amount of
coughing. Since patient with chronic dysphagia, swallow screening prompted patient to be made NPO and speech screen to be ordered.
[2024-02-29] MEDS: D5/0.45%NSS with KCL 20 MEQ 1000 IV (06:35)
[2024-02-29 07:55] VITALS: BP 116/68
[2024-02-29] MEDS: KEPPRA 1000 MG IV ×2 (08:12→19:33)
[2024-02-29] MEDS: HEPARIN 5000 UNITS SC ×2 (08:12→19:31)
[2024-02-29 08:39] LABS: Glycohemoglobin (HgbA1c) 5.7 % (4.0-5.6)
--- NOTE | 2024-02-29 09:05 | W.PN.HOSP.TC ---
Today's Communication/Plan
-
see bold
Assessment / Plan
Assessment / Plan
HPI: 63-year-old male with a past medical history of chronic Galvin, recurrent urinary tract infections, absence seizures, stage IV CKD, type 2 diabetes, cerebral palsy, and chronic dysphagia was [facility] from his [facility] for nonresponsiveness/staring
spell for 20 seconds. He appeared to be postictal in the ER. Continue Lamictal, Keppra, consult neurology.
#Acute kidney injury superimposed on stage IV CKD
Creatinine 3.5 today, was 3.5 upon admission, his baseline is 2.8
Continue IV fluids, trend creatinine, no nephrotoxic drugs/NSAIDs
He no longer needs sodium bicarb, discontinue upon discharge
Consult nephrology
#Hypernatremia
Change fluids to D5W
#Hypokalemia
Replete
#Hypomagnesemia
Unclear etiology
#Absence seizure
Appreciate neurology input, continue Clorazepate 3.75 mg twice daily, lamotrigine 300 mg twice daily, Carbamazepine 300 mg 3 times daily, Keppra�1000mg BID
Follow-up with neurology in the office in 2-3 weeks
#Chronic Galvin
#Chronic leukocytosis
Status post antibiotics in the ER
Patient is afebrile, first urine culture growing gram-negative bacilli was drawn from his previous Galvin
Follow-up repeat urine culture that was sent after his Galvin was changed
Monitor off antibiotics
#Dysphagia
Cleared by SPL for pur�ed diet with moderately thick liquids
For VSE tomorrow
#Cerebral palsy
From a fci
#Anxiety/depression
Continue SSRI, Abilify
DVT prophylaxis�subcu heparin
Full code
Total time spent to see the patient on the floor, examine the patient, review data and lab results, discuss treatment plan with patient, nursing staff around 55 minutes.
Physical Exam
General: Thin, no acute distress
HEENT: Normocephalic, Atraumatic, EOMI, MMM
Respiratory: Clear to Auscultation bilaterally
Cardiac: Normal S1/S2, Regular Rate and Rhythm
GI: Soft, Nontender, Nondistended, Normal Bowel Sounds
Extremities: No Clubbing, Cyanosis, or Edema
Neuro: Slow to respond, answering questions
Anticipated Discharge: 24 - 48 hours
Subjective/Interval History
-
Date of Service: February 29, 2024
Patient's mentation is back to his baseline. No fever, no vomiting.
Objective Data
-
Labs:
Laboratory Results
02/29/24 02/29/24
04:31 12:00
WBC 13.5 H
Hgb 11.2 L
Hct 35.0 L
Plt Count 328
Sodium 147 H Pending
Potassium 3.3 L Pending
Chloride 98 Pending
Carbon Dioxide 36 H Pending
BUN 74 H Pending
Creatinine 3.5 H Pending
Glucose 108 H Pending
Calcium 9.2 Pending
Vital Signs:
Vital Signs
Temp Pulse Resp BP Pulse Ox
97.1 F 52 16 116/68 100
02/29/24 07:55 02/29/24 07:55 02/29/24 07:55 02/29/24 07:55 02/29/24 07:55
I&O
02/28/24 02/29/24 03/01/24
06:59 06:59 06:59
Intake Total 750 / 750
Output Total 650 / 650
Balance 100 / 100
[2024-02-29] MEDS: COLACE 100 MG PO ×2 (10:44→19:27)
[2024-02-29] MEDS: TEGRETOL 300 MG PO ×3 (10:50→21:08)
[2024-02-29] MEDS: PROZAC 20 MG PO (10:50)
[2024-02-29] MEDS: FEOSOL 325 MG PO ×2 (10:50→19:27)
[2024-02-29] MEDS: LAMICTAL 300 MG PO ×2 (10:50→19:29)
[2024-02-29] MEDS: TRANXENE 3.75 MG PO ×2 (10:51→19:29)
--- NOTE | 2024-02-29 11:11 | PTOTSP ---
ST Acute Care Evaluations
Pt currently presents with known moderate oropharyngeal dysphagia characterized by limited lingual movement, prolonged bolus movement posteriorly, delayed swallow initiations, and coughing on thickened liquids with nursing, and baseline modified
diet consistencies.
Recommendations:
- Initiate diet of PUREED SOLIDS and MODERATELY THICK LIQUIDS with meds crushed in puree.
- ASPIRATION PRECAUTIONS: HOB upright for ALL PO intake and for 60 minutes after PO intake; 1:1 assist for ALL PO intake; small bites/sips; alternate bites/sips; feed SLOWLY; d/c PO intake if pt in respiratory distress.
- FRAME FIXER to f/u re: diet tolerance, to trial diet upgrades, and to determine if pt would benefit from an instrumental swallow study.
[2024-02-29] MEDS: D5W 1000 IV (11:25)
[2024-02-29 11:48] VITALS: BP 105/68
--- NOTE | 2024-02-29 11:58 | W.PN.NEURO.1 ---
Today's Communication / Plan
-
.
Subjective/Objective
Subjective Data
Date of Service: February 29, 2024
Neurology follow-up note.
Mr. Garza endorses xerostomia. No reports of headaches, recurrent seizures.
Labs: Carbamazepine�4.8, sodium�147, creatinine�3.5, CK�376. Free T4�normal.
Urine culture�gram-negative bacilli.
PMH: dyskinetic cerebral palsy, epilepsy, obstructive uropathy, BPH, polycystic kidney disease, CKD, DM, BMI 18
PSH: Right hip ORIF, eye surgeries, TURP,
SH: long-term resident,
FH:unknown
All: Cefepime, lorazepam, alprazolam
Meds: carbamazepine 200 mg tablet 300 mg PO TID Seizures 02/12/20
ascorbic acid (vitamin C) 500 mg tablet (Vitamin C) 500 mg PO DAILY Supplement #60 tabs 02/16/20
clorazepate dipotassium 3.75 mg tablet 3.75 mg PO BID Seizures 04/23/22
lamotrigine 150 mg tablet (Lamictal) 300 mg PO BID Seizures 04/23/22
calcium polycarbophil 625 mg tablet (Fiber (calcium polycarbophil)) 625 mg PO HS Constipation 05/23/22
docusate sodium 100 mg capsule 100 mg PO BID Constipation 07/04/22
sodium bicarbonate 650 mg tablet 650 mg PO BID Kidney Disease 12/19/22
aripiprazole 5 mg tablet 5 mg PO HS Depression 04/02/23
ferrous sulfate 325 mg (65 mg iron) tablet 325 mg PO BID Supplement 12/24/23
fluoxetine 20 mg tablet 20 mg PO DAILY depression/anxiety 12/24/23
acetaminophen 325 mg tablet 650 mg PO Q4HPRN PRN mild pain 02/01/24
cholecalciferol (vitamin D3) 25 mcg (1,000 unit) tablet 25 mcg PO HS Supplement 02/01/24
clotrimazole 1 % topical cream 1 applic topical BIDPRN PRN fungal 02/01/24
guaifenesin 100 mg/5 mL oral liquid (Robafen) 200 mg PO Q4HPRN PRN cough 02/01/24
methenamine hippurate 1 gram tablet 1 g PO BID Urinary Issue 02/01/24
vitamin E 268 mg (400 unit) capsule 268 mg PO DAILY 02/01/24
famotidine 40 mg tablet (Pepcid) 40 mg PO HS Gastrointestinal Issue 02/22/24
levetiracetam 500 mg tablet 1,000 mg PO BID Seizures 02/22/24
ROS: Unable due to encephalopathy
General: In no acute distress.
Cardio: Regular rate. Extremities are without cyanosis or edema.
Neuro:
Mental Status: Awake, oriented to name, month, year. Poor attention
Cranial Nerves: left exophoria on primary gaze. Sustained by his result of nystagmus on lateral gaze. No visual field limitation. No facial weakness. No dysarthria. Nonfluent. Follows simple requests consistently.
Motor: No arm or leg drift.
Coordination: No tremors myoclonic movements.
Gait: deferred
Assessment and Plan:
I. Multifactorial encephalopathy(developmental, metabolic (hyponatremia, uremia), significantly improved.
II. Left parietal porencephalic cyst
III. Probable medically refractory focal epilepsy was provoked seizure in settings of infection.
-Seizure precautions
-Avoid medications known to lower seizure threshold.
-EKG
-Continue Clorazepate 3.75 mg twice daily, lamotrigine 300 mg twice daily, Carbamazepine 300 mg 3 times daily, Keppra�1000mg BID
-Outpatient neurology follow-up in 2-3 weeks.
I personally reviewed all radiology and labs along with past medical records pertinent to current medical problems. Total time spent in patient care is 37 minutes.
Thank you for allowing us to participate in the care of this patient. Please do not hesitate to contact us with any questions or concerns.
Objective Data
Vital Signs
Temp Pulse Resp BP Pulse Ox
36.2 C 56 16 105/68 100
02/29/24 11:48 02/29/24 11:48 02/29/24 11:48 02/29/24 11:48 02/29/24 11:48
Lab Results
02/29/24 04:31
02/29/24 12:00
Sodium Cancelled 02/29/24 12:00
Potassium Cancelled 02/29/24 12:00
BUN Cancelled 02/29/24 12:00
Glucose Cancelled 02/29/24 12:00
Calcium Cancelled 02/29/24 12:00
Phosphorus 5.4 mg/dl (2.5-4.5) H 02/29/24 04:31
Patient Allergies
cefepime Allergy (Verified 02/28/24 21:00)
delirium per pt's POA 'Svitlana'
house dust Allergy (Verified 12/24/23 12:03)
nasal congestion
lorazepam [From Ativan] Allergy (Verified 02/28/24 21:00)
SEE BELOW
mold Allergy (Verified 12/24/23 12:03)
nasal congestion
ragweed pollen Allergy (Verified 12/24/23 12:03)
nasal congestion
[2024-02-29 14:08] VITALS: BMI 18.5
--- NOTE | 2024-02-29 14:16 | CM ---
Patient from [facility] with Hx including cerebral palsy, Intellectual disability, epilepsy. Room air. Receiving IVF, IV Keppra. ST for dysphagia.
Spoke with Ann Marie, Nurse, [facility] (ph [phone]);
the patient resides there and is mostly A/O and cooperative with care.
He is assisted with ADLs, is w/c bound.
The patient transfers from w/c to bed with assist 1-2 due to weakness.
He is able to self propel with w/c with his feet.
The patient has 'lost a lot of weight' and has declined.
He is on a dysphagia diet, his pills are crushed in applesauce, and patient sometimes feeds himself with supervision.
He is continent and has a lehman catheter.
DME - he has his own w/c
Current with [facility] for PT & ST
Per Ann Marie, patient has telehealth visits with [facility]lim[facility] Fajardo for depression
No prior SNF.
PCP - Lennie Holder/Corey Piedra
Pharmacy - [facility] Giovanni Armstrong for same day meds
His contact is BRANDY Shane who is a family friend.
The phone for nurse report [phone] or [phone], fax [phone].
Message to Dr Barraza requesting PT Eval.
Plan follow up after seen by PT.
Plan return to [facility] when medically ready, with resumption [facility].
[2024-02-29 15:40] VITALS: BP 128/75
[2024-02-29] MEDS: KCL ELIXIR 40 MEQ PO (16:07)
[2024-02-29 19:01] VITALS: BP 103/65
[2024-02-29] MEDS: ABILIFY 5 MG PO (21:08)
[2024-02-29] MEDS: PEPCID 20 MG PO (21:09)
[2024-02-29] MEDS: FIBERCON 625 MG PO (21:09)
--- NOTE | 2024-02-29 21:56 | W.CON.NEPH ---
Consultation
-
Date/Time Consultation Requested: 02/29/24 4pm
Date/Time Consultation Performed: 02/29/24 5pm
Requesting Provider: Dr Navas
Performing Provider: Dr Contreras
Reason for Consultation: estevan/ckd
Medical History
-
Chief Complaint: estevan
History of Present Illness:
63-year-old male with a past medical history of chronic Lehman, recurrent urinary tract infections, absence seizures, stage IV CKD, type 2 diabetes, cerebral palsy, and chronic dysphagia was sent from his custodial for nonresponsiveness/staring
spell for 20 seconds
renal consult for estevan/ckd cr 3.1 b/l to 3.5
Past Medical History
chronic Lehman, recurrent urinary tract infections, absence seizures, stage IV CKD, type 2 diabetes, cerebral palsy, and chronic dysphagia
Social History
Tobacco: Non-Smoker
Family History
no renal disease
Allergies / Home Medications
Allergy/AdvReac Type Severity Reaction Status Date / Time
cefepime Allergy delirium Verified 02/28/24 21:00
per pt's
POA 'Svitlana'
house dust Allergy nasal Verified 12/24/23 12:03
congestion
lorazepam [From Ativan] Allergy SEE BELOW Verified 02/28/24 21:00
mold Allergy nasal Verified 12/24/23 12:03
congestion
ragweed pollen Allergy nasal Verified 12/24/23 12:03
congestion
�Medication �Instructions �Recorded �Confirmed �Type
carbamazepine 200 mg tablet 300 mg PO TID Seizures 02/12/20 02/28/24 History
ascorbic acid (vitamin C) 500 mg 500 mg PO DAILY Supplement #60 tabs 02/16/20 02/28/24 Rx
tablet (Vitamin C)
clorazepate dipotassium 3.75 mg 3.75 mg PO BID Seizures 04/23/22 02/28/24 History
tablet
lamotrigine 150 mg tablet 300 mg PO BID Seizures 04/23/22 02/28/24 History
(Lamictal)
calcium polycarbophil 625 mg 625 mg PO HS Constipation 05/23/22 02/28/24 History
tablet (Fiber (calcium
polycarbophil))
docusate sodium 100 mg capsule 100 mg PO BID Constipation 07/04/22 02/28/24 History
sodium bicarbonate 650 mg tablet 650 mg PO BID Kidney Disease 12/19/22 02/28/24 History
aripiprazole 5 mg tablet 5 mg PO HS Depression 04/02/23 02/28/24 History
ferrous sulfate 325 mg (65 mg 325 mg PO BID Supplement 12/24/23 02/28/24 History
iron) tablet
fluoxetine 20 mg tablet 20 mg PO DAILY depression/anxiety 12/24/23 02/28/24 History
acetaminophen 325 mg tablet 650 mg PO Q4HPRN PRN mild pain 02/01/24 02/28/24 History
cholecalciferol (vitamin D3) 25 25 mcg PO HS Supplement 02/01/24 02/28/24 History
mcg (1,000 unit) tablet
clotrimazole 1 % topical cream 1 applic topical BIDPRN PRN fungal 02/01/24 02/28/24 History
guaifenesin 100 mg/5 mL oral 200 mg PO Q4HPRN PRN cough 02/01/24 02/28/24 History
liquid (Robafen)
methenamine hippurate 1 gram tablet 1 g PO BID Urinary Issue 02/01/24 02/28/24 History
vitamin E 268 mg (400 unit) capsule 268 mg PO DAILY 02/01/24 02/28/24 History
famotidine 40 mg tablet (Pepcid) 40 mg PO HS Gastrointestinal Issue 02/22/24 02/28/24 History
levetiracetam 500 mg tablet 1,000 mg PO BID Seizures 02/22/24 02/28/24 History
Review of Systems
-
no complaint
All other systems: Negative unless noted
Physical Exam
Vital Signs
Vital Signs
Temp Pulse Resp BP Pulse Ox
97.3 F 70 16 103/65 98
02/29/24 19:01 02/29/24 19:01 02/29/24 19:01 02/29/24 19:01 02/29/24 19:15
Lab Results
WBC 13.5 10^3/uL (4.8-10.8) H 02/29/24 04:31
RBC 3.49 10^6/uL (4.70-6.10) L 02/29/24 04:31
Hgb 11.2 g/dL (13.0-18.0) L 02/29/24 04:31
Hct 35.0 % (39.0-52.0) L 02/29/24 04:31
Plt Count 328 10^3/uL (130-400) 02/29/24 04:31
Sodium Cancelled 02/29/24 12:00
Potassium Cancelled 02/29/24 12:00
Chloride Cancelled 02/29/24 12:00
Carbon Dioxide Cancelled 02/29/24 12:00
BUN Cancelled 02/29/24 12:00
Creatinine Cancelled 02/29/24 12:00
eGFR Cancelled 02/29/24 12:00
Glucose Cancelled 02/29/24 12:00
Calcium Cancelled 02/29/24 12:00
Phosphorus 5.4 mg/dl (2.5-4.5) H 02/29/24 04:31
Albumin 4.4 g/dl (3.5-5.0) 02/28/24 10:58
Physical Exam
General no acute distress
HEENT no cephalic atraumatic extraocular muscle intact no scleral icterus no JVD neck supple
lungs clear to auscultation bilateral
heart regular S1-S2 positive
abdomen soft nontender positive bowel sounds
extremities no edema. contracted
neuro alert to name
Skin no lesions no abrasions no petechiae
Psych no bizarre behavior
Data Reviewed
-
CT Scan: Image Personally Visualized and interpreted
Labs: Labs Reviewed by me
Assessment/Plan
-
63-year-old male with a past medical history of chronic Lehman, recurrent urinary tract infections, absence seizures, stage IV CKD, type 2 diabetes, cerebral palsy, and chronic dysphagia was sent from his custodial for nonresponsiveness/staring
spell for 20 seconds
renal consult for estevan/ckd cr 2.9 nov 2023
on admit cr 3.5
estevan/ckd 4
ams
uti
chronic lehman
seizure - neuro noted
estevan 2/2 uti
abx renally dosed
s/p ns now on d5w for free water deficit
maintain lehman
cultures pending
seizure rx with renal adjustment as indictaed
am labs
[2024-02-29 23:31] VITALS: BP 122/83
[2024-03-01 03:02] VITALS: BP 125/66
[2024-03-01 07:30] VITALS: BP 137/77
[2024-03-01 07:36] LABS: Hematocrit 32.2 % (39.0-52.0); Hemoglobin 10.6 g/dL (13.0-18.0); Mean Corp Hgb Conc. 32.9 g/dL (33.0-37.0); Mean Corpuscular Hgb 32.6 pg (27.0-31.0); Mean Corpuscular Volume 99.1 fL (80.0-94.0); Mean Platelet Volume 9.9 fL (7.4-10.4); Platelet Count 319 10^3/uL (130-400); Red Blood Cell Count 3.25 10^6/uL (4.70-6.10); Red Cell Dist. Width 12.7 % (11.5-14.5); White Blood Cell Count 10.7 10^3/uL (4.8-10.8)
[2024-03-01] MEDS: PROZAC 20 MG PO (08:07)
[2024-03-01] MEDS: LAMICTAL 300 MG PO ×2 (08:07→20:11)
[2024-03-01] MEDS: TEGRETOL 300 MG PO ×3 (08:07→21:32)
[2024-03-01] MEDS: FEOSOL 325 MG PO ×2 (08:07→20:10)
[2024-03-01] MEDS: TRANXENE 3.75 MG PO ×2 (08:07→20:12)
[2024-03-01] MEDS: COLACE 100 MG PO ×2 (08:08→20:10)
[2024-03-01] MEDS: HEPARIN 5000 UNITS SC ×2 (08:08→20:11)
[2024-03-01] MEDS: KEPPRA 1000 MG IV ×2 (08:08→20:11)
--- NOTE | 2024-03-01 09:06 | W.PN.HOSP.TC ---
Today's Communication/Plan
-
see bold
Assessment / Plan
Assessment / Plan
HPI: 63-year-old male with a past medical history of chronic Galvin, recurrent urinary tract infections, absence seizures, stage IV CKD, type 2 diabetes, cerebral palsy, and chronic dysphagia was sent from his senior care for nonresponsiveness/staring
spell for 20 seconds. He appeared to be postictal in the ER. Continue Lamictal, Keppra, consult neurology.
#Acute kidney injury superimposed on stage IV CKD
Creatinine 2.9 today, was 3.5, was 3.5 upon admission, his baseline is 2.8
Continue IV fluids, trend creatinine, no nephrotoxic drugs/NSAIDs
He no longer needs sodium bicarb, discontinue upon discharge
Nephrology following
#Hypernatremia
Resolved status post
#Hypokalemia
Repleted and resolved
#Hypermagnesemia
Unclear etiology
#Absence seizure
Appreciate neurology input, continue Clorazepate 3.75 mg twice daily, lamotrigine 300 mg twice daily, Carbamazepine 300 mg 3 times daily, Keppra�1000mg BID
Follow-up with neurology in the office in 2-3 weeks
#Chronic Galvin
#Chronic leukocytosis
#Colonization
#CAUTI ruled out
Status post antibiotics in the ER
Patient is afebrile, first urine culture growing gram-negative bacilli was drawn from his previous Galvni
Repeat urine culture that was sent after his Galvin was changed, growing 15,000 colonies citrobacter
Continues to be afebrile, leukocytosis resolved, monitor off antibiotics
#Dysphagia
Was on pur�ed diet with moderately thick liquids
VSE shows aspiration of thin liquids, SPL rec pur�ed diet with mildly thick liquids
#Unintentional weight loss
#BMI 18.5 normal
Encourage oral intake
#Cerebral palsy
From a senior care
#Anxiety/depression
Continue SSRI, Abilify
DVT prophylaxis�subcu heparin
Full code
Total time spent to see the patient on the floor, examine the patient, review data and lab results, discuss treatment plan with patient, nursing staff around 45 minutes.
Physical Exam
General: Thin, no acute distress
HEENT: Normocephalic, Atraumatic, EOMI, MMM
Respiratory: Clear to Auscultation bilaterally
Cardiac: Normal S1/S2, Regular Rate and Rhythm
GI: Soft, Nontender, Nondistended, Normal Bowel Sounds
Extremities: No Clubbing, Cyanosis, or Edema
Neuro: Slow to respond, answering questions
Anticipated Discharge: Within 24 hours
Subjective/Interval History
-
Date of Service: March 01, 2024
No acute events. No fever, no vomiting. Patient is less talkative today.
Objective Data
-
Labs:
Laboratory Results
03/01/24
07:15
WBC 10.7
Hgb 10.6 L
Hct 32.2 L
Plt Count 319
Sodium Pending
Potassium Pending
Chloride Pending
Carbon Dioxide Pending
BUN Pending
Creatinine Pending
Glucose Pending
Calcium Pending
Vital Signs:
Vital Signs
Temp Pulse Resp BP Pulse Ox
98.3 F 62 20 137/77 100
03/01/24 07:30 03/01/24 07:30 03/01/24 07:30 03/01/24 07:30 03/01/24 07:30
I&O
02/29/24 03/01/24 03/02/24
06:59 06:59 06:59
Intake Total 750 / 750 810 / 810
Output Total 650 / 650 1600 / 1600
Balance 100 / 100 -790 / -790
[2024-03-01 09:27] LABS: Blood Urea Nitrogen 64 mg/dl (9-20); Calcium 9.3 mg/dl (8.4-10.2); Carbon Dioxide 28 mmol/L (22-30); Chloride 99 mmol/L (98-107); Estimated Creatinine Clearance 19 ml/min; Glucose 117 mg/dl (70-99); Magnesium 3.5 mg/dl (1.6-2.3); Phosphorus 4.1 mg/dl (2.5-4.5); Potassium 3.5 mmol/L (3.5-5.1); Sodium 139 mmol/L (135-145); eGFR 23.86
[2024-03-01] MEDS: 0.45% NACL with KCL 20 MEQ 1000 IV (10:14)
--- NOTE | 2024-03-01 10:17 | PTOTSP ---
Video Swallow Examination
Disorganized oral processing, reduced oral motor control/initiation contributed to ineffective mastication and delays in swallow onset and laryngeal vestibular closure that resulted in aspiration of thin liquid. Delayed ineffective cough in response
to aspiration. Retained contrast during lateral sweep suggests slow to empty esophagus.
Recommend
1. Level 4 (Puree) Diet and Mildly Thick Liquids
2. Meds crushed in applesauce.
3. 1:1 Assist with feeding.
4. Aspiration Precautions.
5. Remain upright for 30 minutes after meals.
6. Oral care after meals to ensure no pocketing.
7. Will follow and consider
--- NOTE | 2024-03-01 11:44 | W.PN.NEPH.PH ---
Today's Communication / Plan
-
Fluids are running with 1/2NS with K
creatinine at baseline
Assessment/Plan
-
63-year-old male with a past medical history of chronic Lehman, recurrent urinary tract infections, absence seizures, stage IV CKD, type 2 diabetes, cerebral palsy, and chronic dysphagia was [facility] from his [facility] for nonresponsiveness/staring
spell for 20 seconds
renal consult for estevan/ckd cr 2.9 nov 2023
on admit cr 3.5
estevan/ckd 4
ams
uti
chronic lehman
seizure - neuro noted
Plan:
estevan 2/2 uti
Creatinine now at baseline 2.9
abx renally dosed
Hypernatremia improved with sodium down to 139
maintain lehman
cultures pending
seizure rx with renal adjustment as indictaed
am labs
-
-
Date of Service: March 01, 2024
CC / HPI / ROS
-
Chief Complaint:
Acute kidney injury CKD 4
History of Present Illness:
Creatinine down to baseline of 2.9
Hyponatremia corrected to 139
Grossly nonoliguric via Lehman
Hemodynamically stay
Review of Systems:
Nonoliguric
No fevers
Chronic dysphagia
Labs
-
Labs:
WBC 10.7 10^3/uL (4.8-10.8) 03/01/24 07:15
RBC 3.25 10^6/uL (4.70-6.10) L 03/01/24 07:15
Hgb 10.6 g/dL (13.0-18.0) L 03/01/24 07:15
Hct 32.2 % (39.0-52.0) L 03/01/24 07:15
Plt Count 319 10^3/uL (130-400) 03/01/24 07:15
Sodium 139 mmol/L (135-145) D 03/01/24 07:15
Potassium 3.5 mmol/L (3.5-5.1) 03/01/24 07:15
Chloride 99 mmol/L (98-107) 03/01/24 07:15
Carbon Dioxide 28 mmol/L (22-30) 03/01/24 07:15
BUN 64 mg/dl (9-20) H 03/01/24 07:15
Creatinine 2.9 mg/dL (0.7-1.3) H 03/01/24 07:15
eGFR 23.86 03/01/24 07:15
Glucose 117 mg/dl (70-99) H 03/01/24 07:15
Calcium 9.3 mg/dl (8.4-10.2) 03/01/24 07:15
Phosphorus 4.1 mg/dl (2.5-4.5) 03/01/24 07:15
Albumin 4.4 g/dl (3.5-5.0) 02/28/24 10:58
Physical Exam
-
Vital Signs:
Vital Signs
Temp Pulse Resp BP Pulse Ox
98.3 F 62 20 137/77 100
03/01/24 07:30 03/01/24 07:30 03/01/24 07:30 03/01/24 07:30 03/01/24 07:30
Cardiovascular:: Regular rate and rhythm
Respiratory:: Bilateral: CTA
Lung Excursion:: Normal
Abdomen:: Nontender and Soft
Bowel Sounds:: Normal
Extremity Edema:: None: Bilateral:
Lehman Catheter: Yes
Other Findings::
Not oriented to time or place
[2024-03-01 11:48] VITALS: BP 126/86
[2024-03-01 15:00] VITALS: BP 137/68
--- NOTE | 2024-03-01 15:39 | PN.CDI ---
CDI
- -
CDI:
Physician Documentation Request
Admit Date: 02/28/24 15:26
Dear Doctor Do,
Please review the following and provide your response in the progress notes.
Clinical Indicators:
Height: 5ft 5 in
Weight: 111 lb
BMI:18.5
Other Clinical Notes:
Nutrition consult 02/28, 'Review of records shows wt of 120 lbs from 12-29-23; current wt 111 lbs on 02-28-24, reflecting a loss of 9 lbs (7.5% wt change, 2 months)-significant. During visit today pt day care teacher was feeding pt; would encourage meals,
snacks daily as tolerated on currently ordered .... Unintended weight loss ...'
If possible, please provide an associated diagnosis related to the abnormal BMI, such as:
BMI < or = to 19
Underweight
Weight Loss
Cachectic
- Other
Use of terms such as suspected, likely, concern for, or probable (associated with a specific diagnosis that is being evaluated, monitored, or treated as if it exists) are acceptable and can be coded in the inpatient setting, when documented at the
time of discharge.
Thank you,
Tricia Pardo RN
CDI Specialist
[facility]
Please use your independent medical judgment in providing your response.
[2024-03-01] MEDS: FIBERCON 625 MG PO (20:12)
[2024-03-01] MEDS: ABILIFY 5 MG PO (20:12)
[2024-03-01 23:46] VITALS: BP 144/93
[2024-03-02 07:00] VITALS: BP 133/75
[2024-03-02 07:39] LABS: Hematocrit 31.6 % (39.0-52.0); Hemoglobin 10.5 g/dL (13.0-18.0); Mean Corp Hgb Conc. 33.2 g/dL (33.0-37.0); Mean Corpuscular Hgb 32.3 pg (27.0-31.0); Mean Corpuscular Volume 97.2 fL (80.0-94.0); Mean Platelet Volume 9.9 fL (7.4-10.4); Platelet Count 324 10^3/uL (130-400); Red Blood Cell Count 3.25 10^6/uL (4.70-6.10); Red Cell Dist. Width 12.5 % (11.5-14.5); White Blood Cell Count 10.5 10^3/uL (4.8-10.8)
[2024-03-02 07:57] LABS: Blood Urea Nitrogen 56 mg/dl (9-20); Carbon Dioxide 32 mmol/L (22-30); Chloride 100 mmol/L (98-107); Estimated Creatinine Clearance 19 ml/min; Glucose 110 mg/dl (70-99); Magnesium 3.2 mg/dl (1.6-2.3); Phosphorus 4.1 mg/dl (2.5-4.5); Potassium 3.5 mmol/L (3.5-5.1); Sodium 141 mmol/L (135-145); eGFR 23.86
--- NOTE | 2024-03-02 08:40 | W.PN.HOSP.TC ---
Today's Communication/Plan
-
Medically stable for discharge back to his facility
Assessment / Plan
Assessment / Plan
HPI: 63-year-old male with a past medical history of chronic Galvin, recurrent urinary tract infections, absence seizures, stage IV CKD, type 2 diabetes, cerebral palsy, and chronic dysphagia was sent from his correction for nonresponsiveness/staring
spell for 20 seconds. He appeared to be postictal in the ER. Continue Lamictal, Keppra, consult neurology.
#Acute kidney injury superimposed on stage IV CKD
Resolved status post IV fluids
Creatinine 2.9 today, was 3.5, was 3.5 upon admission, his baseline is 2.8
He no longer needs sodium bicarb, discontinue upon discharge
Medically stable for discharge back to his facility as of 03/02
#Absence seizure
Appreciate neurology input, continue Clorazepate 3.75 mg twice daily, lamotrigine 300 mg twice daily, Carbamazepine 300 mg 3 times daily, Keppra�1000mg BID
Per neurology 'Patient has medically refractory epilepsy. AEDs do not and will not make him seizure free'
It is expected that he will have intermittent absence seizures
Follow-up with neurology in the office in 2-3 weeks
#Chronic Galvin
#Chronic leukocytosis
#Colonization/bacteriuria
#CAUTI ruled out
Status post antibiotics in the ER
Patient is afebrile, first urine culture growing gram-negative bacilli was drawn from his previous Galvin
Repeat urine culture that was sent after his Galvin was changed, growing 15,000 colonies citrobacter
Continues to be afebrile, leukocytosis resolved, monitor off antibiotics
#Hypernatremia
Resolved status post D5W
#Hypokalemia
Repleted and resolved
#Hypermagnesemia
Unclear etiology
#Dysphagia
Was on pur�ed diet with moderately thick liquids
VSE shows aspiration of thin liquids, SPL rec pur�ed diet with mildly thick liquids -patient has been tolerating and eating well
#Unintentional weight loss
#BMI 18.5 normal
Encourage oral intake
#Cerebral palsy
From a correction
#Anxiety/depression
Continue SSRI, Abilify
DVT prophylaxis�subcu heparin
Full code
Total time spent to see the patient on the floor, examine the patient, review data and lab results, discuss treatment plan with patient, nursing staff around 50 minutes.
Physical Exam
General: Thin, no acute distress
HEENT: Normocephalic, Atraumatic, EOMI, MMM
Respiratory: Clear to Auscultation bilaterally
Cardiac: Normal S1/S2, Regular Rate and Rhythm
GI: Soft, Nontender, Nondistended, Normal Bowel Sounds
Extremities: No Clubbing, Cyanosis, or Edema
Neuro: Slow to respond, answering questions
Anticipated Discharge: Within 24 hours
Subjective/Interval History
-
Date of Service: March 02, 2024
No acute events. Patient is more interactive, answering questions today. Nursing staff reports he is eating well. No fever, no vomiting. No recurrence of seizures.
Objective Data
-
Labs:
Laboratory Results
03/02/24
06:42
WBC 10.5
Hgb 10.5 L
Hct 31.6 L
Plt Count 324
Sodium 141
Potassium 3.5
Chloride 100
Carbon Dioxide 32 H
BUN 56 H
Creatinine 2.9 H
Glucose 110 H
Calcium 9.0
Vital Signs:
Vital Signs
Temp Pulse Resp BP Pulse Ox
98.0 F 59 16 133/75 99
03/02/24 07:00 03/02/24 07:00 03/02/24 07:00 03/02/24 07:00 03/02/24 07:00
I&O
03/01/24 03/02/24 03/03/24
06:59 06:59 06:59
Intake Total 810 / 810 1485 / 1485
Output Total 1600 / 1600 1250 / 1250
Balance -790 / -790 235 / 235
[2024-03-02] MEDS: LAMICTAL 300 MG PO ×2 (08:46→20:04)
[2024-03-02] MEDS: TRANXENE 3.75 MG PO ×2 (08:46→19:53)
[2024-03-02] MEDS: FEOSOL 325 MG PO ×2 (08:46→19:53)
[2024-03-02] MEDS: COLACE 100 MG PO ×2 (08:46→19:52)
[2024-03-02] MEDS: PROZAC 20 MG PO (08:46)
[2024-03-02] MEDS: TEGRETOL 300 MG PO ×3 (08:47→22:27)
[2024-03-02] MEDS: KEPPRA 1000 MG IV (08:47)
[2024-03-02] MEDS: HEPARIN 5000 UNITS SC ×2 (08:47→19:52)
[2024-03-02 10:56] VITALS: BP 144/63; PULSE 78; O2SAT 96
--- NOTE | 2024-03-02 12:44 | CM ---
Addendum entered by Zachary Mantilla 03/02/24 14:58:
Spoke w/ nurse Vandana from [facility] at hospital. Per Vandana, she is unable to get medical information as she is not the POA.
Nurse notified Dr. Barraza to speak w/ pt's POA who is also a nurse practitioner to discuss pt's current status and answer follow up questions
Vandana stated if Dr. Barraza and BRANDY speak today and the plan is to still d/c, pt is unable to return today and will have to d/c tomorrow after 8 am
Original Note:
Pt is medically clear for d/c per hospitalist.
CM called [facility]- ); to advise
Spoke w/ Vandana informing of d/c. Per Vandana, their nurse, Ann Marie, seen pt in hospital yesterday and stated pt did not look good and is not at his BL. Per Vandana, pt's BL is alert, oriented, and a bit argumentative at times. Vandana stated mainly
they have concerns that pt's seizure meds have not been changed. Vandana stated export administrator will have to review and determine if pt can return today due to concerns.
CM consulted hospitalist who included neurology following pt. From both standpoints, pt is at BL w/ epilepsy and does not have any other medical concerns.
Spoke w/ Meryl/[facility] who stated their nurse, Ann Marie, will be coming to the hospital to 'lay eyes' on pt and assess him for readiness to return. CM reiterated what was discussed w/ Vandana earlier and responses from hospitalist and
neurologist. Vandana stated concerns w/ seizures as they are longer now, about 20 minutes which is new for pt.
Informed that PT worked w/ pt and he continues to be an assist of 2. Pt is current w/ [facility]
Pt will need ambulance transport at d/c
[facility]
Report: [phone] or [phone]
.
Plan return to [facility] when medically ready, with resumption [facility].
--- NOTE | 2024-03-02 12:57 | W.PN.NEPH.PH ---
Today's Communication / Plan
-
Eating and drink
Creatinine at baseline
Assessment/Plan
-
63-year-old male with a past medical history of chronic Lehman, recurrent urinary tract infections, absence seizures, stage IV CKD, type 2 diabetes, cerebral palsy, and chronic dysphagia was sent from his intermediate for nonresponsiveness/staring
spell for 20 seconds
renal consult for estevan/ckd cr 2.9 nov 2023
on admit cr 3.5
estevan/ckd 4
ams
uti
chronic lehman
seizure - neuro noted
Plan:
estevan 2/2 uti
Creatinine now at baseline 2.9, remains nonoliguric 1250cc
abx renally dosed
Hypernatremia improved with sodium down to 141
Off IV fluid
maintain lehman
cultures note: Citrobacter and Pseudomonas
seizure rx with renal adjustment as indictaed
am labs
-
-
Date of Service: March 02, 2024
CC / HPI / ROS
-
Chief Complaint:
Acute kidney injury CKD 4
History of Present Illness:
Creatinine down to baseline of 2.9
Hyponatremia corrected to 141
Grossly nonoliguric via Lehman
Hemodynamically stay
Review of Systems:
Nonoliguric
No fevers
Chronic dysphagia
Labs
-
Labs:
WBC 10.5 10^3/uL (4.8-10.8) 03/02/24 06:42
RBC 3.25 10^6/uL (4.70-6.10) L 03/02/24 06:42
Hgb 10.5 g/dL (13.0-18.0) L 03/02/24 06:42
Hct 31.6 % (39.0-52.0) L 03/02/24 06:42
Plt Count 324 10^3/uL (130-400) 03/02/24 06:42
Sodium 141 mmol/L (135-145) 03/02/24 06:42
Potassium 3.5 mmol/L (3.5-5.1) 03/02/24 06:42
Chloride 100 mmol/L (98-107) 03/02/24 06:42
Carbon Dioxide 32 mmol/L (22-30) H 03/02/24 06:42
BUN 56 mg/dl (9-20) H 03/02/24 06:42
Creatinine 2.9 mg/dL (0.7-1.3) H 03/02/24 06:42
eGFR 23.86 03/02/24 06:42
Glucose 110 mg/dl (70-99) H 03/02/24 06:42
Calcium 9.0 mg/dl (8.4-10.2) 03/02/24 06:42
Phosphorus 4.1 mg/dl (2.5-4.5) 03/02/24 06:42
Albumin 4.4 g/dl (3.5-5.0) 02/28/24 10:58
Physical Exam
-
Vital Signs:
Vital Signs
Temp Pulse Resp BP Pulse Ox
98.0 F 59 16 133/75 99
03/02/24 07:00 03/02/24 07:00 03/02/24 07:00 03/02/24 07:00 03/02/24 07:00
Cardiovascular:: Regular rate and rhythm
Respiratory:: Bilateral: CTA
Lung Excursion:: Normal
Abdomen:: Nontender and Soft
Bowel Sounds:: Normal
Extremity Edema:: None: Bilateral:
Lehman Catheter: Yes
Other Findings::
Not oriented to time or place
[2024-03-02 15:00] VITALS: BP 138/84
[2024-03-02] MEDS: KLOR-CON 20 MEQ PO ×2 (15:30→20:04)
[2024-03-02] MEDS: KEPPRA 1000 MG PO (19:53)
[2024-03-02] MEDS: ABILIFY 5 MG PO (19:54)
[2024-03-02] MEDS: PEPCID 20 MG PO (19:54)
[2024-03-02] MEDS: FIBERCON 625 MG PO (19:54)
[2024-03-02 23:39] VITALS: BP 134/90
[2024-03-03 07:28] VITALS: BP 143/87
[2024-03-03 08:23] LABS: Hematocrit 35.4 % (39.0-52.0); Hemoglobin 11.5 g/dL (13.0-18.0); Mean Corp Hgb Conc. 32.5 g/dL (33.0-37.0); Mean Corpuscular Hgb 32.4 pg (27.0-31.0); Mean Corpuscular Volume 99.7 fL (80.0-94.0); Platelet Count 360 10^3/uL (130-400); Red Blood Cell Count 3.55 10^6/uL (4.70-6.10); Red Cell Dist. Width 12.5 % (11.5-14.5); White Blood Cell Count 12.4 10^3/uL (4.8-10.8)
[2024-03-03 08:54] LABS: Blood Urea Nitrogen 56 mg/dl (9-20); Calcium 9.6 mg/dl (8.4-10.2); Carbon Dioxide 29 mmol/L (22-30); Chloride 104 mmol/L (98-107); Estimated Creatinine Clearance 18 ml/min; Glucose 115 mg/dl (70-99); Potassium 3.8 mmol/L (3.5-5.1); Sodium 144 mmol/L (135-145); eGFR 22.91
--- NOTE | 2024-03-03 09:01 | W.PN.HOSP.TC ---
Today's Communication/Plan
-
Cleared by neurology for discharge today
Assessment / Plan
Assessment / Plan
HPI: 63-year-old male with a past medical history of chronic Galvin, recurrent urinary tract infections, absence seizures, stage IV CKD, type 2 diabetes, cerebral palsy, and chronic dysphagia was sent from his [facility] for nonresponsiveness/staring
spell for 20 seconds. He appeared to be postictal in the ER. Continue Lamictal, Keppra, consult neurology.
#Acute kidney injury superimposed on stage IV CKD
Resolved status post IV fluids
Creatinine 2.9 today, was 3.5, was 3.5 upon admission, his baseline is 2.8
He no longer needs sodium bicarb, discontinue upon discharge
Medically stable for discharge back to his facility as of 03/02
#Absence seizure
03/03, MRI showing chronic changes, negative for acute
Appreciate neurology input, continue Clorazepate 3.75 mg twice daily, lamotrigine 300 mg twice daily, Carbamazepine 300 mg 3 times daily, Keppra�1000mg BID
Per neurology 'Patient has medically refractory epilepsy. AEDs do not and will not make him seizure free'
It is expected that he will have intermittent absence seizures
Follow-up with neurology in the office in 2-3 weeks
#Chronic Galvin
#Chronic leukocytosis
#Colonization/bacteriuria
#CAUTI ruled out
Status post antibiotics in the ER
Patient is afebrile, first urine culture growing gram-negative bacilli was drawn from his previous Galvin
Repeat urine culture that was sent after his Galvin was changed, growing 15,000 colonies citrobacter
Continues to be afebrile, leukocytosis resolved, monitor off antibiotics
#Hypernatremia
Resolved status post D5W
#Hypokalemia
Repleted and resolved
#Hypermagnesemia
Unclear etiology
#Dysphagia
Was on pur�ed diet with moderately thick liquids
VSE shows aspiration of thin liquids, SPL rec pur�ed diet with mildly thick liquids -patient has been tolerating and eating well
#Unintentional weight loss
#BMI 18.5 normal
Encourage oral intake
#Cerebral palsy
From a [facility]
#Anxiety/depression
Continue SSRI, Abilify
DVT prophylaxis�subcu heparin
Full code
Total time spent to see the patient on the floor, examine the patient, review data and lab results, discuss treatment plan with patient, nursing staff around 45 minutes.
Physical Exam
General: Thin, no acute distress
HEENT: Normocephalic, Atraumatic, EOMI, MMM
Respiratory: Clear to Auscultation bilaterally
Cardiac: Normal S1/S2, Regular Rate and Rhythm
GI: Soft, Nontender, Nondistended, Normal Bowel Sounds
Extremities: No Clubbing, Cyanosis, or Edema
Neuro: Slow to respond, answering questions
Anticipated Discharge: Today
Subjective/Interval History
-
Date of Service: March 03, 2024
No acute changes. Patient is tolerating his diet. No recurrence of seizures. No fever, no vomiting.
Objective Data
-
Labs:
Laboratory Results
03/03/24
07:36
WBC 12.4 H
Hgb 11.5 L
Hct 35.4 L
Plt Count 360
Sodium 144
Potassium 3.8
Chloride 104
Carbon Dioxide 29
BUN 56 H
Creatinine 3.0 H
Glucose 115 H
Calcium 9.6
Vital Signs:
Vital Signs
Temp Pulse Resp BP Pulse Ox
98.0 F 74 16 143/87 98
03/03/24 07:28 03/03/24 07:28 03/03/24 07:28 03/03/24 07:28 03/03/24 07:28
I&O
12/19/24 12/20/24 12/21/24
06:59 06:59 06:59
Intake Total 1485 / 1485 740 / 740
Output Total 1250 / 1250 1400 / 1400
Balance 235 / 235 -660 / -660
--- NOTE | 2024-03-03 09:27 | W.PN.NEPH.PH ---
Today's Communication / Plan
-
No changes stable baseline renal function
Assessment/Plan
-
63-year-old male with a past medical history of chronic Lehman, recurrent urinary tract infections, absence seizures, stage IV CKD, type 2 diabetes, cerebral palsy, and chronic dysphagia was sent from his [facility] for nonresponsiveness/staring
spell for 20 seconds
renal consult for estevan/ckd cr 2.9 nov 2023
on admit cr 3.5
estevan/ckd 4
ams
uti
chronic lehman
seizure - neuro noted
Plan:
estevan 2/2 uti
Creatinine now at baseline 2.9, remains nonoliguric 1250cc
abx renally dosed
Hypernatremia improved with sodium down to 141
Off IV fluid
maintain lehman
cultures note: Citrobacter and Pseudomonas
seizure rx with renal adjustment as indictaed
am labs
Renal function remains at baseline. Stable from renal standpoint
-
-
Date of Service: March 03, 2024
CC / HPI / ROS
-
Chief Complaint:
Acute kidney injury CKD 4
History of Present Illness:
Grossly nonoliguric via Lehman
Hemodynamically stay
Review of Systems:
Nonoliguric
No fevers
Chronic dysphagia
Labs
-
Labs:
WBC 12.4 10^3/uL (4.8-10.8) H 03/03/24 07:36
RBC 3.55 10^6/uL (4.70-6.10) L 03/03/24 07:36
Hgb 11.5 g/dL (13.0-18.0) L 03/03/24 07:36
Hct 35.4 % (39.0-52.0) L 03/03/24 07:36
Plt Count 360 10^3/uL (130-400) 03/03/24 07:36
Sodium 144 mmol/L (135-145) 03/03/24 07:36
Potassium 3.8 mmol/L (3.5-5.1) 03/03/24 07:36
Chloride 104 mmol/L (98-107) 03/03/24 07:36
Carbon Dioxide 29 mmol/L (22-30) 03/03/24 07:36
BUN 56 mg/dl (9-20) H 03/03/24 07:36
Creatinine 3.0 mg/dL (0.7-1.3) H 03/03/24 07:36
eGFR 22.91 03/03/24 07:36
Glucose 115 mg/dl (70-99) H 03/03/24 07:36
Calcium 9.6 mg/dl (8.4-10.2) 03/03/24 07:36
Phosphorus 4.1 mg/dl (2.5-4.5) 03/02/24 06:42
Albumin 4.4 g/dl (3.5-5.0) 02/28/24 10:58
Physical Exam
-
Vital Signs:
Vital Signs
Temp Pulse Resp BP Pulse Ox
98.0 F 74 16 143/87 98
03/03/24 07:28 03/03/24 07:28 03/03/24 07:28 03/03/24 07:28 03/03/24 07:28
Cardiovascular:: Regular rate and rhythm
Respiratory:: Bilateral: CTA
Lung Excursion:: Normal
Abdomen:: Nontender and Soft
Bowel Sounds:: Normal
Extremity Edema:: None: Bilateral:
Lehman Catheter: Yes
Other Findings::
Not oriented to time or place
[2024-03-03] MEDS: HEPARIN 5000 UNITS SC ×2 (09:34→20:13)
[2024-03-03] MEDS: TEGRETOL 300 MG PO ×3 (09:35→22:31)
[2024-03-03] MEDS: FEOSOL 325 MG PO ×2 (09:35→20:13)
[2024-03-03] MEDS: KLOR-CON 20 MEQ PO ×2 (09:36→20:13)
[2024-03-03] MEDS: LAMICTAL 300 MG PO ×2 (09:36→20:13)
[2024-03-03] MEDS: KEPPRA 1000 MG PO ×2 (09:36→20:13)
[2024-03-03] MEDS: COLACE 100 MG PO ×2 (09:37→20:27)
[2024-03-03] MEDS: TRANXENE 3.75 MG PO ×2 (09:37→20:14)
[2024-03-03] MEDS: PROZAC 20 MG PO (09:46)
[2024-03-03] MEDS: D5W 1000 IV (14:30)
--- NOTE | 2024-03-03 14:53 | CM ---
Chart reviewed. Pt has been medically clear for d/c.
CM spoke w/ Svitlana NAVA, this morning regarding d/c. Svitlana confirmed that she spoke w/ the neurologist yesterday and has missed calls from Dr. Barraza and was unable to call back. Svitlana stated pt is to receive further imaging per neurology. Per Svitlana, would
like Dr. Barraza to give her a call this afternoon to further discuss pt's status.
Spoke w/ Dr. Barraza who confirmed pt will receive brain MRI today and can d/c back to [facility] after results. CM informed that BRANDY would like a call this afternoon since she was unable to connect w/ her yesterday.
Brain MRI was completed. Dr. Barraza confirmed pt can d/c back today
Spoke w/ nurseVandana from [facility]- ( [phone]); to advise. Informed Vandana of the brain MRI and neurology's clearance of the pt. CM informed that neurology has discussed caroline/ BRANDY and Dr. Barraza is planning to speak w/ BRANDY
as well. Vandana stated nurses are not at the [facility] after 3:30 and if pt cannot return by that time, he will need to d/c tomorrow morning.
Spoke w/ Arcelia/cirilo who stated the time would not work (it is past 2:00pm at this point) as the crews are out and by time they get back to the hospital and take pt to [facility] it will be past 3:30. CM made hospitalist aware of inability to
d/c pt today due to transportation not being able to accommodate time. Informed that the [facility] is able to accept pt back tomorrow morning, preferably [facility] picker time at [address] Barraza confirmed contact w/ BRANDY who is requesting Palliative Care referral. Spoke w/ Svitlana/BRANDY who confirmed contact w/ Dr. Barraza at 2 pm and confirmed palliative care. Palliative care referral completed in [facility].
Ambulance transport forms on chart
[facility]
Report: [phone] or [phone]
.
Plan: Return to [facility] via ambulance and Palliative Care- pending referral
[2024-03-03 15:18] VITALS: BP 123/70
[2024-03-03] MEDS: ABILIFY 5 MG PO (22:31)
[2024-03-03] MEDS: FIBERCON 625 MG PO (22:31)
[2024-03-03 23:00] VITALS: BP 160/101
[2024-03-04 07:12] VITALS: BP 128/92
[2024-03-04] MEDS: PROZAC 20 MG PO (08:40)
[2024-03-04] MEDS: KLOR-CON 20 MEQ PO (08:40)
[2024-03-04] MEDS: HEPARIN 5000 UNITS SC ×2 (08:40→20:31)
[2024-03-04] MEDS: KEPPRA 1000 MG PO (08:40)
[2024-03-04] MEDS: FEOSOL 325 MG PO ×2 (08:40→20:55)
[2024-03-04] MEDS: TRANXENE 3.75 MG PO ×2 (08:40→20:52)
[2024-03-04] MEDS: COLACE 100 MG PO (08:40)
[2024-03-04] MEDS: LAMICTAL 300 MG PO ×2 (08:40→20:52)
[2024-03-04] MEDS: TEGRETOL 300 MG PO ×2 (08:41→20:52)
--- NOTE | 2024-03-04 09:00 | W.PN.HOSP.TC ---
Today's Communication/Plan
-
see bold
Assessment / Plan
Assessment / Plan
HPI: 63-year-old male with a past medical history of chronic Galvin, recurrent urinary tract infections, absence seizures, stage IV CKD, type 2 diabetes, cerebral palsy, and chronic dysphagia was sent from his [facility] for nonresponsiveness/staring
spell for 20 seconds. He appeared to be postictal in the ER. Continue Lamictal, Keppra, consult neurology.
#Systemic inflammatory response syndrome with fever and leukocytosis
03/04, fever of 101
COVID/influenza negative
Nursing staff denies patient coughing when taking his medications
Asked nursing to change Galvin, send urine analysis from new Galvin
Check chest x-ray, blood cultures
Start empiric antibiotics after the above has been done
Cancel discharge
#Acute kidney injury superimposed on stage IV CKD
Creatinine 3.3 today, was 2.9, was 3.5, was 3.5 upon admission, his baseline is 3.0
He no longer needs sodium bicarb, discontinue upon discharge
Resume IV fluids, trend creatinine
#Absence seizure
03/03, MRI showing chronic changes, negative for acute
Appreciate neurology input, continue Clorazepate 3.75 mg twice daily, lamotrigine 300 mg twice daily, Carbamazepine 300 mg 3 times daily, Keppra�1000mg BID
Per neurology 'Patient has medically refractory epilepsy. AEDs do not and will not make him seizure free'
It is expected that he will have intermittent absence seizures
Follow-up with neurology in the office in 2-3 weeks
#Chronic Galvin
#Chronic leukocytosis
#Colonization/bacteriuria
Status post antibiotics in the ER 02/27
First urine culture growing gram-negative bacilli was drawn from his previous Galvin
Repeat urine culture that was sent after his Galvin was changed, growing 15,000 colonies citrobacter
03/04, patient now febrile
Change Galvin, send new UA from new Galvin
#Hypernatremia
Resolved status post D5W
#Hypokalemia
Repleted and resolved
#Hypermagnesemia
Unclear etiology
#Dysphagia
Was on pur�ed diet with moderately thick liquids
VSE shows aspiration of thin liquids, SPL rec pur�ed diet with mildly thick liquids -patient has been tolerating and eating well
#Unintentional weight loss
#BMI 18.5 normal
Encourage oral intake
#Cerebral palsy
From a [facility]
#Anxiety/depression
Continue SSRI, Abilify
DVT prophylaxis�subcu heparin
Full code
Updated POA 03/04
Total time spent to see the patient on the floor, examine the patient, review data and lab results, discuss treatment plan with patient, nursing staff around 55 minutes.
Physical Exam
General: Thin, no acute distress
HEENT: Normocephalic, Atraumatic, EOMI, MMM
Respiratory: Clear to Auscultation bilaterally
Cardiac: Normal S1/S2, Regular Rate and Rhythm
GI: Soft, Nontender, Nondistended, Normal Bowel Sounds
Extremities: No Clubbing, Cyanosis, or Edema
Neuro: Lethargic, not waking up, not following commands
Anticipated Discharge: > 48 hours
Subjective/Interval History
-
Date of Service: March 04, 2024
Nursing staff reports patient took his morning medications fine for her. When seen by me, he was not waking up, not responsive. Nursing staff reports fever of 101. No vomiting. No coughing.
Objective Data
-
Vital Signs:
Vital Signs
Temp Pulse Resp BP Pulse Ox
99.9 F 113 20 160/101 98
03/03/24 23:00 03/03/24 23:00 03/03/24 23:00 03/03/24 23:00 03/03/24 23:00
I&O
03/03/24 03/04/24 03/05/24
06:59 06:59 06:59
Intake Total 740 / 740 2079
Output Total 1400 / 1400 1200 / 1200
Balance -660 / -660 880 / 880
--- NOTE | 2024-03-04 09:14 | CM ---
Addendum entered by Kaila Grewal 03/04/24 10:47:
CM received update from Hospitalist- discharge canceled. Call placed to [facility]- spoke with nurseShannan. Shannan requesting update from Hospitalist when possible to [phone].
Original Note:
CM reviewed chart, patient scheduled for 10:00 a.m. ambulance transport back to [facility]. CM placed call to patients Svitlana NAVA, reviewed discharge plan and Svitlana CURRY agreeable to discharge. CM will continue to follow for all
discharge planning needs.
[facility]
Report: [phone] or [phone]
.
Plan: Return to nursing home, 10:00 a.m. ambulance and Palliative Care- pending referral
--- NOTE | 2024-03-04 09:59 | W.PN.NEPH.PH ---
Today's Communication / Plan
-
Okay for discharge from a renal standpoint
Assessment/Plan
-
63-year-old male with a past medical history of chronic Lehman, recurrent urinary tract infections, absence seizures, stage IV CKD, type 2 diabetes, cerebral palsy, and chronic dysphagia was [facility] from his [facility] for nonresponsiveness/staring
spell for 20 seconds
renal consult for estevan/ckd cr 2.9 nov 2023
on admit cr 3.5
estevan/ckd 4
ams
uti
chronic lehman
seizure - neuro noted
Plan:
estevan 2/2 uti
Creatinine now at baseline 2.9, remains nonoliguric 1250cc
abx renally dosed
Hypernatremia improved with sodium down to 141
Off IV fluid
maintain lehman
cultures note: Citrobacter and Pseudomonas
seizure rx with renal adjustment as indictaed
am labs
Renal function remains at baseline. Stable from renal standpoint
-
-
Date of Service: March 04, 2024
CC / HPI / ROS
-
Chief Complaint:
Acute kidney injury CKD 4
History of Present Illness:
Somnolent
Review of Systems:
Nonoliguric
No fevers
Chronic dysphagia
Labs
-
Labs:
WBC 12.4 10^3/uL (4.8-10.8) H 03/03/24 07:36
RBC 3.55 10^6/uL (4.70-6.10) L 03/03/24 07:36
Hgb 11.5 g/dL (13.0-18.0) L 03/03/24 07:36
Hct 35.4 % (39.0-52.0) L 03/03/24 07:36
Plt Count 360 10^3/uL (130-400) 03/03/24 07:36
Sodium 144 mmol/L (135-145) 03/03/24 07:36
Potassium 3.8 mmol/L (3.5-5.1) 03/03/24 07:36
Chloride 104 mmol/L (98-107) 03/03/24 07:36
Carbon Dioxide 29 mmol/L (22-30) 03/03/24 07:36
BUN 56 mg/dl (9-20) H 03/03/24 07:36
Creatinine 3.0 mg/dL (0.7-1.3) H 03/03/24 07:36
eGFR 22.91 03/03/24 07:36
Glucose 115 mg/dl (70-99) H 03/03/24 07:36
Calcium 9.6 mg/dl (8.4-10.2) 03/03/24 07:36
Phosphorus 4.1 mg/dl (2.5-4.5) 03/02/24 06:42
Albumin 4.4 g/dl (3.5-5.0) 02/28/24 10:58
Physical Exam
-
Vital Signs:
Vital Signs
Temp Pulse Resp BP Pulse Ox
99.6 F 85 16 128/92 97
03/04/24 07:12 03/04/24 07:12 03/04/24 07:12 03/04/24 07:12 03/04/24 07:12
Cardiovascular:: Regular rate and rhythm
Respiratory:: Bilateral: CTA
Lung Excursion:: Normal
Abdomen:: Nontender and Soft
Bowel Sounds:: Normal
Extremity Edema:: None: Bilateral:
Lehman Catheter: Yes
Other Findings::
Not oriented to time or place
[2024-03-04 10:32] LABS: Hematocrit 34.9 % (39.0-52.0); Hemoglobin 11.9 g/dL (13.0-18.0); Mean Corp Hgb Conc. 34.1 g/dL (33.0-37.0); Mean Corpuscular Hgb 32.9 pg (27.0-31.0); Mean Corpuscular Volume 96.4 fL (80.0-94.0); Mean Platelet Volume 9.8 fL (7.4-10.4); Platelet Count 389 10^3/uL (130-400); Red Blood Cell Count 3.62 10^6/uL (4.70-6.10); Red Cell Dist. Width 12.9 % (11.5-14.5); White Blood Cell Count 19.7 10^3/uL (4.8-10.8)
[2024-03-04 10:57] LABS: Blood Urea Nitrogen 65 mg/dl (9-20); Calcium 9.8 mg/dl (8.4-10.2); Carbon Dioxide 29 mmol/L (22-30); Chloride 103 mmol/L (98-107); Estimated Creatinine Clearance 17 ml/min; Glucose 131 mg/dl (70-99); Potassium 4.7 mmol/L (3.5-5.1); Sodium 143 mmol/L (135-145); eGFR 20.44
[2024-03-04 11:00] VITALS: BP 101/60
[2024-03-04] MEDS: 0.45%NACL 1000 IV (11:17)
[2024-03-04] MEDS: TYLENOL/FEVERALL 650 MG RECTAL (12:20)
[2024-03-04 13:24] LABS: COVID-19 Antigen Negative (Negative)
[2024-03-04 14:39] LABS: Urine Albumin 2+ (Neg - Trace); Urine Bilirubin Negative (Negative); Urine Character Slightly Cloudy (Clear); Urine Color Yellow; Urine Glucose Negative (Negative); Urine Ketone Negative (Negative); Urine Leukocyte 2+ (Negative); Urine Nitrite Negative (Negative); Urine Occult Blood 4+ (Negative); Urine Urobilinogen Negative (Neg - 1+)
[2024-03-04 15:07] VITALS: BP 128/81
[2024-03-04 15:14] LABS: Urine Squamous Cell 0-2 /LPF (Few)
[2024-03-04 15:15] LABS: Urine Bacteria Moderate (Negative); Urine White Cell 40-50 /HPF (0-5)
[2024-03-04] MEDS: TEGRETOL PO (16:11)
[2024-03-04] MEDS: ZOSYN 50 IV ×2 (16:50→22:33)
--- NOTE | 2024-03-04 17:57 | PTCARENOTE ---
At 0830, pt sleepy but arousable, able to take po meds crushed in applesauce. Around 0930, md in to see pt, pt difficult to arouse with sternal rub, etc. Vss. Pt ordered bedside cxr pt has pneumonia. Also UA sent on pt, came back for uti. Pt started
on zosyn abx. Pt still sleepy/ difficult to arouse. MD aware. Will continue to monitor.
[2024-03-04] MEDS: KEPPRA 1000 MG IV (20:31)
[2024-03-04] MEDS: COLACE PO (20:55)
[2024-03-04] MEDS: FIBERCON 625 MG PO (20:55)
[2024-03-04] MEDS: ABILIFY 5 MG PO (20:55)
[2024-03-04] MEDS: PEPCID 20 MG PO (20:56)
[2024-03-04 23:31] VITALS: BP 134/89
[2024-03-05] MEDS: 0.45%NACL 1000 IV ×2 (01:06→15:34)
[2024-03-05] MEDS: ZOSYN 50 IV ×4 (05:00→21:33)
[2024-03-05 07:00] VITALS: BP 132/79
[2024-03-05 07:57] LABS: Blood Urea Nitrogen 66 mg/dl (9-20); Calcium 9.1 mg/dl (8.4-10.2); Carbon Dioxide 25 mmol/L (22-30); Chloride 104 mmol/L (98-107); Estimated Creatinine Clearance 17 ml/min; Glucose 117 mg/dl (70-99); Potassium 4.2 mmol/L (3.5-5.1); Sodium 142 mmol/L (135-145); eGFR 21.21
--- NOTE | 2024-03-05 08:16 | W.PN.HOSP.TC ---
Today's Communication/Plan
-
see bold
Assessment / Plan
Assessment / Plan
HPI: 63-year-old male with a past medical history of chronic Galvin, recurrent urinary tract infections, absence seizures, stage IV CKD, type 2 diabetes, cerebral palsy, and chronic dysphagia was sent from his snf for nonresponsiveness/staring
spell for 20 seconds. He appeared to be postictal in the ER. Continue Jessika Glasgow, consult neurology.
#Sepsis secondary to aspiration pneumonia and possible catheter associated urinary tract infection
03/04, fever of 101 with leukocytosis, chest x-ray shows right upper lobe pneumonia
03/04, urine culture after changing Galvin growing out greater than 100,000 colonies of gram-negative rods
COVID/influenza negative
Nursing staff denies patient coughing when taking his medications
Continue Zosyn day 2, add doxycycline day 1
Follow-up on urine cultures, blood cultures
Check urine Legionella antigen, strep antigen
Trend fever and white count
#Dysphagia
Was on pur�ed diet with moderately thick liquids
VSE shows aspiration of thin liquids, SPL rec pur�ed diet with mildly thick liquids -patient has been tolerating and eating well
#Chronic Galvin
#Chronic leukocytosis
#Colonization/bacteriuria
#Probable CAUTI 03/04
Status post antibiotics in the ER 02/27
02/27 First urine culture growing gram-negative bacilli was drawn from his previous Galvin
02/27 Repeat urine culture that was sent after his Galvin was changed, growing 15,000 colonies citrobacter
03/04, patient now febrile, urine culture after changing Galvin growing greater than 100,000 colonies of gram-negative rods
Currently on IV Zosyn as above
#Acute kidney injury superimposed on stage IV CKD
Creatinine 3.2 today, his baseline is 3.0
He no longer needs sodium bicarb, discontinue upon discharge
Continue IV fluids, trend creatinine
#Absence seizure
03/03, MRI showing chronic changes, negative for acute
Appreciate neurology input, continue Clorazepate 3.75 mg twice daily, lamotrigine 300 mg twice daily, Carbamazepine 300 mg 3 times daily, Keppra�1000mg BID
Per neurology 'Patient has medically refractory epilepsy. AEDs do not and will not make him seizure free'
It is expected that he will have intermittent absence seizures
Follow-up with neurology in the office in 2-3 weeks
#Hypernatremia
Resolved status post D5W
#Hypokalemia
Repleted and resolved
#Hypermagnesemia
Unclear etiology
#Unintentional weight loss
#BMI 18.5 normal
Encourage oral intake
#Cerebral palsy
From a snf
#Anxiety/depression
Continue SSRI, Abilify
DVT prophylaxis�subcu heparin
DNR confirmed with Svitlana/POA via his advanced directive 03/05
Updated POA/Svitlana 03/05
Total time spent to see the patient on the floor, examine the patient, review data and lab results, discuss treatment plan with patient, nursing staff around 52 minutes.
Physical Exam
General: Thin, no acute distress
HEENT: Normocephalic, Atraumatic, EOMI, MMM
Respiratory: Clear to Auscultation bilaterally
Cardiac: Normal S1/S2, Regular Rate and Rhythm
GI: Soft, Nontender, Nondistended, Normal Bowel Sounds
Extremities: No Clubbing, Cyanosis, or Edema
Neuro: More awake/alert, answering questions
Anticipated Discharge: 24 - 48 hours
Subjective/Interval History
-
Date of Service: March 05, 2024
Fever resolved. Patient more awake and alert this morning, answering questions. No vomiting.
Objective Data
-
Labs:
Laboratory Results
03/05/24
06:55
Sodium 142
Potassium 4.2
Chloride 104
Carbon Dioxide 25
BUN 66 H
Creatinine 3.2 H
Glucose 117 H
Calcium 9.1
Vital Signs:
Vital Signs
Temp Pulse Resp BP Pulse Ox
98.1 F 87 16 134/89 98
03/04/24 23:31 03/04/24 23:31 03/04/24 23:31 03/04/24 23:31 03/04/24 23:31
I&O
03/04/24 03/05/24 03/06/24
06:59 06:59 06:59
Intake Total 2080 / 2080 975 / 975
Output Total 1200 / 1200 950 / 950
Balance 880 / 880
[2024-03-05] MEDS: KEPPRA 1000 MG IV ×2 (09:17→20:06)
[2024-03-05] MEDS: HEPARIN 5000 UNITS SC ×2 (09:18→20:06)
[2024-03-05] MEDS: TRANXENE 3.75 MG PO ×2 (09:24→20:03)
[2024-03-05] MEDS: ZITHROMAX 500 MG PO (09:24)
[2024-03-05] MEDS: LAMICTAL 300 MG PO ×2 (09:25→20:25)
[2024-03-05] MEDS: PROZAC 20 MG PO (09:25)
[2024-03-05] MEDS: FEOSOL 325 MG PO ×2 (09:25→20:06)
[2024-03-05] MEDS: COLACE 100 MG PO ×2 (09:25→20:06)
[2024-03-05] MEDS: TEGRETOL 300 MG PO ×2 (09:29→20:03)
--- NOTE | 2024-03-05 11:59 | W.PN.NEPH.PH ---
Today's Communication / Plan
-
Relatively stable renal function no changes from renal standpoint
Assessment/Plan
-
63-year-old male with a past medical history of chronic Lehman, recurrent urinary tract infections, absence seizures, stage IV CKD, type 2 diabetes, cerebral palsy, and chronic dysphagia was [facility] from his [facility] for nonresponsiveness/staring
spell for 20 seconds
renal consult for estevan/ckd cr 2.9 nov 2023
on admit cr 3.5
estevan/ckd 4
ams
uti
chronic lehman
seizure - neuro noted
Plan:
estevan 2/2 uti
Creatinine, current 3>3.3>3.2 , remains nonoliguric 1250cc
abx renally dosed
Hypernatremia improved
Off IV fluid
maintain lehman
cultures note: Citrobacter and Pseudomonas
seizure rx with renal adjustment as indictaed
am labs
Renal function remains at baseline. Stable from renal standpoint
Now developed aspiration pneumonia on antibiotics
-
-
Date of Service: March 05, 2024
CC / HPI / ROS
-
Chief Complaint:
Acute kidney injury CKD 4
History of Present Illness:
Somnolent status post seizure and now with aspiration pneumonia
Review of Systems:
Nonoliguric
Status post fever currently afebrile
Chronic dysphagia
Labs
-
Labs:
WBC 19.7 10^3/uL (4.8-10.8) H 03/04/24 10:24
RBC 3.62 10^6/uL (4.70-6.10) L 03/04/24 10:24
Hgb 11.9 g/dL (13.0-18.0) L 03/04/24 10:24
Hct 34.9 % (39.0-52.0) L 03/04/24 10:24
Plt Count 389 10^3/uL (130-400) 03/04/24 10:24
Sodium 142 mmol/L (135-145) 03/05/24 06:55
Potassium 4.2 mmol/L (3.5-5.1) 03/05/24 06:55
Chloride 104 mmol/L (98-107) 03/05/24 06:55
Carbon Dioxide 25 mmol/L (22-30) 03/05/24 06:55
BUN 66 mg/dl (9-20) H 03/05/24 06:55
Creatinine 3.2 mg/dL (0.7-1.3) H 03/05/24 06:55
eGFR 21.21 03/05/24 06:55
Glucose 117 mg/dl (70-99) H 03/05/24 06:55
Calcium 9.1 mg/dl (8.4-10.2) 03/05/24 06:55
Phosphorus 4.1 mg/dl (2.5-4.5) 03/02/24 06:42
Albumin 4.4 g/dl (3.5-5.0) 02/28/24 10:58
Physical Exam
-
Vital Signs:
Vital Signs
Temp Pulse Resp BP Pulse Ox
98.0 F 75 16 132/79 99
03/05/24 07:00 03/05/24 07:00 03/05/24 07:00 03/05/24 07:00 03/05/24 07:00
Cardiovascular:: Regular rate and rhythm
Respiratory:: Right: Coarse
Lung Excursion:: Normal
Abdomen:: Nontender and Soft
Bowel Sounds:: Normal
Extremity Edema:: None: Bilateral:
Lehman Catheter: Yes
Other Findings::
Not oriented to time or place
[2024-03-05 15:00] VITALS: BP 139/81
[2024-03-05] MEDS: TEGRETOL PO (15:34)
[2024-03-05] MEDS: FIBERCON 625 MG PO (20:03)
[2024-03-05] MEDS: ABILIFY 5 MG PO (20:06)
[2024-03-05 23:48] VITALS: BP 121/86
[2024-03-06] MEDS: ZOSYN 50 IV ×4 (04:03→22:32)
[2024-03-06] MEDS: 0.45%NACL 1000 IV (05:11)
[2024-03-06 07:00] VITALS: BP 127/76
[2024-03-06 08:00] LABS: Hematocrit 33.1 % (39.0-52.0); Hemoglobin 11.2 g/dL (13.0-18.0); Mean Corp Hgb Conc. 33.8 g/dL (33.0-37.0); Mean Corpuscular Hgb 32.6 pg (27.0-31.0); Mean Corpuscular Volume 96.2 fL (80.0-94.0); Mean Platelet Volume 9.8 fL (7.4-10.4); Platelet Count 378 10^3/uL (130-400); Red Blood Cell Count 3.44 10^6/uL (4.70-6.10); Red Cell Dist. Width 12.9 % (11.5-14.5); White Blood Cell Count 11.2 10^3/uL (4.8-10.8)
[2024-03-06 08:20] LABS: Blood Urea Nitrogen 62 mg/dl (9-20); Calcium 9.2 mg/dl (8.4-10.2); Carbon Dioxide 25 mmol/L (22-30); Chloride 105 mmol/L (98-107); Estimated Creatinine Clearance 19 ml/min; Glucose 101 mg/dl (70-99); Magnesium 2.9 mg/dl (1.6-2.3); Potassium 3.8 mmol/L (3.5-5.1); Sodium 142 mmol/L (135-145); eGFR 23.86
[2024-03-06] MEDS: KEPPRA 1000 MG IV ×2 (08:20→20:40)
[2024-03-06] MEDS: COLACE 100 MG PO ×2 (08:21→20:41)
[2024-03-06] MEDS: TEGRETOL 300 MG PO ×3 (08:21→20:42)
[2024-03-06] MEDS: ZITHROMAX 500 MG PO (08:22)
[2024-03-06] MEDS: FEOSOL 325 MG PO ×2 (08:23→20:41)
[2024-03-06] MEDS: HEPARIN 5000 UNITS SC ×2 (08:23→20:39)
[2024-03-06] MEDS: PROZAC 20 MG PO (08:23)
[2024-03-06] MEDS: LAMICTAL 300 MG PO ×2 (08:23→20:41)
[2024-03-06] MEDS: TRANXENE 3.75 MG PO ×2 (08:24→20:41)
--- NOTE | 2024-03-06 10:37 | CM ---
Addendum entered by Zachary Mantilla 03/07/24 11:04:
Per BRANDY Silva Beth is agreeable to OP palliative care at d/c
PT/OT has been following to determine if pt should d/c to rehab or back to nursing home w/ assistance
Spoke w/ Maritza/nurse from [facility]. Per Maritza they are able to take pt back at current level and start him with [facility]. Kenneth Salas will have to speak w/ administration prior to pt's return. A nurse will visit hospital to assess pt
today.
Maritza discussed possibly needing hospital bed for pt, will confirm once discussed w/ administration
Original Note:
Chart reviewed for d/c planning. Pt care is ongoing.
Pt is w/ UTI, currently on IV abx
Pt is w/ pneumonia
Palliative care consulted
[facility]
Report: [phone] or [phone]
.
Plan: Return to nursing home w/ [facility]- pending referral
--- NOTE | 2024-03-06 11:41 | W.PN.HOSP.TC ---
Today's Communication/Plan
-
monitor CBC
expect DC tomorrow - discussing with ID pharmacy best oral regimen
Assessment / Plan
Assessment / Plan
HPI: 63-year-old male with a past medical history of chronic Galvin, recurrent urinary tract infections, absence seizures, stage IV CKD, type 2 diabetes, cerebral palsy, and chronic dysphagia was sent from his nursing home for nonresponsiveness/staring
spell for 20 seconds. He appeared to be postictal in the ER. Continue Jessika Glasgow, consult neurology.
#Sepsis secondary to aspiration pneumonia and possible catheter associated urinary tract infection
03/04, fever of 101 with leukocytosis, chest x-ray shows right upper lobe pneumonia
03/04, urine culture after changing Galvin growing out greater than 100,000 colonies of gram-negative rods
COVID/influenza negative
Nursing staff denies patient coughing when taking his medications
Continue Zosyn day 3, Azithro day 2 - discussing with ID pharmacy best oral regimen to cover both UTI and PNA
Follow-up on urine cultures, blood cultures
Check urine Legionella antigen, strep antigen
Trend fever and white count
#Dysphagia
Was on pur�ed diet with moderately thick liquids
VSE shows aspiration of thin liquids, SPL rec pur�ed diet with mildly thick liquids -patient has been tolerating and eating well
#Chronic Galvin
#Chronic leukocytosis
#Colonization/bacteriuria
#Probable CAUTI 03/04
Status post antibiotics in the ER 02/27
02/27 First urine culture growing gram-negative bacilli was drawn from his previous Galvin
02/27 Repeat urine culture that was sent after his Galvin was changed, growing 15,000 colonies citrobacter
03/04, patient now febrile, urine culture after changing Galvin growing greater than 100,000 colonies of gram-negative rods
continue IV Zosyn as above
#Acute kidney injury superimposed on stage IV CKD
Creatinine 3.2 today, his baseline is 3.0
He no longer needs sodium bicarb, discontinue upon discharge
stop IVF, creainine at [facility]
#Absence seizure
03/03, MRI showing chronic changes, negative for acute
Appreciate neurology input, continue Clorazepate 3.75 mg twice daily, lamotrigine 300 mg twice daily, Carbamazepine 300 mg 3 times daily, Keppra�1000mg BID
Per neurology 'Patient has medically refractory epilepsy. AEDs do not and will not make him seizure free'
It is expected that he will have intermittent absence seizures
Follow-up with neurology in the office in 2-3 weeks
#Hypernatremia
Resolved status post D5W
#Hypokalemia
Repleted and resolved
#Hypermagnesemia
Unclear etiology
#Unintentional weight loss
#BMI 18.5 normal
Encourage oral intake
#Cerebral palsy
From a nursing home
#Anxiety/depression
Continue SSRI, Abilify
DVT prophylaxis�subcu heparin
DNR confirmed with Svitlana/POA via his advanced directive 03/05
Updated POA/Svitlana 03/05
Total time spent to see the patient on the floor, examine the patient, review data and lab results, discuss treatment plan with patient, nursing staff around 52 minutes.
Physical Exam
General: Thin, no acute distress
HEENT: Normocephalic, Atraumatic, EOMI, MMM
Respiratory: Clear to Auscultation bilaterally
Cardiac: Normal S1/S2, Regular Rate and Rhythm
GI: Soft, Nontender, Nondistended, Normal Bowel Sounds
Extremities: No Clubbing, Cyanosis, or Edema
Neuro: More awake/alert, answering questions
Anticipated Discharge: 24 - 48 hours
Subjective/Interval History
-
Date of Service: March 06, 2024
denies pain
Objective Data
-
Labs:
Laboratory Results
03/06/24
07:11
WBC 11.2 H
Hgb 11.2 L
Hct 33.1 L
Plt Count 378
Sodium 142
Potassium 3.8
Chloride 105
Carbon Dioxide 25
BUN 62 H
Creatinine 2.9 H
Glucose 101 H
Calcium 9.2
Vital Signs:
Vital Signs
Temp Pulse Resp BP Pulse Ox
97.5 F 65 18 127/76 100
03/06/24 07:00 03/06/24 07:00 03/06/24 07:00 03/06/24 07:00 03/06/24 07:00
I&O
03/05/24 03/06/24 03/07/24
06:59 06:59 06:59
Intake Total 975 / 975 1425 / 1425
Output Total 950 / 950 1900 / 1900
Balance 25 -475 / -475
Review of Systems
-
History Source: Patient
All other systems: Reviewed and negative
Physical Exam
-
General: No Apparent Distress and Appears Chronically Ill
HEENT: Normocephalic and Atraumatic
Respiratory: Clear to Auscultation
Cardiac: Regular Rhythm and S1/S2
GI: Soft and Nontender
Genito-urinary: Galvin
Musculoskeletal: No Clubbing, No Cyanosis, No Edema and Other (right hemiparesis, non-ambulator)
Skin: Warm
Neuro: Awake, Alert, Oriented (Year and his name not place not people) and Other (right hemiparesis, non-ambulator)
Data Reviewed
-
Diagnostic Radiology: Report Reviewed by me
Labs: Labs Reviewed by me
[2024-03-06 12:00] VITALS: BP 124/83; PULSE 80; O2SAT 100
[2024-03-06 15:00] VITALS: BP 128/79
[2024-03-06] MEDS: D5/0.45%NACL 1000 IV (15:25)
--- NOTE | 2024-03-06 18:07 | W.PN.NEPH.PH ---
Today's Communication / Plan
-
follow labs
Assessment/Plan
-
63-year-old male with a past medical history of chronic Lehman, recurrent urinary tract infections, absence seizures, stage IV CKD, type 2 diabetes, cerebral palsy, and chronic dysphagia was sent from his [facility]dc for nonresponsiveness/staring
spell for 20 seconds
renal consult for estevan/ckd cr 2.9 nov 2023
on admit cr 3.5
IMP:
estevan/ckd 4
ams
uti
chronic lehman
seizure
Plan:
estevan possible from sepsis, cr improving to 2.9
non oliguric with lehman
abx renally dosed
seizure rx with renal adjustment as indictaed
am labs
IVF changed to D51/2 NS per primary
-
-
Date of Service: March 06, 2024
CC / HPI / ROS
-
Chief Complaint:
Acute kidney injury CKD 4
History of Present Illness:
Somnolent status post seizure and now with aspiration pneumonia
no fever, cr better at 2.9, k and na normal
BP stable
Review of Systems:
Nonoliguric
Status post fever currently afebrile
Chronic dysphagia
Labs
-
Labs:
WBC 11.2 10^3/uL (4.8-10.8) H 03/06/24 07:11
RBC 3.44 10^6/uL (4.70-6.10) L 03/06/24 07:11
Hgb 11.2 g/dL (13.0-18.0) L 03/06/24 07:11
Hct 33.1 % (39.0-52.0) L 03/06/24 07:11
Plt Count 378 10^3/uL (130-400) 03/06/24 07:11
Sodium 142 mmol/L (135-145) 03/06/24 07:11
Potassium 3.8 mmol/L (3.5-5.1) 03/06/24 07:11
Chloride 105 mmol/L (98-107) 03/06/24 07:11
Carbon Dioxide 25 mmol/L (22-30) 03/06/24 07:11
BUN 62 mg/dl (9-20) H 03/06/24 07:11
Creatinine 2.9 mg/dL (0.7-1.3) H 03/06/24 07:11
eGFR 23.86 03/06/24 07:11
Glucose 101 mg/dl (70-99) H 03/06/24 07:11
Calcium 9.2 mg/dl (8.4-10.2) 03/06/24 07:11
Phosphorus 4.1 mg/dl (2.5-4.5) 03/02/24 06:42
Albumin 4.4 g/dl (3.5-5.0) 02/28/24 10:58
Physical Exam
-
Vital Signs:
Vital Signs
Temp Pulse Resp BP Pulse Ox
98.1 F 84 18 128/79 100
03/06/24 15:00 03/06/24 15:00 03/06/24 15:00 03/06/24 15:00 03/06/24 15:00
Cardiovascular:: Regular rate and rhythm
Respiratory:: Bilateral: CTA (decreased)
Lung Excursion:: Normal
Abdomen:: Nontender and Soft
Extremity Edema:: None: Bilateral:
Lehman Catheter: Yes
[2024-03-06] MEDS: PEPCID 20 MG PO (20:39)
[2024-03-06] MEDS: ABILIFY 5 MG PO (20:41)
[2024-03-06] MEDS: FIBERCON 625 MG PO (20:41)
[2024-03-06 23:34] VITALS: BP 121/73
[2024-03-07] MEDS: ZOSYN 50 IV ×4 (03:10→22:48)
[2024-03-07 07:55] VITALS: BP 152/84
[2024-03-07 08:11] LABS: % Basophils 0.6 % (0-2); % Eosinophils 1.8 % (0-6); % Immature Granulocytes 0.6 % (0-0.5); % Lymphocytes 18.7 % (20.5-51.1); % Monocytes 7.5 % (1.7-9.3); % Neutrophils 70.8 % (42.2-75.2); Absolute Basophils 0.1 10^3/uL (0-0.2); Absolute Eosinophils 0.2 10^3/uL (0-0.7); Absolute Immature Granulocytes 0.1 10^3/uL (0-0.05); Absolute Lymphocytes 2.1 10^3/uL (1.2-3.4); Absolute Monocytes 0.9 10^3/uL (0.1-0.6); Hematocrit 33.4 % (39.0-52.0); Hemoglobin 11.1 g/dL (13.0-18.0); Mean Corp Hgb Conc. 33.2 g/dL (33.0-37.0); Mean Corpuscular Hgb 32.6 pg (27.0-31.0); Mean Corpuscular Volume 97.9 fL (80.0-94.0); Nucleated Red Blood Cells % 0 % (-); Platelet Count 450 10^3/uL (130-400); Red Blood Cell Count 3.41 10^6/uL (4.70-6.10); Red Cell Dist. Width 13.1 % (11.5-14.5); White Blood Cell Count 11.3 10^3/uL (4.8-10.8)
[2024-03-07 08:57] LABS: Blood Urea Nitrogen 57 mg/dl (9-20); Calcium 9.4 mg/dl (8.4-10.2); Carbon Dioxide 27 mmol/L (22-30); Chloride 102 mmol/L (98-107); Estimated Creatinine Clearance 19 ml/min; Glucose 122 mg/dl (70-99); Potassium 3.7 mmol/L (3.5-5.1); Sodium 142 mmol/L (135-145); eGFR 23.86
[2024-03-07] MEDS: ZITHROMAX 500 MG PO (09:22)
[2024-03-07] MEDS: TEGRETOL 300 MG PO ×3 (09:23→22:39)
[2024-03-07] MEDS: TRANXENE 3.75 MG PO ×2 (09:23→20:30)
[2024-03-07] MEDS: FEOSOL 325 MG PO ×2 (09:23→20:30)
[2024-03-07] MEDS: PROZAC 20 MG PO (09:23)
[2024-03-07] MEDS: HEPARIN 5000 UNITS SC ×2 (09:26→20:30)
[2024-03-07] MEDS: KEPPRA 1000 MG IV (09:27)
[2024-03-07] MEDS: COLACE PO ×2 (09:34→20:30)
[2024-03-07] MEDS: D5/0.45%NACL 1000 IV (09:44)
[2024-03-07] MEDS: LAMICTAL 300 MG PO ×2 (09:44→20:30)
--- NOTE | 2024-03-07 10:17 | W.CON.PAL ---
Consultation
-
Date/Time Consultation Requested: 03/06/2024
Date/Time Consultation Performed: 03/07/24
Requesting Provider: Dr. Pinedo
Performing Provider: Dr. Nicole
Reason for Consult: Other (discuss palliative services)
Primary Diagnosis: cerebral palsy
Consult Requested By: Patient's Family
Reason for Admission
Illness Course/HPI
63 y/o male with hx of cerebral palsy, dysphagia, seizure disorder, chronic lehman, who was hospitalized 02/28 with episode of nonresponsiveness, thought secondary to absence seizure. Hospital course complicated by BARBARA on CKDIV, hypernatremia,
hypokalemia, hypomagnesemia, and sepsis secondary to UTI.
Has been stabilizing clinically, on abx, pureed diet with moderate thickened likened. cr closer to baseline.� Seizures are felt to be medically refractory. Electrolyte abnormalities have been corrected.
Spoke to orville bender on the phone. napoleon is a nurse practioner.
case reviewed with attending
Total time 40 mins
Functional Status
[facility].
He is wheelchair bound at baseline since hip fracture, but an transfer independently from chair to bed - recently due to recurrent illness has needed more help with this.
Recent weight loss despite great appetite noted, family reports cacner workups have been negative
Has chronic lehman catheter
Is on dysphagia diet
Goals of Care Discussion
-
Patient able to participate in discussion at time of visit: No
Patient Goals
Spoke with patient's medical juliette bender.
discussed palliative care services vs. hospice services. at this point they would like to proceede with palliative care services with the goal of keeping lashawn out of the hospital.
Discussed how utis seemed to be the main cause of the seizure events, higher risk of infection due to chronic lehman - may consider suppressive abx
Discussed therapy needs - patient may benefit from rehab prior to return to shelter.
Pain & Symptom Assessment
-
patient denies symptoms at time of visit.
Objective Data
-
Objective Data:
Vital Signs
Temp Pulse Resp BP Pulse Ox
97.9 F 69 16 152/84 100
03/07/24 07:55 03/07/24 07:55 03/07/24 07:55 03/07/24 07:55 03/07/24 07:55
Laboratory Results
03/07/24 06:29
03/07/24 06:29
Hemoglobin A1c 5.7 % (4.0-5.6) H 02/28/24 10:58
Total Protein 7.7 g/dl (6.3-8.2) 02/28/24 10:58
Albumin 4.4 g/dl (3.5-5.0) 02/28/24 10:58
Free T4 0.91 ng/dl (0.78-2.19) 02/28/24 10:58
Urine Color Yellow 03/04/24 14:16
Urine Clarity Slightly cloudy (Clear) 03/04/24 14:16
Urine pH 6.0 (5.0-9.0) 03/04/24 14:16
Ur Specific [place] 1.010 (<1.030) 03/04/24 14:16
Urine Ketones Negative (Negative) 03/04/24 14:16
Urine Bilirubin Negative (Negative) 03/04/24 14:16
Palliative Performance Scale
Palliative Performance Scale:
PPS Level Ambulation Activity & Evidence of Disease Self Care Intake Conscious Level
100% Full Normal Activity & Work; Full Intake Full
No Evidence of Disease
90% Full Normal Activity & Work; Full Normal Full
Some Evidence of Disease
80% Full Normal Activity with Effort Full Normal or Full
Some Evidence of Disease Reduced
70% Reduced Unable Normal Job/Work Full Normal or Full
Significant Disease Reduced
60% Reduced Unable Hobby/Housework Occasional Normal or Full or Confusion
Significant Disease Assistance Reduced
50% Mainly Sit/Lie Unable to do Any Work Considerable Normal or Full or Confusion
Extensive Disease Assistance Req'd Reduced
40% Mainly in Bed Unable to do Most Activity Mainly Assistance Normal or Full or Drowsy;
Extensive Disease Reduced +/- Confusion
30% Totally Bed Unable to do Any Activity Total Care Normal or Full or Drowsy;
Bound Extensive Disease Reduced +/- Confusion
20% Totally Bed Bound Unable to do Any Activity Total Care Minimal to Full or Drowsy;
Extensive Disease Sips +/- Confusion
10% Totally Bed Bound Unable to do Any Activity Total Care Mouth Care Drowsy or Coma;
Extensive Disease Only +/- Confusion
0%
PPS Score Level:
Palliative Performance Score Response
Palliative Performance Score Response: 40%
Physical Exam
-
General: No Apparent Distress and Comfortable
Neuro: Awake and Alert
Assessment / Plan
-
Assessment/Plan:
Agreeable to outpatient palliative care
GOals are to return to shelter when ready (possibly after rehab/therapy), and try to reduce rehospitalization by preventing future utis and further guidance to facility staff regarding post-ictal care.
--- NOTE | 2024-03-07 11:06 | W.PN.HOSP.TC ---
Today's Communication/Plan
-
dispo planning
appreciate Palliative Care
continue IV Zosyn, now s/p 3 days Azithro 500 - OK to stop
Assessment / Plan
Assessment / Plan
HPI: 63-year-old male with a past medical history of chronic Galvin, recurrent urinary tract infections, absence seizures, stage IV CKD, type 2 diabetes, cerebral palsy, and chronic dysphagia was sent from his long term for nonresponsiveness/staring
spell for 20 seconds. He appeared to be postictal in the ER. Continue Jessika Glasgow, consult neurology.
#Sepsis secondary to aspiration pneumonia and possible catheter associated urinary tract infection
03/04, fever of 101 with leukocytosis, chest x-ray shows right upper lobe pneumonia
03/04, urine culture after changing Galvin growing out greater than 100,000 colonies of gram-negative rods
COVID/influenza negative
continue IV Zosyn day 4 (treats PNA and UTI); Azithromycin day 3 --> OK to stop after today
Given infection present post Galvin exchange - need to again exchange Galvin prior to DC
#Dysphagia
Was on pur�ed diet with moderately thick liquids
VSE shows aspiration of thin liquids, SPL rec pur�ed diet with mildly thick liquids -patient has been tolerating and eating well
#Chronic Galvin
#Chronic leukocytosis
#Colonization/bacteriuria
#Probable CAUTI 03/04
Status post antibiotics in the ER 02/27
02/27 First urine culture growing gram-negative bacilli was drawn from his previous Galvin
02/27 Repeat urine culture that was sent after his Galvin was changed, growing 15,000 colonies citrobacter
03/04, patient now febrile, urine culture after changing Galvin growing greater than 100,000 colonies of gram-negative rods
continue IV Zosyn as above
-exchange Galvin
#Acute kidney injury superimposed on stage IV CKD
resolved
minimal PO intake, gentle IVF while here
#Absence seizure
03/03, MRI showing chronic changes, negative for acute
Appreciate Neurology input, continue Clorazepate 3.75 mg twice daily, lamotrigine 300 mg twice daily, Carbamazepine 300 mg 3 times daily, Keppra�1000mg BID
Per neurology 'Patient has medically refractory epilepsy. AEDs do not and will not make him seizure free'
It is expected that he will have intermittent absence seizures
Follow-up with neurology in the office in 2-3 weeks
#Hypernatremia
Resolved status post D5W
#Hypokalemia
Repleted and resolved
#Hypermagnesemia
Unclear etiology
#Unintentional weight loss
#BMI 18.5 normal
Encourage oral intake
#Cerebral palsy
From a long term
#Anxiety/depression
Continue SSRI, Abilify
DVT prophylaxis�subcu heparin
DNR confirmed with Svitlana/BRANDY via his advanced directive 03/05
Total time spent to see the patient on the floor, examine the patient, review data and lab results, discuss treatment plan with patient, nursing staff around 52 minutes.
Anticipated Discharge: Within 24 hours
Subjective/Interval History
-
Date of Service: March 07, 2024
no new complaints
Objective Data
-
Labs:
Laboratory Results
03/07/24
06:29
WBC 11.3 H
Hgb 11.1 L
Hct 33.4 L
Plt Count 450 H
Sodium 142
Potassium 3.7
Chloride 102
Carbon Dioxide 27
BUN 57 H
Creatinine 2.9 H
Glucose 122 H
Calcium 9.4
Vital Signs:
Vital Signs
Temp Pulse Resp BP Pulse Ox
97.9 F 69 16 152/84 100
03/07/24 07:55 03/07/24 07:55 03/07/24 07:55 03/07/24 07:55 03/07/24 08:00
I&O
03/06/24 03/07/24 03/08/24
06:59 06:59 06:59
Intake Total 1425 / 1425 660 / 660
Output Total 1900 / 1900 1400 / 1400
Balance -475 / -475 -740 / -740
Review of Systems
-
History Source: Patient
All other systems: Reviewed and negative
Physical Exam
-
General: No Apparent Distress and Appears Chronically Ill
HEENT: Normocephalic and Atraumatic
Respiratory: Clear to Auscultation
Cardiac: Regular Rhythm and S1/S2
GI: Soft and Nontender
Genito-urinary: Galvin
Musculoskeletal: No Clubbing, No Cyanosis, No Edema and Other (right hemiparesis, non-ambulator)
Skin: Warm
Neuro: Awake, Alert, Oriented (Year and his name not place not people) and Other (right hemiparesis, non-ambulator)
Data Reviewed
-
Diagnostic Radiology: Report Reviewed by me
Labs: Labs Reviewed by me
--- NOTE | 2024-03-07 12:58 | W.PN.NEPH.PH ---
Today's Communication / Plan
-
IVF while in hospital per primary
palliataive care follows
Assessment/Plan
-
63-year-old male with a past medical history of chronic Lehman, recurrent urinary tract infections, absence seizures, stage IV CKD, type 2 diabetes, cerebral palsy, and chronic dysphagia was sent from his nursing home for nonresponsiveness/staring
spell for 20 seconds
renal consult for estevan/ckd cr 2.9 nov 2023
on admit cr 3.5
IMP:
estevan/ckd 4
ams
uti
chronic lehman
seizure
Plan:
estevan possible from sepsis, cr stable at 2.9
non oliguric with lehman
abx renally dosed
seizure rx with renal adjustment as indicated
cont D51/2 NS per primary
palliative care follows
d/c plan
-
-
Date of Service: March 07, 2024
CC / HPI / ROS
-
Chief Complaint:
Acute kidney injury CKD 4
History of Present Illness:
Somnolent status post seizure and now with aspiration pneumonia
no fever, cr stable at 2.9, k and na normal
BP stable
Review of Systems:
Nonoliguric
Chronic dysphagia
no pain or sob
Labs
-
Labs:
WBC 11.3 10^3/uL (4.8-10.8) H 03/07/24 06:29
RBC 3.41 10^6/uL (4.70-6.10) L 03/07/24 06:29
Hgb 11.1 g/dL (13.0-18.0) L 03/07/24 06:29
Hct 33.4 % (39.0-52.0) L 03/07/24 06:29
Plt Count 450 10^3/uL (130-400) H 03/07/24 06:29
Sodium 142 mmol/L (135-145) 03/07/24 06:29
Potassium 3.7 mmol/L (3.5-5.1) 03/07/24 06:29
Chloride 102 mmol/L (98-107) 03/07/24 06:29
Carbon Dioxide 27 mmol/L (22-30) 03/07/24 06:29
BUN 57 mg/dl (9-20) H 03/07/24 06:29
Creatinine 2.9 mg/dL (0.7-1.3) H 03/07/24 06:29
eGFR 23.86 03/07/24 06:29
Glucose 122 mg/dl (70-99) H 03/07/24 06:29
Calcium 9.4 mg/dl (8.4-10.2) 03/07/24 06:29
Phosphorus 4.1 mg/dl (2.5-4.5) 03/02/24 06:42
Albumin 4.4 g/dl (3.5-5.0) 02/28/24 10:58
Physical Exam
-
Vital Signs:
Vital Signs
Temp Pulse Resp BP Pulse Ox
97.9 F 69 16 152/84 100
03/07/24 07:55 03/07/24 07:55 03/07/24 07:55 03/07/24 07:55 03/07/24 08:00
Cardiovascular:: Regular rate and rhythm
Respiratory:: Bilateral: CTA (anteriorly)
Lung Excursion:: Normal
Abdomen:: Nontender and Soft
Extremity Edema:: None: Bilateral:
Lehman Catheter: Yes
--- NOTE | 2024-03-07 14:57 | CM ---
Per hospitalist, pt's POA, Svitlana, is preferring pt to go to rehab before returning to long term.
CM spoke w/ Svitlana to explore rehab options. Per request, SNF list emailed to Svitlana w/ nicolas to review and inform CM of chosen facilities to begin referring pt.
CM will send referrals once determined
Plan: POA is requesting SNF; pt is appropriate. Will send referrals when options are determined
[2024-03-07 15:50] VITALS: BP 140/80
[2024-03-07] MEDS: KEPPRA 1000 MG PO (20:30)
[2024-03-07] MEDS: FIBERCON 625 MG PO (22:38)
[2024-03-07] MEDS: ABILIFY 5 MG PO (22:38)
[2024-03-07 23:52] VITALS: BP 126/64
[2024-03-08] MEDS: ZOSYN 50 IV ×4 (04:25→22:47)
[2024-03-08] MEDS: D5/0.45%NACL 1000 IV (04:26)
[2024-03-08 07:00] VITALS: BP 116/75
[2024-03-08] MEDS: KEPPRA 1000 MG PO ×2 (08:44→20:56)
[2024-03-08] MEDS: COLACE PO ×2 (08:44→20:54)
[2024-03-08] MEDS: FEOSOL 325 MG PO ×2 (08:44→20:55)
[2024-03-08] MEDS: LAMICTAL 300 MG PO ×2 (08:44→20:56)
[2024-03-08] MEDS: TEGRETOL 300 MG PO ×3 (08:45→22:49)
[2024-03-08] MEDS: PROZAC 20 MG PO (08:45)
[2024-03-08] MEDS: HEPARIN 5000 UNITS SC ×2 (08:45→20:55)
[2024-03-08] MEDS: TRANXENE 3.75 MG PO ×2 (08:45→20:57)
[2024-03-08 09:03] LABS: Hematocrit 32.1 % (39.0-52.0); Mean Corp Hgb Conc. 34.3 g/dL (33.0-37.0); Mean Corpuscular Hgb 32.7 pg (27.0-31.0); Mean Corpuscular Volume 95.5 fL (80.0-94.0); Mean Platelet Volume 9.9 fL (7.4-10.4); Platelet Count 377 10^3/uL (130-400); Red Blood Cell Count 3.36 10^6/uL (4.70-6.10); Red Cell Dist. Width 12.9 % (11.5-14.5); White Blood Cell Count 10.6 10^3/uL (4.8-10.8)
[2024-03-08 09:28] LABS: Blood Urea Nitrogen 51 mg/dl (9-20); Calcium 9.4 mg/dl (8.4-10.2); Carbon Dioxide 24 mmol/L (22-30); Chloride 106 mmol/L (98-107); Estimated Creatinine Clearance 20 ml/min; Glucose 123 mg/dl (70-99); Potassium 3.8 mmol/L (3.5-5.1); Sodium 143 mmol/L (135-145)
--- NOTE | 2024-03-08 11:21 | W.PN.HOSP.TC ---
Today's Communication/Plan
-
dispo planning for SNF
Assessment / Plan
Assessment / Plan
HPI: 63-year-old male with a past medical history of chronic Galvin, recurrent urinary tract infections, absence seizures, stage IV CKD, type 2 diabetes, cerebral palsy, and chronic dysphagia [facility]/staring
spell for 20 seconds. He appeared to be postictal in the ER. Continue Jessika Glasgow, consult neurology.
#Sepsis secondary to aspiration pneumonia and possible catheter associated urinary tract infection
03/04, fever of 101 with leukocytosis, chest x-ray shows right upper lobe pneumonia
03/04, urine culture after changing Galvin growing out greater than 100,000 colonies of gram-negative rods
COVID/influenza negative
continue IV Zosyn day 5 (treats PNA and UTI); s/p 3 days Azithromycin
Given infection present post Galvin exchange - need to again exchange Galvin prior to DC
#Dysphagia
Was on pur�ed diet with moderately thick liquids
VSE shows aspiration of thin liquids, SPL rec pur�ed diet with mildly thick liquids -patient has been tolerating and eating well
#Chronic Galvin
#Chronic leukocytosis
#Colonization/bacteriuria
#Probable CAUTI 03/04
Status post antibiotics in the ER 02/27
02/27 First urine culture growing gram-negative bacilli was drawn from his previous Galvin
02/27 Repeat urine culture that was sent after his Galvin was changed, growing 15,000 colonies citrobacter
03/04, patient now febrile, urine culture after changing Galvin growing greater than 100,000 colonies of gram-negative rods
continue IV Zosyn as above (day 5 treatment)
-exchange Galvin
#Acute kidney injury superimposed on stage IV CKD
resolved
minimal PO intake, gentle IVF while here
#Absence seizure
03/03, MRI showing chronic changes, negative for acute
Appreciate Neurology input, continue Clorazepate 3.75 mg twice daily, lamotrigine 300 mg twice daily, Carbamazepine 300 mg 3 times daily, Keppra�1000mg BID
Per neurology 'Patient has medically refractory epilepsy. AEDs do not and will not make him seizure free'
It is expected that he will have intermittent absence seizures
Follow-up with neurology in the office in 2-3 weeks
#Hypernatremia
Resolved status post D5W
#Hypokalemia
Repleted and resolved
#Hypermagnesemia
Unclear etiology
#Unintentional weight loss
#BMI 18.5 normal
Encourage oral intake
#Cerebral palsy
From a jail
#Anxiety/depression
Continue SSRI, Abilify
DVT prophylaxis�subcu heparin
DNR confirmed with Svitlana/BRANDY via his advanced directive 03/05
Total time spent to see the patient on the floor, examine the patient, review data and lab results, discuss treatment plan with patient, nursing staff around 52 minutes.
Anticipated Discharge: 24 - 48 hours
Subjective/Interval History
-
Date of Service: March 08, 2024
resting
no new complaints
Objective Data
-
Labs:
Laboratory Results
03/08/24
08:44
WBC 10.6
Hgb 11.0 L
Hct 32.1 L
Plt Count 377
Sodium 143
Potassium 3.8
Chloride 106
Carbon Dioxide 24
BUN 51 H
Creatinine 2.7 H
Glucose 123 H
Calcium 9.4
Vital Signs:
Vital Signs
Temp Pulse Resp BP Pulse Ox
97.7 F 58 19 116/75 94
03/08/24 07:00 03/08/24 07:00 03/08/24 07:00 03/08/24 07:00 03/08/24 07:00
I&O
03/07/24 03/08/24 03/09/24
06:59 06:59 06:59
Intake Total 660 / 660 360 / 360
Output Total 1400 / 1400 300 / 300
Balance -740 / -740 60 / 60
Review of Systems
-
History Source: Patient
All other systems: Reviewed and negative
Physical Exam
-
General: No Apparent Distress and Appears Chronically Ill
HEENT: Normocephalic and Atraumatic
Respiratory: Clear to Auscultation
Cardiac: Regular Rhythm and S1/S2
GI: Soft and Nontender
Genito-urinary: Galvin
Musculoskeletal: No Clubbing, No Cyanosis, No Edema and Other (right hemiparesis, non-ambulator)
Skin: Warm
Neuro: Awake and Alert
Psych: Calm
Data Reviewed
-
Diagnostic Radiology: Report Reviewed by me
Labs: Labs Reviewed by me
[2024-03-08 15:00] VITALS: BP 134/77
--- NOTE | 2024-03-08 15:23 | W.PN.NEPH.PH ---
Today's Communication / Plan
-
follow labs
Assessment/Plan
-
63-year-old male with a past medical history of chronic Lehman, recurrent urinary tract infections, absence seizures, stage IV CKD, type 2 diabetes, cerebral palsy, and chronic dysphagia [facility]respons[facility]/staring
spell for 20 seconds
renal consult for estevan/ckd cr 2.9 nov 2023
on admit cr 3.5
IMP:
estevan/ckd 4
ams
uti
chronic lehman
seizure
Plan:
estevan possible from sepsis, cr improving to 2.7
non oliguric with lehman
BP stable
abx renally dosed
seizure rx with renal adjustment as indicated
palliative care follows
d/c plan
-
-
Date of Service: March 08, 2024
CC / HPI / ROS
-
Chief Complaint:
Acute kidney injury CKD 4
History of Present Illness:
Somnolent status post seizure and now with aspiration pneumonia
no fever, cr down to 2.7, k and na normal
BP stable
Review of Systems:
Nonoliguric
Chronic dysphagia
no pain or sob
tolerating po
Labs
-
Labs:
WBC 10.6 10^3/uL (4.8-10.8) 03/08/24 08:44
RBC 3.36 10^6/uL (4.70-6.10) L 03/08/24 08:44
Hgb 11.0 g/dL (13.0-18.0) L 03/08/24 08:44
Hct 32.1 % (39.0-52.0) L 03/08/24 08:44
Plt Count 377 10^3/uL (130-400) 03/08/24 08:44
Sodium 143 mmol/L (135-145) 03/08/24 08:44
Potassium 3.8 mmol/L (3.5-5.1) 03/08/24 08:44
Chloride 106 mmol/L (98-107) 03/08/24 08:44
Carbon Dioxide 24 mmol/L (22-30) 03/08/24 08:44
BUN 51 mg/dl (9-20) H 03/08/24 08:44
Creatinine 2.7 mg/dL (0.7-1.3) H 03/08/24 08:44
eGFR 26.00 03/08/24 08:44
Glucose 123 mg/dl (70-99) H 03/08/24 08:44
Calcium 9.4 mg/dl (8.4-10.2) 03/08/24 08:44
Phosphorus 4.1 mg/dl (2.5-4.5) 03/02/24 06:42
Albumin 4.4 g/dl (3.5-5.0) 02/28/24 10:58
Physical Exam
-
Vital Signs:
Vital Signs
Temp Pulse Resp BP Pulse Ox
97.7 F 58 19 116/75 94
03/08/24 07:00 03/08/24 07:00 03/08/24 07:00 03/08/24 07:00 03/08/24 07:00
Cardiovascular:: Regular rate and rhythm
Respiratory:: Bilateral: CTA (anteriorly)
Lung Excursion:: Normal
Abdomen:: Nontender and Soft
Extremity Edema:: None: Bilateral:
Lehman Catheter: Yes
[2024-03-08] MEDS: FLUSH (NSS) 1 FLUSH IV (21:05)
[2024-03-08] MEDS: FIBERCON 625 MG PO (22:48)
[2024-03-08] MEDS: PEPCID 20 MG PO (22:48)
[2024-03-08] MEDS: ABILIFY 5 MG PO (22:48)
[2024-03-08 23:17] VITALS: BP 115/75
[2024-03-09] MEDS: ZOSYN 50 IV ×2 (03:52→10:02)
[2024-03-09] MEDS: FLUSH (NSS) 2 FLUSH IV (03:52)
[2024-03-09 07:30] VITALS: BP 136/74
[2024-03-09] MEDS: TEGRETOL 300 MG PO ×2 (08:38→15:17)
[2024-03-09] MEDS: COLACE 100 MG PO (08:38)
[2024-03-09] MEDS: LAMICTAL 300 MG PO (08:38)
[2024-03-09] MEDS: FEOSOL 325 MG PO (08:38)
[2024-03-09] MEDS: KEPPRA 1000 MG PO (08:39)
[2024-03-09] MEDS: TRANXENE 3.75 MG PO (08:40)
[2024-03-09] MEDS: HEPARIN 5000 UNITS SC (08:40)
[2024-03-09] MEDS: PROZAC 20 MG PO (08:40)
--- NOTE | 2024-03-09 10:32 | W.PN.HOSP.TC ---
Today's Communication/Plan
-
dispo planning for SNF
Assessment / Plan
Assessment / Plan
HPI: 63-year-old male with a past medical history of chronic Lehman, recurrent urinary tract infections, absence seizures, stage IV CKD, type 2 diabetes, cerebral palsy, and chronic dysphagia was sent from his fdc for nonresponsiveness/staring
spell for 20 seconds. He appeared to be postictal in the ER. Continue Lamictal, Keppra, consult neurology.
#Sepsis secondary to aspiration pneumonia and possible catheter associated urinary tract infection
03/04, fever of 101 with leukocytosis, chest x-ray shows right upper lobe pneumonia
03/04, urine culture after changing Lehman growing out greater than 100,000 colonies of gram-negative rods
COVID/influenza negative
s/p 6 days IV Zosyn and 3 days Azithro
repeat lehman exchange
#Dysphagia
Was on pur�ed diet with moderately thick liquids
VSE shows aspiration of thin liquids, SPL rec pur�ed diet with mildly thick liquids -patient has been tolerating and eating well
#Chronic Lehman
#Chronic leukocytosis
#Colonization/bacteriuria
#Probable CAUTI 03/04
Status post antibiotics in the ER 02/27
02/27 First urine culture growing gram-negative bacilli was drawn from his previous Lehman
02/27 Repeat urine culture that was sent after his Lehman was changed, growing 15,000 colonies citrobacter
03/04, patient now febrile, urine culture after changing Lehman growing greater than 100,000 colonies of gram-negative rods
lehman exchanged
-s/p 6 days IV Zosyn - transition to Doxy
#Acute kidney injury superimposed on stage IV CKD
resolved
s/p IVF
#Absence seizure
03/03, MRI showing chronic changes, negative for acute
Appreciate Neurology input, continue Clorazepate 3.75 mg twice daily, lamotrigine 300 mg twice daily, Carbamazepine 300 mg 3 times daily, Keppra�1000mg BID
Per neurology 'Patient has medically refractory epilepsy. AEDs do not and will not make him seizure free'
It is expected that he will have intermittent absence seizures
Follow-up with neurology in the office in 2-3 weeks
#Hypernatremia
Resolved status post D5W
#Hypokalemia
Repleted and resolved
#Hypermagnesemia
Unclear etiology
#Unintentional weight loss
#BMI 18.5 normal
Encourage oral intake
#Cerebral palsy
From a fdc
#Anxiety/depression
Continue SSRI, Abilify
DVT prophylaxis�subcu heparin
DNR confirmed with Svitlana/BRANDY via his advanced directive 03/05
Total time spent to see the patient on the floor, examine the patient, review data and lab results, discuss treatment plan with patient, nursing staff around 52 minutes.
Anticipated Discharge: Within 24 hours
Subjective/Interval History
-
Date of Service: March 09, 2024
no new complaints
no seizure overnight
Objective Data
-
Vital Signs:
Vital Signs
Temp Pulse Resp BP Pulse Ox
97.9 F 76 20 136/74 96
03/09/24 07:30 03/09/24 07:30 03/09/24 07:30 03/09/24 07:30 03/09/24 07:30
I&O
03/08/24 03/09/24 03/10/24
06:59 06:59 06:59
Intake Total 360 / 360 1060 / 1060
Output Total 300 / 300 2049
Balance 60 / 60 -990 / -990
Review of Systems
-
History Source: Patient
All other systems: Reviewed and negative
Physical Exam
-
General: No Apparent Distress and Appears Chronically Ill (with contractures )
HEENT: Normocephalic and Atraumatic
Respiratory: Clear to Auscultation
Cardiac: Regular Rhythm and S1/S2
GI: Soft and Nontender
Genito-urinary: Lehman
Musculoskeletal: No Clubbing, No Cyanosis, No Edema and Other (right hemiparesis, non-ambulator)
Skin: Warm
Neuro: Awake and Alert
Psych: Calm
Data Reviewed
-
Diagnostic Radiology: Report Reviewed by me
Labs: Labs Reviewed by me
--- NOTE | 2024-03-09 14:23 | CM ---
Addendum entered by Zachary Mantilla 03/09/24 14:39:
Per [facility], [facility] is not working today and will review referral tomorrow.
CM will await response back after referral has been reviewed.
Original Note:
CM followed up w/ Svitlana NAVA regarding SNF options. [facility] identified [facility], [facility], and [facility] as preferred facilities.
[facility] and [facility] do not have any available beds at this time and unable to accept pt.
CM reached out to [facility] regarding poss admission, awaiting determination. Referral completed in [facility]
PT to see for updated eval and note
CM encouraged [facility] to explore additional SNF options as pt is ready for d/c
Plan: SNF; pending accepting facility
--- NOTE | 2024-03-09 14:28 | W.PN.NEPH.PH ---
Today's Communication / Plan
-
No change supportive care
Stable chronic kidney disease
Assessment/Plan
-
63-year-old male with a past medical history of chronic Lehman, recurrent urinary tract infections, absence seizures, stage IV CKD, type 2 diabetes, cerebral palsy, and chronic dysphagia was sent from his long term for nonresponsiveness/staring
spell for 20 seconds
renal consult for estevan/ckd cr 2.9 nov 2023
on admit cr 3.5
IMP:
estevan/ckd 4
ams
uti
chronic lehman
seizure
Plan:
estevan possible from sepsis, cr improving to 2.7
non oliguric with lehman
BP stable
abx renally dosed
seizure rx with renal adjustment as indicated
palliative care follows
Stable CKD
d/c plan
-
-
Date of Service: March 09, 2024
CC / HPI / ROS
-
Chief Complaint:
Acute kidney injury CKD 4
History of Present Illness:
Somnolent status post seizure and now with aspiration pneumonia
no fever, cr down to 2.7, k and na normal
BP stable
Review of Systems:
Nonoliguric
Chronic dysphagia
no pain or sob
tolerating po
Labs
-
Labs:
WBC 10.6 10^3/uL (4.8-10.8) 03/08/24 08:44
RBC 3.36 10^6/uL (4.70-6.10) L 03/08/24 08:44
Hgb 11.0 g/dL (13.0-18.0) L 03/08/24 08:44
Hct 32.1 % (39.0-52.0) L 03/08/24 08:44
Plt Count 377 10^3/uL (130-400) 03/08/24 08:44
Sodium 143 mmol/L (135-145) 03/08/24 08:44
Potassium 3.8 mmol/L (3.5-5.1) 03/08/24 08:44
Chloride 106 mmol/L (98-107) 03/08/24 08:44
Carbon Dioxide 24 mmol/L (22-30) 03/08/24 08:44
BUN 51 mg/dl (9-20) H 03/08/24 08:44
Creatinine 2.7 mg/dL (0.7-1.3) H 03/08/24 08:44
eGFR 26.00 03/08/24 08:44
Glucose 123 mg/dl (70-99) H 03/08/24 08:44
Calcium 9.4 mg/dl (8.4-10.2) 03/08/24 08:44
Phosphorus 4.1 mg/dl (2.5-4.5) 03/02/24 06:42
Albumin 4.4 g/dl (3.5-5.0) 02/28/24 10:58
Physical Exam
-
Vital Signs:
Vital Signs
Temp Pulse Resp BP Pulse Ox
97.9 F 76 20 136/74 96
03/09/24 07:30 03/09/24 07:30 03/09/24 07:30 03/09/24 07:30 03/09/24 07:30
Cardiovascular:: Regular rate and rhythm
Respiratory:: Bilateral: CTA (anteriorly)
Lung Excursion:: Normal
Abdomen:: Nontender and Soft
Extremity Edema:: None: Bilateral:
Lehman Catheter: Yes
[2024-03-09 15:11] VITALS: BP 136/83; O2SAT 98
[2024-03-09 15:23] VITALS: BP 112/67
--- NOTE | 2024-03-09 22:00 | PTCARENOTE ---
Pt refused evening medications, stating 'I don't care, I don't want it.' Educated pt on the importance of taking medications as prescribed to prevent seizures and treat his pneumonia, as well as SQ heparin for blood clot prevention. Pt stated
adamantly 'I don't care.' House Provider Magali Hughes notified.
[2024-03-09] MEDS: COLACE PO (22:18)
[2024-03-09] MEDS: VIBRAMYCIN PO ×2 (22:19→23:56)
[2024-03-09] MEDS: TEGRETOL PO ×2 (22:19→23:56)
[2024-03-09] MEDS: LAMICTAL PO ×2 (22:19→23:56)
[2024-03-09] MEDS: FIBERCON PO ×2 (22:19→23:56)
[2024-03-09] MEDS: KEPPRA PO ×2 (22:19→23:54)
[2024-03-09] MEDS: FEOSOL PO ×2 (22:19→23:54)
[2024-03-09] MEDS: TRANXENE PO ×2 (22:19→23:56)
[2024-03-09] MEDS: HEPARIN SC ×2 (22:20→23:54)
[2024-03-09] MEDS: ABILIFY PO ×2 (22:20→23:56)
[2024-03-09 22:55] VITALS: BP 143/68
[2024-03-10 07:30] VITALS: BP 133/68
--- NOTE | 2024-03-10 10:59 | W.PN.NEPH.PH ---
Today's Communication / Plan
-
follow BMP
Assessment/Plan
-
IMP:
estevan/ckd 4
ams
uti
chronic lehman
seizure
Plan:
follow BMP
abx course per primary team (doxycycline)
palliative care
dc planning
-
-
Date of Service: March 10, 2024
CC / HPI / ROS
-
Chief Complaint:
Acute kidney injury CKD 4
History of Present Illness:
Somnolent status post seizure and now with aspiration pneumonia
no fever, cr down to 2.7, k and na normal
BP stable
Review of Systems:
Nonoliguric
Chronic dysphagia
no pain or sob
tolerating po
Labs
-
Labs:
WBC 10.6 10^3/uL (4.8-10.8) 03/08/24 08:44
RBC 3.36 10^6/uL (4.70-6.10) L 03/08/24 08:44
Hgb 11.0 g/dL (13.0-18.0) L 03/08/24 08:44
Hct 32.1 % (39.0-52.0) L 03/08/24 08:44
Plt Count 377 10^3/uL (130-400) 03/08/24 08:44
Sodium 143 mmol/L (135-145) 03/08/24 08:44
Potassium 3.8 mmol/L (3.5-5.1) 03/08/24 08:44
Chloride 106 mmol/L (98-107) 03/08/24 08:44
Carbon Dioxide 24 mmol/L (22-30) 03/08/24 08:44
BUN 51 mg/dl (9-20) H 03/08/24 08:44
Creatinine 2.7 mg/dL (0.7-1.3) H 03/08/24 08:44
eGFR 26.00 03/08/24 08:44
Glucose 123 mg/dl (70-99) H 03/08/24 08:44
Calcium 9.4 mg/dl (8.4-10.2) 03/08/24 08:44
Phosphorus 4.1 mg/dl (2.5-4.5) 03/02/24 06:42
Albumin 4.4 g/dl (3.5-5.0) 02/28/24 10:58
Physical Exam
-
Vital Signs:
Vital Signs
Temp Pulse Resp BP Pulse Ox
98.7 F 64 20 133/68 95
03/10/24 07:30 03/10/24 07:30 03/10/24 07:30 03/10/24 07:30 03/10/24 07:30
Cardiovascular:: Regular rate and rhythm
Respiratory:: Bilateral: Coarse
Lung Excursion:: Normal
Abdomen:: Nontender and Soft
Bowel Sounds:: Normal
Extremity Edema:: None: Bilateral:
[2024-03-10] MEDS: TEGRETOL 300 MG PO ×3 (11:49→21:54)
[2024-03-10] MEDS: TRANXENE 3.75 MG PO ×2 (11:49→21:56)
[2024-03-10] MEDS: LAMICTAL 300 MG PO ×2 (11:49→22:22)
[2024-03-10] MEDS: KEPPRA 1000 MG PO ×2 (11:50→21:54)
[2024-03-10] MEDS: VIBRAMYCIN 100 MG PO ×2 (11:50→21:55)
[2024-03-10] MEDS: PROZAC 20 MG PO (11:50)
[2024-03-10] MEDS: FEOSOL 325 MG PO ×2 (11:51→21:53)
[2024-03-10] MEDS: COLACE 100 MG PO ×2 (11:51→21:52)
[2024-03-10] MEDS: HEPARIN 5000 UNITS SC ×2 (11:51→21:53)
--- NOTE | 2024-03-10 11:58 | CM ---
CM received response back from [facility] re pt's referral. Per Tiki, pt is unable to be considered because he does not have a secondary insurance. Facility unable to accept pt at this time.
CM spoke w/ Svitlana/BRANDY regarding this. Per Svitlana, will explore SNF list prev provided to explore additional facilities for CM to refer to.
CM will send additional SNF referrals once identified.
Plan: SNF; pending accepting facility
CM will cont to work w/ POA to locate skilled rehab facility
--- NOTE | 2024-03-10 12:10 | W.PN.HOSP.TC ---
Today's Communication/Plan
-
dispo planning
Assessment / Plan
Assessment / Plan
HPI: 63-year-old male with a past medical history of chronic Lehman, recurrent urinary tract infections, absence seizures, stage IV CKD, type 2 diabetes, cerebral palsy, and chronic dysphagia was sent from his longterm for nonresponsiveness/staring
spell for 20 seconds. He appeared to be postictal in the ER. Continue Lamictal, Keppra, consult neurology.
#Sepsis secondary to aspiration pneumonia and possible catheter associated urinary tract infection
03/04, fever of 101 with leukocytosis, chest x-ray shows right upper lobe pneumonia
03/04, urine culture after changing Lehman growing out greater than 100,000 colonies of gram-negative rods
COVID/influenza negative
s/p 6 days IV Zosyn and 3 days Azithro
repeat lehman exchange
#Dysphagia
Was on pur�ed diet with moderately thick liquids
VSE shows aspiration of thin liquids, SPL rec pur�ed diet with mildly thick liquids -patient has been tolerating and eating well
#Chronic Lehman
#Chronic leukocytosis
#Colonization/bacteriuria
#Probable CAUTI 03/04
Status post antibiotics in the ER 02/27
02/27 First urine culture growing gram-negative bacilli was drawn from his previous Lehman
02/27 Repeat urine culture that was sent after his Lehman was changed, growing 15,000 colonies citrobacter
03/04, patient now febrile, urine culture after changing Lehman growing greater than 100,000 colonies of gram-negative rods
lehman exchanged
-s/p 6 days IV Zosyn - transition to Doxy - last day today
#Acute kidney injury superimposed on stage IV CKD
resolved
s/p IVF
#Absence seizure
03/03, MRI showing chronic changes, negative for acute
Appreciate Neurology input, continue Clorazepate 3.75 mg twice daily, lamotrigine 300 mg twice daily, Carbamazepine 300 mg 3 times daily, Keppra�1000mg BID
Per neurology 'Patient has medically refractory epilepsy. AEDs do not and will not make him seizure free'
It is expected that he will have intermittent absence seizures
Follow-up with neurology in the office in 2-3 weeks
#Hypernatremia
Resolved status post D5W
#Hypokalemia
Repleted and resolved
#Hypermagnesemia
Unclear etiology
#Unintentional weight loss
#BMI 18.5 normal
Encourage oral intake
#Cerebral palsy
From a longterm
#Anxiety/depression
Continue SSRI, Abilify
DVT prophylaxis�subcu heparin
DNR confirmed with Svitlana/BRANDY via his advanced directive 03/05
Total time spent to see the patient on the floor, examine the patient, review data and lab results, discuss treatment plan with patient, nursing staff around 52 minutes.
Anticipated Discharge: Within 24 hours
Subjective/Interval History
-
Date of Service: March 10, 2024
no new complaints
wants chocolate ensure
Objective Data
-
Vital Signs:
Vital Signs
Temp Pulse Resp BP Pulse Ox
98.7 F 64 20 133/68 95
03/10/24 07:30 03/10/24 07:30 03/10/24 07:30 03/10/24 07:30 03/10/24 07:30
I&O
03/09/24 03/10/24 03/11/24
06:59 06:59 06:59
Intake Total 1060 / 1060 170 / 170
Output Total 2049 1300 / 1300
Balance -990 / -990 -1130 / -1130
Review of Systems
-
History Source: Patient
All other systems: Reviewed and negative
Physical Exam
-
General: No Apparent Distress and Appears Chronically Ill (with contractures )
HEENT: Normocephalic and Atraumatic
Respiratory: Clear to Auscultation
Cardiac: Regular Rhythm and S1/S2
GI: Soft and Nontender
Genito-urinary: Lehman
Musculoskeletal: No Clubbing, No Cyanosis, No Edema and Other (right hemiparesis, non-ambulator)
Skin: Warm
Neuro: Awake and Alert
Psych: Calm
Data Reviewed
-
Diagnostic Radiology: Report Reviewed by me
Labs: Labs Reviewed by me
[2024-03-10 15:00] VITALS: BP 130/60
[2024-03-10] MEDS: DULCOLAX 10 MG RECTAL (17:06)
[2024-03-10] MEDS: MIRALAX 17 GRAMS PO (17:46)
[2024-03-10] MEDS: PEPCID 20 MG PO (21:54)
[2024-03-10] MEDS: FIBERCON 625 MG PO (21:56)
[2024-03-10] MEDS: ABILIFY 5 MG PO (21:56)
[2024-03-10 23:35] VITALS: BP 140/71
[2024-03-11 07:25] VITALS: BP 113/72
[2024-03-11 08:26] LABS: Blood Urea Nitrogen 43 mg/dl (9-20); Calcium 9.9 mg/dl (8.4-10.2); Carbon Dioxide 24 mmol/L (22-30); Chloride 101 mmol/L (98-107); Estimated Creatinine Clearance 19 ml/min; Glucose 119 mg/dl (70-99); Potassium 3.8 mmol/L (3.5-5.1); Sodium 140 mmol/L (135-145); eGFR 23.86
[2024-03-11] MEDS: KEPPRA 1000 MG PO ×2 (10:19→20:35)
[2024-03-11] MEDS: VIBRAMYCIN 100 MG PO (10:19)
[2024-03-11] MEDS: LAMICTAL 300 MG PO ×2 (10:20→20:33)
[2024-03-11] MEDS: FEOSOL 325 MG PO ×2 (10:22→20:32)
[2024-03-11] MEDS: TEGRETOL 300 MG PO ×3 (10:23→21:04)
[2024-03-11] MEDS: TRANXENE 3.75 MG PO ×2 (10:24→20:34)
[2024-03-11] MEDS: HEPARIN 5000 UNITS SC ×2 (10:24→20:33)
[2024-03-11] MEDS: PROZAC 20 MG PO (10:24)
[2024-03-11] MEDS: COLACE 100 MG PO ×2 (10:27→20:32)
--- NOTE | 2024-03-11 11:12 | W.PN.NEPH.PH ---
Today's Communication / Plan
-
follow BMP
Assessment/Plan
-
IMP:
estevan/ckd 4
ams
uti
chronic lehman
seizure
Plan:
follow BMP
abx course per primary team (doxycycline)
palliative care
he is not a candidate for dialysis in the future
dc planning
-
-
Date of Service: March 11, 2024
CC / HPI / ROS
-
Chief Complaint:
Acute kidney injury CKD 4
History of Present Illness:
Somnolent status post seizure and now with aspiration pneumonia
Cr stable 2.9
BP stable
no new seizures
Review of Systems:
Nonoliguric
Chronic dysphagia
no pain or sob
tolerating po
Labs
-
Labs:
WBC 10.6 10^3/uL (4.8-10.8) 03/08/24 08:44
RBC 3.36 10^6/uL (4.70-6.10) L 03/08/24 08:44
Hgb 11.0 g/dL (13.0-18.0) L 03/08/24 08:44
Hct 32.1 % (39.0-52.0) L 03/08/24 08:44
Plt Count 377 10^3/uL (130-400) 03/08/24 08:44
Sodium 140 mmol/L (135-145) 03/11/24 07:21
Potassium 3.8 mmol/L (3.5-5.1) 03/11/24 07:21
Chloride 101 mmol/L (98-107) 03/11/24 07:21
Carbon Dioxide 24 mmol/L (22-30) 03/11/24 07:21
BUN 43 mg/dl (9-20) H 03/11/24 07:21
Creatinine 2.9 mg/dL (0.7-1.3) H 03/11/24 07:21
eGFR 23.86 03/11/24 07:21
Glucose 119 mg/dl (70-99) H 03/11/24 07:21
Calcium 9.9 mg/dl (8.4-10.2) 03/11/24 07:21
Phosphorus 4.1 mg/dl (2.5-4.5) 03/02/24 06:42
Albumin 4.4 g/dl (3.5-5.0) 02/28/24 10:58
Physical Exam
-
Vital Signs:
Vital Signs
Temp Pulse Resp BP Pulse Ox
97.4 F 74 18 113/72 98
03/11/24 07:25 03/11/24 07:25 03/11/24 07:25 03/11/24 07:25 03/11/24 07:25
Cardiovascular:: Regular rate and rhythm
Respiratory:: Bilateral: Coarse
Lung Excursion:: Normal
Abdomen:: Nontender and Soft
Bowel Sounds:: Normal
Extremity Edema:: None: Bilateral:
--- NOTE | 2024-03-11 12:16 | W.PN.HOSP.TC ---
Today's Communication/Plan
-
dispo planning
Assessment / Plan
Assessment / Plan
HPI: 63-year-old male with a past medical history of chronic Lehman, recurrent urinary tract infections, absence seizures, stage IV CKD, type 2 diabetes, cerebral palsy, and chronic dysphagia was sent from his long term for nonresponsiveness/staring
spell for 20 seconds. He appeared to be postictal in the ER. Continue Lamictal, Keppra, consult neurology.
#Sepsis secondary to aspiration pneumonia and possible catheter associated urinary tract infection
03/04, fever of 101 with leukocytosis, chest x-ray shows right upper lobe pneumonia
03/04, urine culture after changing Lehman growing out greater than 100,000 colonies of gram-negative rods
COVID/influenza negative
s/p 6 days IV Zosyn and 3 days Azithro
repeat lehman exchange
#Dysphagia
Was on pur�ed diet with moderately thick liquids
VSE shows aspiration of thin liquids, SPL rec pur�ed diet with mildly thick liquids -patient has been tolerating and eating well
#Chronic Lehman
#Chronic leukocytosis
#Colonization/bacteriuria
#Probable CAUTI 03/04
Status post antibiotics in the ER 02/27
02/27 First urine culture growing gram-negative bacilli was drawn from his previous Lehman
02/27 Repeat urine culture that was sent after his Lehman was changed, growing 15,000 colonies citrobacter
03/04, patient now febrile, urine culture after changing Lehman growing greater than 100,000 colonies of gram-negative rods
lehman exchanged
-s/p 6 days IV Zosyn and completed course with Doxycycline
#Acute kidney injury superimposed on stage IV CKD
resolved
s/p IVF
#Absence seizure
03/03, MRI showing chronic changes, negative for acute
Appreciate Neurology input, continue Clorazepate 3.75 mg twice daily, lamotrigine 300 mg twice daily, Carbamazepine 300 mg 3 times daily, Keppra�1000mg BID
Per neurology 'Patient has medically refractory epilepsy. AEDs do not and will not make him seizure free'
It is expected that he will have intermittent absence seizures
Follow-up with neurology in the office in 2-3 weeks
-he has been seizure free since infection treated
-at this point we are waiting for SNF placement
Black stools reported in chart - will order labs including Hg and BMP
#Hypernatremia
Resolved status post D5W
#Hypokalemia
Repleted and resolved
#Hypermagnesemia
Unclear etiology
#Unintentional weight loss
#BMI 18.5 normal
Encourage oral intake
#Cerebral palsy
From a long term
#Anxiety/depression
Continue SSRI, Abilify
DVT prophylaxis�subcu heparin
DNR confirmed with Svitlana/POA via his advanced directive 03/05
Anticipated Discharge: Within 24 hours
Subjective/Interval History
-
Date of Service: March 11, 2024
no new complaints
Objective Data
-
Labs:
Laboratory Results
03/11/24 03/11/24
07:21 12:15
Hgb Pending
Sodium 140 Pending
Potassium 3.8 Pending
Chloride 101 Pending
Carbon Dioxide 24 Pending
BUN 43 H Pending
Creatinine 2.9 H Pending
Glucose 119 H Pending
Calcium 9.9 Pending
Vital Signs:
Vital Signs
Temp Pulse Resp BP Pulse Ox
97.4 F 74 18 113/72 98
03/11/24 07:25 03/11/24 07:25 03/11/24 07:25 03/11/24 07:25 03/11/24 07:25
I&O
03/10/24 03/11/24 03/12/24
06:59 06:59 06:59
Intake Total 170 / 170 600 / 600
Output Total 1300 / 1300 1550 / 1550
Balance -1130 / -1130 -950 / -950
Review of Systems
-
History Source: Patient
Physical Exam
-
General: No Apparent Distress and Appears Chronically Ill (with contractures )
HEENT: Normocephalic and Atraumatic
Respiratory: Clear to Auscultation
Cardiac: Regular Rhythm and S1/S2
GI: Soft and Nontender
Genito-urinary: Lehman
Musculoskeletal: No Clubbing, No Cyanosis, No Edema and Other (right hemiparesis, non-ambulator)
Skin: Warm
Neuro: Awake and Alert
Psych: Calm
Data Reviewed
-
Diagnostic Radiology: Report Reviewed by me
Labs: Labs Reviewed by me
[2024-03-11 12:46] LABS: Hemoglobin 10.7 g/dL (13.0-18.0)
[2024-03-11 13:06] LABS: Blood Urea Nitrogen 45 mg/dl (9-20); Calcium 9.7 mg/dl (8.4-10.2); Carbon Dioxide 22 mmol/L (22-30); Chloride 101 mmol/L (98-107); Estimated Creatinine Clearance 20 ml/min; Glucose 139 mg/dl (70-99); Potassium 3.8 mmol/L (3.5-5.1); Sodium 138 mmol/L (135-145); eGFR 24.89
[2024-03-11 15:25] VITALS: BP 126/82
[2024-03-11] MEDS: HIPREX 1 GRAM PO (20:33)
[2024-03-11] MEDS: ABILIFY 5 MG PO (20:34)
[2024-03-11] MEDS: FIBERCON 625 MG PO (20:34)
[2024-03-11 23:10] VITALS: BP 149/75
--- NOTE | 2024-03-12 00:30 | PTCARENOTE ---
Pt. in bed, very lethargic, sweaty and hot, rectal temp 102.1, gave Tylenol rectally, put ice packs under pt's arm pits, will continue to monitor.
[2024-03-12] MEDS: TYLENOL/FEVERALL 650 MG RECTAL (00:39)
[2024-03-12 02:52] LABS: Glucose - Point of Care 120 mg/dl (70-99)
[2024-03-12] MEDS: VALIUM INJECTION 5 MG IV (02:53)
[2024-03-12 03:00] VITALS: BP 93/74
--- NOTE | 2024-03-12 03:00 | RR ---
Patient was staring, unresponsive to sternal rub when staff went in to check vital signs, rapid response called, pupils were not equal and deviated, legs were moving up and down in a jerking motion, blood sugar 120, vs 93/74, 99% RA, resp 18, pulse
115, rectal temp 98.6 which previously was 102.1 rectally, pt. was given Valium at this time, pt. started to relax and eyes were not fixed any longer.
--- NOTE | 2024-03-12 03:09 | W.PN.UPDATE ---
Update Note
Progress Note Update
Rapid response called due to seizure activity. Patient with 'absence' seizure, looking blankly into space w/slight jerking movements. VS: BP 149/75, HR 97, resp 22, pulsox 95% on room air, accucheck 120. PRN Valium given, patient resting, more
relaxed, eyes closed, responsive to tactile stimuli. Patient did have fever, oral temp 102.1 around midnight and rectal Tylenol was given. Patient w/history of seizures.
[2024-03-12 06:14] LABS: Blood Urea Nitrogen 52 mg/dl (9-20); Calcium 9.9 mg/dl (8.4-10.2); Carbon Dioxide 25 mmol/L (22-30); Chloride 101 mmol/L (98-107); Estimated Creatinine Clearance 17 ml/min; Glucose 112 mg/dl (70-99); Sodium 141 mmol/L (135-145); eGFR 20.44
[2024-03-12 07:00] VITALS: BP 116/73
[2024-03-12] MEDS: KEPPRA 1000 MG PO ×2 (10:15→20:30)
[2024-03-12] MEDS: HIPREX 1 GRAM PO (10:16)
[2024-03-12] MEDS: COLACE 100 MG PO ×2 (10:16→20:28)
[2024-03-12] MEDS: TEGRETOL 300 MG PO ×2 (10:17→18:23)
[2024-03-12] MEDS: PROZAC 20 MG PO (10:17)
[2024-03-12] MEDS: LAMICTAL 300 MG PO ×2 (10:18→20:30)
[2024-03-12] MEDS: FEOSOL 325 MG PO ×2 (10:18→20:30)
[2024-03-12] MEDS: TRANXENE 3.75 MG PO ×2 (10:19→20:32)
[2024-03-12] MEDS: HEPARIN 5000 UNITS SC ×2 (10:19→20:35)
--- NOTE | 2024-03-12 11:36 | W.PN.HOSP.TC ---
Addendum entered and electronically signed by Sarahy Pinedo MD 03/12/24 14:02:
awaiting CXR
given high risk aspiration and concern asp pneumonia - will start IV Zosyn while awaiting work up
Original Note:
Today's Communication/Plan
-
see plan
Assessment / Plan
Assessment / Plan
63-year-old male with a past medical history of chronic Lehman, recurrent urinary tract infections, absence seizures, stage IV CKD, type 2 diabetes, cerebral palsy, and chronic dysphagia was sent from his long-term for nonresponsiveness/staring
spell for 20 seconds. Hospital course c/b fever 2/2 aspiration pneumonia and UTI s/p treatment with recurrence of fever overnight 03/11-03/12.
#Sepsis secondary to aspiration pneumonia and possible catheter associated urinary tract infection
#Chronic Lehman
#Chronic leukocytosis
#Colonization/bacteriuria
#Probable CAUTI 03/04
03/04, fever of 101 with leukocytosis, chest x-ray shows right upper lobe pneumonia
03/04, urine culture after changing Lehman growing out greater than 100,000 colonies of gram-negative rods
COVID/influenza negative
s/p 6 days IV Zosyn and 3 days Azithro which treated pneumonia
s/p IV Zosyn course as above + 2 more days oral Doxycycline to treat UTI
s/p lehman exchange
#Fever overnight 03/11-03/12
-patient had completed antibiotic course as above and now with fever up to 102 overnight
-repeat infectious work-up: flu, covid, blood cultures, CXR and UA
-obtain CBC and lactate
-POA Svitlana updated and we discussed patient's frailty. He may be hospice appropriate. Will obtain VSE tomorrow as aspiration concern. Further GOC discussions to be had over the week.
#Dysphagia
Was on pur�ed diet with moderately thick liquids
-repeat VSE tomorrow as above
#Acute kidney injury superimposed on stage IV CKD
resolved
s/p IVF
-renew IVF in setting of sepsis
#Absence seizure
03/03, MRI showing chronic changes, negative for acute
Appreciate Neurology input, continue Clorazepate 3.75 mg twice daily, lamotrigine 300 mg twice daily, Carbamazepine 300 mg 3 times daily, Keppra�1000mg BID
Per neurology 'Patient has medically refractory epilepsy. AEDs do not and will not make him seizure free'
It is expected that he will have intermittent absence seizures
-patient with another fever overnight in setting of fever
Black stools reported in chart - Hg has been stable, RN not concerned for melena
#Hypernatremia
Resolved status post D5W
#Hypokalemia
Repleted and resolved
#Hypermagnesemia
Unclear etiology
#Unintentional weight loss
#BMI 18.5 normal
Encourage oral intake
#Cerebral palsy
From a long-term
#Anxiety/depression
Continue SSRI, Abilify
DVT prophylaxis�subcu heparin
DNR confirmed with Svitlana/POA via his advanced directive 03/05
51 minutes spent on patient care
Anticipated Discharge: > 48 hours
Subjective/Interval History
-
Date of Service: March 12, 2024
somnolent post valium
Objective Data
-
Labs:
Laboratory Results
03/12/24 03/12/24
05:40 11:30
WBC Pending
Hgb Pending
Hct Pending
Plt Count Pending
Sodium 141
Potassium 4.0
Chloride 101
Carbon Dioxide 25
BUN 52 H
Creatinine 3.3 H
Glucose 112 H
Calcium 9.9
Vital Signs:
Vital Signs
Temp Pulse Resp BP Pulse Ox
97.5 F 72 20 116/73 100
03/12/24 07:00 03/12/24 07:00 03/12/24 07:00 03/12/24 07:00 03/12/24 07:00
I&O
03/11/24 03/12/24 03/13/24
06:59 06:59 06:59
Intake Total 600 / 600 600 / 600
Output Total 1550 / 1550 915 / 915
Balance -950 / -950 -315 / -315
Review of Systems
-
History Source: Patient
All other systems: Reviewed and negative
Physical Exam
-
General: Appears Chronically Ill (with contractures ) and Other (somnolent this morning (post valium, seizure last night))
HEENT: Normocephalic and Atraumatic
Respiratory: Clear to Auscultation
Cardiac: Regular Rhythm and S1/S2
GI: Soft and Nontender
Genito-urinary: Lehman
Musculoskeletal: No Clubbing, No Cyanosis, No Edema and Other (right hemiparesis, non-ambulator)
Skin: Warm
Neuro: Awake and Alert
Psych: Calm
Data Reviewed
-
Diagnostic Radiology: Report Reviewed by me
Labs: Labs Reviewed by me
--- NOTE | 2024-03-12 11:50 | W.PN.NEPH.PH ---
Today's Communication / Plan
-
follow BMP
Assessment/Plan
-
IMP:
estevan/ckd 4
ams
uti
chronic lehman
seizure
Plan:
follow BMP
abx course per primary team (doxycycline)
palliative care
he is not a candidate for dialysis in the future
hospice may be the best option
-
-
Date of Service: March 12, 2024
CC / HPI / ROS
-
Chief Complaint:
Acute kidney injury CKD 4
History of Present Illness:
Cr up to 3.3
fever
BP stable
seizures yesterday
Review of Systems:
Nonoliguric
Chronic dysphagia
noncommunicative today
Labs
-
Labs:
Sodium 141 mmol/L (135-145) 03/12/24 05:40
Potassium 4.0 mmol/L (3.5-5.1) 03/12/24 05:40
Chloride 101 mmol/L (98-107) 03/12/24 05:40
Carbon Dioxide 25 mmol/L (22-30) 03/12/24 05:40
BUN 52 mg/dl (9-20) H 03/12/24 05:40
Creatinine 3.3 mg/dL (0.7-1.3) H 03/12/24 05:40
eGFR 20.44 03/12/24 05:40
Glucose 112 mg/dl (70-99) H 03/12/24 05:40
Calcium 9.9 mg/dl (8.4-10.2) 03/12/24 05:40
Phosphorus 4.1 mg/dl (2.5-4.5) 03/02/24 06:42
Albumin 4.4 g/dl (3.5-5.0) 02/28/24 10:58
Physical Exam
-
Vital Signs:
Vital Signs
Temp Pulse Resp BP Pulse Ox
97.5 F 72 20 116/73 100
03/12/24 07:00 03/12/24 07:00 03/12/24 07:00 03/12/24 07:00 03/12/24 07:00
Cardiovascular:: Regular rate and rhythm
Respiratory:: Bilateral: Coarse
Lung Excursion:: Normal
Abdomen:: Nontender and Soft
Bowel Sounds:: Normal
Extremity Edema:: None: Bilateral:
[2024-03-12 12:16] LABS: % Basophils 0.8 % (0-2); % Eosinophils 0.6 % (0-6); % Immature Granulocytes 0.6 % (0-0.5); % Lymphocytes 15.7 % (20.5-51.1); % Neutrophils 73.3 % (42.2-75.2); Absolute Basophils 0.1 10^3/uL (0-0.2); Absolute Eosinophils 0.1 10^3/uL (0-0.7); Absolute Immature Granulocytes 0.1 10^3/uL (0-0.05); Absolute Lymphocytes 2.5 10^3/uL (1.2-3.4); Absolute Monocytes 1.4 10^3/uL (0.1-0.6); Absolute Neutrophils 11.6 10^3/uL (1.4-6.5); Hematocrit 35.6 % (39.0-52.0); Hemoglobin 12.4 g/dL (13.0-18.0); Mean Corp Hgb Conc. 34.8 g/dL (33.0-37.0); Mean Corpuscular Hgb 32.6 pg (27.0-31.0); Mean Corpuscular Volume 93.7 fL (80.0-94.0); Mean Platelet Volume 9.9 fL (7.4-10.4); Nucleated Red Blood Cells % 0 % (-); Platelet Count 505 10^3/uL (130-400); Red Cell Dist. Width 13.3 % (11.5-14.5); White Blood Cell Count 15.9 10^3/uL (4.8-10.8)
[2024-03-12] MEDS: NSS 500 IV (12:51)
[2024-03-12] MEDS: NSS 1000 IV (12:52)
--- NOTE | 2024-03-12 14:03 | W.PN.UPDATE ---
Update Note
Progress Note Update
Principal diagnosis : Absence Seizure, Aspiration pneumonia and UTI
Hospital Course :
Mr. Josh Garza is a 63 yo man with hx cerebral palsy, chronic Galvin and recurrent urinary tract infections, chronic dysphagia, absence seizures, stage IV CKD, type 2 diabetes, was sent from his detention for nonresponsiveness/staring spell for 20
seconds. He appeared to be postictal in the ER. Traige vitals stable. Labs significant for Na 146, Cr 3.5 (baseline closer to 3), WBC 17. Head CT without acute event. He was admitted to medicine with Nephrology and Neurology consulting.
Hospital course complicated by fever with CXR showing right upper lobe pneumonia. He was started on antibiotics to treat both pneumonia and possible UTI. He completed his antibiotic course. Galvin catheter was exchanged again after several days of
appropriate antibiotics.
He remained on his home AED regimen: Clorazepate 3.75 mg twice daily, lamotrigine 300 mg twice daily, Carbamazepine 300 mg 3 times daily, Keppra 1000mg BID and has remained seizure free for over 72 hours prior to discharge (in setting of treating
his infections). MRI without acute changes. He should follow up with Neurology in 2-3 weeks. Per neurology: 'Patient was medically refractory epilepsy. AEDs do not and will not make him seizure free.'
His hypernatremia and BARBARA resolved with gentle IVF.
Patient completed antibiotic course and remained seizure free for several days. Unfortunately, while awaiting SNF patient had a new fever overnight 03/11 and another absence seizure. Infectious work-up ordered. Concern for aspiration and VSE
ordered for tomorrow AM. [facility] discussions had with Svitlana NAVA (Palliative care met with Svitlana earlier in hospitalization). Given repeated infections, possible aspiration, progressive kidney disease and continued risk for dehydration with poor PO
intake, we discussed possibility of hospice. We will obtain more data with VSE tomorrow and continued discussions to occur this week.
Important imaging findings :
HEAD CT 02/28/24
IMPRESSION:
Stable examination, as described. No acute intracranial abnormality identified.
BRAIN MRI 03/03/24
IMPRESSION:
1. 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 Thin mantle of remaining cerebral cortex
overlying the lateral margin of the porencephalic cavity.
2. Moderate white matter disease in the frontal and parietal lobes.
3. 8.2 mm left to right midline shift.
4. Moderate diffuse volume loss throughout the right cerebral hemisphere and cerebellum.
CXR 03/04/24
IMPRESSION:
Findings suggesting new mild developing right upper lobe pneumonia. Repeat exam in 2 weeks recommended after treatment to confirm improvement or resolution.
[2024-03-12 14:34] LABS: COVID-19 Antigen Negative (Negative)
[2024-03-12 15:00] VITALS: BP 113/73
[2024-03-12] MEDS: ZOSYN 50 IV ×2 (18:22→22:47)
[2024-03-12 18:24] LABS: Urine Albumin 1+ (Neg - Trace); Urine Bilirubin Negative (Negative); Urine Character Very Cloudy (Clear); Urine Color Yellow; Urine Glucose Negative (Negative); Urine Ketone Negative (Negative); Urine Leukocyte 2+ (Negative); Urine Nitrite Negative (Negative); Urine Occult Blood 3+ (Negative); Urine Specific Gravity 1.015 (<1.030); Urine Urobilinogen Negative (Neg - 1+)
[2024-03-12 18:36] LABS: Urine Squamous Cell 0-2 /LPF (Few)
[2024-03-12 18:37] LABS: Urine Bacteria Many (Negative); Urine White Cell 50-60 /HPF (0-5)
[2024-03-12] MEDS: ABILIFY 5 MG PO (22:44)
[2024-03-12] MEDS: FIBERCON 625 MG PO (22:44)
[2024-03-12] MEDS: PEPCID 20 MG PO (22:45)
[2024-03-12 23:13] VITALS: BP 114/78
[2024-03-13] MEDS: TEGRETOL CHEWABLE 300 MG PO ×4 (00:42→21:57)
[2024-03-13] MEDS: TEGRETOL PO (00:53)
[2024-03-13] MEDS: ZOSYN 50 IV ×4 (03:44→21:57)
[2024-03-13] MEDS: NSS 1000 IV (06:02)
[2024-03-13 07:00] VITALS: BP 115/78
[2024-03-13 08:54] LABS: % Basophils 0.7 % (0-2); % Immature Granulocytes 0.5 % (0-0.5); % Lymphocytes 15.1 % (20.5-51.1); % Neutrophils 74.7 % (42.2-75.2); Absolute Basophils 0.1 10^3/uL (0-0.2); Absolute Eosinophils 0.1 10^3/uL (0-0.7); Absolute Immature Granulocytes 0.1 10^3/uL (0-0.05); Absolute Monocytes 1.1 10^3/uL (0.1-0.6); Absolute Neutrophils 10.1 10^3/uL (1.4-6.5); Hematocrit 30.9 % (39.0-52.0); Hemoglobin 10.4 g/dL (13.0-18.0); Mean Corp Hgb Conc. 33.7 g/dL (33.0-37.0); Mean Corpuscular Hgb 32.8 pg (27.0-31.0); Mean Corpuscular Volume 97.5 fL (80.0-94.0); Mean Platelet Volume 10.4 fL (7.4-10.4); Nucleated Red Blood Cells % 0 % (-); Platelet Count 490 10^3/uL (130-400); Red Blood Cell Count 3.17 10^6/uL (4.70-6.10); Red Cell Dist. Width 13.6 % (11.5-14.5); White Blood Cell Count 13.5 10^3/uL (4.8-10.8)
[2024-03-13 09:23] LABS: Blood Urea Nitrogen 49 mg/dl (9-20); Calcium 9.3 mg/dl (8.4-10.2); Carbon Dioxide 24 mmol/L (22-30); Chloride 103 mmol/L (98-107); Estimated Creatinine Clearance 18 ml/min; Glucose 92 mg/dl (70-99); Magnesium 2.7 mg/dl (1.6-2.3); Potassium 3.5 mmol/L (3.5-5.1); Sodium 143 mmol/L (135-145); eGFR 22.03
[2024-03-13] MEDS: PROZAC 20 MG PO (09:34)
[2024-03-13] MEDS: COLACE 100 MG PO ×2 (09:34→21:55)
[2024-03-13] MEDS: KEPPRA 1000 MG PO ×2 (09:34→21:56)
[2024-03-13] MEDS: TRANXENE 3.75 MG PO ×2 (09:34→21:56)
[2024-03-13] MEDS: FEOSOL 325 MG PO ×2 (09:34→21:55)
[2024-03-13] MEDS: LAMICTAL 300 MG PO ×2 (09:38→21:56)
[2024-03-13] MEDS: HEPARIN 5000 UNITS SC ×2 (09:40→21:55)
--- NOTE | 2024-03-13 09:45 | PTOTSP ---
Speech Language Pathology
VIDEOFLUOROSCOPIC SWALLOWING EXAMINATION (VSE) completed. Mild oral and mod-severe pharyngeal dysphagia noted. Decreased oral containment noted with entire bolus noted in pharynx for up to 15 seconds prior to swallow initiation. When verbally cued
to swallow, pt yelled 'I did!' Agitated throughout study. Penetration/aspiration noted at times. Mildly thick liquids via cup resulted in silent aspiration (PAS 8) prior to swallow initiation. Moderately thick liquids via cup resulted in
supraglottic penetration (PAS 3). No penetration/aspiration noted with mildly thick liquids via tsp, moderately thick liquids via tsp, or puree.
Suspect swallow function inconsistent, and pt will remain at risk for aspiration with any P.O. diet.
Recommend:
(1) IDDSI Level 4 (puree) and mildly thick liquids via tsp
(2) Aspiration precautions: sit upright, slow rate, liquids via tsp only, full supervision
(3) Meds crushed in puree as able
(4) STRATEGIC PLANNING SPECIALIST to continue to follow
--- NOTE | 2024-03-13 10:59 | W.PN.NEPH.PH ---
Today's Communication / Plan
-
No new recommendations
Assessment/Plan
-
IMP:
estevan/ckd 4
ams
uti
chronic lehman
seizure
Plan:
follow BMP
abx course per primary team (doxycycline)
palliative care
he is not a candidate for dialysis in the future
hospice may be the best option
-
-
Date of Service: March 13, 2024
CC / HPI / ROS
-
Chief Complaint:
Acute kidney injury CKD 4
History of Present Illness:
Cr up to 3.1
BP stable
seizures over the weekend
Review of Systems:
Nonoliguric via Lehman
Chronic dysphagia
noncommunicative today
fevers noted over past 24hr
Labs
-
Labs:
WBC 13.5 10^3/uL (4.8-10.8) H 03/13/24 06:47
RBC 3.17 10^6/uL (4.70-6.10) L 03/13/24 06:47
Hgb 10.4 g/dL (13.0-18.0) L 03/13/24 06:47
Hct 30.9 % (39.0-52.0) L 03/13/24 06:47
Plt Count 490 10^3/uL (130-400) H 03/13/24 06:47
Sodium 143 mmol/L (135-145) 03/13/24 06:47
Potassium 3.5 mmol/L (3.5-5.1) 03/13/24 06:47
Chloride 103 mmol/L (98-107) 03/13/24 06:47
Carbon Dioxide 24 mmol/L (22-30) 03/13/24 06:47
BUN 49 mg/dl (9-20) H 03/13/24 06:47
Creatinine 3.1 mg/dL (0.7-1.3) H 03/13/24 06:47
eGFR 22.03 03/13/24 06:47
Glucose 92 mg/dl (70-99) 03/13/24 06:47
Calcium 9.3 mg/dl (8.4-10.2) 03/13/24 06:47
Phosphorus 4.1 mg/dl (2.5-4.5) 03/02/24 06:42
Albumin 4.4 g/dl (3.5-5.0) 02/28/24 10:58
Physical Exam
-
Vital Signs:
Vital Signs
Temp Pulse Resp BP Pulse Ox
97.6 F 62 16 115/78 100
03/13/24 07:00 03/13/24 07:00 03/13/24 07:00 03/13/24 07:00 03/13/24 07:00
Cardiovascular:: Regular rate and rhythm
Respiratory:: Bilateral: Coarse
Lung Excursion:: Normal
Abdomen:: Nontender and Soft
Bowel Sounds:: Normal
Extremity Edema:: None: Bilateral:
Lehman Catheter: Yes
[2024-03-13] MEDS: FLUSH (NSS) 1 FLUSH IV (11:10)
[2024-03-13 11:14] VITALS: BP 128/74; O2SAT 100
--- NOTE | 2024-03-13 12:29 | STATUS ---
SITUATION:
Dr. Silver and Dr. Barraza notified for change in patient condition: Patient was alert and verbal this am, but now unresponsive with eyes staring open, scant blinking. Visitor, who identified herself as daughter of the POA, was bedside recently and
verbalized that she noticed patient's eyes darting back and force while she was bedside. Seizure pads maintained on bed. No current myoclonic movements noted.
BACKGROUND:
ASSESSMENT:
RECOMMENDATION:
--- NOTE | 2024-03-13 13:39 | W.PN.PAL2 ---
Today's Communication
-
Palliative care follow up
Patient appeared post-ictal at time of my visit. RN aware. Chart reviewed. patient with new aspriation pneumonia. VSE earlier today.
Spoke with juliette Bender. She is considering hospice transition if he does not improve with pneumonia over next few days - reassess in 2-3 days. it is unclear if care home would be able to care for lashawn if he were on hospice.
Total floor time/conversation with poa 20 mins
Assessment / Plan
-
Assessment/Plan:
On treatment for pneumonia, ongoing episodes of seizures
POA considering (but not yet decided on ) hospice care if not improving.
Reason for Admission
Illness Course/HPI
63 y/o male with hx of cerebral palsy, dysphagia, seizure disorder, chronic lehman, who was hospitalized 02/28 with episode of nonresponsiveness, thought secondary to absence seizure. Hospital course complicated by BARBARA on CKDIV, hypernatremia,
hypokalemia, hypomagnesemia, and sepsis secondary to UTI.
Has been stabilizing clinically, on abx, pureed diet with moderate thickened likened. cr closer to baseline.� Seizures are felt to be medically refractory. Electrolyte abnormalities have been corrected.
Spoke to medical juliette bender on the phone. napoleon is a nurse practioner.
case reviewed with attending
Total time 40 mins
Functional Status
[facility].
He is wheelchair bound at baseline since hip fracture, but an transfer independently from chair to bed - recently due to recurrent illness has needed more help with this.
Recent weight loss despite great appetite noted, family reports cacner workups have been negative
Has chronic lehman catheter
Is on dysphagia diet
Goals of Care Discussion
-
Patient able to participate in discussion at time of visit: No
Objective Data
-
Objective Data:
Vital Signs
Temp Pulse Resp BP Pulse Ox
97.6 F 62 16 115/78 100
03/13/24 07:00 03/13/24 07:00 03/13/24 07:00 03/13/24 07:00 03/13/24 07:00
Laboratory Results
03/13/24 06:47
03/13/24 06:47
Hemoglobin A1c 5.7 % (4.0-5.6) H 02/28/24 10:58
Total Protein 7.7 g/dl (6.3-8.2) 02/28/24 10:58
Albumin 4.4 g/dl (3.5-5.0) 02/28/24 10:58
Free T4 0.91 ng/dl (0.78-2.19) 02/28/24 10:58
Urine Color Yellow 03/12/24 18:15
Urine Clarity Very cloudy (Clear) 03/12/24 18:15
Urine pH 6.0 (5.0-9.0) 03/12/24 18:15
Ur Specific Essie 1.015 (<1.030) 03/12/24 18:15
Urine Ketones Negative (Negative) 03/12/24 18:15
Urine Bilirubin Negative (Negative) 03/12/24 18:15
Palliative Performance Scale
Palliative Performance Scale:
PPS Level Ambulation Activity & Evidence of Disease Self Care Intake Conscious Level
100% Full Normal Activity & Work; Full Intake Full
No Evidence of Disease
90% Full Normal Activity & Work; Full Normal Full
Some Evidence of Disease
80% Full Normal Activity with Effort Full Normal or Full
Some Evidence of Disease Reduced
70% Reduced Unable Normal Job/Work Full Normal or Full
Significant Disease Reduced
60% Reduced Unable Hobby/Housework Occasional Normal or Full or Confusion
Significant Disease Assistance Reduced
50% Mainly Sit/Lie Unable to do Any Work Considerable Normal or Full or Confusion
Extensive Disease Assistance Req'd Reduced
40% Mainly in Bed Unable to do Most Activity Mainly Assistance Normal or Full or Drowsy;
Extensive Disease Reduced +/- Confusion
30% Totally Bed Unable to do Any Activity Total Care Normal or Full or Drowsy;
Bound Extensive Disease Reduced +/- Confusion
20% Totally Bed Bound Unable to do Any Activity Total Care Minimal to Full or Drowsy;
Extensive Disease Sips +/- Confusion
10% Totally Bed Bound Unable to do Any Activity Total Care Mouth Care Drowsy or Coma;
Extensive Disease Only +/- Confusion
0%
PPS Score Level:
[2024-03-13 15:00] VITALS: BP 127/79
--- NOTE | 2024-03-13 15:46 | W.PN.HOSP.TC ---
Today's Communication/Plan
-
see bold
Assessment / Plan
Assessment / Plan
63-year-old male with a past medical history of chronic Lehman, recurrent urinary tract infections, absence seizures, stage IV CKD, type 2 diabetes, cerebral palsy, and chronic dysphagia was sent from his custodial for nonresponsiveness/staring
spell for 20 seconds. Hospital course c/b fever 2/2 aspiration pneumonia and UTI s/p treatment with recurrence of fever overnight 03/11-03/12.
#Sepsis secondary to aspiration pneumonia and possible catheter associated urinary tract infection
#Chronic Lehman
#Chronic leukocytosis
#Colonization/bacteriuria
#Probable CAUTI 03/04
03/04, fever of 101 with leukocytosis, chest x-ray shows right upper lobe pneumonia
03/04, urine culture after changing Lehman growing out greater than 100,000 colonies of gram-negative rods
COVID/influenza negative
S/p 6 days IV Zosyn and 3 days Azithro which treated pneumonia
S/p IV Zosyn course as above + 2 more days oral Doxycycline to treat UTI
S/p lehman exchange
#Fever overnight 03/11-03/12
-patient had completed antibiotic course as above and now with fever up to 102 overnight
-repeat infectious work-up: flu/covid neg, CXR shows resolving PNA. UA dirty with culture pending. Continue IV Zosyn day 2
-POA Svitlana updated and we discussed patient's frailty. He may be hospice appropriate
-Repeat VSE 03/13 shows inconsistent swallow function, with silent aspiration. SPL rec pur�ed diet with mildly thick liquids via TSP only
-Updated power of change booth attendant/Svitlana 03/13, continue goals of care discussion
#Dysphagia
Was on pur�ed diet with moderately thick liquids [employer]
#Acute kidney injury superimposed on stage IV CKD
resolved
s/p IVF
-renew IVF in setting of sepsis
#Absence seizure
03/03, MRI showing chronic changes, negative for acute
Appreciate Neurology input, continue Clorazepate 3.75 mg twice daily, lamotrigine 300 mg twice daily, Carbamazepine 300 mg 3 times daily, Keppra�1000mg BID
Per neurology 'Patient has medically refractory epilepsy. AEDs do not and will not make him seizure free'
It is expected that he will have intermittent absence seizures, which will increase in frequency during infection
#Black stools reported in chart - Hg has been stable, RN not concerned for melena
#Hypernatremia
Resolved status post D5W
#Hypokalemia
Repleted and resolved
#Hypermagnesemia
Unclear etiology
#Unintentional weight loss
#BMI 18.5 normal
Encourage oral intake
#Cerebral palsy
From a custodial
#Anxiety/depression
Continue SSRI, Abilify
DVT prophylaxis�subcu heparin
DNR confirmed with Svitlana/BRANDY via his advanced directive 03/05
Updated Svitlana on phone 03/13
Total time spent to see the patient on the floor, examine the patient, review data and lab results, discuss treatment plan with patient, nursing staff around 50 minutes.
Physical Exam
General: Thin, no acute distress
HEENT: Normocephalic, Atraumatic, EOMI, MMM
Respiratory: Clear to Auscultation bilaterally
Cardiac: Normal S1/S2, Regular Rate and Rhythm
GI: Soft, Nontender, Nondistended, Normal Bowel Sounds
Extremities: No Clubbing, Cyanosis, or Edema
Neuro: More awake/alert, answering questions
Anticipated Discharge: > 48 hours
Subjective/Interval History
-
Date of Service: March 13, 2024
Patient was awake and answering questions this morning. Then nursing staff reports he was staring off into space, and was postictal afterwards. No fever, no vomiting.
Objective Data
-
Labs:
Laboratory Results
03/13/24
06:47
WBC 13.5 H
Hgb 10.4 L
Hct 30.9 L
Plt Count 490 H
Sodium 143
Potassium 3.5
Chloride 103
Carbon Dioxide 24
BUN 49 H
Creatinine 3.1 H
Glucose 92
Calcium 9.3
Vital Signs:
Vital Signs
Temp Pulse Resp BP Pulse Ox
97.6 F 62 16 115/78 100
03/13/24 07:00 03/13/24 07:00 03/13/24 07:00 03/13/24 07:00 03/13/24 07:00
I&O
03/12/24 03/13/24 03/14/24
06:59 06:59 06:59
Intake Total 600 / 600 710 / 710 50 / 50
Output Total 915 / 915 625 / 625
Balance -315 / -315 85 / 85 50 / 50
[2024-03-13] MEDS: 0.45% NACL with KCL 20 MEQ 1000 IV (17:31)
--- NOTE | 2024-03-13 17:46 | PTCARENOTE ---
Left arm IV infiltrate from this afternoon appears lessened and softened. Elevation to left upper extremity continued.
[2024-03-13] MEDS: FIBERCON 625 MG PO (21:57)
[2024-03-13] MEDS: ABILIFY 5 MG PO (21:57)
[2024-03-13] MEDS: VALIUM INJECTION 5 MG IV (23:33)
--- NOTE | 2024-03-13 23:44 | PTCARENOTE ---
Pt noted to have slight jerking movements, no responding verbally, R eye w/absence of movements, L eye w/twitch. DEVOPS covering house made aware, IVP administered. DEVOPS at bedside. Repositoned and safe environment maintained, seizure pads in
place.
[2024-03-13 23:55] VITALS: BP 97/78
[2024-03-14] MEDS: ZOSYN 50 IV ×4 (04:00→23:01)
[2024-03-14 07:00] VITALS: BP 134/68
--- NOTE | 2024-03-14 09:04 | W.PN.HOSP.TC ---
Today's Communication/Plan
-
see bold
Assessment / Plan
Assessment / Plan
63-year-old male with a past medical history of chronic Lehman, recurrent urinary tract infections, absence seizures, stage IV CKD, type 2 diabetes, cerebral palsy, and chronic dysphagia was [facility] from his [facility] for nonresponsiveness/staring
spell for 20 seconds. Hospital course c/b fever 2/2 aspiration pneumonia and UTI s/p treatment with recurrence of fever overnight 03/11-03/12.
#Sepsis secondary to aspiration pneumonia and possible catheter associated urinary tract infection
#Chronic Lehman
#Chronic leukocytosis
#Colonization/bacteriuria
#Probable CAUTI 03/04
03/04, fever of 101 with leukocytosis, chest x-ray shows right upper lobe pneumonia
03/04, urine culture after changing Lehman growing out greater than 100,000 colonies of gram-negative rods
COVID/influenza negative
S/p 6 days IV Zosyn and 3 days Azithro which treated pneumonia
S/p IV Zosyn course as above + 2 more days oral Doxycycline to treat UTI
S/p lehman exchange
#Fever overnight 03/11-03/12
-patient had completed antibiotic course as above and now with fever up to 102 overnight
-repeat infectious work-up: flu/covid neg, CXR shows resolving PNA. UA dirty with culture pending. Continue IV Zosyn day 3
-POA Svitlana updated and we discussed patient's frailty. He may be hospice appropriate
-Repeat VSE 03/13 shows inconsistent swallow function, with silent aspiration. SPL rec pur�ed diet with mildly thick liquids via TSP only
-Updated power of attorney lawyer/Svitlana 03/13, continue goals of care discussion
#Dysphagia
Was on pur�ed diet with moderately thick liquids CHANDELIER MAKER
#Acute kidney injury superimposed on stage IV CKD
resolved
s/p IVF
-renew IVF in setting of sepsis
#Absence seizure
03/03, MRI showing chronic changes, negative for acute
Appreciate Neurology input, continue Clorazepate 3.75 mg twice daily, lamotrigine 300 mg twice daily, Carbamazepine 300 mg 3 times daily, Keppra�1000mg BID
Per neurology 'Patient has medically refractory epilepsy. AEDs do not and will not make him seizure free'
It is expected that he will have intermittent absence seizures, which will increase in frequency during infection
#Black stools reported in chart - Hg has been stable, RN not concerned for melena
#Hypernatremia
Resolved status post D5W
#Hypokalemia
Repleted and resolved
#Hypermagnesemia
Unclear etiology
#Unintentional weight loss
#BMI 18.5 normal
Encourage oral intake
#Cerebral palsy
From a prison
PT/OT rec SNF
This patient will likely require less than 30 days for intermediate facility services, and the individual's symptoms, or behaviors are stable
#Anxiety/depression
Continue SSRI, Abilify
DVT prophylaxis�subcu heparin
DNR confirmed with Svitlana/POA via his advanced directive 03/05
Updated Svitlana on phone 03/13
Total time spent to see the patient on the floor, examine the patient, review data and lab results, discuss treatment plan with patient, nursing staff around 40 minutes.
Physical Exam
General: Thin, no acute distress
HEENT: Normocephalic, Atraumatic, EOMI, MMM
Respiratory: Clear to Auscultation bilaterally
Cardiac: Normal S1/S2, Regular Rate and Rhythm
GI: Soft, Nontender, Nondistended, Normal Bowel Sounds
Extremities: No Clubbing, Cyanosis, or Edema
Neuro: More awake/alert, answering questions
Anticipated Discharge: 24 - 48 hours
Subjective/Interval History
-
Date of Service: March 14, 2024
Patient continues to have intermittent absence seizures, last episode yesterday evening. No fever, no vomiting.
Objective Data
-
Labs:
Laboratory Results
03/14/24
06:00
WBC Pending
Hgb Pending
Hct Pending
Plt Count Pending
Sodium Pending
Potassium Pending
Chloride Pending
Carbon Dioxide Pending
BUN Pending
Creatinine Pending
Glucose Pending
Calcium Pending
Vital Signs:
Vital Signs
Temp Pulse Resp BP Pulse Ox
97.9 F 76 16 134/68 100
03/14/24 07:00 03/14/24 07:00 03/14/24 07:00 03/14/24 07:00 03/14/24 07:00
I&O
03/13/24 03/14/24 03/15/24
06:59 06:59 06:59
Intake Total 710 / 710 1730 / 1730
Output Total 625 / 625 1300 / 1300
Balance 85 / 85 430 / 430
[2024-03-14] MEDS: LAMICTAL 300 MG PO ×2 (10:10→19:48)
[2024-03-14] MEDS: PROZAC 20 MG PO (10:11)
[2024-03-14] MEDS: TEGRETOL CHEWABLE 300 MG PO ×2 (10:12→16:08)
[2024-03-14] MEDS: KEPPRA 1000 MG PO ×2 (10:12→19:48)
[2024-03-14] MEDS: FEOSOL 325 MG PO ×2 (10:13→19:48)
[2024-03-14] MEDS: COLACE 100 MG PO ×2 (10:13→19:48)
[2024-03-14] MEDS: HEPARIN 5000 UNITS SC ×2 (10:14→19:48)
[2024-03-14] MEDS: TRANXENE 3.75 MG PO ×2 (10:14→19:48)
--- NOTE | 2024-03-14 11:09 | W.PN.NEPH.PH ---
Today's Communication / Plan
-
Continue supportive care no change
Assessment/Plan
-
IMP:
estevan/ckd 4
ams
uti
chronic lehman
seizure
Plan:
follow BMP
abx course per primary team (doxycycline)
palliative care
he is not a candidate for dialysis in the future
Hospice noted
No changes made today
-
-
Date of Service: March 14, 2024
CC / HPI / ROS
-
Chief Complaint:
Acute kidney injury CKD 4
History of Present Illness:
Cr up to 3.1
BP stable
seizures over the weekend
Review of Systems:
Nonoliguric via Lehman
Chronic dysphagia
He is more awake today
Labs
-
Labs:
eGFR 22.03 03/13/24 06:47
Albumin 4.4 g/dl (3.5-5.0) 02/28/24 10:58
Physical Exam
-
Vital Signs:
Vital Signs
Temp Pulse Resp BP Pulse Ox
97.9 F 76 16 134/68 100
03/14/24 07:00 03/14/24 07:00 03/14/24 07:00 03/14/24 07:00 03/14/24 07:00
Cardiovascular:: Regular rate and rhythm
Respiratory:: Bilateral: Coarse
Lung Excursion:: Normal
Abdomen:: Nontender and Soft
Bowel Sounds:: Normal
Extremity Edema:: None: Bilateral:
Lehman Catheter: Yes
[2024-03-14 11:25] LABS: Hematocrit 31.4 % (39.0-52.0); Hemoglobin 10.9 g/dL (13.0-18.0); Mean Corp Hgb Conc. 34.7 g/dL (33.0-37.0); Mean Corpuscular Hgb 32.7 pg (27.0-31.0); Mean Corpuscular Volume 94.3 fL (80.0-94.0); Mean Platelet Volume 10.1 fL (7.4-10.4); Platelet Count 428 10^3/uL (130-400); Red Blood Cell Count 3.33 10^6/uL (4.70-6.10); Red Cell Dist. Width 13.5 % (11.5-14.5); White Blood Cell Count 10.1 10^3/uL (4.8-10.8)
[2024-03-14 15:00] VITALS: BP 135/85
[2024-03-14] MEDS: 0.45% NACL with KCL 20 MEQ 1000 IV (16:08)
[2024-03-14 16:34] LABS: Blood Urea Nitrogen 46 mg/dl (9-20); Calcium 9.6 mg/dl (8.4-10.2); Carbon Dioxide 24 mmol/L (22-30); Chloride 108 mmol/L (98-107); Estimated Creatinine Clearance 18 ml/min; Glucose 102 mg/dl (70-99); Magnesium 2.6 mg/dl (1.6-2.3); Phosphorus 3.8 mg/dl (2.5-4.5); Potassium 3.7 mmol/L (3.5-5.1); Sodium 145 mmol/L (135-145); eGFR 22.91
[2024-03-14] MEDS: VALIUM INJECTION 5 MG IV (21:39)
[2024-03-14 21:55] LABS: Glucose - Point of Care 120 mg/dl (70-99)
--- NOTE | 2024-03-14 21:55 | PTCARENOTE ---
Pt noted to have slight jerky movements. Pt not verbally responding as was previous during med pass. Pt not able to track with eyes- staring straight. BP 155/87 HR 95 BS 120. [facility]OR [facility] made aware, PRN given- see MAR. [facility]OR [facility] at bedside, no further orders.
--- NOTE | 2024-03-14 21:55 | PTCARENOTE ---
Pt noted to have slight jerky movements. Pt not verbally responding as was previous during med pass. Pt not able to track with eyes- staring straight. BP 155/87 HR 95 Temp 97.3 BS 120. PSYCHOLOGY CLINICIAN made aware, PRN given- see MAR. PSYCHOLOGY CLINICIAN at bedside, no further
orders.
--- NOTE | 2024-03-14 22:12 | W.PN.UPDATE ---
Update Note
Progress Note Update
Seizure
[2024-03-14] MEDS: ABILIFY PO (23:13)
[2024-03-14] MEDS: FIBERCON PO (23:13)
[2024-03-14] MEDS: PEPCID PO (23:14)
[2024-03-14] MEDS: TEGRETOL CHEWABLE PO (23:14)
[2024-03-14 23:15] VITALS: BP 155/87
[2024-03-15] MEDS: ZOSYN 50 IV ×2 (05:13→10:45)
[2024-03-15 06:03] LABS: Hematocrit 29.8 % (39.0-52.0); Mean Corp Hgb Conc. 33.6 g/dL (33.0-37.0); Mean Corpuscular Hgb 32.6 pg (27.0-31.0); Mean Corpuscular Volume 97.1 fL (80.0-94.0); Platelet Count 422 10^3/uL (130-400); Red Blood Cell Count 3.07 10^6/uL (4.70-6.10); Red Cell Dist. Width 13.7 % (11.5-14.5); White Blood Cell Count 8.4 10^3/uL (4.8-10.8)
[2024-03-15 06:29] LABS: Blood Urea Nitrogen 40 mg/dl (9-20); Calcium 9.5 mg/dl (8.4-10.2); Carbon Dioxide 22 mmol/L (22-30); Chloride 110 mmol/L (98-107); Estimated Creatinine Clearance 20 ml/min; Glucose 103 mg/dl (70-99); Magnesium 2.6 mg/dl (1.6-2.3); Potassium 3.5 mmol/L (3.5-5.1); Sodium 145 mmol/L (135-145); eGFR 24.89
[2024-03-15 07:40] VITALS: BP 124/62
--- NOTE | 2024-03-15 08:07 | W.PN.HOSP.TC ---
Today's Communication/Plan
-
see bold
Assessment / Plan
Assessment / Plan
63-year-old male with a past medical history of chronic Lehman, recurrent urinary tract infections, absence seizures, stage IV CKD, type 2 diabetes, cerebral palsy, and chronic dysphagia was sent from his [facility] for nonresponsiveness/staring
spell for 20 seconds. Hospital course c/b fever 2/2 aspiration pneumonia and UTI s/p treatment with recurrence of fever overnight 03/11-03/12.
#Sepsis secondary to aspiration pneumonia and possible catheter associated urinary tract infection
#Chronic Lehman
#Chronic leukocytosis
#Colonization/bacteriuria
#Probable CAUTI 03/04
03/04, fever of 101 with leukocytosis, chest x-ray shows right upper lobe pneumonia
03/04, urine culture after changing Lehman growing out greater than 100,000 colonies of gram-negative rods
COVID/influenza negative
S/p 6 days IV Zosyn and 3 days Azithro which treated pneumonia
S/p IV Zosyn course as above + 2 more days oral Doxycycline to treat UTI
S/p lehman exchange
#Fever overnight 03/11-03/12
-patient had completed antibiotic course as above and now with fever up to 102 overnight
-repeat infectious work-up: flu/covid neg, CXR shows resolving PNA.
-03/12 UA dirty with culture growing Citrobacter despite a full course of IV Zosyn and doxycycline�the same bacteria that was grown on 03/04
-Continue IV Zosyn day 4. Consult ID
-BRANDY Shane updated and we discussed patient's frailty. He may be hospice appropriate
-Repeat VSE 03/13 shows inconsistent swallow function, with silent aspiration. SPL rec pur�ed diet with mildly thick liquids via TSP only
-Updated power of environmental attorney/Svitlana 03/13, continue goals of care discussion
#Dysphagia
Was on pur�ed diet with moderately thick liquids MANAGER EDUCATIONAL
#Acute kidney injury superimposed on stage IV CKD
resolved
s/p IVF
-renew IVF in setting of sepsis
#Absence seizure
03/03, MRI showing chronic changes, negative for acute
Appreciate Neurology input, continue Clorazepate 3.75 mg twice daily, lamotrigine 300 mg twice daily, Carbamazepine 300 mg 3 times daily, Keppra�1000mg BID
Per neurology 'Patient has medically refractory epilepsy. AEDs do not and will not make him seizure free'
It is expected that he will have intermittent absence seizures, which will increase in frequency during infection
Check Keppra and Tegretol levels
#Black stools reported in chart - Hg has been stable, RN not concerned for melena
#Hypernatremia
Resolved status post D5W
#Hypokalemia
Repleted and resolved
#Hypermagnesemia
Unclear etiology
#Unintentional weight loss
#BMI 18.5 normal
Encourage oral intake
#Cerebral palsy
From a [facility]
PT/OT rec SNF
This patient will likely require less than 30 days for group home facility services, and the individual's symptoms, or behaviors are stable
#Anxiety/depression
Continue SSRI, Abilify
DVT prophylaxis�subcu heparin
DNR confirmed with Svitlana/POA via his advanced directive 03/05
Updated Svitlana on phone 03/15
Total time spent to see the patient on the floor, examine the patient, review data and lab results, discuss treatment plan with patient, nursing staff around 50 minutes.
Physical Exam
General: Thin, no acute distress
HEENT: Normocephalic, Atraumatic, EOMI, MMM
Respiratory: Clear to Auscultation bilaterally
Cardiac: Normal S1/S2, Regular Rate and Rhythm
GI: Soft, Nontender, Nondistended, Normal Bowel Sounds
Extremities: No Clubbing, Cyanosis, or Edema
Neuro: More awake/alert, answering questions
Anticipated Discharge: > 48 hours
Subjective/Interval History
-
Date of Service: March 15, 2024
Patient was awake and answering questions this morning. Then a few hours later, nursing staff reports his eyes are closed and he is not responding. He continues to have intermittent absence seizures with periods of postictal confusion. No fever,
no vomiting.
Objective Data
-
Labs:
Laboratory Results
03/15/24
05:34
WBC 8.4
Hgb 10.0 L
Hct 29.8 L
Plt Count 422 H
Sodium 145
Potassium 3.5
Chloride 110 H
Carbon Dioxide 22
BUN 40 H
Creatinine 2.8 H
Glucose 103 H
Calcium 9.5
Vital Signs:
Vital Signs
Temp Pulse Resp BP Pulse Ox
97.4 F 90 18 155/87 98
03/14/24 23:15 03/14/24 23:15 03/14/24 23:15 03/14/24 23:15 03/14/24 23:15
I&O
03/14/24 03/15/24 03/16/24
06:59 06:59 06:59
Intake Total 1730 / 1730 600 / 600
Output Total 1300 / 1300 1650 / 1650
Balance 430 / 430 -1050 / -1050
[2024-03-15] MEDS: KEPPRA 1000 MG PO ×2 (09:11→19:26)
[2024-03-15] MEDS: COLACE 100 MG PO ×2 (09:15→19:26)
[2024-03-15] MEDS: LAMICTAL 300 MG PO ×2 (09:15→19:26)
[2024-03-15] MEDS: TEGRETOL CHEWABLE 300 MG PO ×3 (09:15→21:42)
[2024-03-15] MEDS: HEPARIN 5000 UNITS SC ×2 (09:16→19:26)
[2024-03-15] MEDS: FEOSOL 325 MG PO ×2 (09:16→19:26)
[2024-03-15] MEDS: PROZAC 20 MG PO (09:16)
[2024-03-15] MEDS: TRANXENE 3.75 MG PO ×2 (09:16→19:26)
--- NOTE | 2024-03-15 12:36 | W.PN.NEPH.PH ---
Today's Communication / Plan
-
Continue supportive care no change
Assessment/Plan
-
IMP:
estevan/ckd 4
ams
uti
chronic lehman
seizure
Plan:
follow BMP
abx course per primary team (doxycycline)
palliative care
he is not a candidate for dialysis in the future
Hospice noted
No changes made today
-
-
Date of Service: March 15, 2024
CC / HPI / ROS
-
Chief Complaint:
Acute kidney injury CKD 4
History of Present Illness:
Cr remains at baseline
BP stable
Review of Systems:
Nonoliguric via Lehman
Chronic dysphagia
He is more awake today
Labs
-
Labs:
WBC 8.4 10^3/uL (4.8-10.8) 03/15/24 05:34
RBC 3.07 10^6/uL (4.70-6.10) L 03/15/24 05:34
Hgb 10.0 g/dL (13.0-18.0) L 03/15/24 05:34
Hct 29.8 % (39.0-52.0) L 03/15/24 05:34
Plt Count 422 10^3/uL (130-400) H 03/15/24 05:34
Sodium 145 mmol/L (135-145) 03/15/24 05:34
Potassium 3.5 mmol/L (3.5-5.1) 03/15/24 05:34
Chloride 110 mmol/L (98-107) H 03/15/24 05:34
Carbon Dioxide 22 mmol/L (22-30) 03/15/24 05:34
BUN 40 mg/dl (9-20) H 03/15/24 05:34
Creatinine 2.8 mg/dL (0.7-1.3) H 03/15/24 05:34
eGFR 24.89 03/15/24 05:34
Glucose 103 mg/dl (70-99) H 03/15/24 05:34
Calcium 9.5 mg/dl (8.4-10.2) 03/15/24 05:34
Phosphorus 4.0 mg/dl (2.5-4.5) 03/15/24 05:34
Albumin 4.4 g/dl (3.5-5.0) 02/28/24 10:58
Physical Exam
-
Vital Signs:
Vital Signs
Temp Pulse Resp BP Pulse Ox
97.3 F 85 18 124/62 97
03/15/24 07:40 03/15/24 07:40 03/15/24 07:40 03/15/24 07:40 03/15/24 07:40
Cardiovascular:: Regular rate and rhythm
Respiratory:: Bilateral: Coarse
Lung Excursion:: Normal
Abdomen:: Nontender and Soft
Bowel Sounds:: Normal
Extremity Edema:: None: Bilateral:
Lehman Catheter: Yes
--- NOTE | 2024-03-15 13:53 | CON.ID ---
Consultation
-
Date/Time Consultation Requested: March 15, 2024 1345
Date/Time Consultation Performed: March 15, 2024 1400
Requesting Provider: Dr. Rowan Barraza
Performing Provider: Dr. Rani Chow
Reason for Consultation: Fever
Chief Complaint / Past History
Chief Complaint
Change in mental status
History of Present Illness
History obtained from review of medical records since patient is a very poor historian with cerebral palsy and history of CVA, unable to pull to provide a full meaningful history. He is a 63 year old male from [facility], with history cerebral
palsy, CVA, urinary retention chronic Lehman catheter, dysphagia, seizure disorder who presented to the emergency room on 02/28/2024 due to absents seizure. On March 04, patient spiked temperature 101, white count increased from 12.4-19.7. The
Lehman was exchanged and urine sent for culture. Chest x-ray showed new right upper lobe pneumonia. He was started on Zosyn and azithromycin for aspiration pneumonia. Swallow study did show aspiration of thin liquids. March 04 urine culture
grew Citrobacter werkmanii similar to previous and sensitive to Zosyn. Patient had 5 days of azithromycin and 6 days of Zosyn then transition to doxycycline. Evening of March 11 he spiked another temperature 102.9 followed by seizure.
Doxycycline changed back to Zosyn on March 12. Again the Lehman was exchanged, urine culture remain positive for Citrobacter werkmanii. Repeat chest x-ray shows improvement of the right lung infiltrate. Video swallow study showed aspiration of
nectar consistency.
Past History
Additional Past Medical History:
Cerebral palsy
CVA with right hemiparesis residual
GERD
Seizure disorder
Anxiety/depression
Urinary retention with chronic Lehman catheter
CKD
Dysphagia
Additional Past Surgical History:
Foot surgery
Right hip surgery
TURP (04/29/2022)
Allergy History:
cefepime Allergy (Verified 02/28/24 21:00)
delirium per pt's POA 'Svitlana'
house dust Allergy (Verified 12/24/23 12:03)
nasal congestion
lorazepam [From Ativan] Allergy (Verified 02/28/24 21:00)
SEE BELOW
mold Allergy (Verified 12/24/23 12:03)
nasal congestion
ragweed pollen Allergy (Verified 12/24/23 12:03)
nasal congestion
Medications Reviewed: Yes
Current Antibiotics:
Zosyn (03/04 - 03/09), (03/12 to present0
s/p azithromycin
Social History
Tobacco: Non-Smoker
Alcohol: None
Drug: None
Personal: Single
Living: Other (snf)
Employment: Disabled
Family History
Family History: Not Pertinent
Review of Systems
Review of Systems
Unable to obtain due to history of CVA and cerebral palsy with cognitive impairment.
Vital Signs
Temp Pulse Resp BP Pulse Ox
97.3 F 85 18 124/62 97
03/15/24 07:40 03/15/24 07:40 03/15/24 07:40 03/15/24 07:40 03/15/24 07:40
Physical Exam
Physical Exam
Constitutional: Chronically Ill and Cachetic
Eyes: No Conjunctival Hemorrhage and Sclera Anicteric
Cardiovascular: Regular Rate and S1/S2
Pulmonary: Clear
Gastrointestinal: Soft, Non Tender, Non Distended and Normal Bowel Sounds
Genito-Urinary: Lemhan and Clear Urine; Negative CVA Tenderness
Extremities: Negative Edema
Neurological: Awake
Lab / Diagnostic Study Results
03/15/24 05:34
03/15/24 05:34
Abs Immat Gran (auto) 0.1 10^3/uL (0-0.05) H 03/13/24 06:47
Absolute Neuts (auto) 10.1 10^3/uL (1.4-6.5) H 03/13/24 06:47
Absolute Lymphs (auto) 2.0 10^3/uL (1.2-3.4) 03/13/24 06:47
Absolute Monos (auto) 1.1 10^3/uL (0.1-0.6) H 03/13/24 06:47
Absolute Basos (auto) 0.1 10^3/uL (0-0.2) 03/13/24 06:47
Immature Gran % 0.5 % (0-0.5) 03/13/24 06:47
Neutrophils % 74.7 % (42.2-75.2) 03/13/24 06:47
Lymphocytes % 15.1 % (20.5-51.1) L 03/13/24 06:47
Monocytes % 8.0 % (1.7-9.3) 03/13/24 06:47
Eosinophils % 1.0 % (0-6) 03/13/24 06:47
Basophils % 0.7 % (0-2) 03/13/24 06:47
Lactic Acid 1.0 mmol/L (0.7-2.0) 03/12/24 11:52
Ur Squamous Epith Cells 0-2 /LPF (Few) 03/12/24 18:15
Microbiology Results
Micro:
03/12/24 12:32 Blood Culture - Preliminary
Blood/Venous No Growth in 72 hours- Final report to follow
03/12/24 11:52 Blood Culture - Preliminary
Blood/Venous No Growth in 72 hours- Final report to follow
03/12/24 18:15 Urine Culture - Final
Urine Citrobacter species
03/12/24 14:09 Influenza Types A & B (BERTHA) - Final
Nasal Swab Negative for Influenza A & B, NAAT
Negative results must be combined with clinical observations
and patient history.
Nucleic Acid Amplification test (NAAT)performed on the
[employer] platform.
03/04/24 12:54 Blood Culture - Final
Blood/Venous No Growth - Final Report
03/04/24 11:52 Blood Culture - Final
Blood/Venous No Growth - Final Report
03/04/24 14:16 Urine Culture - Final
Urine Citrobacter species
03/05/24 08:17 Legionella Urinary Antigen - Final
Urine Negative for Legionella pneumophila Serogroup 1 antigen.
A negative result does not rule out the possiblity of
Legionella infection due to other serogroups or species of
Legionella. Clinical correlation is recommended.
Streptococcus pneumoniae Antigen (M - Final
Negative for Streptococcus pneumoniae antigen.
A negative result does not exclude infection with
Streptococcus pneumoniae. Clinical correlation is
recommended.
03/05/24 08:59 Nasal Screen MRSA (PCR) - Final
Nose MRSA not detected - performed by PCR methodology.
03/04/24 12:19 Influenza Types A & B (BERTHA) - Final
Nasal Swab Negative for Influenza A & B, NAAT
Negative results must be combined with clinical observations
and patient history.
Nucleic Acid Amplification test (NAAT)performed on the
[employer] platform.
02/28/24 12:09 Urine Culture - Final
Urine Citrobacter species
Pseudo fluorescens/putida
02/28/24 19:34 Urine Culture - Final
Urine Citrobacter species
02/28/24 23:43 MRSA Screen - Final
Nose No Methicillin Resistant Staphylococcus aureus isolated.
03/04/24 CXR: Findings suggesting new mild developing right upper lobe pneumonia.
03/12/24 CXR: Decreased size of the opacity within the right upper lung, which may represent resolving pneumonia.
Assessment / Plan
# Intermittent fevers due to recurrent aspiration
- Recent aspiration RUL PNA treated
- Repeat CXR improving RUL infiltrate suggestive of recurrent aspiration pneumonitis without new pneumonia
- DC Zosyn (day 12 abx)
- Fever and leukocytosis resolved
- Aspiration precaution
# Bacteruria
# Chronic lehman
- Urine colonized with Citrobacter werkmanii, therefore remains positive despite lehman change x 2 or 3 and 12d of Zosyn
- No need to treat the bacteria in the urine
# Conditions prior to admission
Cerebral palsy
CVA with right hemiparesis residual
GERD
Seizure disorder
Anxiety/depression
Urinary retention with chronic Lehman catheter
CKD
Dysphagia
--- NOTE | 2024-03-15 14:00 | CM ---
FAITH spoke with BRANDY Shane on phone who requests more information on hospice. She is interested in learning more about comfort care VS GIP vs hospice in a facility. 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 Offered choice of hospice agency and preference is
for [facility] at this time. Referral sent via [facility] to [facility].
Ideally, Svitlana would like to arrange a scheduled meeting time to talk. She is available tomorrow 03/16/24 at 2pm if possible. This was relayed in the referral to [facility].
Svitlana # [phone]
--- NOTE | 2024-03-15 14:51 | HOSPNOTE ---
Hospice referral received. Called and spoke to BRANDY Shane. We discussed hospice. She is going to discuss with facility that patient lives at. Svitlana will stay in touch with hospice and we will devise a plan if all are in agreement for patient to return
to his home with hospice services. More information to follow. Svitlana also reviewed as of this am they have asked neurology and infectious disease to reweigh in and have some pending lab work as well. HOME SERVICE ADVISOR updated.
[2024-03-15] MEDS: 0.45% NACL with KCL 20 MEQ 1000 IV (15:07)
[2024-03-15] MEDS: 0.45% NACL with KCL 20 MEQ IV (15:08)
[2024-03-15 15:21] VITALS: BP 106/66
[2024-03-15] MEDS: FIBERCON 625 MG PO (21:42)
[2024-03-15] MEDS: ABILIFY 5 MG PO (21:42)
[2024-03-15 23:06] VITALS: BP 106/70
[2024-03-16] MEDS: 0.45% NACL with KCL 20 MEQ 1000 IV ×2 (05:27→22:13)
[2024-03-16 07:28] VITALS: BP 123/76
--- NOTE | 2024-03-16 08:32 | W.PN.HOSP.TC ---
Today's Communication/Plan
-
see bold
Assessment / Plan
Assessment / Plan
63-year-old male with a past medical history of chronic Lehman, recurrent urinary tract infections, absence seizures, stage IV CKD, type 2 diabetes, cerebral palsy, and chronic dysphagia was sent from his residential for nonresponsiveness/staring
spell for 20 seconds. Hospital course c/b fever 2/2 aspiration pneumonia and UTI s/p treatment with recurrence of fever overnight 03/11-03/12.
#Sepsis secondary to aspiration pneumonia and possible catheter associated urinary tract infection
#Chronic Lehman
#Chronic leukocytosis
#Colonization/bacteriuria
#Probable CAUTI 03/04
03/04, fever of 101 with leukocytosis, chest x-ray shows right upper lobe pneumonia
03/04, urine culture after changing Lehman growing out greater than 100,000 colonies of gram-negative rods
COVID/influenza negative
S/p 6 days IV Zosyn and 3 days Azithro which treated pneumonia
S/p IV Zosyn course as above + 2 more days oral Doxycycline to treat UTI
S/p lehman exchange
#Fever overnight 03/11-03/12
-Patient had completed antibiotic course as above and now with fever up to 102 overnight
-Repeat infectious work-up: flu/covid neg, CXR shows resolving PNA.
-03/12 UA dirty with culture growing Citrobacter despite a full course of IV Zosyn and doxycycline�the same bacteria that was grown on 03/04
-Appreciate ID input, his urine is colonized with Citrobacter, no antibiotics needed
-ID states patient has aspiration pneumonitis, and no longer needs antibiotics. IV Zosyn discontinued 03/15
-BRANDY Shane updated and we discussed patient's frailty. He may be hospice appropriate
-Repeat VSE 03/13 shows inconsistent swallow function, with silent aspiration. SPL rec pur�ed diet with mildly thick liquids via TSP only
-Updated power of patent prosecution attorney/Svitlana 03/15, continue goals of care discussion
#Dysphagia
#Mild Protein Calorie Malnutrition
Was on pur�ed diet with moderately thick liquids CLIENT EXPERIENCE MANAGER
SPL rec pur�ed diet with mildly thick liquids via TSP only
Encourage oral intake
#Acute kidney injury superimposed on stage IV CKD
Continue IV fluid secondary to poor oral intake
#Absence seizure
03/03, MRI showing chronic changes, negative for acute
Appreciate Neurology input, continue Clorazepate 3.75 mg twice daily, lamotrigine 300 mg twice daily, Carbamazepine 300 mg 3 times daily, Keppra�1000mg BID
Per neurology 'Patient has medically refractory epilepsy. AEDs do not and will not make him seizure free'
It is expected that he will have intermittent absence seizures, which will increase in frequency during infection
Tegretol levels are therapeutic, 03/16 Keppra levels are pending
#Black stools reported in chart - Hg has been stable, RN not concerned for melena
#Hypernatremia
Resolved status post D5W
#Hypokalemia
Repleted and resolved
#Hypermagnesemia
Unclear etiology
#Unintentional weight loss
#BMI 18.5 normal
Encourage oral intake
#Cerebral palsy
From a residential
PT/OT rec SNF
This patient will likely require less than 30 days for fpc facility services, and the individual's symptoms, or behaviors are stable
#Anxiety/depression
Continue SSRI, Abilify
DVT prophylaxis�subcu heparin
DNR confirmed with Svitlana/POA via his advanced directive 03/05
Updated Svitlana on phone 03/15
Called Svitlana on phone 03/16, she did not forklift picker
Total time spent to see the patient on the floor, examine the patient, review data and lab results, discuss treatment plan with patient, nursing staff around 51 minutes.
Physical Exam
General: Thin, no acute distress
HEENT: Normocephalic, Atraumatic, EOMI, MMM
Respiratory: Clear to Auscultation bilaterally
Cardiac: Normal S1/S2, Regular Rate and Rhythm
GI: Soft, Nontender, Nondistended, Normal Bowel Sounds
Extremities: No Clubbing, Cyanosis, or Edema
Neuro: More awake/alert, answering questions
Anticipated Discharge: 24 - 48 hours
Subjective/Interval History
-
Date of Service: March 16, 2024
Patient is lethargic today. No fever, no vomiting.
Objective Data
-
Labs:
Laboratory Results
03/16/24
06:47
WBC Pending
Hgb Pending
Hct Pending
Plt Count Pending
Sodium Pending
Potassium Pending
Chloride Pending
Carbon Dioxide Pending
BUN Pending
Creatinine Pending
Glucose Pending
Calcium Pending
Vital Signs:
Vital Signs
Temp Pulse Resp BP Pulse Ox
98.1 F 75 20 123/76 98
03/16/24 07:28 03/16/24 07:28 03/16/24 07:28 03/16/24 07:28 03/16/24 07:28
I&O
03/15/24 03/16/24 03/17/24
06:59 06:59 06:59
Intake Total 600 / 600 440 / 440
Output Total 1650 / 1650 1300 / 1300
Balance -1050 / -1050 -860 / -860
[2024-03-16] MEDS: COLACE PO (09:18)
[2024-03-16] MEDS: HEPARIN 5000 UNITS SC ×2 (09:24→20:11)
[2024-03-16] MEDS: TRANXENE 3.75 MG PO ×2 (09:25→20:11)
[2024-03-16] MEDS: LAMICTAL 300 MG PO ×2 (09:25→20:11)
[2024-03-16] MEDS: FEOSOL 325 MG PO ×2 (09:25→20:11)
[2024-03-16] MEDS: TEGRETOL CHEWABLE 300 MG PO ×3 (09:25→22:13)
[2024-03-16] MEDS: PROZAC 20 MG PO (09:25)
[2024-03-16] MEDS: KEPPRA 1000 MG PO ×2 (09:25→20:11)
[2024-03-16 09:38] LABS: Hematocrit 30.6 % (39.0-52.0); Hemoglobin 10.1 g/dL (13.0-18.0); Mean Corpuscular Hgb 32.5 pg (27.0-31.0); Mean Corpuscular Volume 98.4 fL (80.0-94.0); Mean Platelet Volume 10.1 fL (7.4-10.4); Platelet Count 416 10^3/uL (130-400); Red Blood Cell Count 3.11 10^6/uL (4.70-6.10); Red Cell Dist. Width 14.2 % (11.5-14.5); White Blood Cell Count 15.5 10^3/uL (4.8-10.8)
[2024-03-16 09:57] LABS: Blood Urea Nitrogen 37 mg/dl (9-20); Calcium 9.5 mg/dl (8.4-10.2); Carbon Dioxide 21 mmol/L (22-30); Chloride 111 mmol/L (98-107); Estimated Creatinine Clearance 18 ml/min; Glucose 101 mg/dl (70-99); Magnesium 2.5 mg/dl (1.6-2.3); Phosphorus 3.9 mg/dl (2.5-4.5); Potassium 3.7 mmol/L (3.5-5.1); Sodium 144 mmol/L (135-145); eGFR 22.91
[2024-03-16 10:55] LABS: Tegretol (Carbamazepine) 5.5 ug/ml (4-12)
--- NOTE | 2024-03-16 11:34 | PN.CDI ---
CDI
- -
CDI:
Physician Documentation Request
Admit Date: 02/28/24 15:26
Dear Doctor Do,
Please review the following and provide your response in the progress notes.
Clinical Indicators:
Pt admitted with BARBARA on CKD4 now with sepsis 2/2 Aspiration PNA
Documented in the record weight loss/cachexia / BMI 18.5
Nutrition note 03/14, ' Diagnosis -problem unintended weight loss...Additional Diagnosis 03-14: Malnutrition related to decreased ability to consume sufficient energy as evidenced by <50% average of meals consumed for greater than or equal to 3
days and NFPE....Review of records shows wt of 120 lbs from 12-29-23; current wt 111 lbs on 02-28-24, reflecting a loss of 9 lbs (7.5% wt change, 2 months)-will monitor. During previous RD visit pt caregivers homecare was feeding pt; would encourage meals,
snacks daily as tolerated on currently ordered IDDSI-4 pureed, mildly-thick (nectar) liquids as per speech evaluation with 1:1 assist to feed (VSE completed 03-13). RD to add chocolate fortified pudding at breakfast, lunch, dinner via AYR menu
system to boost calorie, protein intake. Estimated needs: 1512 calories (30 kcal/kg/111 lbs/wt gain), 50 gms protein (1 gm/kg/111 lbs); 1512 ml fluid (1 ml/kcal). During visit 03-07, pt sleeping and covered with blankets; tray in room observed with
a few bites consumed. Today (03-14) with staff assistance RD able to observe pt to have appearance of mild orbital and depression at zoroastrian; moderate fat/muscle loss at clavicle, quads, calves. Pt caregivers homecare reporting decreased intakes despite staff
encouragement and assistance (<50% for > 3 days per records). Pt currently meeting criteria for mild protein/calorie malnutrition as per <50% intakes for >3 days and observations per NFPE (ASPEN/AND guidelines, acute illness).....'
Based on the above information and your assessment, which of the following most accurately represents the patient's nutritional status?
Mild Protein Calorie Malnutrition
Other (please specify)
Emerson Criteria ([facility] Hospitalist 2017)
2 or more criteria must be present for either
non severe or severe malnutrition
Note that the criteria differs related to the
presence of an acute or chronic illness
Acute Illness Chronic Illness
Energy Intake Non Severe: <75% for >7 days Non Severe: <75% for >1 month
Severe: <50% for >5 days Severe: <75% for >1 month
Weight Loss Non Severe: 1-2% over 1 week Non Severe: 5% over 1 month
5% over 1 month 7.5% over 3 months
7.5% over 3 months 10% over 6 months
1 year N/A 20% over 1 year
Severe: >2% over 1 week Severe: >5% over 1 month
>5% over 1 month >7.5% over 3 months
>7.5% over 3 months >10% over 6 months
1 year N/A >20% over 1 year
Body Fat Non Severe: Mild Decrease Non Severe: Mild Loss
Severe: Moderate Decrease Severe: Severe Loss
Muscle Mass Non Severe: Mild Decrease Non Severe: Mild Loss
Severe: Moderate Decrease Severe: Severe Loss
Fluid Accumulation Non Severe: Mild Accumulation Non Severe: Mild Accumulation
Severe: Moderate to severe Severe: Moderate to severe
accumulation accumulation
Reduced Featheredger And Reducer Machine Strength Non Severe: N/A Non Severe: N/A
Severe: Measurably reduced Severe: Measurably reduced
Use of terms such as suspected, likely, concern for, or probable (associated with a specific diagnosis that is being evaluated, monitored, or treated as if it exists) are acceptable and can be coded in the inpatient setting, when documented at the
time of discharge.
Thank you,
Tricia Pardo RN
CDI Specialist
[place] [facility]
Please use your independent medical judgment in providing your response.
--- NOTE | 2024-03-16 11:39 | W.PN.NEPH.PH ---
Today's Communication / Plan
-
follow BMP
Assessment/Plan
-
IMP:
estevan/ckd 4
ams
uti
chronic lehman
seizure
Plan:
follow BMP
abx course completed
await hospice planning
-
-
Date of Service: March 16, 2024
CC / HPI / ROS
-
Chief Complaint:
Acute kidney injury CKD 4
History of Present Illness:
Cr remains at baseline 3.0
BP stable
no recent seizures
Review of Systems:
Nonoliguric via Lehman
Chronic dysphagia
He is more awake today
Labs
-
Labs:
WBC 15.5 10^3/uL (4.8-10.8) H 03/16/24 06:47
RBC 3.11 10^6/uL (4.70-6.10) L 03/16/24 06:47
Hgb 10.1 g/dL (13.0-18.0) L 03/16/24 06:47
Hct 30.6 % (39.0-52.0) L 03/16/24 06:47
Plt Count 416 10^3/uL (130-400) H 03/16/24 06:47
Sodium 144 mmol/L (135-145) 03/16/24 06:47
Potassium 3.7 mmol/L (3.5-5.1) 03/16/24 06:47
Chloride 111 mmol/L (98-107) H 03/16/24 06:47
Carbon Dioxide 21 mmol/L (22-30) L 03/16/24 06:47
BUN 37 mg/dl (9-20) H 03/16/24 06:47
Creatinine 3.0 mg/dL (0.7-1.3) H 03/16/24 06:47
eGFR 22.91 03/16/24 06:47
Glucose 101 mg/dl (70-99) H 03/16/24 06:47
Calcium 9.5 mg/dl (8.4-10.2) 03/16/24 06:47
Phosphorus 3.9 mg/dl (2.5-4.5) 03/16/24 06:47
Albumin 4.4 g/dl (3.5-5.0) 02/28/24 10:58
Physical Exam
-
Vital Signs:
Vital Signs
Temp Pulse Resp BP Pulse Ox
98.1 F 75 20 123/76 98
03/16/24 07:28 03/16/24 07:28 03/16/24 07:28 03/16/24 07:28 03/16/24 07:28
Cardiovascular:: Regular rate and rhythm
Respiratory:: Bilateral: Coarse
Lung Excursion:: Normal
Abdomen:: Nontender and Soft
Bowel Sounds:: Normal
Extremity Edema:: None: Bilateral:
--- NOTE | 2024-03-16 11:56 | W.PN.PAL2 ---
Today's Communication
-
Palliative Care follow up
Josh sleeping deeply at time of my visit, unclear if related to seizure event or not. case reviewed with RN. Josh continues to have intermittent epsidoes of absense seizures that are short lived, but followed by post-ictal period. He is able to take
medications crushed, but in last few days meal completion has decreased to 5-10%. Prior to this josh was a good eater, but had been loosing weight prior to hospitalization despite good appetite. Chart reviewed, ID note reviewed.
Based on the recent changes, recurrent infections, and decreased meal intake now, patient is appropriate for hospice care. Discussed case with hospice liason who had met with brandy Shane is in contact with josh's detention to enquire if they
can accommodate josh on hospice or if will need to search for a facility .
Assessment / Plan
-
Assessment/Plan:
Patient is appropriate for hospice care. Medical BRANDY Shane already in contact with hospice liason.
Code status DNR
total floor time 20 mins
Goals of Care Discussion
-
Patient able to participate in discussion at time of visit: No
Pain & Symptom Assessment
-
unable to provide ros.
Objective Data
-
Objective Data:
Vital Signs
Temp Pulse Resp BP Pulse Ox
98.1 F 75 20 123/76 98
03/16/24 07:28 03/16/24 07:28 03/16/24 07:28 03/16/24 07:28 03/16/24 07:28
Laboratory Results
03/16/24 06:47
03/16/24 06:47
Hemoglobin A1c 5.7 % (4.0-5.6) H 02/28/24 10:58
Total Protein 7.7 g/dl (6.3-8.2) 02/28/24 10:58
Albumin 4.4 g/dl (3.5-5.0) 02/28/24 10:58
Free T4 0.91 ng/dl (0.78-2.19) 02/28/24 10:58
Urine Color Yellow 03/12/24 18:15
Urine Clarity Very cloudy (Clear) 03/12/24 18:15
Urine pH 6.0 (5.0-9.0) 03/12/24 18:15
Ur Specific [place] 1.015 (<1.030) 03/12/24 18:15
Urine Ketones Negative (Negative) 03/12/24 18:15
Urine Bilirubin Negative (Negative) 03/12/24 18:15
Palliative Performance Scale
Palliative Performance Scale:
PPS Level Ambulation Activity & Evidence of Disease Self Care Intake Conscious Level
100% Full Normal Activity & Work; Full Intake Full
No Evidence of Disease
90% Full Normal Activity & Work; Full Normal Full
Some Evidence of Disease
80% Full Normal Activity with Effort Full Normal or Full
Some Evidence of Disease Reduced
70% Reduced Unable Normal Job/Work Full Normal or Full
Significant Disease Reduced
60% Reduced Unable Hobby/Housework Occasional Normal or Full or Confusion
Significant Disease Assistance Reduced
50% Mainly Sit/Lie Unable to do Any Work Considerable Normal or Full or Confusion
Extensive Disease Assistance Req'd Reduced
40% Mainly in Bed Unable to do Most Activity Mainly Assistance Normal or Full or Drowsy;
Extensive Disease Reduced +/- Confusion
30% Totally Bed Unable to do Any Activity Total Care Normal or Full or Drowsy;
Bound Extensive Disease Reduced +/- Confusion
20% Totally Bed Bound Unable to do Any Activity Total Care Minimal to Full or Drowsy;
Extensive Disease Sips +/- Confusion
10% Totally Bed Bound Unable to do Any Activity Total Care Mouth Care Drowsy or Coma;
Extensive Disease Only +/- Confusion
0%
PPS Score Level:
Palliative Performance Score Response
Palliative Performance Score Response: 20%
Physical Exam
-
General: No Apparent Distress
sleeping
--- NOTE | 2024-03-16 12:40 | W.PN.ID1 ---
Date of Service
Date of Service: March 16, 2024
Today's Communication
ID will sign off.
Assessment / Plan
# Intermittent fevers due to recurrent aspiration
- Recent aspiration RUL PNA treated
- Repeat CXR improving RUL infiltrate suggestive of recurrent aspiration pneumonitis without new pneumonia
- DC'd Zosyn (on day 12 abx)
- Fever resolved
- Leukocytosis
- Aspiration precaution
-Patient being transitioned to [facility].
# Bacteruria
# Chronic lehman
- Urine colonized with Citrobacter werkmanii, therefore remains positive despite lehman change x 2 or 3 and 12d of Zosyn
- No need to treat the bacteria in the urine
# Conditions prior to admission
Cerebral palsy
CVA with right hemiparesis residual
GERD
Seizure disorder
Anxiety/depression
Urinary retention with chronic Lehman catheter
CKD
Dysphagia
Chief Complaint
-: Fever
Vital Signs / Physical Exam
Vital Signs
Vital Signs
Temp Pulse Resp BP Pulse Ox
98.1 F 75 20 123/76 98
03/16/24 07:28 03/16/24 07:28 03/16/24 07:28 03/16/24 07:28 03/16/24 07:28
Physical Exam
Constitutional: Comfortable and Chronically Ill
Pulmonary: Clear
Gastrointestinal: Soft, Non Tender and Non Distended
Genito-Urinary: Lehman and Clear Urine
Psychological: Calm
Objective Data
Lab Data
Lab Results
03/16/24 06:47
03/16/24 06:47
Estimated Creat Clear 18 ml/min 03/16/24 06:47
Lactic Acid 1.0 mmol/L (0.7-2.0) 03/12/24 11:52
Total Bilirubin 0.4 mg/dl (0.2-1.3) 02/28/24 10:58
AST 30 U/L (17-59) 02/28/24 10:58
ALT 22 U/L (0-50) 02/28/24 10:58
Alkaline Phosphatase 154 U/L (38-126) H 02/28/24 10:58
Most recent labs reviewed.
Micro Results:
03/12/24 12:32 Blood Culture - Preliminary
Blood/Venous No Growth in 4 days- Final report to follow
03/12/24 11:52 Blood Culture - Preliminary
Blood/Venous No Growth in 4 days- Final report to follow
03/12/24 18:15 Urine Culture - Final
Urine Citrobacter species
03/12/24 14:09 Influenza Types A & B (BERTHA) - Final
Nasal Swab Negative for Influenza A & B, NAAT
Negative results must be combined with clinical observations
and patient history.
Nucleic Acid Amplification test (NAAT)performed on the
[employer] platform.
03/04/24 12:54 Blood Culture - Final
Blood/Venous No Growth - Final Report
03/04/24 11:52 Blood Culture - Final
Blood/Venous No Growth - Final Report
03/04/24 14:16 Urine Culture - Final
Urine Citrobacter species
03/05/24 08:17 Legionella Urinary Antigen - Final
Urine Negative for Legionella pneumophila Serogroup 1 antigen.
A negative result does not rule out the possiblity of
Legionella infection due to other serogroups or species of
Legionella. Clinical correlation is recommended.
Streptococcus pneumoniae Antigen (M - Final
Negative for Streptococcus pneumoniae antigen.
A negative result does not exclude infection with
Streptococcus pneumoniae. Clinical correlation is
recommended.
03/05/24 08:59 Nasal Screen MRSA (PCR) - Final
Nose MRSA not detected - performed by PCR methodology.
03/04/24 12:19 Influenza Types A & B (BERTHA) - Final
Nasal Swab Negative for Influenza A & B, NAAT
Negative results must be combined with clinical observations
and patient history.
Nucleic Acid Amplification test (NAAT)performed on the
[employer] platform.
02/28/24 12:09 Urine Culture - Final
Urine Citrobacter species
Pseudo fluorescens/putida
02/28/24 19:34 Urine Culture - Final
Urine Citrobacter species
02/28/24 23:43 MRSA Screen - Final
Nose No Methicillin Resistant Staphylococcus aureus isolated.
03/04/24 CXR: Findings suggesting new mild developing right upper lobe pneumonia.
03/12/24 CXR: Decreased size of the opacity within the right upper lung, which may represent resolving pneumonia.
--- NOTE | 2024-03-16 13:49 | HOSPNOTE ---
Hospice continues to follow and be available. Checked in with BRANDY Shane who sent a detailed email to the director at [facility]. She is waiting to hear back from them if they are able to take Josh back with hospice care. Svitlana will let me know
once she has spoken to them. More information to follow.
[2024-03-16 15:08] VITALS: BP 120/60
[2024-03-16] MEDS: COLACE 100 MG PO (20:11)
[2024-03-16] MEDS: PEPCID 20 MG PO (22:13)
[2024-03-16] MEDS: FIBERCON 625 MG PO (22:13)
[2024-03-16] MEDS: ABILIFY 5 MG PO (22:13)
[2024-03-16 23:29] VITALS: BP 149/85
[2024-03-17 07:37] VITALS: BP 110/69
--- NOTE | 2024-03-17 08:35 | W.PN.HOSP.TC ---
Today's Communication/Plan
-
Discharge back to facility on hospice
Assessment / Plan
Assessment / Plan
63-year-old male with a past medical history of chronic Lehman, recurrent urinary tract infections, absence seizures, stage IV CKD, type 2 diabetes, cerebral palsy, and chronic dysphagia was sent from his assisted for nonresponsiveness/staring
spell for 20 seconds. Hospital course c/b fever 2/2 aspiration pneumonia and UTI s/p treatment with recurrence of fever overnight 03/11-03/12.
#Sepsis secondary to aspiration pneumonia and possible catheter associated urinary tract infection
#Chronic Lehman
#Chronic leukocytosis
#Colonization/bacteriuria
#Probable CAUTI 03/04
03/04, fever of 101 with leukocytosis, chest x-ray shows right upper lobe pneumonia
03/04, urine culture after changing Lehman growing out greater than 100,000 colonies of gram-negative rods
COVID/influenza negative
S/p 6 days IV Zosyn and 3 days Azithro which treated pneumonia
S/p IV Zosyn course as above + 2 more days oral Doxycycline to treat UTI
S/p lehman exchange
#Fever overnight 03/11-03/12
-Patient had completed antibiotic course as above and now with fever up to 102 overnight
-Repeat infectious work-up: flu/covid neg, CXR shows resolving PNA.
-03/12 UA dirty with culture growing Citrobacter despite a full course of IV Zosyn and doxycycline�the same bacteria that was grown on 03/04
-Appreciate ID input, his urine is colonized with Citrobacter, no antibiotics needed
-ID states patient has aspiration pneumonitis, and no longer needs antibiotics. IV Zosyn discontinued 03/15
-BRANDY Shane updated and we discussed patient's frailty. He may be hospice appropriate
-Repeat VSE 03/13 shows inconsistent swallow function, with silent aspiration. SPL rec pur�ed diet with mildly thick liquids via TSP only
-Updated power of prosecuting attorney/Svitlana 03/17, who now agrees to transition patient to hospice, awaiting to find out if he can do hospice at his facility
#Dysphagia
#Mild Protein Calorie Malnutrition
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
SPL rec pur�ed diet with mildly thick liquids via TSP only
Encourage oral intake
#Acute kidney injury superimposed on stage IV CKD
Continue IV fluid secondary to poor oral intake
#Absence seizure
03/03, MRI showing chronic changes, negative for acute
Appreciate Neurology input, continue Clorazepate 3.75 mg twice daily, lamotrigine 300 mg twice daily, Carbamazepine 300 mg 3 times daily, Keppra�1000mg BID
Per neurology 'Patient has medically refractory epilepsy. AEDs do not and will not make him seizure free'
It is expected that he will have intermittent absence seizures, which will increase in frequency during infection
1/2 Tegretol levels are therapeutic, 1/2 Keppra levels are therapeutic
#Black stools reported in chart - Hg has been stable, RN not concerned for melena
#Hypernatremia
Resolved status post D5W
#Hypokalemia
Repleted and resolved
#Hypermagnesemia
Unclear etiology
#Unintentional weight loss
#BMI 18.5 normal
Encourage oral intake
#Cerebral palsy
From a assisted
PT/OT rec SNF
This patient will likely require less than 30 days for care home facility services, and the individual's symptoms, or behaviors are stable
#Anxiety/depression
Continue SSRI, Abilify
DVT prophylaxis�subcu heparin
DNR confirmed with Svitlana/POA via his advanced directive 03/05
Updated Svitlana on phone 03/15
Called Svitlana on phone 03/16, she did not pick and shovel man
Total time spent to see the patient on the floor, examine the patient, review data and lab results, discuss treatment plan with patient, nursing staff around 50 minutes.
Physical Exam
General: Thin, no acute distress
HEENT: Normocephalic, Atraumatic, EOMI, MMM
Respiratory: Clear to Auscultation bilaterally
Cardiac: Normal S1/S2, Regular Rate and Rhythm
GI: Soft, Nontender, Nondistended, Normal Bowel Sounds
Extremities: No Clubbing, Cyanosis, or Edema
Neuro: More awake/alert, answering questions
Anticipated Discharge: Within 24 hours
Subjective/Interval History
-
Date of Service: March 17, 2024
No acute changes. Patient denies chest pain, denies shortness of breath. No fever, no vomiting.
Objective Data
-
Labs:
Laboratory Results
03/17/24
06:28
Sodium Pending
Potassium Pending
Chloride Pending
Carbon Dioxide Pending
BUN Pending
Creatinine Pending
Glucose Pending
Calcium Pending
Vital Signs:
Vital Signs
Temp Pulse Resp BP Pulse Ox
98.9 F 67 19 110/69 98
03/17/24 07:37 03/17/24 07:37 03/17/24 07:37 03/17/24 07:37 03/17/24 07:37
I&O
03/16/24 03/17/24 03/18/24
06:59 06:59 06:59
Intake Total 440 / 440 970 / 970
Output Total 1300 / 1300 400 / 400
Balance -860 / -860 570 / 570
[2024-03-17 09:48] LABS: Blood Urea Nitrogen 36 mg/dl (9-20); Calcium 9.7 mg/dl (8.4-10.2); Carbon Dioxide 19 mmol/L (22-30); Chloride 112 mmol/L (98-107); Estimated Creatinine Clearance 20 ml/min; Glucose 90 mg/dl (70-99); Sodium 144 mmol/L (135-145)
[2024-03-17] MEDS: FEOSOL 325 MG PO ×2 (10:09→23:30)
[2024-03-17] MEDS: PROZAC 20 MG PO (10:10)
[2024-03-17 10:11] LABS: Keppra (Levetiracetam) 29 ug/mL (10-40)
[2024-03-17] MEDS: KEPPRA 1000 MG PO ×2 (10:11→23:32)
[2024-03-17] MEDS: TRANXENE 3.75 MG PO ×2 (10:13→23:31)
[2024-03-17] MEDS: HEPARIN 5000 UNITS SC ×2 (10:15→23:30)
[2024-03-17] MEDS: COLACE 100 MG PO ×2 (10:15→23:30)
[2024-03-17] MEDS: LAMICTAL 300 MG PO ×2 (10:16→23:30)
[2024-03-17] MEDS: TEGRETOL CHEWABLE 300 MG PO ×3 (10:16→23:32)
--- NOTE | 2024-03-17 12:27 | CM ---
Chart reviewed for d/c planning. CM spoke w/ Hannah/marketing community liaison regarding d/c plan
Per BRANDY Young Svitlana is still awaiting response from [facility] director to confirm if pt can return on hospice.
hospice is able to sign on as soon as tomorrow if assisted is able to accept pt back w/ hospice services. Per Hannah Svitlana would like a call from Dr. Barraza around 2 pm for updates, TT Dr. Barraza regarding this. Also Svitlana would like CM to assist in
reaching out to assisted since she has not received a response back yet.
CM attempted call to Maritza/nurse at assisted, left message. CM will cont to make outreach efforts
Hospice following for updates re d/c plan
Plan: Awaiting determination from assisted if pt can return w/ Hospice
--- NOTE | 2024-03-17 12:38 | HOSPNOTE ---
Hospice continues to follow. POJosh Svitlana did state that she has not heard back from the director. She suggested that CM reach out to them to see if they can get a reply. CM updated and left a VM for the nurse there. Also Svitlana would like to speak with
attending regarding infectious disease and neurology final input before making a final decision. Attending to speak to Svitlana at 2 pm today. If all goes accordingly hospice is able to admit patient as early as tomorrow. Hospice will continue to
follow. More information to follow.
--- NOTE | 2024-03-17 13:03 | W.PN.NEPH.PH ---
Today's Communication / Plan
-
hospice eval
Assessment/Plan
-
IMP:
estevan/ckd 4
ams
uti
chronic lehman
seizure
Plan:
stable kidney function
follow BMP
abx course completed
await hospice planning
will s/o, call with ?s
-
-
Date of Service: March 17, 2024
CC / HPI / ROS
-
Chief Complaint:
Acute kidney injury CKD 4
History of Present Illness:
Cr remains at baseline 2.7
BP stable
no recent seizures
Review of Systems:
Nonoliguric via Lehman
Chronic dysphagia
no fever
Labs
-
Labs:
WBC 15.5 10^3/uL (4.8-10.8) H 03/16/24 06:47
RBC 3.11 10^6/uL (4.70-6.10) L 03/16/24 06:47
Hgb 10.1 g/dL (13.0-18.0) L 03/16/24 06:47
Hct 30.6 % (39.0-52.0) L 03/16/24 06:47
Plt Count 416 10^3/uL (130-400) H 03/16/24 06:47
Sodium 144 mmol/L (135-145) 03/17/24 06:28
Potassium 4.0 mmol/L (3.5-5.1) 03/17/24 06:28
Chloride 112 mmol/L (98-107) H 03/17/24 06:28
Carbon Dioxide 19 mmol/L (22-30) L 03/17/24 06:28
BUN 36 mg/dl (9-20) H 03/17/24 06:28
Creatinine 2.7 mg/dL (0.7-1.3) H 03/17/24 06:28
eGFR 26.00 03/17/24 06:28
Glucose 90 mg/dl (70-99) 03/17/24 06:28
Calcium 9.7 mg/dl (8.4-10.2) 03/17/24 06:28
Phosphorus 3.9 mg/dl (2.5-4.5) 03/16/24 06:47
Albumin 4.4 g/dl (3.5-5.0) 02/28/24 10:58
Physical Exam
-
Vital Signs:
Vital Signs
Temp Pulse Resp BP Pulse Ox
98.9 F 67 19 110/69 98
03/17/24 07:37 03/17/24 07:37 03/17/24 07:37 03/17/24 07:37 03/17/24 07:37
Cardiovascular:: Regular rate and rhythm
Respiratory:: Bilateral: CTA
Lung Excursion:: Normal
Abdomen:: Nontender and Soft
Extremity Edema:: None: Bilateral:
Lehman Catheter: Yes
[2024-03-17 15:19] VITALS: BP 110/65
[2024-03-17] MEDS: 0.45% NACL with KCL 20 MEQ 1000 IV (17:29)
[2024-03-17] MEDS: FIBERCON 625 MG PO (23:31)
[2024-03-17] MEDS: ABILIFY 5 MG PO (23:31)
[2024-03-17 23:37] VITALS: BP 149/83
--- NOTE | 2024-03-18 07:15 | W.PN.HOSP.TC ---
Today's Communication/Plan
-
Discharge on hospice once placement found
Assessment / Plan
Assessment / Plan
63-year-old male with a past medical history of chronic Lehman, recurrent urinary tract infections, absence seizures, stage IV CKD, type 2 diabetes, cerebral palsy, and chronic dysphagia was sent from his [facility]-way for nonresponsiveness/staring
spell for 20 seconds. Hospital course c/b fever 2/2 aspiration pneumonia and UTI s/p treatment with recurrence of fever overnight 03/11-03/12.
#Sepsis secondary to aspiration pneumonia and possible catheter associated urinary tract infection
#Chronic Lehman
#Chronic leukocytosis
#Colonization/bacteriuria
#Probable CAUTI 03/04
03/04, fever of 101 with leukocytosis, chest x-ray shows right upper lobe pneumonia
03/04, urine culture after changing Lehman growing out greater than 100,000 colonies of gram-negative rods
COVID/influenza negative
S/p 6 days IV Zosyn and 3 days Azithro which treated pneumonia
S/p IV Zosyn course as above + 2 more days oral Doxycycline to treat UTI
S/p lehman exchange
#Fever overnight 03/11-03/12
-Patient had completed antibiotic course as above and now with fever up to 102 overnight
-Repeat infectious work-up: flu/covid neg, CXR shows resolving PNA.
-03/12 UA dirty with culture growing Citrobacter despite a full course of IV Zosyn and doxycycline�the same bacteria that was grown on 03/04
-Appreciate ID input, his urine is colonized with Citrobacter, no antibiotics needed
-ID states patient has aspiration pneumonitis, and no longer needs antibiotics. IV Zosyn discontinued 03/15
-BRANDY Shane updated and we discussed patient's frailty. He may be hospice appropriate
-Repeat VSE 03/13 shows inconsistent swallow function, with silent aspiration. SPL rec pur�ed diet with mildly thick liquids via TSP only
-Updated power of finisher polisher/Svitlana 03/17, who now agrees to transition patient to hospice, awaiting to find out if he can do hospice at his facility
-Plan to discharge on hospice, awaiting placement
#Dysphagia
#Mild Protein Calorie Malnutrition
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
SPL rec pur�ed diet with mildly thick liquids via TSP only
Encourage oral intake
#Acute kidney injury superimposed on stage IV CKD
Continue IV fluid secondary to poor oral intake
#Absence seizure
03/03, MRI showing chronic changes, negative for acute
Appreciate Neurology input, continue Clorazepate 3.75 mg twice daily, lamotrigine 300 mg twice daily, Carbamazepine 300 mg 3 times daily, Keppra�1000mg BID
Per neurology 'Patient has medically refractory epilepsy. AEDs do not and will not make him seizure free'
It is expected that he will have intermittent absence seizures, which will increase in frequency during infection
1/2 Tegretol & Keppra levels are therapeutic
#Black stools reported in chart - Hg has been stable, RN not concerned for melena
#Hypernatremia
Resolved status post D5W
#Hypokalemia
Repleted and resolved
#Hypermagnesemia
Unclear etiology
#Unintentional weight loss
#BMI 18.5 normal
Encourage oral intake
#Cerebral palsy
From a half-way
PT/OT rec SNF
This patient will likely require less than 30 days for longterm facility services, and the individual's symptoms, or behaviors are stable
#Anxiety/depression
Continue SSRI, Abilify
DVT prophylaxis�subcu heparin
DNR confirmed with Svitlana/POA via his advanced directive 03/05
Updated Svitlana on phone 03/17
Total time spent to see the patient on the floor, examine the patient, review data and lab results, discuss treatment plan with patient, nursing staff around 40 minutes.
Physical Exam
General: Thin, no acute distress
HEENT: Normocephalic, Atraumatic, EOMI, MMM
Respiratory: Clear to Auscultation bilaterally
Cardiac: Normal S1/S2, Regular Rate and Rhythm
GI: Soft, Nontender, Nondistended, Normal Bowel Sounds
Extremities: No Clubbing, Cyanosis, or Edema
Neuro: More awake/alert, answering questions
Anticipated Discharge: Within 24 hours
Subjective/Interval History
-
Date of Service: March 18, 2024
Patient refused his medications this morning. He says he wants to go back to his half-way. No fever, no vomiting.
Objective Data
-
Vital Signs:
Vital Signs
Temp Pulse Resp BP Pulse Ox
97.0 F 74 18 149/83 98
03/17/24 23:37 03/17/24 23:37 03/17/24 23:37 03/17/24 23:37 03/17/24 23:37
I&O
03/17/24 03/18/24 03/19/24
06:59 06:59 06:59
Intake Total 970 / 970 1040 / 1040
Output Total 400 / 400 1150 / 1150
Balance 570 / 570 -110 / -110
[2024-03-18 07:25] VITALS: BP 139/84
[2024-03-18] MEDS: 0.45% NACL with KCL 20 MEQ 1000 IV (12:20)
[2024-03-18] MEDS: LAMICTAL PO ×2 (12:33→20:03)
[2024-03-18] MEDS: KEPPRA PO ×2 (12:33→19:49)
[2024-03-18] MEDS: COLACE PO ×2 (12:33→19:48)
[2024-03-18] MEDS: HEPARIN SC (12:33)
[2024-03-18] MEDS: FEOSOL PO ×2 (12:33→19:48)
[2024-03-18] MEDS: PROZAC PO (12:34)
[2024-03-18] MEDS: TEGRETOL CHEWABLE PO ×3 (12:34→19:50)
[2024-03-18] MEDS: TRANXENE PO ×2 (12:34→19:49)
--- NOTE | 2024-03-18 13:08 | HOSPNOTE ---
BRANDY Shane let hospice know that [facility] can take patient back on hospice services with us. They requested Wednesday so that they had time to prepare with staffing. CM and Attending updated. Asked that transport be arranged for 10 am Wednesday and we
will meet them at [facility] to sign onto hospice services.
[2024-03-18 15:30] VITALS: BP 136/74
[2024-03-18] MEDS: KEPPRA 1000 MG IV (15:50)
[2024-03-18] MEDS: HEPARIN 5000 UNITS SC (19:48)
[2024-03-18] MEDS: ABILIFY PO (19:49)
[2024-03-18] MEDS: FIBERCON PO (19:50)
[2024-03-18] MEDS: PEPCID PO (19:50)
[2024-03-18 23:00] VITALS: BP 127/59
[2024-03-19] MEDS: COLACE PO ×2 (05:20→11:55)
[2024-03-19] MEDS: LAMICTAL PO (05:24)
[2024-03-19] MEDS: KEPPRA PO (05:24)
[2024-03-19] MEDS: FEOSOL PO ×2 (05:24→12:12)
[2024-03-19] MEDS: TEGRETOL CHEWABLE PO (05:25)
[2024-03-19] MEDS: TRANXENE PO (05:25)
[2024-03-19] MEDS: PEPCID PO (05:25)
[2024-03-19] MEDS: FIBERCON PO (05:25)
[2024-03-19] MEDS: ABILIFY PO (05:25)
--- NOTE | 2024-03-19 05:26 | PTCARENOTE ---
Pt. refused po medication, tried several times throughout the night but pt. was getting agitated and just refused.
[2024-03-19 07:05] VITALS: BP 108/66
--- NOTE | 2024-03-19 08:19 | W.PN.HOSP.TC ---
Today's Communication/Plan
-
Discharge to snf on hospice tomorrow
Assessment / Plan
Assessment / Plan
63-year-old male with a past medical history of chronic Lehman, recurrent urinary tract infections, absence seizures, stage IV CKD, type 2 diabetes, cerebral palsy, and chronic dysphagia was sent from his snf for nonresponsiveness/staring
spell for 20 seconds. Hospital course c/b fever 2/2 aspiration pneumonia and UTI s/p treatment with recurrence of fever overnight 03/11-03/12.
#Sepsis secondary to aspiration pneumonia and possible catheter associated urinary tract infection
#Chronic Lehman
#Chronic leukocytosis
#Colonization/bacteriuria
#Probable CAUTI 03/04
03/04, fever of 101 with leukocytosis, chest x-ray shows right upper lobe pneumonia
03/04, urine culture after changing Lehman growing out greater than 100,000 colonies of gram-negative rods
COVID/influenza negative
S/p 6 days IV Zosyn and 3 days Azithro which treated pneumonia
S/p IV Zosyn course as above + 2 more days oral Doxycycline to treat UTI
S/p lehman exchange
#Fever overnight 03/11-03/12
-Patient had completed antibiotic course as above and now with fever up to 102 overnight
-Repeat infectious work-up: flu/covid neg, CXR shows resolving PNA.
-03/12 UA dirty with culture growing Citrobacter despite a full course of IV Zosyn and doxycycline�the same bacteria that was grown on 03/04
-Appreciate ID input, his urine is colonized with Citrobacter, no antibiotics needed
-ID states patient has aspiration pneumonitis, and no longer needs antibiotics. IV Zosyn discontinued 03/15
-BRANDY Shane updated and we discussed patient's frailty. He may be hospice appropriate
-Repeat VSE 03/13 shows inconsistent swallow function, with silent aspiration. SPL rec pur�ed diet with mildly thick liquids via TSP only
-Updated power of assistant district attorney/Svitlana 03/17, who now agrees to transition patient to hospice, awaiting to find out if he can do hospice at his facility
-Plan to discharge back to snf on hospice 03/20
#Dysphagia
#Mild Protein Calorie Malnutrition
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
SPL rec pur�ed diet with mildly thick liquids via TSP only
Encourage oral intake
#Acute kidney injury superimposed on stage IV CKD
Continue IV fluid secondary to poor oral intake
#Absence seizure
03/03, MRI showing chronic changes, negative for acute
Appreciate Neurology input, continue Clorazepate 3.75 mg twice daily, lamotrigine 300 mg twice daily, Carbamazepine 300 mg 3 times daily, Keppra�1000mg BID
Per neurology 'Patient has medically refractory epilepsy. AEDs do not and will not make him seizure free'
It is expected that he will have intermittent absence seizures, which will increase in frequency during infection
/ Tegretol & Keppra levels are therapeutic
IV Keppra since patient is refusing his medications
#Black stools reported in chart - Hg has been stable, RN not concerned for melena
#Hypernatremia
Resolved status post D5W
#Hypokalemia
Repleted and resolved
#Hypermagnesemia
Unclear etiology
#Unintentional weight loss
#BMI 18.5 normal
Encourage oral intake
#Cerebral palsy
From a snf
PT/OT rec SNF
This patient will likely require less than 30 days for group home facility services, and the individual's symptoms, or behaviors are stable
#Anxiety/depression
Continue SSRI, Abilify
DVT prophylaxis�subcu heparin
DNR confirmed with Svitlana/BRANDY via his advanced directive 03/05
Updated Svitlana on phone 03/17
Total time spent to see the patient on the floor, examine the patient, review data and lab results, discuss treatment plan with patient, nursing staff around 45 minutes.
Physical Exam
General: Thin, no acute distress
HEENT: Normocephalic, Atraumatic, EOMI, MMM
Respiratory: Clear to Auscultation bilaterally
Cardiac: Normal S1/S2, Regular Rate and Rhythm
GI: Soft, Nontender, Nondistended, Normal Bowel Sounds
Extremities: No Clubbing, Cyanosis, or Edema
Neuro: More awake/alert, answering questions
Anticipated Discharge: Within 24 hours
Subjective/Interval History
-
Date of Service: March 19, 2024
Patient is refusing his medications. No fever, no vomiting.
Objective Data
-
Vital Signs:
Vital Signs
Temp Pulse Resp BP Pulse Ox
97.5 F 66 16 108/66 99
03/18/24 23:00 03/19/24 07:05 03/19/24 07:05 03/19/24 07:05 03/19/24 07:05
I&O
03/18/24 03/19/24 03/20/24
06:59 06:59 06:59
Intake Total 1040 / 1040 1350 / 1350
Output Total 1150 / 1150 1000 / 1000
Balance -110 / -110 350 / 350
--- NOTE | 2024-03-19 10:22 | HOSPNOTE ---
Hospice continues to follow with the plan for patient to be discharged tomorrow at 10 am back to his custodial. Hospice will then meet patient there and sign him onto hospice services. BRANDY Shane is aware and in agreement. CM aware of 10 am transport
time request.
[2024-03-19] MEDS: HEPARIN SC (11:55)
[2024-03-19] MEDS: 0.45% NACL with KCL 20 MEQ 1000 IV (12:11)
[2024-03-19] MEDS: TRANXENE 3.75 MG PO ×2 (12:13→21:18)
[2024-03-19] MEDS: TEGRETOL CHEWABLE 300 MG PO ×3 (12:13→21:18)
[2024-03-19] MEDS: LAMICTAL 300 MG PO ×2 (12:15→21:18)
[2024-03-19] MEDS: PROZAC 20 MG PO (12:16)
[2024-03-19] MEDS: KEPPRA 1000 MG PO (12:16)
[2024-03-19 15:06] VITALS: BP 110/69
--- NOTE | 2024-03-19 16:38 | W.PN.UPDATE ---
Update Note
Progress Note Update
Discharge diagnosis:
Sepsis secondary to aspiration pneumonia
Chronic Galvin
Chronic leukocytosis
Colonization
Intermittent aspiration pneumonitis
Worsening dysphagia
Mild protein calorie malnutrition
Acute kidney injury superimposed on stage IV chronic kidney disease
Recurrent absence seizures
Hypernatremia
Hypokalemia
Cerebral palsy
Consults: Neurology, ID, nephrology
Hospital course:
63-year-old male with a past medical history of dysphagia, absence seizures, cerebral palsy was admitted for absence seizures. At the time of admission, no infectious etiology could be found. Patient was seen in conjunction with neurology, brain
MRI was negative for acute intracranial abnormality, shows chronic changes. Neurology recommends continuing with his previous antiseizure medications. Patient had acute kidney injury, that resolved with IV fluids.
Patient was planned to be discharged to his nursing home on 03/04/2024, and developed a fever. He was found to have aspiration pneumonia. He has had multiple VSEs, showing worsening aspiration. He was treated with a full course of IV Zosyn.
Patient then had another fever on 03/12/2024, and resumed on IV Zosyn. He was seen in conjunction with ID, who states his fever was secondary to aspiration pneumonitis, chest x-ray shows resolving pneumonia. Patient no longer needs any more
antibiotics per ID. His urine is chronically colonized with Citrobacter, no need for treatment.
Multiple discussions were held with patient's power of estate planning attorney/Svitlana, who understands that patient's aspiration is getting worse, causing intermittent aspiration pneumonia/pneumonitis and fever. This in turn causes him to have recurrent seizures.
His Keppra and Tegretol levels were therapeutic. Svitlana agreed to transition the patient to hospice. He is discharged back to his nursing home under hospice.
Disposition: Back to his nursing home under hospice
Discharge planning: Required 51 minutes
[2024-03-19] MEDS: COLACE 100 MG PO (21:18)
[2024-03-19] MEDS: HEPARIN 5000 UNITS SC (21:18)
[2024-03-19] MEDS: ABILIFY 5 MG PO (21:18)
[2024-03-19] MEDS: FIBERCON 625 MG PO (21:19)
[2024-03-19] MEDS: KEPPRA 1000 MG IV (21:23)
[2024-03-19 23:00] VITALS: BP 116/75
--- NOTE | 2024-03-20 05:57 | W.PN.HOSP.TC ---
Today's Communication/Plan
-
discharge
Assessment / Plan
Assessment / Plan
63-year-old male with a past medical history of chronic Lehman, recurrent urinary tract infections, absence seizures, stage IV CKD, type 2 diabetes, cerebral palsy, and chronic dysphagia was sent from his [facility] for nonresponsiveness/staring
spell for 20 seconds. Hospital course c/b fever 2/2 aspiration pneumonia and UTI s/p treatment with recurrence of fever overnight 03/11-03/12.
#Sepsis secondary to aspiration pneumonia and possible catheter associated urinary tract infection
#Chronic Lehman
#Chronic leukocytosis
#Colonization/bacteriuria
#Probable CAUTI 03/04
03/04, fever of 101 with leukocytosis, chest x-ray shows right upper lobe pneumonia
03/04, urine culture after changing Lehman growing out greater than 100,000 colonies of gram-negative rods
COVID/influenza negative
S/p 6 days IV Zosyn and 3 days Azithro which treated pneumonia
S/p IV Zosyn course as above + 2 more days oral Doxycycline to treat UTI
S/p lehman exchange
#Fever overnight 03/11-03/12
-Patient had completed antibiotic course as above and now with fever up to 102 overnight
-Repeat infectious work-up: flu/covid neg, CXR shows resolving PNA.
-03/12 UA dirty with culture growing Citrobacter despite a full course of IV Zosyn and doxycycline�the same bacteria that was grown on 03/04
-Appreciate ID input, his urine is colonized with Citrobacter, no antibiotics needed
-ID states patient has aspiration pneumonitis, and no longer needs antibiotics. IV Zosyn discontinued 03/15
-BRANDY golden and we discussed patient's frailty. He may be hospice appropriate
-Repeat VSE 03/13 shows inconsistent swallow function, with silent aspiration. SPL rec pur�ed diet with mildly thick liquids via TSP only
-See previous progress note for further details. Patient Planned for discharge back to [facility] on hospice today 1/6
#Dysphagia
#Mild Protein Calorie Malnutrition
Was on pur�ed diet with moderately thick liquids [employer]
SPL rec pur�ed diet with mildly thick liquids via TSP only
Encourage oral intake
#Acute kidney injury superimposed on stage IV CKD
Continue IV fluid secondary to poor oral intake
#Absence seizure
03/03, MRI showing chronic changes, negative for acute
Appreciate Neurology input, continue Clorazepate 3.75 mg twice daily, lamotrigine 300 mg twice daily, Carbamazepine 300 mg 3 times daily, Keppra�1000mg BID
Per neurology 'Patient has medically refractory epilepsy. AEDs do not and will not make him seizure free'
It is expected that he will have intermittent absence seizures, which will increase in frequency during infection
1/2 Tegretol & Keppra levels are therapeutic
IV Keppra since patient is refusing his medications
#Black stools reported in chart - Hg has been stable, RN not concerned for melena
#Hypernatremia
Resolved status post D5W
#Hypokalemia
Repleted and resolved
#Hypermagnesemia
Unclear etiology
#Unintentional weight loss
#BMI 18.5 normal
Encourage oral intake
#Cerebral palsy
From a fpc
PT/OT rec SNF
This patient will likely require less than 30 days for nursing home facility services, and the individual's symptoms, or behaviors are stable
#Anxiety/depression
Continue SSRI, Abilify
DVT prophylaxis�subcu heparin
DNR
Discussed with Svitlana NAVA 03/20 confirmed plan [facility]
Total Time Preparing Discharge ___35____ minutes including examination of the patient, summary of the hospital stay, instructions for continuing care to all relevant caregivers; and preparation of discharge records, prescriptions, and referral
forms if necessary.
Physical Exam
General: Thin, no acute distress
HEENT: Normocephalic, Atraumatic, EOMI, MMM
Respiratory: Clear to Auscultation bilaterally
Cardiac: Normal S1/S2, Regular Rate and Rhythm
GI: Soft, Nontender, Nondistended, Normal Bowel Sounds
Extremities: No Clubbing, Cyanosis, or Edema
Neuro: Lethargic but arousable speaking few words at a time
Anticipated Discharge: Today
Subjective/Interval History
-
Date of Service: March 20, 2024
lethargic but arousable. Appears comfortable. Denies pain
Objective Data
-
Vital Signs:
Vital Signs
Temp Pulse Resp BP Pulse Ox
97 F 56 10 116/75 100
03/19/24 23:00 03/19/24 23:00 03/19/24 23:00 03/19/24 23:00 03/19/24 23:00
I&O
03/18/24 03/19/24 03/20/24
06:59 06:59 06:59
Intake Total 1040 / 1040 1350 / 1350 200 / 200
Output Total 1150 / 1150 1000 / 1000 600 / 600
Balance -110 / -110 350 / 350 -400 / -400
[2024-03-20 07:20] VITALS: BP 113/65
--- NOTE | 2024-03-20 07:58 | W.DCSUMMARY ---
Discharge Summary
Discharge Data
Date of Admission: 02/28/24
Date of Discharge: 03/20/24
-
Pending Results: No
Hospital Course
63-year-old male with a past medical history of dysphagia, absence seizures, cerebral palsy was admitted for absence seizures. At the time of admission, no infectious etiology could be found. Patient was seen in conjunction with neurology, brain
MRI was negative for acute intracranial abnormality, showed chronic changes. Neurology recommended continuing with his previous antiseizure medications. Patient had acute kidney injury, that resolved with IV fluids.
Patient was planned to be discharged to his nursing home on 03/04/2024, and developed a fever. He was found to have aspiration pneumonia. He has had multiple VSEs, showing worsening aspiration. He was treated with a full course of IV Zosyn.
Patient then had another fever on 03/12/2024, and resumed on IV Zosyn. He was seen in conjunction with ID, who states his fever was secondary to aspiration pneumonitis, chest x-ray shows resolving pneumonia. Patient no longer needs any more
antibiotics per ID. His urine is chronically colonized with Citrobacter, no need for treatment.
Multiple discussions were held with patient's power of corporate attorney/Svitlana, who understands that patient's aspiration is getting worse, causing intermittent aspiration pneumonia/pneumonitis and fever. This in turn causes him to have recurrent seizures.
His Keppra and Tegretol levels were therapeutic. vSitlana agreed to transition patient to hospice. He was discharged back to his nursing home with hospice care.
Discharge Plan
-
Patient Disposition: Other
Discharge Diagnosis/Procedures: Recurrent absence seizures, dehydration, acute kidney injury superimposed on stage IV chronic kidney disease, hypernatremia, urinary tract infection and pneumonia
Condition: Serious
Diet: Other diet
Additional Diets: Pur�ed diet with mildly thickened/nectar thick liquids via teaspoon only
Activity: As tolerated
Driving Restrictions: No driving
Other Services: Hospice
Activity Restrictions/Additional Instructions:
Please encourage water intake. Patient gets easily dehydrated, and his sodium gets high.
Please avoid all [id number] NSAID medications such as ibuprofen, naproxen, Aleve, Motrin, Advil.
These medications will worsen your kidney function.
Please follow-up with hospice on discharge, your primary care doctor in 1 week, and your usual neurologist in 3-4 weeks.
Referrals:
Sukumar Hurtado MD [Active] - in three to four weeks
Lennie Holder MD [Family Provider] - in one week
Prescriptions:
Continued
carbamazepine 200 MG tablet
300 mg PO TID
ascorbic acid (vitamin C) [Vitamin C] 500 MG tablet
500 mg PO DAILY Qty: 60 0RF
lamotrigine [Lamictal] 150 mg Tablet
300 mg PO BID
clorazepate dipotassium 3.75 mg Tablet
3.75 mg PO BID
calcium polycarbophil [Fiber (calcium polycarbophil)] 625 mg Tablet
625 mg PO HS
docusate sodium 100 MG capsule
100 mg PO BID
aripiprazole 5 mg Tablet
5 mg PO HS
ferrous sulfate 325 mg (65 mg iron) Tablet
325 mg PO BID
fluoxetine 20 mg Tablet
20 mg PO DAILY
guaifenesin [Robafen] 100 mg/5 mL Liquid
200 mg PO Q4HPRN PRN (Reason: cough)
methenamine hippurate 1 gram tablet
1 g PO BID
clotrimazole 1 % Cream
1 applic TOPICAL BIDPRN PRN (Reason: fungal)
vitamin E 268 mg (400 unit) Capsule
268 mg PO DAILY
cholecalciferol (vitamin D3) 25 mcg (1,000 unit) Tablet
25 mcg PO HS
acetaminophen 325 mg Tablet
650 mg PO Q4HPRN PRN (Reason: mild pain)
famotidine [Pepcid] 40 mg Tablet
40 mg PO HS
levetiracetam 500 MG tablet
1,000 mg PO BID
Discontinued
sodium bicarbonate 650 mg Tablet
650 mg PO BID
Discharge Orders:
Discharge Patient (As Directed); Ordered 03/20/24
Ordered By: Genevieve Howell
Discharge Date and Time
Discharge Date/Time: 03/20/24 10:53
Print Language: MALTESE
--- NOTE | 2024-03-20 08:18 | CM ---
Chart reviewed. hospice has been following pt and communicating w/ Svitlana NAVA and [facility] team regarding plan for pt.
Per [facility] hospice, plan is for pt to return to snf today and hospice will sign on. Hospice requesting 10 am transport time
Hospitalist agreeable to d/c plan
Spoke w/ Vandana, nurse at [facility], confirming pt's return w/ hospice today
Spoke w/ Svitlana NAVA, confirming pt's d/c today. IMM reviewed, copy in chart
Transport forms faxed to cardiac care unit nurse. OMARIA DNR on chart
[facility]
Report: [phone] or [phone]

Plan: Return to snf [facility] hospice. 10 am ambulance transport requested
[2024-03-20] MEDS: 0.45% NACL with KCL 20 MEQ IV (09:02)
[2024-03-20] MEDS: COLACE PO (09:06)
[2024-03-20] MEDS: LAMICTAL 300 MG PO (09:07)
[2024-03-20] MEDS: TEGRETOL CHEWABLE 300 MG PO (09:07)
[2024-03-20] MEDS: HEPARIN 5000 UNITS SC (09:10)
[2024-03-20] MEDS: PROZAC 20 MG PO (09:10)
[2024-03-20] MEDS: KEPPRA 1000 MG IV (09:10)
[2024-03-20] MEDS: TRANXENE PO (09:36)
[2024-03-20] MEDS: TRANXENE 3.75 MG PO (09:38)
== END 2024-03-20 10:53 | disposition home health service (06) | DRG 682 ==
LOC: 4 WEST ACU 15:26
PROVIDERS: Registered Nurse; Specialist; Student in an Organized Health Care Education/Training Program; ADMITTING PHYSICIAN Family Medicine; ATTENDING PHYSICIAN Internal Medicine; CONSULT PHYSICIAN Internal Medicine Hospice and Palliative Medicine; CONSULT PHYSICIAN Internal Medicine Infectious Disease; CONSULT PHYSICIAN Internal Medicine Nephrology; CONSULT PHYSICIAN Psychiatry & Neurology Neurology; EMERGENCY PHYSICIAN Student in an Organized Health Care Education/Training Program; FAMILY PHYSICIAN Internal Medicine
DX: N17.9 Acute kidney failure, unspecified (principal); A41.9 Sepsis, unspecified organism; T83.518A Infection and inflammatory reaction due to other urinary catheter, initial encounter; G93.41 Metabolic encephalopathy; J69.0 Pneumonitis due to inhalation of food and vomit; N39.0 Urinary tract infection, site not specified; E87.0 Hyperosmolality and hypernatremia; G80.3 Athetoid cerebral palsy; E87.1 Hypo-osmolality and hyponatremia; Q04.6 Congenital cerebral cysts; E44.1 Mild protein-calorie malnutrition; Z68.1 Body mass index [BMI] 19.9 or less, adult; R64 Cachexia; N18.4 Chronic kidney disease, stage 4 (severe); E83.41 Hypermagnesemia; I12.9 Hypertensive chronic kidney disease with stage 1 through stage 4 chronic kidney disease, or unspecified chronic kidney disease; Y84.6 Urinary catheterization as the cause of abnormal reaction of the patient, or of later complication, without mention of misadventure at the time of the procedure; E86.0 Dehydration; D63.1 Anemia in chronic kidney disease; F32.A Depression, unspecified; F41.9 Anxiety disorder, unspecified; E87.6 Hypokalemia; G40.A09 Absence epileptic syndrome, not intractable, without status epilepticus; Z66 Do not resuscitate; Z51.5 Encounter for palliative care; Z99.3 Dependence on wheelchair
CPT/HCPCS: 70450; 70551; 71045; 74230; 80048; 80053; 80156; 80177; 81003; 81015; 82550; 82962; 83036; 83605; 83735; 84100; 84439; 84443; 85018; 85025; 85027; 87040; 87070; 87077; 87086; 87186; 87449; 87502; 87641; 87811; 87899; 92526; 92610; 92611; 96365; 96375; 97163; 97530; 99285; J3480

== ENCOUNTER 2024-03-29 08:01 | Inpatient (IN) | payer OTHER, SELFPAY ==
[2024-03-28 12:40] VITALS: BP 134/74
--- NOTE | 2024-03-28 12:53 | ED.GENMED ---
History of Present Illness
<Toyin Elliott PA-C - Last Filed: 03/28/24 20:28>
General
Chief Complaint: Seizure
Source: patient
Exam Limitations: none
Time Seen by Provider: 03/28/24 12:50
Nursing documentation reviewed up to this point in time: agreed with
History of Present Illness
History of Present Illness:
63 y/o male with a pmh of cerebral palsy, seizure disorder presents to the emergency department today with concerns of multiple seizures. He comes from [facility] skilled nursing. He is currently on hospice care due to chronic aspiration
pneumonia. He has hospice nurses who visit his skilled nursing. His seizures are normally absence seizures but they noticed that he started to develop tonic clonic seizures today. They gave him as needed seizure medications but they noted his seizures
returned and he continued to have tremors in his left arm. Of note, staff notes that patient has been refusing his daily medications the past few day including his Keppra and Lamictal. They called EMS who noted he was still seizing and he got 3
rounds of 10 mg valium (30 mg total). Upon arrival to the emergency department, there is no evidence of seizure activity.
Past History
<Toyin Elliott PA-C - Last Filed: 03/28/24 20:28>
Past History
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
ED Past Surgical History: Orthopedic (Foot surery, right hip sx. )
Social History
Tobacco: Non-smoker
Alcohol: None
Drug: None
Personal: Single
Living: assisted living
Employment: Not employed
Family History
Family History: Unable to obtain
Review of Systems
<Toyin Elliott PA-C - Last Filed: 03/28/24 20:28>
Review of Systems
All Other Systems: ROS reviewed and negative except as documented in HPI and ROS
Phy Exam
<Toyin Elliott PA-C - Last Filed: 03/28/24 20:28>
Physical Exam
Physical Exam:
General: Patient is somnolent and chronically ill appearing
Skin: Warm and dry, no rashes or lesions
Head: Normocephalic, atraumatic
Eyes: Sclera non-icteric. EOMs intact.
Cardiac: Regular rate and rhythm, no murmurs
Peripheral Vascular: No lower extremity swelling or edema
Pulm: Normal respiratory effort
Neuro: CN II-XII intact, no focal neurologic deficits. No evidence of seizure activity or resting tremors at this time.
Psychiatric: Appropriate mood and affect.
Course
<Toyin Elliott PA-C - Last Filed: 03/28/24 20:28>
Orders/Labs/Results
Orders:
Orders
03/28/24
Electrocardiogram (*1) Stat
Reason for Study: Chest Pain
Comment: already done
03/28/24 12:46
EKG with chest pain [ECG as needed] As Directed
ECG as needed for:: Other reason
Other reason for ECG as needed:: seizure
03/28/24 13:07
CMP [Comprehensive Metabolic Panel] Urgent
COVID-19 Antigen Urgent
Source: Nasal Swab
Complete Blood Count/With Diff Urgent
INF RAPID [Influenza A+B Rapid Molecular] Urgent
DAVID Source: Nasal Swab
Specimen Description:
03/28/24 13:35
Levetiracetam Injectable [Keppra] 1,000 mg IV NOW STA
03/28/24 17:51
Admit/Transfer Patient As Directed
Co-Sign Provider:
Level of Care: Observation services
Assign to:: Medical/Surgical
Physician / Group: madide
Diagnosis: seizure
PRN Pain Medication Management As Directed
May give lesser potent ordered pain med per pt: Yes
preference::
Protocol:: Medication orders for pain may be administered in a
manner that supports deferring to patient preference
when the pt is:
- Requesting an ordered lesser potent pain medication.
Least to most potent pain medications are defined
as: acetaminophen < NSAID < tramadol < opioids
(morphine, oxycodone, hydromorphone).
- Requesting a lesser dose of the same medication IF
ORDERED.
- Requesting a less intrusive route of administration
if both routes are prescribed by the provider (PO <
IV).
03/28/24 17:52
Code Status As Directed
Resuscitation Status: Do not resuscitate
Reached after discussion with pt or family/Healthcare POA: Yes
DNR Bracelet Application ONCE
03/28/24 18:19
diazePAM [Valium Injection] 2 mg IV Q2HPRN PRN
Abnormal Lab Results
03/28/24
13:07
RBC 2.94 L 10^6/uL
(4.70-6.10)
Hgb 9.7 L g/dL
(13.0-18.0)
Hct 28.2 L %
(39.0-52.0)
MCV 95.9 H fL
(80.0-94.0)
MCH 33.0 H pg
(27.0-31.0)
Absolute Neuts (auto) 6.9 H 10^3/uL
(1.4-6.5)
Absolute Monos (auto) 1.3 H 10^3/uL
(0.1-0.6)
Lymphocytes % 18.0 L %
(20.5-51.1)
Monocytes % 12.7 H %
(1.7-9.3)
BUN 45 H mg/dl
(9-20)
Creatinine 3.3 H mg/dL
(0.7-1.3)
Alkaline Phosphatase 151 H U/L
(38-126)
Total Protein 6.2 L g/dl
(6.3-8.2)
03/28/24 13:07
03/28/24 13:07
Vital Signs
Initial and Last Documented VS:
Initial Vital Signs
Temp Pulse Resp BP Pulse Ox
98.5 F 78 16 134/74 99
03/28/24 12:40 03/28/24 12:40 03/28/24 12:40 03/28/24 12:40 03/28/24 12:40
Last Documented Vital Signs
Temp Pulse Resp BP Pulse Ox
98.5 F 49 11 138/62 100
03/28/24 12:40 03/28/24 19:15 03/28/24 17:45 03/28/24 17:00 03/28/24 19:15
<Nitesh Lopez, DO - Last Filed: 03/28/24 13:36>
Orders/Labs/Results
Orders:
Orders
03/28/24
Electrocardiogram (*1) Stat
Reason for Study: Chest Pain
Comment: already done
03/28/24 12:46
EKG with chest pain [ECG as needed] As Directed
ECG as needed for:: Other reason
Other reason for ECG as needed:: seizure
03/28/24 13:07
CMP [Comprehensive Metabolic Panel] Urgent
COVID-19 Antigen Urgent
Source: Nasal Swab
Complete Blood Count/With Diff Urgent
INF RAPID [Influenza A+B Rapid Molecular] Urgent
DAVID Source: Nasal Swab
Specimen Description:
03/28/24 13:35
Levetiracetam Injectable [Keppra] 1,000 mg IV NOW STA
03/28/24 17:51
Admit/Transfer Patient As Directed
Co-Sign Provider:
Level of Care: Observation services
Assign to:: Medical/Surgical
Physician / Group: maddie
Diagnosis: seizure
PRN Pain Medication Management As Directed
May give lesser potent ordered pain med per pt: Yes
preference::
Protocol:: Medication orders for pain may be administered in a
manner that supports deferring to patient preference
when the pt is:
- Requesting an ordered lesser potent pain medication.
Least to most potent pain medications are defined
as: acetaminophen < NSAID < tramadol < opioids
(morphine, oxycodone, hydromorphone).
- Requesting a lesser dose of the same medication IF
ORDERED.
- Requesting a less intrusive route of administration
if both routes are prescribed by the provider (PO <
IV).
03/28/24 17:52
Code Status As Directed
Resuscitation Status: Do not resuscitate
Reached after discussion with pt or family/Healthcare POA: Yes
DNR Bracelet Application ONCE
03/28/24 18:19
diazePAM [Valium Injection] 2 mg IV Q2HPRN PRN
Abnormal Lab Results
03/28/24
13:07
RBC 2.94 L 10^6/uL
(4.70-6.10)
Hgb 9.7 L g/dL
(13.0-18.0)
Hct 28.2 L %
(39.0-52.0)
MCV 95.9 H fL
(80.0-94.0)
MCH 33.0 H pg
(27.0-31.0)
Absolute Neuts (auto) 6.9 H 10^3/uL
(1.4-6.5)
Absolute Monos (auto) 1.3 H 10^3/uL
(0.1-0.6)
Lymphocytes % 18.0 L %
(20.5-51.1)
Monocytes % 12.7 H %
(1.7-9.3)
BUN 45 H mg/dl
(9-20)
Creatinine 3.3 H mg/dL
(0.7-1.3)
Alkaline Phosphatase 151 H U/L
(38-126)
Total Protein 6.2 L g/dl
(6.3-8.2)
03/28/24 13:07
03/28/24 13:07
Vital Signs
Initial and Last Documented VS:
Initial Vital Signs
Temp Pulse Resp BP Pulse Ox
98.5 F 78 16 134/74 99
03/28/24 12:40 03/28/24 12:40 03/28/24 12:40 03/28/24 12:40 03/28/24 12:40
Last Documented Vital Signs
Temp Pulse Resp BP Pulse Ox
98.5 F 49 11 138/62 100
03/28/24 12:40 03/28/24 19:15 03/28/24 17:45 03/28/24 17:00 03/28/24 19:15
<Toyin Elliott PA-C - Last Filed: 03/28/24 20:28>
MDM/Problems Addressed
Differential Diagnosis Includes:
see below
MDM/Problems Addressed:
NUMBER AND COMPLEXITY OF PROBLEMS ADDRESSED AT THE ENCOUNTER
� Chronic conditions affecting care: cerebral palsy, seizure disorder, CVA
� Acute Exacerbation and/or Progression of Chronic Illness: seizure disorder
� Differential Diagnosis includes: status epilepticus, breakthrough seizure, resting tremor
AMOUNT AND/OR COMPLEXITY OF DATA TO BE REVIEWED AND ANALYZED
� I performed an independent evaluation of and my interpretation is:
EKG: normal sinus rhythm rate 72 no ischemic changes
Laboratory Studies: elevated bun to creatinine ratio
Other:
� Review of other/old records: Reviewed discharge summary from 03/20/2024, patient seen for altered mental status likely secondary to aspiration pneumonia
� Clinical information was obtained by an independent historian: talked to [facility], hospice nurse, as well as napoleon NAVA
� Prescriptions/Medications Considered but not given: n/a
� Further testing considered but not performed: n/a
RISK OF COMPLICATIONS AND/OR MORBIDITY OR MORTALITY OF PATIENT MANAGEMENT
� Social determinants of health affecting care: none
� Discussion with other providers: ER attending
� Escalation of care including admission/observation vs risk of discharge considered:
63 y/o male with a pmh of cerebral palsy, seizure disorder presents to the emergency department today with concerns of multiple seizures. He comes from [facility] skilled nursing. He is currently on hospice care due to chronic aspiration
pneumonia. He has hospice nurses who visit his skilled nursing. His seizures are normally absence seizures but they noticed that he started to develop tonic clonic seizures. He has remained without seizures in the emergency department. After extensive
discussion with hospice nurse and patient's POA, the decision was to send patient back to the facility considering his seizures are now controlled. The facility is now refusing to take him back considering his medical issues. Patient will be
admitted to the hospital to determine placement, patient is tentatively accepted at [facility] but they will not receive patient until tomorrow.
<Toyin Elliott PA-C - Last Filed: 03/28/24 20:28>
*Critical Care Note
Total Time (30-74mins, 75-104mins- exclusive of procedures): Not Applicable
ED Attending Note
<Toyin Elliott PA-C - Last Filed: 03/28/24 20:28>
-
Portions of this chart may have been created with voice recognition software.� Occasional wrong word or��sound alike� substitutions may have occurred due to the inherent limitations of voice recognition software.
<Nitesh Lopez DO - Last Filed: 03/28/24 13:36>
ED Attending Note
Patient seen and examined by attending physician: Yes
I performed the substantive portion of visit, reviewed & personally made and approve the management plan that is documented in note by myself or CHEN.: Yes
ED Attending Note:
I evaluated the patient at bedside. The patient is chronically ill in appearance. He has a history of absence seizure but had generalized tonic-clonic seizures today. He received a total of Valium 10 mg VT x 3 just prior to arrival. He
reportedly has been not taking any of his medications. Med list from the facility was not sent. We are calling to get the med list. As of last month when patient seen by neurology, Dr. Guerin, the patient was on Lamictal and Keppra. He has not
been taking p.o.�will give a dose of IV Keppra here. I also spoke to [facility] as well.
Discharge Plan
Departure
Patient Disposition: Admit
Date of Disposition: 03/28/24
Time of Disposition: 17:33
Admit to: Med/Surg
Presentation/result/management discussed w/ accepting MD/DO: Hospitalist
Patient with high blood pressure during this ER visit?: Yes
Condition: Fair
Discharge Problem:
Failure to thrive in adult, Breakthrough seizure
Interventions
Interventions:
*Risk Screen - Suicide Last Done: 03/28/24 12:40
*General Assessment Last Done: 03/28/24 12:40
*Neglect/Abuse Screening Last Done: 03/28/24 12:40
ED- Fall Risk Assessment Last Done: 03/28/24 13:01
*ED COVID-19 Vaccine History Last Done: 03/28/24 12:40
*Nursing Disposition Last Done: 03/28/24 20:25
ED- Cardiac Assessment Last Done: 03/28/24 13:01
ED- Neurological Assessment Last Done: 03/28/24 13:01
ED- Pulmonary Assessment Last Done: 03/28/24 13:01
[2024-03-28 13:18] LABS: % Basophils 0.4 % (0-2); % Immature Granulocytes 0.3 % (0-0.5); % Monocytes 12.7 % (1.7-9.3); % Neutrophils 67.6 % (42.2-75.2); Absolute Eosinophils 0.1 10^3/uL (0-0.7); Absolute Lymphocytes 1.8 10^3/uL (1.2-3.4); Absolute Monocytes 1.3 10^3/uL (0.1-0.6); Absolute Neutrophils 6.9 10^3/uL (1.4-6.5); Hematocrit 28.2 % (39.0-52.0); Hemoglobin 9.7 g/dL (13.0-18.0); Mean Corp Hgb Conc. 34.4 g/dL (33.0-37.0); Mean Corpuscular Volume 95.9 fL (80.0-94.0); Mean Platelet Volume 10.3 fL (7.4-10.4); Nucleated Red Blood Cells % 0 % (-); Platelet Count 328 10^3/uL (130-400); Red Blood Cell Count 2.94 10^6/uL (4.70-6.10); Red Cell Dist. Width 13.9 % (11.5-14.5); White Blood Cell Count 10.2 10^3/uL (4.8-10.8)
[2024-03-28 13:34] LABS: COVID-19 Antigen Negative (Negative)
[2024-03-28 13:43] LABS: ALT (SGPT) 26 U/L (0-50); AST (SGOT) 33 U/L (17-59); Albumin 3.6 g/dl (3.5-5.0); Alkaline Phosphatase 151 U/L (38-126); Blood Urea Nitrogen 45 mg/dl (9-20); Calcium 8.9 mg/dl (8.4-10.2); Carbon Dioxide 24 mmol/L (22-30); Chloride 103 mmol/L (98-107); Glucose 98 mg/dl (70-99); Potassium 4.2 mmol/L (3.5-5.1); Sodium 138 mmol/L (135-145); Total Protein 6.2 g/dl (6.3-8.2); eGFR 20.44
--- NOTE | 2024-03-28 13:48 | HOSPNOTE ---
Went to see patient in the ED. At this time the patient is extremely lethargic is presently on hospice services through hospice and had seizure activity that did not stop even with medications. We will call the BRANDY Shane just to verify that no
aggressive measures or testing will be done. The plan would be to send the patient back to facility and continue with hospice care.
[2024-03-28] MEDS: KEPPRA 1000 MG IV (14:06)
[2024-03-28 14:17] LABS: Total Bilirubin 0.5 mg/dl (0.2-1.3)
[2024-03-28 15:00] VITALS: BP 110/71
--- NOTE | 2024-03-28 15:25 | CM ---
Addendum entered by Sophy Bustillo 03/28/24 15:57:
CM spoke with [facility]ice [facility] and [facility]
Explained need for thorough PASRR screen as pt may be target due to diagnoses and require level II
Not eligible for 30 day exception from ED
[facility] confirmed they are aware and with ability to work with [facility] this evening for possible assessment and SNF placement
No other CM needs at this time as hospice facilitating SNF placement
Original Note:
CM discussed pt with Hospice/[facility]
Pt from [facility]dc and currently on service with Hospice
Per [facility], fdc now refusing to accepting pt back due to acuity of needs
Hospice SW making arranging for placement at [facility] SNF with likely admissions this evening
Requested that CM send referral via [facility] to [facility]- referral sent
Hospice SW to provide PASRR to SNF
[2024-03-28 16:00] VITALS: BP 130/71
[2024-03-28 17:00] VITALS: BP 138/62
--- NOTE | 2024-03-28 17:37 | HPS.HSE ---
Addendum entered and electronically signed by Yung Grider MD 03/28/24 18:09:
I saw and examined the patient.
The FIREPROOF DOOR ASSEMBLER's note was reviewed and I agree with the note.
Comment:
63-year-old female past medical history of dysphagia, aspiration pneumonitis, absence seizure, cerebral palsy who was recently admitted with prolonged hospitalization with absence seizure, pneumonia, persistent seizure. Patient was discharged on
hospice. Patient apparently had episode of persistent seizure at the facility and was sent to the ER. Patient received IV Keppra in the ER. Initial plan was to discharge back to facility and continue hospice measures however facility refused to
take the patient back. Will continue patient on antiepileptic medication.
General: Thin, no acute distress, sleeping, chronically ill-appearing
HEENT: Normocephalic, Atraumatic
Respiratory: Clear to Auscultation bilaterally
Cardiac: Normal S1/S2,
GI: Soft, Nontender, Nondistended, Normal Bowel Sounds
Extremities: No Clubbing, Cyanosis, or Edema
Neuro: Lethargic
Impression
Persistent seizures/epilepsy
History of aspiration pneumonia/pneumonitis
Dysphagia
Chronic protein caloric malnutrition mild versus moderate
CKD stage IV
Cerebral palsy
Anxiety
Depression
Anemia
Plan
Continue with IV Keppra 1 g every 12
Continue other home epileptic medication
Valium as needed for seizure
Morphine as needed as needed for pain
Case management hospice consultation
Discussed with [facility] -plan will be to transition patient to [facility] tomorrow. Hospice team already discussed with BRANDY Shane nurse practitioner and plan is to continue patient on comfort measures in the hospital and to continue
with hospice upon discharge. Current facility friends and family refused to take the patient back thus patient is admitted. Will monitor patient for any further seizure. Continue with comfort measures in the meantime.
DNR/DNI
d/w with ER team
d/w with hospice team
I spent a total of 80 minutes with the patient or on the floor. More than 50% of this time involved counseling and coordination of care.
Original Note:
Family Physician
-
Family Physician: NO INTERVIEW UNKNOWN
Chief Complaint
-
seizure
History of Present Illness
63 year old with PMH for Cerebral Palsy, seizure presented to us with seizure. as per ER notes, patient under hospice care. he ws getting absence seizure but today he was noted to have generalize tonic clonic seizures, patient not able to provide
any history.
patient getting admitted for placement for tomorrow.
Medical History
Past Medical History
Past Medical History: Reports Other
Additional Past Medical History:
Cerebral palsy
Chronic idiopathic constipation
Anxiety
Epilepsy
BPH
Depression
Intellectual disability
BPH
Dyslipidemia
Hypertension
Stage III chronic kidney disease
Bilateral hydronephrosis
Bladder retention
Past Surgical History: Reports None
Social History
Unable to obtain full social history at this time due to: Acuity
Family History
Family History: Not pertinent
Allergies / Home Medications
Allergies reflects when Allergies were last updated in [employer].
Home Medications with original date entered in [employer]
Allergy/Medication List:
Allergies
Allergy/AdvReac Type Severity Reaction Status Date / Time
cefepime Allergy delirium Verified 03/28/24 12:50
per pt's
POA 'Svitlana'
house dust Allergy nasal Verified 03/28/24 12:50
congestion
lorazepam [From Ativan] Allergy SEE BELOW Verified 03/28/24 12:50
mold Allergy nasal Verified 03/28/24 12:50
congestion
ragweed pollen Allergy nasal Verified 03/28/24 12:50
congestion
Home Medications
carbamazepine 200 mg tablet 300 mg PO TID Seizures 02/12/20
ascorbic acid (vitamin C) 500 mg tablet (Vitamin C) 500 mg PO DAILY Supplement #60 tabs 02/16/20
clorazepate dipotassium 3.75 mg tablet 3.75 mg PO BID Seizures 04/23/22
lamotrigine 150 mg tablet (Lamictal) 300 mg PO BID Seizures 04/23/22
calcium polycarbophil 625 mg tablet (Fiber (calcium polycarbophil)) 625 mg PO HS Constipation 05/23/22
docusate sodium 100 mg capsule 100 mg PO BID Constipation 07/04/22
aripiprazole 5 mg tablet 5 mg PO HS Depression 04/02/23
ferrous sulfate 325 mg (65 mg iron) tablet 325 mg PO BID Supplement 12/24/23
fluoxetine 20 mg tablet 20 mg PO DAILY depression/anxiety 12/24/23
acetaminophen 325 mg tablet 650 mg PO Q4HPRN PRN mild pain 02/01/24
cholecalciferol (vitamin D3) 25 mcg (1,000 unit) tablet 25 mcg PO HS Supplement 02/01/24
clotrimazole 1 % topical cream 1 applic topical BIDPRN PRN fungal 02/01/24
guaifenesin 100 mg/5 mL oral liquid (Robafen) 200 mg PO Q4HPRN PRN cough 02/01/24
methenamine hippurate 1 gram tablet 1 g PO BID Urinary Issue 02/01/24
vitamin E 268 mg (400 unit) capsule 268 mg PO DAILY 02/01/24
famotidine 40 mg tablet (Pepcid) 40 mg PO HS Gastrointestinal Issue 02/22/24
levetiracetam 500 mg tablet 1,000 mg PO BID Seizures 02/22/24
Review of Systems
-
Unable to obtain full review of systems at this time due to: Acuity
Physical Exam
Vital Signs
Vital Signs
Temp Pulse Resp BP Pulse Ox
98.5 F 78 16 134/74 98
03/28/24 12:40 03/28/24 12:40 03/28/24 12:40 03/28/24 12:40 03/28/24 13:01
Physical Exam
General: Well Developed, Well Nourished and No Apparent Distress
HEENT: NormoCephalic, Moist mucous membranes and Atraumatic
Respiratory: Clear
Cardiac: S1/S2 and Regular Rhythm; No Murmur or Rub
GI: Soft, Non Tender, Non Distended and Normal Bowel Sounds; No Organomegaly
Rectal: Deferred by Provider
Musculoskeletal: No Clubbing, No Cyanosis and No Edema
Skin: Rash and Other (skin redness)
Psych: Calm
Laboratory Results
-
03/28/24 13:07
03/28/24 13:07
Laboratory Results
Total Bilirubin 0.5 mg/dl (0.2-1.3) 03/28/24 13:07
AST 33 U/L (17-59) 03/28/24 13:07
ALT 26 U/L (0-50) 03/28/24 13:07
Alkaline Phosphatase 151 U/L (38-126) H 03/28/24 13:07
Data Reviewed
-
Lab Data: Labs Reviewed by me
Impression/Plan
-
#persistent convulsive seizures
-seizure precaution
-continue home medication
-Keppra continued iv
#anemia of chronic disease
-hgb stable at 9.7
-no active bleeding
-ctm
#CKD stage 4
-ctm
# History of urinary retention
-Patient has chronic Galvin
Dysphagia
#Mild Protein Calorie Malnutrition
-Pur�ed diet with thick liquids
#Cerebral palsy
From a nursing home
PT/OT rec SNF
#Anxiety/depression
Continue SSRI, Abilify
DVT prophylaxis�scd
DNR
CM consulted for placement.
[2024-03-28 20:29] VITALS: BP 102/59
[2024-03-28] MEDS: VALIUM INJECTION 2 MG IV (21:45)
[2024-03-28 22:49] VITALS: BP 118/92
[2024-03-28 22:50] VITALS: BMI 15.9
--- NOTE | 2024-03-29 00:51 | PTCARENOTE ---
pt admitted from the ED. pt is drowsy, unresponsive to verbal and tactile stimuli. pt is contacted to bilateral knees and elbows. VSS. on RA 93-99%. unable to take any PO pills at this time. some shaking noted to legs, IV valium given per MAR. pt
sleeping at present. lehman intact, leg bag changed to big lehman bag. knee high SCD's placed on patient. care ongoing.
[2024-03-29] MEDS: KEPPRA 1000 MG IV ×2 (01:26→13:23)
--- NOTE | 2024-03-29 08:51 | PTCARENOTE ---
Pts temperature was 96.3 axillary this AM, rectal temp completed at 95.5. Full bed bath and lehman care completed, pt only responding with 'no' at this time. AM meds not given, pt unable, see MAR. made aware of temperature, no new orders at this
time.
[2024-03-29 09:01] VITALS: BP 125/69
--- NOTE | 2024-03-29 11:36 | W.PN.HOSP.TC ---
Addendum entered and electronically signed by Yung Grider MD 03/30/24 11:41:
Late addendum but pt was seen and examined on 03/29/24
General: Appears Chronically Ill (with contractures )
HEENT: Normocephalic and Atraumatic
Respiratory: Clear to Auscultation
Cardiac: Regular Rhythm and S1/S2
GI: Soft, Nontender and Nondistended
Genito-urinary: Galvin
Musculoskeletal: No Clubbing, No Cyanosis, No Edema and Other (right hemiparesis, non-ambulator)
Skin: Warm
Psych: Calm
Original Note:
Today's Communication/Plan
-
see note
symptomatic management
Assessment / Plan
Assessment / Plan
#Persistent convulsive seizures
-seizure precaution
-continue home medication
-Keppra continued iv
-cont other antiepileptic medication if patient can take p.o.
-IV Valium as needed for seizure-like activity
# Toxic metabolic encephalopathy likely secondary to postictal state versus medication versus seizure
-Patient on hospice as outpatient. May need to consider inpatient hospice. [place] [facility] on board.
#anemia of chronic disease
-hgb stable at 9.7
-no active bleeding
-ctm
#CKD stage 4
-ctm
# History of urinary retention
-Patient has chronic Galvin
Dysphagia
#Mild Protein Calorie Malnutrition
-Pur�ed diet with thick liquids
#Cerebral palsy with history of severe dysphagia history of severe aspiration pneumonitis multiple times
From a fpc
PT/OT rec SNF
#Anxiety/depression
Continue SSRI, Abilify
DVT prophylaxis�scd
DNR
d/w with hopsice team and RN. Awaiting hospice team recommendation further.
Anticipated Discharge: > 48 hours
Subjective/Interval History
-
Date of Service: March 29, 2024
Remains lethargic
hypothermic this morning
not opening eyes -opens eye to sternal rub
Objective Data
-
Vital Signs:
Vital Signs
Temp Pulse Resp BP Pulse Ox
96.3 F L 59 14 125/69 100
03/29/24 09:01 03/29/24 09:01 03/29/24 09:01 03/29/24 09:01 03/29/24 11:14
I&O
03/28/24 03/29/24 03/30/24
06:59 06:59 06:59
Output Total 675 / 675
Balance -675 / -675
Data Reviewed
-
Total Time Spent with Patient (in minutes): 55
--- NOTE | 2024-03-29 11:47 | HOSPNOTE ---
Patient will remain inpatient hospice, the chart was changed to read inpatient hospice and admissions notified. FAITH updated and BRANDY Shane updated and in agreement. Patient will be seen daily by hospice nurse.
--- NOTE | 2024-03-29 11:54 | W.PN.UPDATE ---
Update Note
Progress Note Update
d/w with hospice team-Plan for GIP. POA agreed. Transition to GIP. Valium prn. morphine prn.
orders placed.
--- NOTE | 2024-03-29 12:43 | CM ---
Reviewed the chart notes. Patient admitted under [facility]. Patient resides in a long-term where he is wheelchair bound. Patient was able to feed self. CM continues to be available to patient/family.
Plan: [facility]ospice.
[2024-03-29] MEDS: MORPHINE SULFATE 1 MG IV (16:22)
[2024-03-29] MEDS: HALDOL 1 MG IV (16:27)
[2024-03-29 19:23] VITALS: BP 117/66
[2024-03-30] MEDS: KEPPRA 1000 MG IV (02:26)
[2024-03-30 08:03] VITALS: BP 118/69
[2024-03-30] MEDS: MORPHINE SULFATE 1 MG IV (09:43)
--- NOTE | 2024-03-30 11:29 | W.PN.HOSP.TC ---
Today's Communication/Plan
-
Continue with hospice measures
Assessment / Plan
Assessment / Plan
#Persistent convulsive seizures
# Toxic metabolic encephalopathy likely secondary to postictal state versus medication versus seizure
#anemia of chronic disease
#CKD stage 4
# History of urinary retention s/p Patient has chronic Galvin
#Dysphagia
#Mild Protein Calorie Malnutrition
#Cerebral palsy with history of severe dysphagia history of severe aspiration pneumonitis multiple times
#Anxiety/depression
Plan
-seizure precaution
-Keppra continued iv e p.o.
-IV Valium as needed for seizure-like activity
-d/w with hospice team and pt appropriate for GIP. Transition made
-cont with morphine, Valium as needed.
DVT prophylaxis�none as comfort.
DNR
Anticipated Discharge: > 48 hours
Subjective/Interval History
-
Date of Service: March 30, 2024
intermittent opens eyes
otherwise resting comfortably
Objective Data
-
Vital Signs:
Vital Signs
Temp Pulse Resp BP Pulse Ox
96.9 F L 68 17 118/69 100
03/30/24 08:03 03/30/24 08:03 03/30/24 08:03 03/30/24 08:03 03/30/24 08:03
I&O
03/29/24 03/30/24 03/31/24
06:59 06:59 06:59
Intake Total 260 / 260
Output Total 675 / 675 700 / 700
Balance -675 / -675 -440 / -440
Physical Exam
-
General: Appears Chronically Ill (with contractures )
HEENT: Normocephalic and Atraumatic
Respiratory: Clear to Auscultation
Cardiac: Regular Rhythm and S1/S2
GI: Soft, Nontender and Nondistended
Genito-urinary: Galvin
Musculoskeletal: No Clubbing, No Cyanosis, No Edema and Other (right hemiparesis, non-ambulator)
Skin: Warm
Psych: Calm
--- NOTE | 2024-03-30 12:02 | CM ---
Reviewed the chart notes. Patient remains under [facility]. Patient was able to feed self. CM continues to be available to patient/family.
Plan: [facility].
--- NOTE | 2024-03-30 12:08 | HOSPNOTE ---
Patient is awake and asking to eat. He is appropriately answering questions with one to two word answers. He is able to make his needs known. Hospice will continue to assess daily and plan to discharge if he stabilizes.
[2024-03-30] MEDS: LAMICTAL 300 MG PO ×2 (14:25→20:51)
[2024-03-30] MEDS: TRANXENE 3.75 MG PO ×2 (14:27→20:52)
[2024-03-30] MEDS: TEGRETOL 300 MG PO ×2 (15:04→21:32)
[2024-03-30 19:45] VITALS: BP 126/60
[2024-03-30] MEDS: KEPPRA 1000 MG PO (20:52)
--- NOTE | 2024-03-30 22:39 | HOSPNOTE ---
Updated Hospice note. Patient will begin PO medications for seizure management to prepare patient for discharge to a SNF. Spoke with Svitlana his POA. She is in agreement with plan.
[2024-03-31 07:55] VITALS: BP 102/61
--- NOTE | 2024-03-31 09:35 | CM ---
Reviewed the chart notes and received TT form director of sales marketing Hannah that the POA would like a referral sent to [facility]. Referral sent via [facility]. CM continues to be available to patient/family and is monitoring medical plan for needs at discharge.
Plan: Discharge plans will depend on the patient's progress. Currently [facility] Hospice.
[2024-03-31] MEDS: TEGRETOL 300 MG PO ×3 (09:36→22:34)
[2024-03-31] MEDS: KEPPRA 1000 MG PO ×2 (09:36→22:35)
[2024-03-31] MEDS: LAMICTAL 300 MG PO ×2 (09:37→22:35)
[2024-03-31] MEDS: TRANXENE 3.75 MG PO ×2 (09:38→22:36)
--- NOTE | 2024-03-31 10:31 | HOSPNOTE ---
This visit was completed by Yahaira Lennon RN and Service Dog Judith. Patient assessed laying in the bed, calm and cooperative, denies pain, dyspnea, anxiety, or other uncomfortable symptoms. Lungs clear to auscultation, heart rate and rhythm is
regular, positive bowel sounds. Patient states he would like some juice, and nods when asked if he has an appetite. Fed patient his breakfast and assisted with gown change. Patient consumed 100% of breakfast. One episode of coughing when drinking
his coffee. This SN left patient sitting up in the bed to guard against aspiration. Facility RN came in at this time and administered patient's scheduled medications. Discharge planning continues, hospice is working with hospital CM and hospice COMPUTER AIDED DESIGN OPERATOR
[facility] Phone call made to patient's POA for updates. VM left, awaiting callback.
--- NOTE | 2024-03-31 10:36 | HOSPNOTE ---
CM and ORDNANCE TRUCK INSTALLATION MECHANIC are working together to see if patient will be accepted to [facility]. CORTNEYJosh Shane is requesting [facility] and does not want patient to go to [facility] or [facility]. More information to follow. Until this is arranged, hospice will continue
to see him daily
--- NOTE | 2024-03-31 12:47 | W.PN.HOSP.TC ---
Today's Communication/Plan
-
continue with hospice measures
Plan to DC to SNF once facility found
Assessment / Plan
Assessment / Plan
#Persistent convulsive seizures
# Toxic metabolic encephalopathy likely secondary to postictal state versus medication versus seizure
#anemia of chronic disease
#CKD stage 4
# History of urinary retention s/p Patient has chronic Galvin
#Dysphagia
#Mild Protein Calorie Malnutrition
#Cerebral palsy with history of severe dysphagia history of severe aspiration pneumonitis multiple times
#Anxiety/depression
Plan
-seizure precaution
-Continue with home antiepileptic medication. All antiepileptic switched to p.o. Patient tolerating p.o. intake and p.o. medication.
-IV Valium as needed for seizure-like activity
-d/w with hospice team and pt appropriate for GIP. Transition made
-cont with morphine, Valium as needed.
DVT prophylaxis�none as comfort.
DNR
Dispo plan will be transition patient to SNF for hospice.
Anticipated Discharge: > 48 hours
Subjective/Interval History
-
Date of Service: March 31, 2024
awake
tolerating po
taking meds
no seizures noted so far
Objective Data
-
Vital Signs:
Vital Signs
Temp Pulse Resp BP Pulse Ox
97.7 F 61 17 102/61 93
03/31/24 07:55 03/31/24 07:55 03/31/24 07:55 03/31/24 07:55 03/31/24 07:55
I&O
03/30/24 03/31/24 04/01/24
06:59 06:59 06:59
Intake Total 260 / 260 1120 / 1120
Output Total 700 / 700 700 / 700
Balance -440 / -440 420 / 420
Physical Exam
-
General: Appears Chronically Ill (with contractures )
HEENT: Normocephalic and Atraumatic
Respiratory: Clear to Auscultation
Cardiac: Regular Rhythm and S1/S2
GI: Soft, Nontender and Nondistended
Genito-urinary: Galvin
Musculoskeletal: No Clubbing, No Cyanosis, No Edema and Other (right hemiparesis, non-ambulator)
Skin: Warm
Neuro: Awake
Psych: Calm and Confused
[2024-03-31] MEDS: HALDOL 1 MG IV (19:36)
[2024-03-31 19:45] VITALS: BP 119/62
[2024-04-01 07:50] VITALS: BP 121/72
[2024-04-01] MEDS: KEPPRA 1000 MG PO (09:56)
[2024-04-01] MEDS: TEGRETOL 300 MG PO (09:56)
[2024-04-01] MEDS: LAMICTAL 300 MG PO ×2 (09:57→19:27)
[2024-04-01] MEDS: TRANXENE 3.75 MG PO ×2 (09:57→19:28)
[2024-04-01] MEDS: VALIUM INJECTION 2 MG IV ×3 (10:59→19:59)
--- NOTE | 2024-04-01 11:14 | W.PN.HOSP.TC ---
Today's Communication/Plan
-
GIP
AEDs
cont w/hospice measures
Assessment / Plan
Assessment / Plan
#Persistent convulsive seizures
# Toxic metabolic encephalopathy likely secondary to postictal state versus medication versus seizure
#anemia of chronic disease
#CKD stage 4
# History of urinary retention s/p Patient has chronic Galvin
#Dysphagia
#Mild Protein Calorie Malnutrition
#Cerebral palsy with history of severe dysphagia history of severe aspiration pneumonitis multiple times
#Anxiety/depression
Plan
-seizure precaution
-Continue with home antiepileptic medication. All antiepileptic switched to p.o. Patient tolerating p.o. intake and p.o. medication at times.
-IV Valium as needed for seizure-like activity
-haldol prn for agitation
-cont with morphine, Valium as needed. can consider versed if needed.
DVT prophylaxis�none as comfort.
DNR
Dispo plan will be transition patient to SNF for hospice later if remains stable otherwise continue with GIP measures.
Anticipated Discharge: > 48 hours
Subjective/Interval History
-
Date of Service: April 01, 2024
agitated requiring restraints
having intermittent seizures
Objective Data
-
Vital Signs:
Vital Signs
Temp Pulse Resp BP Pulse Ox
97.6 F 100 16 121/72 97
04/01/24 07:50 04/01/24 07:50 04/01/24 07:50 04/01/24 07:50 04/01/24 07:50
I&O
03/31/24 04/01/24 04/02/24
06:59 06:59 06:59
Intake Total 1120 / 1120 360 / 360
Output Total 700 / 700 300 / 300
Balance 420 / 420 60 / 60
Physical Exam
-
General: Appears Chronically Ill (with contractures )
HEENT: Normocephalic and Atraumatic
Respiratory: Clear to Auscultation
Cardiac: S1/S2
GI: Soft, Nontender and Nondistended
Genito-urinary: Galvin
Musculoskeletal: No Clubbing, No Cyanosis, No Edema and Other (right hemiparesis, non-ambulator)
Skin: Warm
Neuro: Awake
Psych: Confused and Other (in restraints)
--- NOTE | 2024-04-01 11:55 | HOSPNOTE ---
Vitals BP 121/72, temp 98.5, apical 88 resp 10 and pulse ox 97%. Patient assessed with guardian Svitlana present who reported when she entered Josh's room this am, he was uncontrollably moving all extremities and then became non responsive even to
sternal rub. Valium IV given at 10:59 am. Patient breathing regularly, non labored. Continues to be non responsive but Svitlana reports he is more comfortable. Mild FLACC score. This SN met with Svitlana and Alina to discuss hospice POC. All questions
answered and emotional support provided. Patient requires GIP status due to persistent seizure activity requiring IV Valium today. Discharge planning in progress.
[2024-04-01] MEDS: TEGRETOL PO ×2 (18:07→21:22)
--- NOTE | 2024-04-01 18:23 | PTCARENOTE ---
pt had seizure episodes when family member at bedside, IV Valium administered per PRN order, MD Dr Grider made aware. Restraints removed.
[2024-04-01] MEDS: KEPPRA 1000 MG IV (19:27)
[2024-04-01] MEDS: TYLENOL/FEVERALL 650 MG RECTAL (19:27)
[2024-04-01 19:36] VITALS: BP 122/69
[2024-04-01] MEDS: FLUSH (NSS) 2 FLUSH IV (20:00)
[2024-04-02 07:50] VITALS: BP 109/79
[2024-04-02] MEDS: KEPPRA 1000 MG IV ×2 (08:05→21:10)
[2024-04-02] MEDS: LAMICTAL PO ×2 (08:15→21:10)
[2024-04-02] MEDS: TRANXENE PO ×2 (08:16→21:10)
[2024-04-02] MEDS: TEGRETOL PO ×3 (08:16→21:23)
--- NOTE | 2024-04-02 08:45 | HOSPNOTE ---
Patient had two episodes of seizures yesterday requiring IV Valium, also remains on IV Keppra q 12 scheduled. At this time is GIP appropriate level of care due to seizure activity that required intravenous intervention. Fever of 101.6 yesterday
Vital signs this am 98.6 HR 76 RR 16 BP 109/79. Informal conference with Radha HERRING. Phone call to guardian Svitlana with update on status and seizure activity.
--- NOTE | 2024-04-02 12:29 | W.PN.HOSP.TC ---
Today's Communication/Plan
-
Continue with GIP measures
Assessment / Plan
Assessment / Plan
General: Appears Chronically Ill (with contractures ), seizure precautions pads noted
HEENT: Normocephalic and Atraumatic
Respiratory: Clear to Auscultation anterior
Cardiac: S1/S2
GI: Soft, Nondistended
Genito-urinary: Galvin
Musculoskeletal: No Clubbing, No Cyanosis, No Edema and Other (right hemiparesis, non-ambulator)
Skin: Warm
Neuro: Awakens intermittently
Psych: Confused
#Persistent convulsive seizures
# Toxic metabolic encephalopathy likely secondary to postictal state versus medication versus seizure
#anemia of chronic disease
#CKD stage 4
# History of urinary retention s/p Patient has chronic Galvin
#Dysphagia
#Mild Protein Calorie Malnutrition
#Cerebral palsy with history of severe dysphagia history of severe aspiration pneumonitis multiple times
#Anxiety/depression
Plan
-seizure precaution
-IV Keppra as unable to take p.o. meds at home. Episodes of seizure yesterday.
-IV Valium as needed for seizure-like activity
-haldol prn for agitation
-cont with morphine, Valium as needed. can consider versed if needed.
DVT prophylaxis�none as comfort.
DNR
Dispo plan will be transition patient to SNF for hospice later if remains stable otherwise continue with GIP measures.
Anticipated Discharge: > 48 hours
Subjective/Interval History
-
Date of Service: April 02, 2024
episodes of seizures yesterday
more lethargic this am
Objective Data
-
Vital Signs:
Vital Signs
Temp Pulse Resp BP Pulse Ox
98.6 F 75 16 109/79 97
04/02/24 07:50 04/02/24 07:50 04/02/24 07:50 04/02/24 07:50 04/02/24 07:50
I&O
04/01/24 04/02/24 04/03/24
06:59 06:59 06:59
Intake Total 360 / 360
Output Total 300 / 300 500 / 500
Balance 60 / 60 -500 / -500
--- NOTE | 2024-04-02 13:53 | CHAP ---
Visited Josh at 9:40am, after speaking with trucksmith Letha. Josh was sleeping comfortably, non-responsive. Prayers offered at bedside.
[2024-04-02 23:45] VITALS: BP 130/79
[2024-04-03] MEDS: KEPPRA 1000 MG IV ×2 (08:36→21:10)
[2024-04-03] MEDS: LAMICTAL 300 MG PO (08:58)
[2024-04-03] MEDS: TRANXENE 3.75 MG PO (08:58)
[2024-04-03] MEDS: TEGRETOL 300 MG PO (08:58)
[2024-04-03 09:55] VITALS: BP 110/78
--- NOTE | 2024-04-03 10:20 | W.PN.HOSP.TC ---
Today's Communication/Plan
-
Await [facility] re-eval
CM
cont with GIP
Consider transfer to SNF for GIP
Assessment / Plan
Assessment / Plan
General: Appears Chronically Ill (with contractures ), seizure precautions pads noted
HEENT: Normocephalic and Atraumatic
Respiratory: Clear to Auscultation anterior
Cardiac: S1/S2
GI: Soft, Nondistended
Genito-urinary: Galvin
Musculoskeletal: No Clubbing, No Cyanosis, No Edema and Other (right hemiparesis, non-ambulator)
Skin: Warm
Neuro: Awakens intermittently
Psych: Confused
#Persistent convulsive seizures
# Toxic metabolic encephalopathy likely secondary to postictal state versus medication versus seizure
#anemia of chronic disease
#CKD stage 4
# History of urinary retention s/p Patient has chronic Galvin
#Dysphagia
#Mild Protein Calorie Malnutrition
#Cerebral palsy with history of severe dysphagia history of severe aspiration pneumonitis multiple times
#Anxiety/depression
Plan
-seizure precaution
-IV Keppra as unable to take p.o. meds at times. Episodes of seizure intermittently which is expected.
-IV Valium as needed for seizure-like activity
-haldol prn for agitation
-cont with morphine, Valium as needed. can consider versed if needed.
DVT prophylaxis�none as comfort.
DNR
Dispo plan will be transition patient to SNF for hospice later if remains stable otherwise continue with GIP measures.
Anticipated Discharge: > 48 hours
Subjective/Interval History
-
Date of Service: April 03, 2024
awake this am
took meds
Objective Data
-
Vital Signs:
Vital Signs
Temp Pulse Resp BP Pulse Ox
98.2 F 77 16 130/79 94
04/02/24 23:45 04/02/24 23:45 04/02/24 23:45 04/02/24 23:45 04/02/24 23:45
I&O
04/02/24 04/03/24 04/04/24
06:59 06:59 06:59
Output Total 500 / 500 850 / 850
Balance -500 / -500 -850 / -850
[2024-04-03] MEDS: VALIUM INJECTION 2 MG IV (10:56)
[2024-04-03] MEDS: MORPHINE SULFATE 1 MG IV ×2 (10:57→12:58)
--- NOTE | 2024-04-03 13:02 | HOSPNOTE ---
Spoke with attending who will place on order for Valium to be given 2x a day to help with seizures. Patient contiues to be inpatient hospice and will be seen daily. We are trying to seek placement. Attending and floor RN and CM updated.
--- NOTE | 2024-04-03 14:17 | CM ---
Reviewed the chart notes. [facility] unable to accept patient due to bed availability. [facility]el[facility] Cammelita responded in [facility] willing to accept. CM continues to be available to patient/family and is monitoring medical plan for needs at discharge.
Plan: Discharge to SNF on hospice once bed secured. No precert required
[2024-04-03] MEDS: TEGRETOL PO ×3 (17:36→21:19)
[2024-04-03] MEDS: TRANXENE PO ×2 (21:11→21:19)
[2024-04-03] MEDS: LAMICTAL PO ×2 (21:11→21:19)
[2024-04-03] MEDS: DIAZEPAM PO (21:19)
[2024-04-03 23:32] VITALS: BP 121/78
[2024-04-04] MEDS: KEPPRA 1000 MG IV ×2 (07:39→20:29)
[2024-04-04 07:50] VITALS: BP 119/85
[2024-04-04] MEDS: DIAZEPAM 5 MG PO (07:50)
[2024-04-04] MEDS: TEGRETOL PO ×3 (07:57→21:32)
[2024-04-04] MEDS: TRANXENE PO ×2 (07:57→21:27)
[2024-04-04] MEDS: LAMICTAL PO ×2 (07:57→21:27)
--- NOTE | 2024-04-04 09:00 | PTCARENOTE ---
Patient drowsy, occasionally restless in bed asking for water; patient provided nectar thick water by this RN with spoon, patient with no swallowing reflex, does not swallow water despite prompting by this RN. Mouth care provided, patient orally
suctioned. Patient unable to take AM PO medications d/t aspiration risk, MD aware. Scheduled IV keppra administered - see MAY. Patient provided bed bath by this RN and tech, foams placed on sacrum, spine, B/L hips, heels. Static overlay placed on
bed, seizure pads in place. Patient denies any pain at this time.
[2024-04-04] MEDS: VALIUM INJECTION 2 MG IV (10:48)
[2024-04-04] MEDS: ROBINUL 0.2 MG IV (10:48)
--- NOTE | 2024-04-04 11:24 | W.PN.HOSP.TC ---
Today's Communication/Plan
-
GIP
AEDs
Hospice team recs
Assessment / Plan
Assessment / Plan
General: Appears Chronically Ill (with contractures ), seizure precautions pads noted
HEENT: Normocephalic and Atraumatic
Respiratory: Clear to Auscultation anterior
Cardiac: S1/S2
GI: Soft, Nondistended
Genito-urinary: Galvin
Musculoskeletal: No Clubbing, No Cyanosis, No Edema and Other (right hemiparesis, non-ambulator)
Skin: Warm
Neuro: Awakens intermittently
Psych: Confused
#Persistent convulsive seizures
# Toxic metabolic encephalopathy likely secondary to postictal state versus medication versus seizure
#anemia of chronic disease
#CKD stage 4
# History of urinary retention s/p Patient has chronic Galvin
#Dysphagia
#Mild Protein Calorie Malnutrition
#Cerebral palsy with history of severe dysphagia history of severe aspiration pneumonitis multiple times
#Anxiety/depression
Plan
-seizure precaution
-IV Keppra as unable to take p.o. meds at times. Episodes of seizure intermittently which is expected.
-IV Valium as needed for seizure-like activity. Add standing valium
-haldol prn for agitation
-cont with morphine, Valium as needed. can consider versed if needed.
DVT prophylaxis�none as comfort.
DNR
Dispo plan will be transition patient to SNF for hospice. CM aware. hospice following.
Anticipated Discharge: > 48 hours
Subjective/Interval History
-
Date of Service: April 04, 2024
awake but confused
per RN not able to shallow
watching tv
wants water
Objective Data
-
Vital Signs:
Vital Signs
Temp Pulse Resp BP Pulse Ox
97.6 F 78 16 119/85 99
04/04/24 07:50 04/04/24 07:50 04/04/24 07:50 04/04/24 07:50 04/04/24 10:32
I&O
04/03/24 04/04/24 04/05/24
06:59 06:59 06:59
Intake Total 100 / 100
Output Total 850 / 850 625 / 625
Balance -850 / -850 -525 / -525
[2024-04-04] MEDS: MORPHINE SULFATE 1 MG IV (11:29)
--- NOTE | 2024-04-04 11:50 | CM ---
Reviewed the chart notes and spoke with toll line inspector Jojo. Per notes and Jojo, patient unable to take anything PO. CM continues to be available to patient/family.
Plan: Patient remains GIP hospice appropriate.
--- NOTE | 2024-04-04 12:06 | HOSPNOTE ---
Patient at this time is unable to take any PO liquids, meds he is unable to swallow. All medications will need to be IV. Referrals have been sent out to other SNF awaiting answers. Patient continues to be inpatient hospice for seizure management and
pain. Patient will be seen daily by hospice.
[2024-04-04 19:26] VITALS: BP 141/85
[2024-04-04] MEDS: DIAZEPAM PO (21:27)
--- NOTE | 2024-04-05 02:07 | DOWNTIME ---
There was a [employer]er Downtime on 04/05/2024 from 0100 to 04/05/2023 at 0205 . Downtime documentation of patient's care, including medication administrations, has been reconciled in the electronic record per guidelines. Refer to the
patient's paper chart under the miscellaneous tab to see printed paper medication records and downtime forms.
[2024-04-05] MEDS: KEPPRA 1000 MG IV (07:48)
[2024-04-05 07:54] VITALS: BP 125/77
[2024-04-05] MEDS: LAMICTAL 300 MG PO (08:02)
[2024-04-05] MEDS: TEGRETOL 300 MG PO ×2 (08:06→15:45)
[2024-04-05] MEDS: DIAZEPAM 5 MG PO (08:07)
[2024-04-05] MEDS: TRANXENE 3.75 MG PO (08:07)
--- NOTE | 2024-04-05 10:46 | PTCARENOTE ---
Pt able to take morning meds crushed in apple sauce. Pt very slow taking meds - clear cough after. Thorough oral care done after taking meds.
--- NOTE | 2024-04-05 12:28 | W.PN.HOSP.TC ---
Today's Communication/Plan
-
Case management to place the patient for hospice
Cannot go back to the retirement from what I was told.
Discussed with nursing at bedside
Assessment / Plan
Assessment / Plan
#Persistent convulsive seizures
#Toxic metabolic encephalopathy likely secondary to postictal state versus medication versus seizure
#Anemia of chronic disease
#CKD stage 4
#History of urinary retention s/p Patient has chronic Galvin
#Dysphagia
#Mild Protein Calorie Malnutrition
#Cerebral palsy with history of severe dysphagia history of severe aspiration pneumonitis multiple times
#Anxiety/depression
Plan
-seizure precaution
-Patient was able to take medicines p.o. today per discussion with nursing at bedside therefore switched Keppra to liquid form-p.o.
-IV Valium as needed for seizure-like activity. Continue standing valium
-Haldol as needed for agitation
-cont with morphine, Valium as needed. can consider versed if needed.
DVT prophylaxis�none as comfort.
DNR
Anticipated Discharge: Within 24 hours
Subjective/Interval History
-
Date of Service: April 05, 2024
Objective Data
-
Vital Signs:
Vital Signs
Temp Pulse Resp BP Pulse Ox
97.5 F 76 16 125/77 95
04/05/24 07:54 04/05/24 07:54 04/05/24 07:54 04/05/24 07:54 04/05/24 11:25
I&O
04/04/24 04/05/24 04/06/24
06:59 06:59 06:59
Intake Total 100 / 100
Output Total 625 / 625 445 / 445
Balance -525 / -525 -445 / -445
--- NOTE | 2024-04-05 14:02 | HOSPNOTE ---
Patient is resting comfortably no seizure activity noted. Patient is unable to swallow any po meds or take in any fluids. Patient continues to be given IV meds. We continue to seek placement. Patient will be seen daily by hospice. CM updated and
will continue to place referrals for facilties.
--- NOTE | 2024-04-05 14:14 | CM ---
Reviewed the chart notes. Updated referral sent to [facility]. Hospice SW [facility]. CM continues to be available to patient/family and is monitoring medical plan for needs at discharge.
Plan: Discharge to SNF if appropriate when bed found and Level II completed by [facility].
[2024-04-05] MEDS: LAMICTAL PO (20:52)
[2024-04-05] MEDS: DIAZEPAM PO (20:52)
[2024-04-05] MEDS: TRANXENE PO (20:53)
[2024-04-05 21:07] VITALS: BP 124/76
[2024-04-05] MEDS: TEGRETOL PO (21:25)
[2024-04-06 07:59] VITALS: BP 145/86
[2024-04-06] MEDS: DIAZEPAM PO ×2 (09:25→09:50)
[2024-04-06] MEDS: TRANXENE PO ×3 (09:25→21:15)
[2024-04-06] MEDS: TEGRETOL PO ×4 (09:25→21:15)
[2024-04-06] MEDS: LAMICTAL PO ×3 (09:25→21:15)
[2024-04-06] MEDS: VALIUM INJECTION 2 MG IV (09:40)
[2024-04-06] MEDS: TRANXENE 3.75 MG PO (11:38)
[2024-04-06] MEDS: DIAZEPAM 5 MG PO ×2 (11:39→20:58)
[2024-04-06] MEDS: TEGRETOL 300 MG PO (11:39)
[2024-04-06] MEDS: LAMICTAL 300 MG PO (11:42)
[2024-04-06] MEDS: KEPPRA 1000 MG IV ×2 (12:59→20:58)
--- NOTE | 2024-04-06 13:27 | HOSPNOTE ---
We are seeking placement. We have calls into the [facility] and their senior administrator support helping to seek placement. CM has sent multiple referrals but patient has been denied. Patient will be seen daily by hospice nurse and spoke with RN who
stated patient was unable to swallow pills crushed in applesauce this am. Patient has IV valium scheduled which was given. Please continue to monitor seizure activity and non verbal pain scale, patient will be seen daily by hospice nurse.
--- NOTE | 2024-04-06 13:48 | W.PN.HOSP.TC ---
Today's Communication/Plan
-
Waiting for placement
Assessment / Plan
Assessment / Plan
Patient was awake and alert
When asked if he was hungry said yes and wanted cereal.
Patient has difficulty swallowing
#Persistent convulsive seizures
#Toxic metabolic encephalopathy likely secondary to postictal state versus medication versus seizure
#Anemia of chronic disease
#CKD stage 4
#History of urinary retention s/p Patient has chronic Galvin
#Dysphagia
#Mild Protein Calorie Malnutrition
#Cerebral palsy with history of severe dysphagia history of severe aspiration pneumonitis multiple times
#Anxiety/depression
Plan
-seizure precaution
-Keppra IV for now
-IV Valium as needed for seizure-like activity. Continue standing valium
-Haldol as needed for agitation
-cont with morphine, Valium as needed. can consider versed if needed.
DVT prophylaxis�none as comfort.
DNR
Discussed with hospice nurse
Discussed with case management
Discussed with nursing at bedside
Anticipated Discharge: 24 - 48 hours
Subjective/Interval History
-
Date of Service: April 06, 2024
Objective Data
-
Vital Signs:
Vital Signs
Temp Pulse Resp BP Pulse Ox
97.4 F 77 9 145/86 100
04/06/24 07:59 04/06/24 07:59 04/06/24 07:59 04/06/24 07:59 04/06/24 11:02
I&O
04/05/24 04/06/24 04/07/24
06:59 06:59 06:59
Intake Total 0 / 0
Output Total 445 / 445 250 / 250
Balance -445 / -445 -250 / -250
[2024-04-06 20:24] VITALS: BP 123/66
--- NOTE | 2024-04-07 07:07 | W.PN.HOSP.TC ---
Today's Communication/Plan
-
cont comfort measures
placement as per hospice case mgmt
Assessment / Plan
Assessment / Plan
Limited Physical Exam Comfort measures
General: no acute distress appears comfortable
Pulm: non-labored respiration
Neuro: Awake but essentially nonverbal
64M Cerebral Palsy sz CKD Anxiety/Depression Intellectual Disability here on Hospice GIP
#Persistent convulsive seizures
#Toxic metabolic encephalopathy likely secondary to postictal state versus medication versus seizure
#Anemia of chronic disease
#CKD stage 4
#History of urinary retention s/p Patient has chronic Galvin
#Dysphagia
#Mild Protein Calorie Malnutrition
#Cerebral palsy with history of severe dysphagia history of severe aspiration pneumonitis multiple times
#Anxiety/depression
Plan
-patient unable to tolerate oral intake including medications as this time
-seizure precaution
-Keppra IV
-IV Valium as needed for seizure-like activity. Continue standing Valium also converted to IV
-Haldol as needed for agitation
-cont with morphine, Valium as needed. can consider versed if needed.
DVT prophylaxis�none as comfort.
DNR
Discussed with hospice nurse and patient's long-time friend BRANDY Shane (also RN)
I spent a total of 40 minutes with the patient or on the floor. More than 50% of this time involved counseling and coordination of care.
Anticipated Discharge: 24 - 48 hours
Subjective/Interval History
-
Date of Service: April 07, 2024
Awake but essentially nonverbal at time of evaluation. No acute distress.
Objective Data
-
Vital Signs:
Vital Signs
Temp Pulse Resp BP Pulse Ox
98.1 F 95 14 123/66 96
04/06/24 20:24 04/06/24 20:24 04/06/24 20:24 04/06/24 20:24 04/07/24 01:16
I&O
04/06/24 04/07/24 04/08/24
06:59 06:59 06:59
Intake Total 0 / 0 165 / 165
Output Total 250 / 250 270 / 270
Balance -250 / -250 -105 / -105
[2024-04-07 07:50] VITALS: BP 125/82
[2024-04-07] MEDS: KEPPRA 1000 MG IV ×2 (09:31→20:53)
[2024-04-07] MEDS: LAMICTAL PO ×2 (09:31→10:24)
[2024-04-07] MEDS: DIAZEPAM PO ×2 (09:31→10:24)
[2024-04-07] MEDS: TEGRETOL PO ×2 (09:32→10:24)
[2024-04-07] MEDS: TRANXENE PO ×2 (09:32→10:24)
[2024-04-07] MEDS: MORPHINE SULFATE 1 MG IV (10:42)
--- NOTE | 2024-04-07 14:45 | HOSPNOTE ---
Patient is unable to take any PO meds or tolerate any diet or liguids. All medications were switched to IV to manage seizures and pain. The patient meets inpatient criteria for pain management and seizure management requiring IV medications. Patient
will be seen daily by hospice nurse. POA updated with information. Floor RN updated.
--- NOTE | 2024-04-07 15:06 | CM ---
Reviewed the chart notes.
Plan: GIP Hospice.
--- NOTE | 2024-04-07 18:01 | PTCARENOTE ---
Patient unable to take any PO meds today, drowsy, lethargic, nonverbal. Patient maintained on q2 turns, bed bath provided this AM, PRN morphine administered for nonverbal pain during hygiene. Foams on bony prominences maintained, mouth care
provided. Patient on static overlay. This RN communicated with nutrition consultant Jojo, all meds to be made IV per MD.
[2024-04-07 20:02] VITALS: BP 122/88
[2024-04-07] MEDS: VALIUM INJECTION 5 MG IV (20:53)
[2024-04-07] MEDS: FLUSH (NSS) 2 FLUSH IV (20:55)
[2024-04-08 07:15] VITALS: BP 112/71
--- NOTE | 2024-04-08 07:19 | W.PN.HOSP.TC ---
Today's Communication/Plan
-
continue comfort measures
Assessment / Plan
Assessment / Plan
Limited Physical Exam Comfort measures
General: no acute distress appears comfortable
Pulm: non-labored respiration
Neuro: Nonverbal
64M Cerebral Palsy sz CKD Anxiety/Depression Intellectual Disability here on Hospice GIP
#Persistent convulsive seizures
#Toxic metabolic encephalopathy likely secondary to postictal state versus medication versus seizure
#Anemia of chronic disease
#CKD stage 4
#History of urinary retention s/p Patient has chronic Galvin
#Dysphagia
#Mild Protein Calorie Malnutrition
#Cerebral palsy with history of severe dysphagia history of severe aspiration pneumonitis multiple times
#Anxiety/depression
Plan
-patient unable to tolerate oral intake including medications as this time, NPO
-seizure precaution
-Keppra IV
-IV Valium as needed for seizure-like activity. Continue standing Valium also converted to IV
-Haldol as needed for agitation
-cont with morphine, Valium as needed. can consider versed if needed.
-suspect patient likely to pass in the coming week, if not sooner
DVT prophylaxis�none as comfort.
DNR
Discussed with patient's long-time friend CORTNEYJosh Svitlana (also RN)
I spent a total of 40 minutes with the patient or on the floor. More than 50% of this time involved counseling and coordination of care.
Anticipated Discharge: 24 - 48 hours
Subjective/Interval History
-
Date of Service: April 08, 2024
no acute distress. VSS but nonverbal npo unable to tolerate oral diet/meds.
Objective Data
-
Vital Signs:
Vital Signs
Temp Pulse Resp BP Pulse Ox
98.1 F 101 20 122/88 96
04/07/24 20:02 04/07/24 20:02 04/07/24 20:02 04/07/24 20:02 04/07/24 20:02
I&O
04/07/24 04/08/24 04/09/24
06:59 06:59 06:59
Intake Total 165 / 165
Output Total 270 / 270 250 / 250
Balance -105 / -105 -250 / -250
[2024-04-08] MEDS: VALIUM INJECTION 5 MG IV ×2 (08:07→19:36)
[2024-04-08] MEDS: KEPPRA 1000 MG IV ×2 (08:08→19:37)
[2024-04-08] MEDS: FLUSH (NSS) 2 FLUSH IV ×5 (08:10→20:49)
--- NOTE | 2024-04-08 09:53 | HOSPNOTE ---
Patient unable to swallow PO medications, all medications IV to manage seizure disorder. Patient GIP to manage seizures and pain. Patient sleeping during visit, FLACC-0. Hospice to visit daily.
[2024-04-08] MEDS: MORPHINE SULFATE 1 MG IV ×3 (13:30→20:47)
[2024-04-08 21:17] VITALS: BP 91/58
[2024-04-09] MEDS: FLUSH (NSS) 2 FLUSH IV ×3 (00:25→06:31)
[2024-04-09] MEDS: MORPHINE SULFATE 1 MG IV ×3 (00:25→06:29)
--- NOTE | 2024-04-09 07:33 | W.PN.DEATH ---
Pronouncement of
-
Called to see patient to pronounce.
No spontaneous heart tones or respirations noted.
Patient not responsive to verbal stimuli.
Patient is pronounced .
Time of : 07:00
Date of : 04/09/24
Cause of : severe dysphagia 2/2 end stage cerebral palsy
Family Notified: Yes (cousin Skylar notified over phone)
--- NOTE | 2024-04-09 07:49 | W.DCSUMMARY ---
Discharge Summary
Discharge Data
Date of Admission: 03/29/24
Date of Discharge: 04/09/24
-
Pending Results: No
Discharge Plan
-
Patient Disposition:
Date/Time
Date/Time: 04/09/24 07:00
Discharge Date and Time
Print Language: THAI
--- NOTE | 2024-04-09 10:51 | PTCARENOTE ---
Upon rounds this am with hotel night auditor RN pt found to have . Doctor made aware to call family and pronounce pt's . Awaited pt's family to call to see if anyone would be coming and no one called so I called and [facility]. No other family members are coming. Post mortum care performed and [facility]
== END 2024-04-09 10:53 | disposition expired | DRG 91 ==
LOC: 2 NORTH 08:01
PROVIDERS: Physician Assistant; ADMITTING PHYSICIAN Hospitalist; ATTENDING PHYSICIAN Internal Medicine; EMERGENCY PHYSICIAN Emergency Medicine
DX: G80.9 Cerebral palsy, unspecified (principal); G92.8 Other toxic encephalopathy; J69.0 Pneumonitis due to inhalation of food and vomit; N18.4 Chronic kidney disease, stage 4 (severe); E44.1 Mild protein-calorie malnutrition; I69.351 Hemiplegia and hemiparesis following cerebral infarction affecting right dominant side; Z51.5 Encounter for palliative care; Z66 Do not resuscitate; D63.1 Anemia in chronic kidney disease; F41.9 Anxiety disorder, unspecified; F32.A Depression, unspecified; I12.9 Hypertensive chronic kidney disease with stage 1 through stage 4 chronic kidney disease, or unspecified chronic kidney disease; Z87.01 Personal history of pneumonia (recurrent)
CPT/HCPCS: 80053; 85025; 87070; 87502; 87811; 93005; 96374; 99285